=== PATIENT | male | born 1945 | race African-American/Black ===

== ENCOUNTER 2017-08-22 23:13 | Inpatient (IN) | payer MEDICARE, MEDICAID ==
[2017-08-22] MEDS ORDERED: Insulin Regular 100 units/100 ml in NS IVPB SCH (23:45)
[2017-08-22] MEDS ORDERED: Labetalol HCl 100 MG/20 ML VIAL ONE (23:48)
[2017-08-23] MEDS ORDERED: hydrALAZINE 20 MG/ML VIAL ONE (01:43)
[2017-08-23] MEDS ORDERED: Ondansetron HCl/PF 4 MG/2 ML Vial IVP PRN ×2 (02:13→08:46)
[2017-08-23] MEDS ORDERED: Sodium Chloride 0.9% 1,000 ML IV SCH (02:13)
[2017-08-23] MEDS ORDERED: Ondansetron ODT 4 MG TAB SL PRN (02:13)
[2017-08-23] MEDS ORDERED: Dextrose 5% in Water 1,000 ML IV PRN ×2 (02:14→09:59)
[2017-08-23] MEDS ORDERED: D5 1/2 NS w/20 mEq KCL 1,000 ML IV PRN (02:14)
[2017-08-23] MEDS ORDERED: NS 0.9% w/ 20 MEQ KCL 1,000 ML/1,000 ML BAG IV PRN (02:14)
[2017-08-23] MEDS ORDERED: Sodium Chloride 0.9% 1,000 ML IV PRN ×4 (02:14)
[2017-08-23] MEDS ORDERED: Dextrose 5 %-0.45 % NaCl 1,000 ML IV PRN (02:14)
[2017-08-23] MEDS ORDERED: Dextrose 50% Abboject 50 ML SYRINGE SLOW IVP PRN ×2 (02:14→09:59)
[2017-08-23] MEDS ORDERED: CCU ELECTROLYTE REPLACEMENT PROTOCOL FS PRN (02:15)
[2017-08-23] MEDS ORDERED: Potassium Phosphate 12 MMOL in Sodium Chloride 0.9% 250 ML 250 ML IV PRN (02:15)
[2017-08-23] MEDS ORDERED: Magnesium Oxide 400 MG TAB PO PRN ×2 (02:15)
[2017-08-23] MEDS ORDERED: Potassium Chloride 20 MEQ TAB PO PRN (02:15)
[2017-08-23] MEDS ORDERED: Potassium Chloride 40 MEQ in Premix Bag 1 BAG IVPB PRN (02:15)
[2017-08-23] MEDS ORDERED: Potassium Chloride 40 MEQ in Sodium Chloride 0.9% 250 ML 250 ML IVPB PRN (02:15)
[2017-08-23] MEDS ORDERED: Magnesium 2 GM/NS 0.9% 100 ML 2 GM in Premix Bag 1 BAG IVPB PRN (02:15)
[2017-08-23] MEDS ORDERED: ADD ELECTROLYTE REPLACEMENT SET TO PROFILE FS SCH (02:15)
[2017-08-23] MEDS ORDERED: Potassium Phosphate 15 MMOL in Sodium Chloride 0.9% 250 ML 250 ML IV PRN (02:15)
[2017-08-23] MEDS ORDERED: Potassium Phosphate 9 MMOL in Sodium Chloride 0.9% 100 ML IVPB PRN (02:15)
[2017-08-23] MEDS: NS 0.9% w/ 20 MEQ KCL 1,000 ML/1,000 ML BAG IV PRN ×2 (03:10→05:14)
[2017-08-23] MEDS ORDERED: cloNIDine 0.1 MG TAB PO PRN (03:35)
[2017-08-23] MEDS ORDERED: Labetalol HCl 100 MG/20 ML VIAL SLOW IVP PRN (03:36)
[2017-08-23 04:36] LABS: #Eosinphils 0.4 thou/uL (0.0-0.7); #Lymphocytes 2.2 thou/uL (1.20-3.40); #Monocytes 0.5 thou/uL (0.11-0.59); #Neutrophils 5.9 thou/uL (1.40-6.50); %Basophils 0.5 % (0.0-1.0); %Eosinophils 4.3 % (0.0-10.0); %Lymphocytes 24.3 % (21.0-51.0); %Monocytes 5.3 % (0.0-10.0); %Neutrophils 65.6 % (42.0-75.0); Hemoglobin 9.2 g/dL (14.0-18.0); Mean Corpuscular HGB CONC 31.8 g/dL (32.0-36.0); Mean Corpuscular Hemoglobin 21.6 pg (27.0-31.0); Mean Corpuscular Volume 67.7 fl (80.0-94.0); Mean Platelet Volume 9.4 fL (7.4-10.4); Platelet Count 268 thou/uL (130-400); RBC Distribution Width 14.7 % (11.5-14.5); Red Blood Cell (RBC) Count 4.26 mill/uL (4.70-6.10)
[2017-08-23 04:42] LABS: Anion Gap 12 mmol/L (10-20); BUN (Urea Nitrogen) 41 mg/dL (8.4-25.7); Calc. Creatinine Clearance 0 mL/min (70-130); Calcium 8.4 mg/dL (7.8-10.44); Carbon Dioxide 23 mmol/L (23-31); Chloride 102 mmol/L (98-107); Estimated GFR-MDRD 17; Glucose 317 mg/dL (80-115); Potassium 3.5 mmol/L (3.5-5.1); Sodium 133 mmol/L (136-145)
[2017-08-23] MEDS ORDERED: Acetaminophen 325 MG TAB PO PRN (05:39)
[2017-08-23 06:09] VITALS: BMI 29.2
[2017-08-23 06:13] LABS: Hemoglobin A1c 12.3 % (4.0-6.0)
[2017-08-23] MEDS ORDERED: Epoetin (ESRD) 10,000 UNITS/ML VIAL SC SCH (08:45)
[2017-08-23] MEDS ORDERED: Milk Of Magnesia 30 ML UDCUP PO PRN (08:46)
[2017-08-23] MEDS ORDERED: Loperamide HCl 2 MG CAP PO PRN (08:46)
[2017-08-23] MEDS ORDERED: Temazepam 15 MG CAP PO PRN (08:46)
[2017-08-23] MEDS ORDERED: Mag-Al 1200 mg/1200 mg/30 ML UDCUP PO PRN (08:46)
[2017-08-23] MEDS ORDERED: Artificial Tears 18 DROP/0.9 ML EA EYE PRN (08:46)
[2017-08-23] MEDS ORDERED: Sodium Chloride 0.65% Nasal 44 ML BOT EA NARE PRN (08:46)
[2017-08-23] MEDS ORDERED: Eucerin (Mineral Oil/Petrolatum,White) 30 gm Jar TOP PRN (08:46)
[2017-08-23] MEDS ORDERED: Ondansetron ODT 4 MG TAB PO PRN (08:46)
[2017-08-23] MEDS ORDERED: hydrALAZINE 20 MG/ML VIAL SLOW IVP PRN (08:46)
[2017-08-23] MEDS ORDERED: Senokot 8.6 MG TAB PO PRN (08:46)
[2017-08-23] MEDS ORDERED: Chloraseptic Spray 180 ml Bottle PO PRN (08:46)
[2017-08-23] MEDS ORDERED: Diabetic Tussin 200 MG/10 ML UDCUP PO PRN (08:46)
[2017-08-23] MEDS ORDERED: Loratadine 10 MG TAB PO PRN (08:46)
[2017-08-23] MEDS ORDERED: Famotidine 40 MG/4 ML VIAL SLOW IVP SCH (09:00)
[2017-08-23] MEDS: hydrALAZINE 25 MG TAB PO SCH ×3 (09:45→20:14)
[2017-08-23] MEDS: NIFEdipine XL 30 MG TAB PO SCH (09:45)
[2017-08-23] MEDS: Metoprolol Tartrate 50 MG TAB PO SCH ×2 (09:46→20:13)
[2017-08-23] MEDS: Gabapentin 100 MG CAP PO SCH ×3 (09:46→20:14)
[2017-08-23] MEDS: Heparin 5,000 UNITS/ML VIAL SC SCH ×3 (09:46→20:15)
--- NOTE | 2017-08-23 09:51 | ULT ---
RENAL ULTRASOUND: HISTORY: Acute renal insufficiency. FINDINGS: Real-time images of the right and left kidneys were performed. The right kidney measures 12.5 and th e left kidney 11.5 cm in size. Bilateral renal cysts are identified. The largest cyst on the right side measures 3.4 cm. On the left side, a solitary 1.6 x 1.8 cm cyst is identified. Both kidneys ar e of increased echogenicity. Bladder region appears unremarkable. Bilateral ureteral jets are noted . IMPRESSION: 1. Bilateral renal cysts. 2. Increased echogenicity to both kidneys suggesting underlying medical renal parenchymal disease. No obstruction. POS: [facility]
[2017-08-23] MEDS ORDERED: Insulin Regular 300 UNITS/3 ML VIAL SC PRN ×2 (09:59)
[2017-08-23] MEDS ORDERED: Insulin NPH/Reg Insulin Hm 300 UNITS/3 ML VIAL SC SCH ×2 (10:00→17:00)
[2017-08-23 11:41] LABS: Bilirubin Negative (Negative); Blood, Urine Moderate (Negative); Clarity CLEAR (Clear); Glucose, Urine (Dipstick) 500 mg/dL (Negative); Leukocyte Negative (Negative); Nitrite Negative (Negative); Protein, Urine (Dipstick) 300 mg/dL (Neg-Trace); Specific Gravity, Urine 1.012 (1.002-1.036); Urobilinogen 0.2 mg/dL (0.2-1.0); pH, Urine 6.5 (5.0-9.0)
[2017-08-23 11:43] LABS: Bacteria/HPF None Seen HPF (None Seen); Hyaline Casts/LPF 0-3 HYALINE CAST LPF (0-3 Hyaline); Pathc Cast-AUWi Flag 0.14 (0-2.49); Squamous Epithelial None Seen HPF (0-3); WBC/HPF 0-3 HPF (0-3)
[2017-08-23] MEDS: HYDROcodone/Acetaminophen 5/325 mg Tablet PO PRN (11:48)
--- NOTE | 2017-08-23 12:06 | HP ---
PRIMARY CARE PHYSICIAN: In [place]. CHIEF COMPLAINT: Left hand discoordination. HISTORY OF PRESENT ILLNESS: This is a 72-year-old male with a known history of hypertension, diabetes, intermittent medication noncompliance who initially presented with a complaint of having trouble with left hand coordination. The patient also states that he came in because his blood sugars have been high for the last several days and his brought him initially to the ER at [facility] where he was subsequently transferred to our facility. In the [facility] emergency department, he is found to have hyperglycemia with glucose over 700 along with acute on chronic renal disease with a creatinine of 4.9. He was started on an insulin drip with IV fluids as well and at the time of my evaluation states that his left hand symptoms are significantly improved. Of note, the patient is a very tangential historian and often provides answers that do not directly address a question. REVIEW OF SYSTEMS: As per HPI. Constitutional: Patient denies any recent significant weight changes. Denies any fevers or chills. Denies any known recent illnesses. HEENT: Denies any new headaches, vision changes. He states his speech is grossly at his baseline. Denies any episodes of lightheadedness or dizziness. Cardiovascular: Denies any chest pain, chest pressure or palpitations. Respiratory: Endorses some dyspnea with exertion, but no shortness of breath at rest. No cough. No recent upper respiratory issues in the last 2-4 weeks. Denies any issues with congestion or allergies. Gastrointestinal: Denies any nausea, vomiting, abdominal pain, diarrhea or constipation. Reports a retained appetite. Does state that he has been drinking a lot more soda lately and he wonders if that is what is making him "feel bad." Genitourinary: Patient denies noticing any change in his urine color, quantity or odor, but he does notice that he has been urinating more frequently in the last week or so. Denies any increased thirst. Musculoskeletal: Denies any new myalgias or arthralgias, but there is a comment that he does not feel as "stable" as he usually is and also that he is not as strong as he usually feels that he is. Remainder the review of systems is otherwise, negative. PAST MEDICAL HISTORY: As per above. 1. Hypertension. 2. Insulin-dependent type 2 diabetes. 3. Chronic renal disease. PAST SURGICAL HISTORY: Status post back surgery for chronic lower back pain. No other prior surgeries. HOME MEDICATIONS: Awaiting to confirm a list from the patient's pharmacy as the patient does not recall any of his medications either name nor dose. He is able to recall that he does take some type of injectable insulin, but he knows no further details. FAMILY HISTORY: Patient denies any family history of cardiovascular disease; however, he does have some family members to have diabetes and hypertension. SOCIAL HISTIROY: The patient states that he has quit alcohol use. His last drink was 04/15/2017. The patient states that he quit smoking about 17 years ago and has a prior history of cocaine use, but none in the last 30 years. Patient indicates that his would be his medical decision maker if he is unable to make his own medical decision and he wishes to be FULL CODE at this point in time. 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 PHYSICAL EXAMINATION: GENERAL: The patient is awake, alert, appropriate, oriented x3, conversant, in no acute distress, sitting in the hospital bed. HEENT: Normocephalic, atraumatic. Moist mucous membranes. No posterior oropharyngeal erythema or exudate. Equal ocular motions are intact. CARDIOVASCULAR: Soft heart tones. S1, S2. Pulses 2+ bilateral upper extremities, no pitting pedal edema. RESPIRATORY: Reasonable air movement. No conversational dyspnea. No wheezes, rales or rhonchi. Clear to auscultation bilaterally. ABDOMEN: Positive bowel sounds, soft, nontender to palpation. MUSCULOSKELETAL: Able to move all 4 extremities and get up out of bed without difficulty or assistance. LABORATORY DATA AND IMAGING: WBC 9.0, hemoglobin 9.2, hematocrit 28.8, platelets 268. Sodium 133, potassium 3.5, chloride 102, bicarbonate 23, BUN 41 , creatinine 4.16, glucose 317, calcium 8.4, phosphorus 2.9. ASSESSMENT AND PLAN: A 72-year-old male who presents with an initial chief complaint of left upper extremity coordination issues. 1. Left upper extremity coordination issues, currently significantly improved, unclear actual etiology. Patient did have a brain CT scan completed in [place] demonstrates no acute intracranial finding. Continue to monitor neurologically. The patient states that he feels close to how he has been feeling in the last few weeks. 2. Hyperglycemia. Check his hemoglobin A1c. The patient does have significant hyperglycemia, unknown his actual home insulin dose. We will initiate an insulin drip for glucose control. The patient does not appear to be overtly acidotic at this point in time. We will continue to monitor. Patient has a pending beta hydroxybutyrate as well. Also, of note, the patient initially presented with glucose of 782 in [place], was started on the insulin drip in that emergency department continued in 2 hours with a significantly improved glucose values in the 300s. Transition to the patient's home regimen once that is determined. 3. Acute on chronic renal disease. The patient is presenting with a creatinine of 4.94 in [place] with hydration did slightly improve to 4.16. Last known creatinine range appears to be approximately from 3.3-3.8. Will obtain a renal ultrasound and Nephrology consultation. Continue with IV fluids. Suspect could have a component of prerenal cause of acute kidney injury. 4. Hypertension, currently appears to be stable. There was a concern of hypertensive urgency initially with a systolic blood pressure of 193 over diastolic of 83 in the emergency department, the patient is pending a review of his home medications with pharmacy. In the meantime, we will apply p.r.n. medications including p.r.n. hydralazine. Heart rate is low versus labetalol IV or clonidine p.o. and continue to closely monitor. 5. Diet: Diabetic. 6. Activity: As tolerated. 7. DVT prophylaxis with heparin secondary to renal dysfunction. Admit the patient to IMCU. Once his serum blood glucose is improved and his hypertensive emergency is resolved, then he may transfer to telemetry. [facility]
--- NOTE | 2017-08-23 12:28 | PDOC.PN ---
- Subjective Encounter Start Date: 08/23/17 Encounter Start Time: 08:40 -: old records requested/rev Patient seen and examined. No new complaints. No overnight events - Objective Resuscitation Status: Resuscitation Status FULL:Full Resuscitation MAR Reviewed: Yes Vital Signs & Weight: Vital Signs (12 hours) Temp Pulse Resp BP BP Pulse Ox 08/23/17 11:40 99.1 F 82 11 L 167/71 H 100 08/23/17 09:45 78 168/82 H 08/23/17 08:06 98.4 F 78 17 155/75 H 100 08/23/17 08:00 98.4 F 78 18 100 08/23/17 04:35 162/67 H 08/23/17 04:08 193/83 H 08/23/17 04:00 98.0 F 75 18 195/87 H 99 08/23/17 02:00 99 F 83 18 100 Weight Weight 198 lb 6 oz I&O: 08/22/17 08/23/17 08/24/17 06:59 06:59 06:59 Intake Total 1500 1710 Output Total 450 1925 Balance 1050 -215 Result Diagrams: 08/23/17 03:58 08/23/17 03:58 Additional Labs: Accuchecks 08/23/17 08/23/17 08/23/17 12:00 11:20 10:01 POC Glucose 294 H 285 H 208 H 08/23/17 08/23/17 08/23/17 08:57 08:28 07:11 POC Glucose 191 H 195 H 191 H 08/23/17 08/23/17 08/23/17 05:59 05:12 04:09 POC Glucose 253 H 242 H 295 H 08/23/17 08/23/17 08/23/17 03:03 01:49 00:51 POC Glucose 355 H 390 H 387 H Radiology Reviewed by me: Yes EKG Reviewed by me: Yes Phys Exam - Physical Examination Constitutional: NAD HEENT: PERRLA, moist MMs, sclera anicteric Neck: no JVD, supple Respiratory: no wheezing, no rales, no rhonchi Cardiovascular: RRR, no significant murmur, no rub Gastrointestinal: soft, non-tender, no distention, positive bowel sounds Musculoskeletal: pulses present, edema present Neurological: non-focal, normal sensation Psychiatric: normal affect, A&O x 3 Skin: no rash, normal turgor Dx/Plan (1) Hyperglycemia due to type 2 diabetes mellitus Code(s): E11.65 - TYPE 2 DIABETES MELLITUS WITH HYPERGLYCEMIA Status: Acute (2) Hypertensive urgency Code(s): I16.0 - HYPERTENSIVE URGENCY Status: Acute (3) Anxiety and depression Code(s): F41.9 - ANXIETY DISORDER, UNSPECIFIED; F32.9 - MAJOR DEPRESSIVE DISORDER, SINGLE EPISODE, UNSPECIFIED Status: Chronic (4) BPH (benign prostatic hyperplasia) Code(s): N40.0 - BENIGN PROSTATIC HYPERPLASIA WITHOUT LOWER URINRY TRACT SYMP Status: Chronic (5) Chronic kidney disease, stage 4 (severe) Code(s): N18.4 - CHRONIC KIDNEY DISEASE, STAGE 4 (SEVERE) Status: Chronic (6) DJD (degenerative joint disease) Code(s): M19.90 - UNSPECIFIED OSTEOARTHRITIS, UNSPECIFIED SITE Status: Chronic (7) Diabetes mellitus type 2, uncontrolled Code(s): E11.65 - TYPE 2 DIABETES MELLITUS WITH HYPERGLYCEMIA Status: Chronic (8) Diabetic nephropathy Status: Chronic (9) Diabetic neuropathy Code(s): E11.40 - TYPE 2 DIABETES MELLITUS WITH DIABETIC NEUROPATHY, UNSP Status: Chronic (10) GERD (gastroesophageal reflux disease) Code(s): K21.9 - GASTRO-ESOPHAGEAL REFLUX DISEASE WITHOUT ESOPHAGITIS Status: Chronic (11) Hypertension Code(s): I10 - ESSENTIAL (PRIMARY) HYPERTENSION Status: Chronic (12) Iron deficiency anemia Code(s): D50.9 - IRON DEFICIENCY ANEMIA, UNSPECIFIED Status: Chronic (13) Nephrotic range proteinuria Code(s): R80.9 - PROTEINURIA, UNSPECIFIED Status: Chronic - Plan cont current plan of care * start insulin 70/30, 15 unit sc bid * dc insulin drip * transfer to medical * start selected home medication * start PT * repeat labs tomorrow * start ferrous sulfate, procrit, * check phosphorus, PTH * medication reviewed as below * symptomatic treatment. Review of Systems - Review of Systems Eyes: negative: Pain, Vision Change, Conjunctivae Inflammation, Eyelid Inflammation, Redness, Other ENT: negative: Ear Pain, Ear Discharge, Nose Pain, Nose Discharge, Nose Congestion, Mouth Pain, Mouth Swelling, Throat Pain, Throat Swelling, Other Respiratory: negative: Cough, Dry, Shortness of Breath, Hemoptysis, SOB with Excertion, Pleuritic Pain, Sputum, Wheezing Cardiovascular: negative: chest pain, palpitations, orthopnea, paroxysmal nocturnal dyspnea, edema, light headedness, other Gastrointestinal: negative: Nausea, Vomiting, Abdominal Pain, Diarrhea, Constipation, Melena, Hematochezia, Other Genitourinary: negative: Dysuria, Frequency, Incontinence, Hematuria, Retention , Other Musculoskeletal: negative: Neck Pain, Shoulder Pain, Arm Pain, Back Pain, Hand Pain, Leg Pain, Foot Pain, Other Skin: negative: Rash, Lesions, Samm, Bruising, Other - Medications/Allergies Allergies/Adverse Reactions: Allergies Allergy/AdvReac Type Severity Reaction Status Date / Time No Known Allergies Allergy Verified 08/23/17 06:00 Medications: Current Medications Acetaminophen (Tylenol) 650 mg PO Q4H PRN PRN Reason: Headache/Fever or Pain Hydrocodone Bitart/Acetaminophen ([place] 5/325) 1 tab PO Q4H PRN PRN Reason: Moderate Pain (4-6) Last Admin: 08/23/17 11:48 Dose: 1 tab Hydrocodone Bitart/Acetaminophen ([place] 10/325) 1 tab PO Q4H PRN PRN Reason: Pain Al Hydroxide/Mg Hydroxide (Maalox) 15 ml PO Q4H PRN PRN Reason: Heartburn or Indigestion Artificial Tears (Tears Naturale) 0 drop EA EYE PRN PRN PRN Reason: Dry Eyes Clonidine (Catapres) 0.1 mg PO Q4H PRN PRN Reason: Hypertension Last Admin: 08/23/17 04:08 Dose: 0.1 mg Dextrose/Water (Dextrose 50%) 25 gm SLOW IVP PRN PRN PRN Reason: Hypoglycemia Fentanyl (Duragesic) 12 mcg TD Q3D [facility] Last Admin: 08/23/17 11:52 Dose: Not Given Ferrous Sulfate (Feosol) [facility] Gabapentin (Neurontin) 100 mg PO TID [facility] Last Admin: 08/23/17 09:46 Dose: 100 mg Glucagon (Glucagon) 1 mg IM PRN PRN PRN Reason: Hypoglycemia Guaifenesin (Robitussin Sf) 200 mg PO Q4H PRN PRN Reason: Cough Heparin Sodium (Porcine) (Heparin) 5,000 units SC TID [facility] Last Admin: 08/23/17 09:46 Dose: 5,000 units Hydralazine HCl (Apresoline) 25 mg PO TID [facility] Last Admin: 08/23/17 09:45 Dose: 25 mg Hydralazine HCl (Apresoline) 10 mg SLOW IVP Q4H PRN PRN Reason: Systolic BP > 180 Dextrose/Water (D5w) 1,000 mls @ 0 mls/hr IV .Q0M PRN; As Directed PRN Reason: Hypoglycemia Insulin Human Isoph/Insulin Regular (Humulin 70/30) 15 units SC BID-[facility] Insulin Human Regular (Humulin R) 0 units SC .MODERATE SLIDING SC PRN PRN Reason: Moderate Correctional Scale Insulin Human Regular (Humulin R) 0 units SC .BEDTIME SLIDING SC PRN PRN Reason: Bedtime Correctional Scale Labetalol HCl (Normodyne) 10 mg SLOW IVP Q4H PRN PRN Reason: SBP Greater Than 180 Loperamide HCl (Imodium) 2 mg PO PRN PRN PRN Reason: Diarrhea/Loose Stools Loratadine (Claritin) 10 mg PO DAILYPRN PRN PRN Reason: Sinus Symptoms Magnesium Hydroxide (Milk Of Magnesium) 30 ml PO DAILYPRN PRN PRN Reason: Constipation Metoprolol Tartrate (Lopressor) 50 mg PO BID [facility] Last Admin: 08/23/17 09:46 Dose: 50 mg Mineral Oil/White Petrolatum (Eucerin Cream) 0 gm TOP BIDPRN PRN PRN Reason: Dry Skin Nifedipine (Procardia Xl) 30 mg PO DAILY [facility] Last Admin: 08/23/17 09:45 Dose: 30 mg Ondansetron HCl (Zofran Odt) 4 mg PO Q6H PRN PRN Reason: Nausea/Vomiting Ondansetron HCl (Zofran) 4 mg IVP Q6H PRN PRN Reason: Nausea/Vomiting Pantoprazole Sodium (Protonix) 40 mg PO DAILY [facility] Last Admin: 08/23/17 09:44 Dose: 40 mg Phenol (Chloraseptic [place] 180 Ml Bot) 0 ml PO PRN PRN PRN Reason: Sore Throat Senna (Senokot) 2 tab PO HSPRN PRN PRN Reason: Constipation Sertraline HCl (Zoloft) 50 mg PO DAILY [facility] Last Admin: 08/23/17 09:44 Dose: 50 mg Sodium Chloride (Flush - Normal Saline) 10 ml IVF Q12HR [facility] Last Admin: 08/23/17 09:45 Dose: 10 ml Sodium Chloride ([place] Nasal [place] 0.65%) 0 ml EA NARE QIDPRN PRN PRN Reason: Nasal Congestion Temazepam (Restoril) 15 mg PO HSPRN PRN PRN Reason: Insomnia Tizanidine HCl (Zanaflex) 4 mg PO HS [facility]
[2017-08-23] MEDS: Ferrous Sulfate 325 MG TAB PO SCH (17:08)
[2017-08-23] MEDS ORDERED: Lisinopril 20 MG TAB PO SCH (18:45)
[2017-08-23] MEDS: HYDROcodone/Acetaminophen 10/325 mg Tablet PO PRN (20:19)
[2017-08-23] MEDS: tiZANidine HCl 4 MG TAB PO SCH (22:12)
--- NOTE | 2017-08-24 03:08 | CON ---
DATE OF CONSULTATION: 08/23/2017 CONSULTING PHYSICIAN: Rigo Nunez MD REQUESTING PHYSICIAN: Kerry Lewis MD REASON FOR CONSULTATION: Advanced chronic kidney disease. IMPRESSION: 1. Advanced chronic kidney disease, stage 4/5 in the context of problem #2. 2. Diabetic nephropathy with nephrotic range proteinuria. 3. Anemia, likely anemia of chronic kidney disease. 4. Diabetes mellitus, likely poorly controlled. PLAN: 1. Ultrasound vein mapping for placement of fistula for possible eventual need of dialysis in the ne ar future. 2. Renally dose all medications for low GFR. 3. Avoid potentially nephrotoxic agents. 4. We will initiate low dose angiotensin converting enzyme inhibition because of the degree of prote inuria in this patient, but will pay very close attention to the electrolytes, especially the potassi um. 5. Further management will be dependent on the clinical course, but there is no emergent indication at this point for renal replacement therapy (dialysis). HISTORY OF PRESENT ILLNESS: This is a 72-year-old gentleman with poorly controlled diabetes who pres ented here with complaint of arm discomfort. However, the patient was noted to be severely hyperglyc emic with blood sugar in the 200-300 range, necessitating initial admission of this patient on insuli n drip. Clinical evaluation did reveal evidence of advanced chronic kidney disease with creatinine a wagner 4 and ultrasound of the kidneys highly indicative of medical renal disease with bilateral echoge gillian kidneys. As a result of this, the decision is now being taken to involve renal in the management of this case. PAST MEDICAL HISTORY: Diabetes mellitus, poorly controlled; hypertension; chronic kidney disease, st age 6. MEDICATIONS: Medications have been reviewed and as documented on [facility]. FAMILY HISTORY: No family history of kidney disease. SOCIAL HISTORY: Remote tobacco use and substance abuse in the past with about 30 years ago. Otherwi se, unremarkable. REVIEW OF SYSTEMS: As documented in the body of the history. All the other systems were reviewed an d found not to be significantly related to the presenting illness. PHYSICAL EXAMINATION: GENERAL: The patient was found not to be in any obvious distress. VITAL SIGNS: Noted to be with following vital signs, afebrile, temperature 97.6, pulse 55, respirato ry 16, O2 sat 95% with blood pressure 117/73. HEENT: Unremarkable. Moist oral mucosa. NECK: Supple. No conjunctival injection or icterus. CARDIOVASCULAR SYSTEM: First and second heart sounds were heard. RESPIRATORY SYSTEM: Clear to auscultation. DIGESTIVE SYSTEM: Revealed a benign abdomen with positive bowel sounds. EXTREMITIES: No peripheral edema. SKIN: No new gross rash. LYMPHATICS: No peripheral lymphadenopathy. SUMMARY: A 72-year-old gentleman with advanced chronic kidney disease in the context of diabetic nep hropathy. Thank you for this consultation. We will follow with you.
[2017-08-24 05:23] LABS: #Basophils 0.1 thou/uL (0.0-0.2); #Eosinphils 0.3 thou/uL (0.0-0.7); #Lymphocytes 2.7 thou/uL (1.20-3.40); #Monocytes 0.4 thou/uL (0.11-0.59); %Basophils 1.2 % (0.0-1.0); %Eosinophils 3.8 % (0.0-10.0); %Lymphocytes 36.2 % (21.0-51.0); %Monocytes 5.1 % (0.0-10.0); %Neutrophils 53.8 % (42.0-75.0); Hemoglobin 8.9 g/dL (14.0-18.0); Mean Corpuscular HGB CONC 31.9 g/dL (32.0-36.0); Mean Corpuscular Hemoglobin 21.9 pg (27.0-31.0); Mean Corpuscular Volume 68.7 fl (80.0-94.0); Mean Platelet Volume 9.6 fL (7.4-10.4); Platelet Count 243 thou/uL (130-400); RBC Distribution Width 14.9 % (11.5-14.5); Red Blood Cell (RBC) Count 4.08 mill/uL (4.70-6.10); White Blood Cell (WBC) Count 7.3 thou/uL (4.8-10.8)
[2017-08-24 05:36] LABS: ALT (SGPT) 9 U/L (8-55); AST (SGOT) 13 U/L (5-34); Albumin 2.8 g/dL (3.4-4.8); Alkaline Phosphatase 106 U/L (40-150); Anion Gap 12 mmol/L (10-20); BUN (Urea Nitrogen) 35 mg/dL (8.4-25.7); Bilirubin, Total 0.3 mg/dL (0.2-1.2); Calc. Creatinine Clearance 22 mL/min (70-130); Calcium 8.2 mg/dL (7.8-10.44); Carbon Dioxide 23 mmol/L (23-31); Chloride 107 mmol/L (98-107); Estimated GFR-MDRD 18; Globulin 3.6 g/dL (2.4-3.5); Glucose 160 mg/dL (80-115); Potassium 3.9 mmol/L (3.5-5.1); Protein, Total 6.4 g/dL (5.8-8.1); Sodium 138 mmol/L (136-145)
[2017-08-24] MEDS: Lisinopril 20 MG TAB PO SCH (09:19)
[2017-08-24] MEDS: HYDROcodone/Acetaminophen 10/325 mg Tablet PO PRN ×2 (09:19→21:46)
[2017-08-24] MEDS: hydrALAZINE 25 MG TAB PO SCH ×3 (09:20→21:38)
[2017-08-24] MEDS: Metoprolol Tartrate 50 MG TAB PO SCH ×2 (09:20→21:38)
[2017-08-24] MEDS: NIFEdipine XL 30 MG TAB PO SCH (09:20)
[2017-08-24] MEDS: Insulin NPH/Reg Insulin Hm 300 UNITS/3 ML VIAL SC SCH ×2 (09:21→17:41)
[2017-08-24] MEDS: Gabapentin 100 MG CAP PO SCH ×3 (09:21→21:37)
[2017-08-24] MEDS: Heparin 5,000 UNITS/ML VIAL SC SCH ×3 (09:21→21:38)
[2017-08-24] MEDS: Ferrous Sulfate 325 MG TAB PO SCH ×2 (09:21→17:40)
--- NOTE | 2017-08-24 09:56 | PDOC.PN ---
- Subjective Encounter Start Date: 08/24/17 Encounter Start Time: 07:50 Patient seen and examined for kidney failure. No new complaints. No overnight events - Objective Resuscitation Status: Resuscitation Status FULL:Full Resuscitation MAR Reviewed: Yes Vital Signs & Weight: Vital Signs (12 hours) Temp Pulse Resp BP BP Pulse Ox 08/24/17 09:20 67 185/80 H 08/24/17 09:19 185/80 H 08/24/17 08:05 98.2 F 67 16 185/80 H 95 08/24/17 04:00 98.3 F 58 L 18 144/74 H 93 L 08/24/17 00:00 98.3 F 65 18 105/67 95 Weight Weight 198 lb 6 oz I&O: 08/23/17 08/24/17 08/25/17 06:59 06:59 06:59 Intake Total 1500 1950 Output Total 450 2250 Balance 1050 -300 Result Diagrams: 08/24/17 04:11 08/24/17 04:11 Additional Labs: Accuchecks 08/24/17 08/24/17 08/24/17 08:09 04:30 00:02 POC Glucose 246 H 174 H 274 H 08/23/17 08/23/17 08/23/17 20:52 16:27 13:23 POC Glucose 301 H 277 H 309 H 08/23/17 08/23/17 08/23/17 12:00 11:20 10:01 POC Glucose 294 H 285 H 208 H Phys Exam - Physical Examination Constitutional: NAD HEENT: PERRLA, moist MMs, sclera anicteric Neck: no JVD, supple Respiratory: no wheezing, no rales, no rhonchi Cardiovascular: RRR, no significant murmur, no rub Gastrointestinal: soft, non-tender, no distention, positive bowel sounds Musculoskeletal: edema present Neurological: non-focal, normal sensation Psychiatric: normal affect Skin: no rash, normal turgor Dx/Plan (1) Hyperglycemia due to type 2 diabetes mellitus Code(s): E11.65 - TYPE 2 DIABETES MELLITUS WITH HYPERGLYCEMIA Status: Acute (2) Hypertensive urgency Code(s): I16.0 - HYPERTENSIVE URGENCY Status: Acute (3) Anxiety and depression Code(s): F41.9 - ANXIETY DISORDER, UNSPECIFIED; F32.9 - MAJOR DEPRESSIVE DISORDER, SINGLE EPISODE, UNSPECIFIED Status: Chronic (4) BPH (benign prostatic hyperplasia) Code(s): N40.0 - BENIGN PROSTATIC HYPERPLASIA WITHOUT LOWER URINRY TRACT SYMP Status: Chronic (5) Chronic kidney disease, stage 4 (severe) Code(s): N18.4 - CHRONIC KIDNEY DISEASE, STAGE 4 (SEVERE) Status: Chronic (6) DJD (degenerative joint disease) Code(s): M19.90 - UNSPECIFIED OSTEOARTHRITIS, UNSPECIFIED SITE Status: Chronic (7) Diabetes mellitus type 2, uncontrolled Code(s): E11.65 - TYPE 2 DIABETES MELLITUS WITH HYPERGLYCEMIA Status: Chronic (8) Diabetic nephropathy Status: Chronic (9) Diabetic neuropathy Code(s): E11.40 - TYPE 2 DIABETES MELLITUS WITH DIABETIC NEUROPATHY, UNSP Status: Chronic (10) GERD (gastroesophageal reflux disease) Code(s): K21.9 - GASTRO-ESOPHAGEAL REFLUX DISEASE WITHOUT ESOPHAGITIS Status: Chronic (11) Hypertension Code(s): I10 - ESSENTIAL (PRIMARY) HYPERTENSION Status: Chronic (12) Iron deficiency anemia Code(s): D50.9 - IRON DEFICIENCY ANEMIA, UNSPECIFIED Status: Chronic (13) Nephrotic range proteinuria Code(s): R80.9 - PROTEINURIA, UNSPECIFIED Status: Chronic - Plan cont current plan of care * today US for venous mapping * he will need AVF so in near future HD can be started * medication reviewed as below * symptomatic treatment * increase insulin 70/30, 20 unit sc bid. Review of Systems - Review of Systems Eyes: negative: Pain, Vision Change, Conjunctivae Inflammation, Eyelid Inflammation, Redness, Other ENT: negative: Ear Pain, Ear Discharge, Nose Pain, Nose Discharge, Nose Congestion, Mouth Pain, Mouth Swelling, Throat Pain, Throat Swelling, Other Respiratory: negative: Cough, Dry, Shortness of Breath, Hemoptysis, SOB with Excertion, Pleuritic Pain, Sputum, Wheezing Cardiovascular: edema. negative: chest pain, palpitations, orthopnea, paroxysmal nocturnal dyspnea, light headedness, other Gastrointestinal: negative: Nausea, Vomiting, Abdominal Pain, Diarrhea, Constipation, Melena, Hematochezia, Other Genitourinary: negative: Dysuria, Frequency, Incontinence, Hematuria, Retention , Other Musculoskeletal: negative: Neck Pain, Shoulder Pain, Arm Pain, Back Pain, Hand Pain, Leg Pain, Foot Pain, Other Skin: negative: Rash, Lesions, Samm, Bruising, Other - Medications/Allergies Allergies/Adverse Reactions: Allergies Allergy/AdvReac Type Severity Reaction Status Date / Time No Known Allergies Allergy Verified 08/23/17 06:00 Medications: Current Medications Acetaminophen (Tylenol) 650 mg PO Q4H PRN PRN Reason: Headache/Fever or Pain Hydrocodone Bitart/Acetaminophen ([place] 5/325) 1 tab PO Q4H PRN PRN Reason: Moderate Pain (4-6) Last Admin: 08/23/17 11:48 Dose: 1 tab Hydrocodone Bitart/Acetaminophen ([place] 10/325) 1 tab PO Q4H PRN PRN Reason: Pain Last Admin: 08/24/17 09:19 Dose: 1 tab Al Hydroxide/Mg Hydroxide (Maalox) 15 ml PO Q4H PRN PRN Reason: Heartburn or Indigestion Artificial Tears (Tears Naturale) 0 drop EA EYE PRN PRN PRN Reason: Dry Eyes Clonidine (Catapres) 0.1 mg PO Q4H PRN PRN Reason: Hypertension Last Admin: 08/23/17 04:08 Dose: 0.1 mg Dextrose/Water (Dextrose 50%) 25 gm SLOW IVP PRN PRN PRN Reason: Hypoglycemia Fentanyl (Duragesic) 12 mcg TD Q3D [facility] Last Admin: 08/23/17 11:52 Dose: Not Given Ferrous Sulfate (Feosol) 325 mg PO BID-[facility] Last Admin: 08/24/17 09:21 Dose: 325 mg Gabapentin (Neurontin) 100 mg PO TID [facility] Last Admin: 08/24/17 09:21 Dose: 100 mg Glucagon (Glucagon) 1 mg IM PRN PRN PRN Reason: Hypoglycemia Guaifenesin (Robitussin Sf) 200 mg PO Q4H PRN PRN Reason: Cough Heparin Sodium (Porcine) (Heparin) 5,000 units SC TID [facility] Last Admin: 08/24/17 09:21 Dose: Not Given Hydralazine HCl (Apresoline) 25 mg PO TID [facility] Last Admin: 08/24/17 09:20 Dose: 25 mg Hydralazine HCl (Apresoline) 10 mg SLOW IVP Q4H PRN PRN Reason: Systolic BP > 180 Dextrose/Water (D5w) 1,000 mls @ 0 mls/hr IV .Q0M PRN; As Directed PRN Reason: Hypoglycemia Insulin Human Isoph/Insulin Regular (Humulin 70/30) 20 units SC BID-[facility] Last Admin: 08/24/17 09:21 Dose: Not Given Insulin Human Regular (Humulin R) 0 units SC .MODERATE SLIDING SC PRN PRN Reason: Moderate Correctional Scale Insulin Human Regular (Humulin R) 0 units SC .BEDTIME SLIDING SC PRN PRN Reason: Bedtime Correctional Scale Last Admin: 08/23/17 22:24 Dose: 4 unit Labetalol HCl (Normodyne) 10 mg SLOW IVP Q4H PRN PRN Reason: SBP Greater Than 180 Lisinopril (Zestril) 20 mg PO DAILY [facility] Last Admin: 08/24/17 09:19 Dose: 20 mg Loperamide HCl (Imodium) 2 mg PO PRN PRN PRN Reason: Diarrhea/Loose Stools Loratadine (Claritin) 10 mg PO DAILYPRN PRN PRN Reason: Sinus Symptoms Magnesium Hydroxide (Milk Of Magnesium) 30 ml PO DAILYPRN PRN PRN Reason: Constipation Metoprolol Tartrate (Lopressor) 50 mg PO BID [facility] Last Admin: 08/24/17 09:20 Dose: 50 mg Mineral Oil/White Petrolatum (Eucerin Cream) 0 gm TOP BIDPRN PRN PRN Reason: Dry Skin Nifedipine (Procardia Xl) 30 mg PO DAILY [facility] Last Admin: 08/24/17 09:20 Dose: 30 mg Ondansetron HCl (Zofran Odt) 4 mg PO Q6H PRN PRN Reason: Nausea/Vomiting Ondansetron HCl (Zofran) 4 mg IVP Q6H PRN PRN Reason: Nausea/Vomiting Pantoprazole Sodium (Protonix) 40 mg PO DAILY [facility] Last Admin: 08/24/17 09:21 Dose: 40 mg Phenol (Chloraseptic [place] 180 Ml Bot) 0 ml PO PRN PRN PRN Reason: Sore Throat Senna (Senokot) 2 tab PO HSPRN PRN PRN Reason: Constipation Sertraline HCl (Zoloft) 50 mg PO DAILY [facility] Last Admin: 08/24/17 09:20 Dose: 50 mg Sodium Chloride (Flush - Normal Saline) 10 ml IVF Q12HR [facility] Last Admin: 08/24/17 09:21 Dose: 10 ml Sodium Chloride ([place] Nasal [place] 0.65%) 0 ml EA NARE QIDPRN PRN PRN Reason: Nasal Congestion Temazepam (Restoril) 15 mg PO HSPRN PRN PRN Reason: Insomnia Tizanidine HCl (Zanaflex) 4 mg PO [facility] Last Admin: 08/23/17 22:12 Dose: 4 mg
--- NOTE | 2017-08-24 15:44 | ULT ---
BILATERAL UPPER EXTREMITY VENOUS ULTRASOUND: 08/24/17 Veins of both upper extremities evaluated with doppler and compression with vein measurements. INDICATIONS: Assess veins of upper extremities for possible dialysis access graft. RIGHT UPPER EXTREMITY BRACHIAL ARTERY: 4.7 mm RADIAL ARTERY: 2.5 mm ULNAR ARTERY: 1.3 mm CEPHALIC VEIN Axilla: Not seen Proximal humerus: 0.9 mm Mid Humerus: 0.9 mm Distal Humerus: 0.8 mm Elbow: 1.4 mm Mid Forearm: 1.3 mm BASILIC VEIN Axilla: 1.7 mm Proximal humerus: 1.8 mm Mid Humerus: 2.7 mm Distal Humerus: 2.4 mm Elbow: 0.5 mm Mid Forearm: 0.8 mm LEFT UPPER EXTREMITY BRACHIAL ARTERY: 4.9 mm RADIAL ARTERY: 2.0 mm ULNAR ARTERY: 1.6 mm CEPHALIC VEIN Axilla: Not seen Proximal humerus: 0.7 mm Mid Humerus: 0.7 mm Distal Humerus: 0.4 mm Elbow: 0.9 mm Mid Forearm: 0.9 mm BASILIC VEIN Axilla: 1.0 mm Proximal humerus: 0.7 mm Mid Humerus: 1.5 mm Distal Humerus: 1.4 mm Elbow: 1.0 mm Mid Forearm: 0.4 mm POS: [facility]
--- NOTE | 2017-08-24 21:06 | HP ---
HISTORY OF PRESENT ILLNESS: Alban Oshea is a 72-year-old black male, who is admitted this [facility] for end-stage renal disease. White count 7, hemoglobin 8.9, potassium 3.9, BUN 35, creatinine 4.02. GFR 18. Hemoglobin A1c is 12.3. Patient has a history of insulin-dependent diabetes mellitus , and hypertension. He has an IV in his distal right forearm. He has bandages to both antecubital a reas indicative of recent blood draws. He has been seen by Dr. Sierra and I have been asked to s ee him regarding placement of a primary fistula. The patient has refused ultrasound vein mapping wan ting to wait until his is present to assure that he needs to have this done. He states that the re are people all round. There are crooks taking advantage of people. He wants to make sure that th is is not the case. His GFR is 18. Hopefully, we will allow ultrasound vein mapping in this hospita lization prior to discharge, we can establish a fistula. We would avoid IV blood draws, PICC line, s ubclavian lines to optimize dialysis access in the future. ALLERGIES: None. TOBACCO: None. ALCOHOL: None. MEDICATIONS: Tizanidine 4 mg at bedtime, fentanyl patch q. 3 days, sertraline 50 mg daily, metoprolo l 50 mg b.i.d., hydrocodone 10/325 p.r.n. pain, hydralazine 25 t.i.d., Protonix 40 daily, nifedipine, Procardia XL 30 mg daily, lisinopril 20 mg daily, insulin 70/30 of 20 units subcu b.i.d., gabapentin 100 mg t.i.d., and ferrous sulfate 325 mg b.i.d. PAST SURGICAL HISTORY: Upper endoscopy on 11/13/[address] Rocha for a visible vessel duodenal GI bl eeding controlled endoscopically, lumbar surgery. The patient states that he has had a colonoscopy i n the past. PAST MEDICAL HISTORY: Hypertension, insulin-dependent diabetes mellitus type 2, chronic kidney disea se, and depression. SOCIAL HISTORY: Alcohol abuse in the past cessation on 04/15/2017. Tobacco cessation 17 years ago, prior history of cocaine use, but none in the last 30 years. 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 He states that in the past. 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 PHYSICAL EXAMINATION: VITAL SIGNS: 5 feet 9 inches, 180 pounds, 29 BMI, 98.2, 67, 16, and 152/64. HEENT: Unremarkable. LUNGS: Clear to auscultation. CARDIAC: Regular rate and rhythm without murmur or gallop. ABDOMEN: Soft, nontender. Palpable radial pulses. Bandages both antecubital fossae indicative of b lood draws. EXTREMITIES: Unremarkable. Palpable pulses. No visible veins in his arms. ASSESSMENT AND PLAN: 1. Chronic kidney disease. He is approaching need for dialysis in the future, I have been asked by Dr. Sierra to establish dialysis access. Patient refused ultrasound vein mapping. I have asked the nurses to avoid IV access and blood draws above his wrist. We will obtain ultrasound vein mappin g once he gives us permission. We will plan placement of a primary fistula this hospitalization once he discussed this with his and gains her approval and is under her supervision. 2. Type 2 diabetes mellitus, insulin dependent. 3. Hypertension. 4. Depression. 5. Chronic back pain on narcotics and fentanyl patch.
[2017-08-24] MEDS: tiZANidine HCl 4 MG TAB PO SCH (21:39)
--- NOTE | 2017-08-25 00:19 | PRG ---
DATE OF SERVICE: 08/24/2017 SUBJECTIVE: The patient was seen and examined today with no new complaint. The patient seems to alw ays be very philosophical especially when you post some questions to him, he goes on with a lot of ph ilosophical answer. The patient noted with the following vital signs. OBJECTIVE: VITAL SIGNS: Afebrile with temperature 98, pulse 70, respiratory rate of 16, O2 sat of 97% with bloo d pressure 152/64 to 171/76. HEENT: Unremarkable with moist oral mucosa. No conjunctival injection or icterus. NECK: Supple CARDIOVASCULAR SYSTEM: First and second heart sounds were heard. RESPIRATORY SYSTEM: Clear to auscultation. DIGESTIVE SYSTEM: Revealed a benign abdomen with positive bowel sounds. EXTREMITIES: No peripheral edema. SKIN: No new gross rash. LYMPHATICS: No peripheral lymphadenopathy. IMPRESSION: 1. Advanced chronic kidney disease, stage 4/5. 2. Hypertension. PLAN: 1. At this stage of renal dysfunction, the patient needs to have a fistula placed. I have already c onsulted access surgeon to that effect, but there is no indication at this point for any emergent hem odialysis. Therefore, we will avoid tunneled dialysis catheter placement at this point unless until it becomes absolutely needed. Hopefully, by then the fistula must have developed to the point of [facility]. I did spend some time to explain this to the patient. The patient seems to always engage in phi losophical discussions. 2. Further management will be dependent on the clinical course.
[2017-08-25 05:35] LABS: #Eosinphils 0.3 thou/uL (0.0-0.7); #Lymphocytes 2.5 thou/uL (1.20-3.40); #Monocytes 0.5 thou/uL (0.11-0.59); #Neutrophils 3.6 thou/uL (1.40-6.50); %Basophils 0.4 % (0.0-1.0); %Eosinophils 4.5 % (0.0-10.0); %Monocytes 6.5 % (0.0-10.0); %Neutrophils 52.5 % (42.0-75.0); Hemoglobin 9.1 g/dL (14.0-18.0); Mean Corpuscular HGB CONC 31.8 g/dL (32.0-36.0); Mean Corpuscular Hemoglobin 21.7 pg (27.0-31.0); Mean Corpuscular Volume 68.3 fl (80.0-94.0); Mean Platelet Volume 9.3 fL (7.4-10.4); Platelet Count 249 thou/uL (130-400); RBC Distribution Width 15.1 % (11.5-14.5); Red Blood Cell (RBC) Count 4.17 mill/uL (4.70-6.10); White Blood Cell (WBC) Count 6.8 thou/uL (4.8-10.8)
[2017-08-25] MEDS: Lisinopril 20 MG TAB PO SCH (09:20)
[2017-08-25] MEDS: Ferrous Sulfate 325 MG TAB PO SCH ×2 (09:20→17:46)
[2017-08-25] MEDS: NIFEdipine XL 30 MG TAB PO SCH (09:20)
[2017-08-25] MEDS: Heparin 5,000 UNITS/ML VIAL SC SCH ×3 (09:21→21:45)
[2017-08-25] MEDS: Metoprolol Tartrate 50 MG TAB PO SCH ×2 (09:21→21:17)
[2017-08-25] MEDS: Gabapentin 100 MG CAP PO SCH ×3 (09:21→21:16)
[2017-08-25] MEDS: Insulin NPH/Reg Insulin Hm 300 UNITS/3 ML VIAL SC SCH ×2 (09:21→17:48)
[2017-08-25] MEDS: hydrALAZINE 25 MG TAB PO SCH ×3 (09:21→21:16)
[2017-08-25] MEDS: HYDROcodone/Acetaminophen 10/325 mg Tablet PO PRN ×2 (09:30→17:50)
--- NOTE | 2017-08-25 10:41 | PDOC.PN ---
- Subjective Encounter Start Date: 08/25/17 Encounter Start Time: 08:20 Patient seen and examined. No new complaints. No overnight events - Objective Resuscitation Status: Resuscitation Status FULL:Full Resuscitation MAR Reviewed: Yes Vital Signs & Weight: Vital Signs (12 hours) Temp Pulse Resp BP BP Pulse Ox 08/25/17 09:21 66 146/77 H 08/25/17 09:20 66 146/77 H 08/25/17 08:08 98.3 F 66 16 146/77 H 96 08/25/17 08:00 98.3 F 66 16 96 08/25/17 04:00 98.3 F 68 20 119/64 94 L Weight Weight 198 lb 6 oz I&O: 08/24/17 08/25/17 08/26/17 06:59 06:59 06:59 Intake Total 1950 880 240 Output Total 2250 1825 Balance -300 -945 240 Result Diagrams: 08/25/17 04:26 08/24/17 04:11 Additional Labs: Accuchecks 08/25/17 08/25/17 08/24/17 08:11 04:15 16:02 POC Glucose 104 172 H 241 H 08/24/17 11:40 POC Glucose 267 H Phys Exam - Physical Examination Constitutional: NAD HEENT: PERRLA, moist MMs, sclera anicteric Neck: no JVD, supple Respiratory: no wheezing, no rales, no rhonchi Cardiovascular: RRR, no significant murmur, no rub Gastrointestinal: soft, non-tender, no distention, positive bowel sounds Musculoskeletal: pulses present, edema present Neurological: non-focal, normal sensation Lymphatic: no nodes Psychiatric: normal affect, A&O x 3 Skin: no rash, normal turgor Dx/Plan (1) Hyperglycemia due to type 2 diabetes mellitus Code(s): E11.65 - TYPE 2 DIABETES MELLITUS WITH HYPERGLYCEMIA Status: Acute (2) Hypertensive urgency Code(s): I16.0 - HYPERTENSIVE URGENCY Status: Acute (3) Anxiety and depression Code(s): F41.9 - ANXIETY DISORDER, UNSPECIFIED; F32.9 - MAJOR DEPRESSIVE DISORDER, SINGLE EPISODE, UNSPECIFIED Status: Chronic (4) BPH (benign prostatic hyperplasia) Code(s): N40.0 - BENIGN PROSTATIC HYPERPLASIA WITHOUT LOWER URINRY TRACT SYMP Status: Chronic (5) Chronic kidney disease, stage 4 (severe) Code(s): N18.4 - CHRONIC KIDNEY DISEASE, STAGE 4 (SEVERE) Status: Chronic (6) DJD (degenerative joint disease) Code(s): M19.90 - UNSPECIFIED OSTEOARTHRITIS, UNSPECIFIED SITE Status: Chronic (7) Diabetes mellitus type 2, uncontrolled Code(s): E11.65 - TYPE 2 DIABETES MELLITUS WITH HYPERGLYCEMIA Status: Chronic (8) Diabetic nephropathy Status: Chronic (9) Diabetic neuropathy Code(s): E11.40 - TYPE 2 DIABETES MELLITUS WITH DIABETIC NEUROPATHY, UNSP Status: Chronic (10) GERD (gastroesophageal reflux disease) Code(s): K21.9 - GASTRO-ESOPHAGEAL REFLUX DISEASE WITHOUT ESOPHAGITIS Status: Chronic (11) Hypertension Code(s): I10 - ESSENTIAL (PRIMARY) HYPERTENSION Status: Chronic (12) Iron deficiency anemia Code(s): D50.9 - IRON DEFICIENCY ANEMIA, UNSPECIFIED Status: Chronic (13) Nephrotic range proteinuria Code(s): R80.9 - PROTEINURIA, UNSPECIFIED Status: Chronic - Plan cont current plan of care * medication reviewed as below * symptomatic treatment * today venous mapping * await AVF placement * possible discharge tomorrow. Review of Systems - Review of Systems Eyes: negative: Pain, Vision Change, Conjunctivae Inflammation, Eyelid Inflammation, Redness, Other ENT: negative: Ear Pain, Ear Discharge, Nose Pain, Nose Discharge, Nose Congestion, Mouth Pain, Mouth Swelling, Throat Pain, Throat Swelling, Other Respiratory: negative: Cough, Dry, Shortness of Breath, Hemoptysis, SOB with Excertion, Pleuritic Pain, Sputum, Wheezing Cardiovascular: negative: chest pain, palpitations, orthopnea, paroxysmal nocturnal dyspnea, edema, light headedness, other Gastrointestinal: negative: Nausea, Vomiting, Abdominal Pain, Diarrhea, Constipation, Melena, Hematochezia, Other Genitourinary: negative: Dysuria, Frequency, Incontinence, Hematuria, Retention , Other Musculoskeletal: negative: Neck Pain, Shoulder Pain, Arm Pain, Back Pain, Hand Pain, Leg Pain, Foot Pain, Other Skin: negative: Rash, Lesions, Samm, Bruising, Other - Medications/Allergies Allergies/Adverse Reactions: Allergies Allergy/AdvReac Type Severity Reaction Status Date / Time No Known Allergies Allergy Verified 08/23/17 06:00 Medications: Current Medications Acetaminophen (Tylenol) 650 mg PO Q4H PRN PRN Reason: Headache/Fever or Pain Hydrocodone Bitart/Acetaminophen ([place] 5/325) 1 tab PO Q4H PRN PRN Reason: Moderate Pain (4-6) Last Admin: 08/23/17 11:48 Dose: 1 tab Hydrocodone Bitart/Acetaminophen ([place] 10/325) 1 tab PO Q4H PRN PRN Reason: Pain Last Admin: 08/25/17 09:30 Dose: 1 tab Al Hydroxide/Mg Hydroxide (Maalox) 15 ml PO Q4H PRN PRN Reason: Heartburn or Indigestion Artificial Tears (Tears Naturale) 0 drop EA EYE PRN PRN PRN Reason: Dry Eyes Clonidine (Catapres) 0.1 mg PO Q4H PRN PRN Reason: Hypertension Last Admin: 08/23/17 04:08 Dose: 0.1 mg Dextrose/Water (Dextrose 50%) 25 gm SLOW IVP PRN PRN PRN Reason: Hypoglycemia Fentanyl (Duragesic) 12 mcg TD Q3D [facility] Last Admin: 08/23/17 11:52 Dose: Not Given Ferrous Sulfate (Feosol) 325 mg PO BID-[facility] Last Admin: 08/25/17 09:20 Dose: 325 mg Gabapentin (Neurontin) 100 mg PO TID [facility] Last Admin: 08/25/17 09:21 Dose: 100 mg Glucagon (Glucagon) 1 mg IM PRN PRN PRN Reason: Hypoglycemia Guaifenesin (Robitussin Sf) 200 mg PO Q4H PRN PRN Reason: Cough Heparin Sodium (Porcine) (Heparin) 5,000 units SC TID [facility] Last Admin: 08/25/17 09:21 Dose: 5,000 units Hydralazine HCl (Apresoline) 25 mg PO TID [facility] Last Admin: 08/25/17 09:21 Dose: 25 mg Hydralazine HCl (Apresoline) 10 mg SLOW IVP Q4H PRN PRN Reason: Systolic BP > 180 Dextrose/Water (D5w) 1,000 mls @ 0 mls/hr IV .Q0M PRN; As Directed PRN Reason: Hypoglycemia Insulin Human Isoph/Insulin Regular (Humulin 70/30) 20 units SC BID-[facility] Last Admin: 08/25/17 09:21 Dose: Not Given Insulin Human Regular (Humulin R) 0 units SC .MODERATE SLIDING SC PRN PRN Reason: Moderate Correctional Scale Insulin Human Regular (Humulin R) 0 units SC .BEDTIME SLIDING SC PRN PRN Reason: Bedtime Correctional Scale Last Admin: 08/23/17 22:24 Dose: 4 unit Labetalol HCl (Normodyne) 10 mg SLOW IVP Q4H PRN PRN Reason: SBP Greater Than 180 Lisinopril (Zestril) 20 mg PO DAILY [facility] Last Admin: 08/25/17 09:20 Dose: 20 mg Loperamide HCl (Imodium) 2 mg PO PRN PRN PRN Reason: Diarrhea/Loose Stools Loratadine (Claritin) 10 mg PO DAILYPRN PRN PRN Reason: Sinus Symptoms Magnesium Hydroxide (Milk Of Magnesium) 30 ml PO DAILYPRN PRN PRN Reason: Constipation Metoprolol Tartrate (Lopressor) 50 mg PO BID [facility] Last Admin: 08/25/17 09:21 Dose: 50 mg Mineral Oil/White Petrolatum (Eucerin Cream) 0 gm TOP BIDPRN PRN PRN Reason: Dry Skin Nifedipine (Procardia Xl) 30 mg PO DAILY [facility] Last Admin: 08/25/17 09:20 Dose: 30 mg Ondansetron HCl (Zofran Odt) 4 mg PO Q6H PRN PRN Reason: Nausea/Vomiting Ondansetron HCl (Zofran) 4 mg IVP Q6H PRN PRN Reason: Nausea/Vomiting Pantoprazole Sodium (Protonix) 40 mg PO DAILY [facility] Last Admin: 08/25/17 09:20 Dose: 40 mg Phenol (Chloraseptic [place] 180 Ml Bot) 0 ml PO PRN PRN PRN Reason: Sore Throat Senna (Senokot) 2 tab PO HSPRN PRN PRN Reason: Constipation Sertraline HCl (Zoloft) 50 mg PO DAILY [facility] Last Admin: 08/25/17 09:20 Dose: 50 mg Sodium Chloride (Flush - Normal Saline) 10 ml IVF Q12HR [facility] Last Admin: 08/25/17 09:22 Dose: 10 ml Sodium Chloride ([place] Nasal [place] 0.65%) 0 ml EA NARE QIDPRN PRN PRN Reason: Nasal Congestion Temazepam (Restoril) 15 mg PO HSPRN PRN PRN Reason: Insomnia Tizanidine HCl (Zanaflex) 4 mg PO HS [facility] Last Admin: 08/24/17 21:39 Dose: 4 mg
--- NOTE | 2017-08-25 12:36 | PRG ---
DATE OF SERVICE: 08/25/2017 Mr. Oshea is a 72-year-old black male with chronic kidney disease. I have been asked by Dr. Radha damon to see him regarding placement of a dialysis fistula. On physical exam, there are no visibly good veins for use. Ultrasound vein mapping, 08/24/2017, which the patient finally consented to reveals the cephalic vein in the upper arm was not seen well. Proximal humerus 9 mm, mid humerus 9 mm, dista l humerus 8 mm, 1.4 mm at the elbow, mid forearm 1.3 mm, basilic vein 1.7, 1.8, 2.7 mm, 3.4 mm, elbow 0.5 mm. Cephalic vein on the left 0.7, 0.7, 0.4 mm, elbow 0.9 mm, basilic vein 1 mm, 0.7 mm, 1.5 mm , 1.4 mm. It was recommended to the patient that we might explore his right arm for formation of a f istula. Of course, since he is not ready to start dialysis, the prosthetic graft would not be placed if adequate vein is not found. The patient's vein mapping suggests poor veins and it would be unlik castro he would be able to have a [place] vein fistula. Patient in addition states that he needs his arm s for gambling and shooting pool and that he does not want to have surgery and who knows he might not be alive in the next day or two for he does not know what will come of him tomorrow. He is reluctan t to have anything done. Given his poor vein situation for [place] vein fistula, I think it reasonabl e to not do surgery at this time, and then when he needs to have dialysis, we will need to explore hi s arm, place the fistula catheter, and if fistula is not able to be performed due to inadequate veins then he would need a prosthetic graft. I would not place a prosthetic graft at this time, as he may not need dialysis for some time and it is likely this prosthetic graft would be thrombosed by then. At this point, I would recommend no surgical intervention both because of the patient's reluctance an d poor vein availability and that we follow him, and when he is closer to the time of needing dialysi s, he may need a prosthetic graft if a [place] vein fistula cannot be established at that time.
--- NOTE | 2017-08-25 19:36 | PRG ---
DATE OF SERVICE: 08/25/2017 SUBJECTIVE: The patient was seen and examined with no new complaint noted with the following. PHYSICAL EXAMINATION: VITAL SIGNS: Afebrile with temperature 98.1, pulse 78, blood pressure 133/72, respiratory 16, O2 sat uration 95%. HEENT: Unremarkable with moist oral mucosa. NECK: Supple, no conjunctival injection or icterus. CARDIOVASCULAR SYSTEM: First and second heart sounds were heard. RESPIRATORY SYSTEM: Clear to auscultation. DIGESTIVE SYSTEM: Revealed a benign abdomen with positive bowel sounds. EXTREMITIES: No peripheral edema. SKIN: No new gross rash. LYMPHATICS: No peripheral lymphadenopathy. IMPRESSION: 1. Advanced chronic kidney disease stage IV/V. 2. Hypertension, which seems to be suboptimally controlled. 3. Diabetic nephropathy with nephrotic range proteinuria. PLAN: 1. The patient possibly to get a long-term access place in case down the road, the patient requires renal replacement therapy. 2. Further management to be dependent on the clinical course. 3. Increase the nifedipine to 60 mg.
[2017-08-25] MEDS: tiZANidine HCl 4 MG TAB PO SCH (21:35)
[2017-08-26 06:05] LABS: #Basophils 0.1 thou/uL (0.0-0.2); #Eosinphils 0.3 thou/uL (0.0-0.7); #Lymphocytes 1.9 thou/uL (1.20-3.40); #Monocytes 0.5 thou/uL (0.11-0.59); %Basophils 0.8 % (0.0-1.0); %Eosinophils 4.1 % (0.0-10.0); %Monocytes 7.9 % (0.0-10.0); %Neutrophils 59.2 % (42.0-75.0); Hemoglobin 9.5 g/dL (14.0-18.0); Mean Corpuscular HGB CONC 31.4 g/dL (32.0-36.0); Mean Corpuscular Hemoglobin 21.8 pg (27.0-31.0); Mean Corpuscular Volume 69.5 fl (80.0-94.0); Mean Platelet Volume 9.8 fL (7.4-10.4); Platelet Count 249 thou/uL (130-400); RBC Distribution Width 15.4 % (11.5-14.5); Red Blood Cell (RBC) Count 4.34 mill/uL (4.70-6.10); White Blood Cell (WBC) Count 6.7 thou/uL (4.8-10.8)
[2017-08-26 06:18] LABS: Albumin 2.9 g/dL (3.4-4.8); Anion Gap 15 mmol/L (10-20); BUN (Urea Nitrogen) 37 mg/dL (8.4-25.7); BUN/Creatinine Ratio 8.75; Calc. Creatinine Clearance 21 mL/min (70-130); Calcium 8.3 mg/dL (7.8-10.44); Carbon Dioxide 21 mmol/L (23-31); Chloride 105 mmol/L (98-107); Estimated GFR-MDRD 17; Glucose 141 mg/dL (80-115); Phosphorus 4.5 mg/dL (2.3-4.7); Potassium 3.8 mmol/L (3.5-5.1); Sodium 137 mmol/L (136-145)
[2017-08-26] MEDS: hydrALAZINE 25 MG TAB PO SCH ×3 (08:59→21:25)
[2017-08-26] MEDS: NIFEdipine XL 30 MG TAB PO SCH (09:00)
[2017-08-26] MEDS: Gabapentin 100 MG CAP PO SCH ×3 (09:00→21:25)
[2017-08-26] MEDS: Metoprolol Tartrate 50 MG TAB PO SCH ×2 (09:00→21:25)
[2017-08-26] MEDS: Ferrous Sulfate 325 MG TAB PO SCH ×2 (09:00→17:22)
[2017-08-26] MEDS: Lisinopril 20 MG TAB PO SCH (09:00)
[2017-08-26] MEDS: HYDROcodone/Acetaminophen 10/325 mg Tablet PO PRN ×2 (09:04→14:21)
[2017-08-26] MEDS: Heparin 5,000 UNITS/ML VIAL SC SCH ×2 (09:05→21:28)
[2017-08-26] MEDS: Insulin NPH/Reg Insulin Hm 300 UNITS/3 ML VIAL SC SCH ×2 (09:05→17:24)
--- NOTE | 2017-08-26 10:44 | PDOC.PN ---
- Subjective Encounter Start Date: 08/26/17 Encounter Start Time: 07:15 Patient seen and examined for CKD and hyperglycemia. No new complaints. No overnight events - Objective Resuscitation Status: Resuscitation Status FULL:Full Resuscitation MAR Reviewed: Yes Vital Signs & Weight: Vital Signs (12 hours) Temp Pulse Resp BP BP Pulse Ox 08/26/17 09:00 68 175/80 H 08/26/17 08:59 68 175/80 H 08/26/17 08:00 99.0 F 68 16 175/80 H 95 08/26/17 04:01 95 08/26/17 00:00 98.5 F 58 L 20 120/68 95 Weight Weight 198 lb 6 oz I&O: 08/25/17 08/26/17 08/27/17 06:59 06:59 06:59 Intake Total 880 920 Output Total 1825 900 Balance -945 20 Result Diagrams: 08/26/17 04:15 08/26/17 04:15 Additional Labs: Accuchecks 08/26/17 08/26/17 08/25/17 05:39 01:10 19:13 POC Glucose 134 H 116 H 154 H 08/25/17 08/25/17 08/25/17 17:01 11:34 00:01 POC Glucose 142 H 172 H 275 H 08/24/17 19:21 POC Glucose 295 H Phys Exam - Physical Examination Constitutional: NAD HEENT: PERRLA, moist MMs, sclera anicteric Neck: no JVD, supple Respiratory: no wheezing, no rales, no rhonchi Cardiovascular: RRR, no significant murmur, no rub Gastrointestinal: soft, non-tender, no distention, positive bowel sounds Musculoskeletal: pulses present, edema present Neurological: non-focal, normal sensation, moves all 4 limbs Lymphatic: no nodes Psychiatric: normal affect, A&O x 3 Skin: no rash, normal turgor Dx/Plan (1) Hyperglycemia due to type 2 diabetes mellitus Code(s): E11.65 - TYPE 2 DIABETES MELLITUS WITH HYPERGLYCEMIA Status: Acute (2) Hypertensive urgency Code(s): I16.0 - HYPERTENSIVE URGENCY Status: Acute (3) Anxiety and depression Code(s): F41.9 - ANXIETY DISORDER, UNSPECIFIED; F32.9 - MAJOR DEPRESSIVE DISORDER, SINGLE EPISODE, UNSPECIFIED Status: Chronic (4) BPH (benign prostatic hyperplasia) Code(s): N40.0 - BENIGN PROSTATIC HYPERPLASIA WITHOUT LOWER URINRY TRACT SYMP Status: Chronic (5) Chronic kidney disease, stage 4 (severe) Code(s): N18.4 - CHRONIC KIDNEY DISEASE, STAGE 4 (SEVERE) Status: Chronic (6) DJD (degenerative joint disease) Code(s): M19.90 - UNSPECIFIED OSTEOARTHRITIS, UNSPECIFIED SITE Status: Chronic (7) Diabetes mellitus type 2, uncontrolled Code(s): E11.65 - TYPE 2 DIABETES MELLITUS WITH HYPERGLYCEMIA Status: Chronic (8) Diabetic nephropathy Status: Chronic (9) Diabetic neuropathy Code(s): E11.40 - TYPE 2 DIABETES MELLITUS WITH DIABETIC NEUROPATHY, UNSP Status: Chronic (10) GERD (gastroesophageal reflux disease) Code(s): K21.9 - GASTRO-ESOPHAGEAL REFLUX DISEASE WITHOUT ESOPHAGITIS Status: Chronic (11) Hypertension Code(s): I10 - ESSENTIAL (PRIMARY) HYPERTENSION Status: Chronic (12) Iron deficiency anemia Code(s): D50.9 - IRON DEFICIENCY ANEMIA, UNSPECIFIED Status: Chronic (13) Nephrotic range proteinuria Code(s): R80.9 - PROTEINURIA, UNSPECIFIED Status: Chronic - Plan cont current plan of care * pt is planned for AV Fistula tomorrow * pt will be discharged tomorrow * medication reviewed as below * symptomatic treatment. * overall stable medically Review of Systems - Review of Systems Eyes: negative: Pain, Vision Change, Conjunctivae Inflammation, Eyelid Inflammation, Redness, Other ENT: negative: Ear Pain, Ear Discharge, Nose Pain, Nose Discharge, Nose Congestion, Mouth Pain, Mouth Swelling, Throat Pain, Throat Swelling, Other Respiratory: negative: Cough, Dry, Shortness of Breath, Hemoptysis, SOB with Excertion, Pleuritic Pain, Sputum, Wheezing Cardiovascular: negative: chest pain, palpitations, orthopnea, paroxysmal nocturnal dyspnea, edema, light headedness, other Gastrointestinal: negative: Nausea, Vomiting, Abdominal Pain, Diarrhea, Constipation, Melena, Hematochezia, Other Genitourinary: negative: Dysuria, Frequency, Incontinence, Hematuria, Retention , Other Musculoskeletal: negative: Neck Pain, Shoulder Pain, Arm Pain, Back Pain, Hand Pain, Leg Pain, Foot Pain, Other Skin: negative: Rash, Lesions, Samm, Bruising, Other - Medications/Allergies Allergies/Adverse Reactions: Allergies Allergy/AdvReac Type Severity Reaction Status Date / Time No Known Allergies Allergy Verified 08/23/17 06:00 Medications: Current Medications Acetaminophen (Tylenol) 650 mg PO Q4H PRN PRN Reason: Headache/Fever or Pain Hydrocodone Bitart/Acetaminophen ([place] 5/325) 1 tab PO Q4H PRN PRN Reason: Moderate Pain (4-6) Last Admin: 08/23/17 11:48 Dose: 1 tab Hydrocodone Bitart/Acetaminophen ([place] 10/325) 1 tab PO Q4H PRN PRN Reason: Pain Last Admin: 08/26/17 09:04 Dose: 1 tab Al Hydroxide/Mg Hydroxide (Maalox) 15 ml PO Q4H PRN PRN Reason: Heartburn or Indigestion Artificial Tears (Tears Naturale) 0 drop EA EYE PRN PRN PRN Reason: Dry Eyes Clonidine (Catapres) 0.1 mg PO Q4H PRN PRN Reason: Hypertension Last Admin: 08/23/17 04:08 Dose: 0.1 mg Dextrose/Water (Dextrose 50%) 25 gm SLOW IVP PRN PRN PRN Reason: Hypoglycemia Fentanyl (Duragesic) 12 mcg TD Q3D [facility] Last Admin: 08/23/17 11:52 Dose: Not Given Ferrous Sulfate (Feosol) 325 mg PO BID-[facility] Last Admin: 08/26/17 09:00 Dose: 325 mg Gabapentin (Neurontin) 100 mg PO TID [facility] Last Admin: 08/26/17 09:00 Dose: 100 mg Glucagon (Glucagon) 1 mg IM PRN PRN PRN Reason: Hypoglycemia Guaifenesin (Robitussin Sf) 200 mg PO Q4H PRN PRN Reason: Cough Heparin Sodium (Porcine) (Heparin) 5,000 units SC BID [facility] Last Admin: 08/26/17 09:05 Dose: 5,000 units Hydralazine HCl (Apresoline) 25 mg PO TID [facility] Last Admin: 08/26/17 08:59 Dose: 25 mg Hydralazine HCl (Apresoline) 10 mg SLOW IVP Q4H PRN PRN Reason: Systolic BP > 180 Dextrose/Water (D5w) 1,000 mls @ 0 mls/hr IV .Q0M PRN; As Directed PRN Reason: Hypoglycemia Insulin Human Isoph/Insulin Regular (Humulin 70/30) 20 units SC BID-[facility] Last Admin: 08/26/17 09:05 Dose: 20 unit Insulin Human Regular (Humulin R) 0 units SC .MODERATE SLIDING SC PRN PRN Reason: Moderate Correctional Scale Last Admin: 08/25/17 12:32 Dose: 2 unit Insulin Human Regular (Humulin R) 0 units SC .BEDTIME SLIDING SC PRN PRN Reason: Bedtime Correctional Scale Last Admin: 08/23/17 22:24 Dose: 4 unit Labetalol HCl (Normodyne) 10 mg SLOW IVP Q4H PRN PRN Reason: SBP Greater Than 180 Lisinopril (Zestril) 20 mg PO DAILY [facility] Last Admin: 08/26/17 09:00 Dose: 20 mg Loperamide HCl (Imodium) 2 mg PO PRN PRN PRN Reason: Diarrhea/Loose Stools Loratadine (Claritin) 10 mg PO DAILYPRN PRN PRN Reason: Sinus Symptoms Magnesium Hydroxide (Milk Of Magnesium) 30 ml PO DAILYPRN PRN PRN Reason: Constipation Metoprolol Tartrate (Lopressor) 50 mg PO BID [facility] Last Admin: 08/26/17 09:00 Dose: 50 mg Mineral Oil/White Petrolatum (Eucerin Cream) 0 gm TOP BIDPRN PRN PRN Reason: Dry Skin Nifedipine (Procardia Xl) 60 mg PO DAILY [facility] Last Admin: 08/26/17 09:00 Dose: 60 mg Ondansetron HCl (Zofran Odt) 4 mg PO Q6H PRN PRN Reason: Nausea/Vomiting Ondansetron HCl (Zofran) 4 mg IVP Q6H PRN PRN Reason: Nausea/Vomiting Pantoprazole Sodium (Protonix) 40 mg PO DAILY [facility] Last Admin: 08/26/17 09:00 Dose: 40 mg Phenol (Chloraseptic [place] 180 Ml Bot) 0 ml PO PRN PRN PRN Reason: Sore Throat Senna (Senokot) 2 tab PO HSPRN PRN PRN Reason: Constipation Sertraline HCl (Zoloft) 50 mg PO DAILY [facility] Last Admin: 08/26/17 09:00 Dose: 50 mg Sodium Chloride (Flush - Normal Saline) 10 ml IVF Q12HR [facility] Last Admin: 08/26/17 09:03 Dose: Not Given Sodium Chloride ([place] Nasal [place] 0.65%) 0 ml EA NARE QIDPRN PRN PRN Reason: Nasal Congestion Temazepam (Restoril) 15 mg PO HSPRN PRN PRN Reason: Insomnia Tizanidine HCl (Zanaflex) 4 mg PO [facility] Last Admin: 08/25/17 21:35 Dose: 4 mg
[2017-08-26 18:09] LABS: A/G Ratio 0.8 (0.7-1.7); Albumin 2.7 g/dL (2.9-4.4); Alpha 1 0.2 g/dL (0.0-0.4); Alpha 2 0.9 g/dL (0.4-1.0); Beta 0.9 g/dL (0.7-1.3); Gamma 1.6 g/dL (0.4-1.8); Globulin, Total 3.5 g/dL (2.2-3.9); M-Spike Not Observed g/dL (Not Observed)
[2017-08-26] MEDS ORDERED: Lorazepam 2 MG/ML VIAL SLOW IVP SCH (20:15)
[2017-08-26] MEDS: tiZANidine HCl 4 MG TAB PO SCH (21:26)
[2017-08-26] MEDS ORDERED: Haloperidol Lactate 5 MG/ML VIAL SLOW IVP SCH (22:00)
--- NOTE | 2017-08-27 00:33 | PRG ---
DATE OF SERVICE: 08/26/2017 SUBJECTIVE: The patient was seen and examined, he sounded very philosophical as usual, noted with th e following vital signs. OBJECTIVE: VITAL SIGNS: Afebrile with temperature 98.1, pulse 72, respiratory rate 16, blood pressure 147/69, O 2 sat of 94%. HEENT: Unremarkable with moist oral mucosa. NECK: Supple. No conjunctival injection or icterus. CARDIOVASCULAR: First and second heart sounds were heard. RESPIRATORY: Clear to auscultation. DIGESTIVE: Revealed a benign abdomen with positive bowel sounds. EXTREMITIES: No peripheral edema. SKIN: No new gross rash. LYMPHATICS: No peripheral lymphadenopathy. LABORATORY INVESTIGATIONS: Showed hemoglobin 9.5. Chemistry showed a creatinine of 4.23 with BUN of 37. IMPRESSION: Advanced chronic kidney disease, stage 4/5. PLAN: 1. Likely to secure a long-term access and beware of fistula pending when such will become necessary for usage. This is contingent on if the patient agrees to undergo this procedure. 2. Further management to be dependent on a clinical course.
[2017-08-27 05:16] LABS: #Eosinphils 0.2 thou/uL (0.0-0.7); #Lymphocytes 1.6 thou/uL (1.20-3.40); #Monocytes 0.5 thou/uL (0.11-0.59); #Neutrophils 4.6 thou/uL (1.40-6.50); %Basophils 0.2 % (0.0-1.0); %Eosinophils 2.5 % (0.0-10.0); %Lymphocytes 23.9 % (21.0-51.0); %Monocytes 6.6 % (0.0-10.0); %Neutrophils 66.8 % (42.0-75.0); Hemoglobin 9.3 g/dL (14.0-18.0); Mean Corpuscular HGB CONC 31.8 g/dL (32.0-36.0); Mean Corpuscular Hemoglobin 21.9 pg (27.0-31.0); Mean Platelet Volume 9.2 fL (7.4-10.4); Platelet Count 275 thou/uL (130-400); RBC Distribution Width 15.3 % (11.5-14.5); Red Blood Cell (RBC) Count 4.22 mill/uL (4.70-6.10); White Blood Cell (WBC) Count 6.9 thou/uL (4.8-10.8)
[2017-08-27] MEDS: Lisinopril 20 MG TAB PO SCH ×2 (08:34→09:10)
[2017-08-27] MEDS: Gabapentin 100 MG CAP PO SCH ×2 (08:34→09:06)
[2017-08-27] MEDS: Insulin NPH/Reg Insulin Hm 300 UNITS/3 ML VIAL SC SCH ×2 (08:34→09:08)
[2017-08-27] MEDS: Folic Acid/Vit B Comp W-C PO SCH ×2 (08:35→09:10)
[2017-08-27] MEDS: NIFEdipine XL 30 MG TAB PO SCH ×2 (08:35→09:10)
[2017-08-27] MEDS: Metoprolol Tartrate 50 MG TAB PO SCH ×2 (08:36→09:10)
[2017-08-27] MEDS: Heparin 5,000 UNITS/ML VIAL SC SCH ×2 (08:36→09:10)
[2017-08-27] MEDS: Ferrous Sulfate 325 MG TAB PO SCH ×2 (08:37→09:08)
[2017-08-27] MEDS: hydrALAZINE 25 MG TAB PO SCH ×2 (08:37→09:10)
[2017-08-27] MEDS: HYDROcodone/Acetaminophen 5/325 mg Tablet PO PRN (08:43)
[2017-08-27] MEDS: HYDROcodone/Acetaminophen 10/325 mg Tablet PO PRN (08:57)
--- NOTE | 2017-08-27 09:30 | PDOC.PN ---
- Subjective Encounter Start Date: 08/27/17 Encounter Start Time: 07:50 Patient seen and examined for CKD 4. No new complaints. No overnight events - Objective Resuscitation Status: Resuscitation Status FULL:Full Resuscitation MAR Reviewed: Yes Vital Signs & Weight: Vital Signs (12 hours) Temp Pulse Resp BP BP Pulse Ox 08/27/17 09:10 68 158/67 H 08/27/17 08:00 98.4 F 68 18 156/79 H 94 L Weight Weight 198 lb 6 oz I&O: 08/26/17 08/27/17 08/28/17 06:59 06:59 06:59 Intake Total 920 980 Output Total 900 400 Balance 20 580 Result Diagrams: 08/27/17 03:48 08/26/17 04:15 Additional Labs: Accuchecks 08/27/17 08/26/17 08/26/17 08:12 21:00 20:38 POC Glucose 118 H 122 H 111 H 08/26/17 08/26/17 12:21 08:42 POC Glucose 133 H 124 H Phys Exam - Physical Examination Constitutional: NAD HEENT: PERRLA, moist MMs, sclera anicteric Neck: no JVD, supple Respiratory: no wheezing, no rales, no rhonchi Cardiovascular: RRR, no significant murmur, no rub Gastrointestinal: soft, non-tender, no distention, positive bowel sounds Musculoskeletal: pulses present, edema present Neurological: non-focal, normal sensation, moves all 4 limbs Psychiatric: normal affect, A&O x 3 Skin: no rash, normal turgor Dx/Plan (1) Hyperglycemia due to type 2 diabetes mellitus Code(s): E11.65 - TYPE 2 DIABETES MELLITUS WITH HYPERGLYCEMIA Status: Acute (2) Hypertensive urgency Code(s): I16.0 - HYPERTENSIVE URGENCY Status: Acute (3) Anxiety and depression Code(s): F41.9 - ANXIETY DISORDER, UNSPECIFIED; F32.9 - MAJOR DEPRESSIVE DISORDER, SINGLE EPISODE, UNSPECIFIED Status: Chronic (4) BPH (benign prostatic hyperplasia) Code(s): N40.0 - BENIGN PROSTATIC HYPERPLASIA WITHOUT LOWER URINRY TRACT SYMP Status: Chronic (5) Chronic kidney disease, stage 4 (severe) Code(s): N18.4 - CHRONIC KIDNEY DISEASE, STAGE 4 (SEVERE) Status: Chronic (6) DJD (degenerative joint disease) Code(s): M19.90 - UNSPECIFIED OSTEOARTHRITIS, UNSPECIFIED SITE Status: Chronic (7) Diabetes mellitus type 2, uncontrolled Code(s): E11.65 - TYPE 2 DIABETES MELLITUS WITH HYPERGLYCEMIA Status: Chronic (8) Diabetic nephropathy Status: Chronic (9) Diabetic neuropathy Code(s): E11.40 - TYPE 2 DIABETES MELLITUS WITH DIABETIC NEUROPATHY, UNSP Status: Chronic (10) GERD (gastroesophageal reflux disease) Code(s): K21.9 - GASTRO-ESOPHAGEAL REFLUX DISEASE WITHOUT ESOPHAGITIS Status: Chronic (11) Hypertension Code(s): I10 - ESSENTIAL (PRIMARY) HYPERTENSION Status: Chronic (12) Iron deficiency anemia Code(s): D50.9 - IRON DEFICIENCY ANEMIA, UNSPECIFIED Status: Chronic (13) Nephrotic range proteinuria Code(s): R80.9 - PROTEINURIA, UNSPECIFIED Status: Chronic - Plan cont current plan of care * as per dr nascimento, no plan for AVF today * will discharge today * he will need outpt follow up with nephro and dr nascimento * medication reviewed as below * symptomatic treatment. Review of Systems - Review of Systems Eyes: negative: Pain, Vision Change, Conjunctivae Inflammation, Eyelid Inflammation, Redness, Other ENT: negative: Ear Pain, Ear Discharge, Nose Pain, Nose Discharge, Nose Congestion, Mouth Pain, Mouth Swelling, Throat Pain, Throat Swelling, Other Respiratory: negative: Cough, Dry, Shortness of Breath, Hemoptysis, SOB with Excertion, Pleuritic Pain, Sputum, Wheezing Cardiovascular: negative: chest pain, palpitations, orthopnea, paroxysmal nocturnal dyspnea, edema, light headedness, other Gastrointestinal: negative: Nausea, Vomiting, Abdominal Pain, Diarrhea, Constipation, Melena, Hematochezia, Other Genitourinary: negative: Dysuria, Frequency, Incontinence, Hematuria, Retention , Other Musculoskeletal: negative: Neck Pain, Shoulder Pain, Arm Pain, Back Pain, Hand Pain, Leg Pain, Foot Pain, Other Skin: negative: Rash, Lesions, Samm, Bruising, Other - Medications/Allergies Allergies/Adverse Reactions: Allergies Allergy/AdvReac Type Severity Reaction Status Date / Time No Known Allergies Allergy Verified 08/23/17 06:00 Medications: Current Medications Acetaminophen (Tylenol) 650 mg PO Q4H PRN PRN Reason: Headache/Fever or Pain Hydrocodone Bitart/Acetaminophen ([place] 5/325) 1 tab PO Q4H PRN PRN Reason: Moderate Pain (4-6) Last Admin: 08/23/17 11:48 Dose: 1 tab Hydrocodone Bitart/Acetaminophen ([place] 10/325) 1 tab PO Q4H PRN PRN Reason: Pain Last Admin: 08/26/17 14:21 Dose: 1 tab Al Hydroxide/Mg Hydroxide (Maalox) 15 ml PO Q4H PRN PRN Reason: Heartburn or Indigestion Artificial Tears (Tears Naturale) 0 drop EA EYE PRN PRN PRN Reason: Dry Eyes Clonidine (Catapres) 0.1 mg PO Q4H PRN PRN Reason: Hypertension Last Admin: 08/23/17 04:08 Dose: 0.1 mg Dextrose/Water (Dextrose 50%) 25 gm SLOW IVP PRN PRN PRN Reason: Hypoglycemia Fentanyl (Duragesic) 12 mcg TD Q3D [facility] Last Admin: 08/26/17 11:06 Dose: Not Given Ferrous [facility]ulfate ([facility]ol) [facility] Last Admin: 08/27/17 09:08 Dose: Not Given Gabapentin (Neurontin) 100 mg PO TID [facility] Last Admin: 08/27/17 09:06 Dose: Not Given Glucagon (Glucagon) 1 mg IM PRN PRN PRN Reason: Hypoglycemia Guaifenesin (Robitussin Sf) 200 mg PO Q4H PRN PRN Reason: Cough Heparin Sodium (Porcine) (Heparin) 5,000 units SC BID [facility] Last Admin: 08/27/17 09:10 Dose: Not Given Hydralazine HCl (Apresoline) 25 mg PO TID [facility] Last Admin: 08/27/17 09:10 Dose: Not Given Hydralazine HCl (Apresoline) 10 mg SLOW IVP Q4H PRN PRN Reason: Systolic BP > 180 Dextrose/Water (D5w) 1,000 mls @ 0 mls/hr IV .Q0M PRN; As Directed PRN Reason: Hypoglycemia Insulin Human Isoph/Insulin Regular (Humulin 70/30) 20 units SC BID[facility] Last Admin: 08/27/17 09:08 Dose: Not Given Insulin Human Regular (Humulin R) 0 units SC .MODERATE SLIDING SC PRN PRN Reason: Moderate Correctional Scale Last Admin: 08/25/17 12:32 Dose: 2 unit Insulin Human Regular (Humulin R) 0 units SC .BEDTIME SLIDING SC PRN PRN Reason: Bedtime Correctional Scale Last Admin: 08/23/17 22:24 Dose: 4 unit Labetalol HCl (Normodyne) 10 mg SLOW IVP Q4H PRN PRN Reason: SBP Greater Than 180 Lisinopril (Zestril) 20 mg PO DAILY [facility] Last Admin: 08/27/17 09:10 Dose: Not Given Loperamide HCl (Imodium) 2 mg PO PRN PRN PRN Reason: Diarrhea/Loose Stools Loratadine (Claritin) 10 mg PO DAILYPRN PRN PRN Reason: Sinus Symptoms Magnesium Hydroxide (Milk Of Magnesium) 30 ml PO DAILYPRN PRN PRN Reason: Constipation Metoprolol Tartrate (Lopressor) 50 mg PO BID [facility] Last Admin: 08/27/17 09:10 Dose: Not Given Mineral Oil/White Petrolatum (Eucerin Cream) 0 gm TOP BIDPRN PRN PRN Reason: Dry Skin Nifedipine (Procardia Xl) 60 mg PO DAILY [facility] Last Admin: 08/27/17 09:10 Dose: Not Given Ondansetron HCl (Zofran Odt) 4 mg PO Q6H PRN PRN Reason: Nausea/Vomiting Ondansetron HCl (Zofran) 4 mg IVP Q6H PRN PRN Reason: Nausea/Vomiting Pantoprazole Sodium (Protonix) 40 mg PO DAILY [facility] Last Admin: 08/27/17 09:10 Dose: Not Given Phenol (Chloraseptic [place] 180 Ml Bot) 0 ml PO PRN PRN PRN Reason: Sore Throat Senna (Senokot) 2 tab PO HSPRN PRN PRN Reason: Constipation Sertraline HCl (Zoloft) 50 mg PO DAILY [facility] Last Admin: 08/27/17 09:10 Dose: Not Given Sodium Chloride (Flush - Normal Saline) 10 ml IVF Q12HR [facility] Last Admin: 08/27/17 09:10 Dose: Not Given Sodium Chloride ([place] Nasal [place] 0.65%) 0 ml EA NARE QIDPRN PRN PRN Reason: Nasal Congestion Temazepam (Restoril) 15 mg PO HSPRN PRN PRN Reason: Insomnia Tizanidine HCl (Zanaflex) 4 mg PO HS [facility] Last Admin: 08/26/17 21:26 Dose: 4 mg Vitamin B Complex/Vit C/Folic Acid (Nephro-Bushra Tablet) 1 tab PO DAILY [facility] Last Admin: 08/27/17 09:10 Dose: Not Given
--- NOTE | 2017-08-27 10:46 | DIS ---
DATE OF ADMISSION: 08/22/2017 DATE OF DISCHARGE: 08/27/2017 PRIMARY CARE PHYSICIAN: [facility] call admission. DISCHARGE DISPOSITION: Home. PRIMARY DISCHARGE DIAGNOSES: Hyperglycemia associated with diabetes type 2 due to noncompliance, hyp ertensive urgency due to noncompliance, acute on chronic kidney failure, baseline chronic kidney dise ase stage 4. SECONDARY DISCHARGE DIAGNOSES: Nephrotic syndrome, diabetic nephropathy, iron deficiency anemia, hyp ertension, gastroesophageal reflux disease, degenerative joint disease, diabetic neuropathy, diabetes type 2, chronic low back pain, chronic pain disorder, chronic kidney disease stage 4, benign enlarge ment of prostate, anxiety and depression. PRIMARY PROCEDURE/OPERATION: None. RADIOLOGICAL INVESTIGATION: Renal ultrasound which was showing chronic medical renal disease. Ranjeet ng ultrasound showed very small veins. SIGNIFICANT LABORATORY DATA: WBC 6.9, hemoglobin 9.3, and platelet 275. Sodium 137, potassium 3.8, BUN 37, creatinine 4.23, calcium 8.3, phosphorus 4.5. PTH 210. Serum protein electrophoresis negati ve. DISCHARGE MEDICATIONS: Fentanyl patch 12 mcg every 3 days, ferrous sulfate 325 mg p.o. b.i.d., Nephr o-Bushra one tablet p.o. daily, gabapentin 100 mg p.o. t.i.d., hydralazine 25 mg p.o. t.i.d., [place] 10 one tablet q.6 hourly p.r.n. for pain, NPH insulin 20 units subcu b.i.d., lisinopril 20 mg p.o. daily , metoprolol tartrate 50 mg p.o. b.i.d., Procardia-XL 60 mg p.o. daily, Protonix 40 mg p.o. daily, Zo loft 50 mg p.o. daily, Zanaflex 4 mg p.o. at bedtime. CONTRAINDICATIONS: None. CODE STATUS: FULL CODE. INPATIENT CONSULTANTS: Dr. Sierra was following while in hospital. Dr. Garcia was consulted for AV fistula. TEST RESULTS PENDING ON DISCHARGE: None. ALLERGIES: No known drug allergy. DISCHARGE PLAN: Post hospital, patient is instructed to follow up with Dr. Sierra in 1 week. Th e patient is also instructed to follow up with Dr. Garcia for outpatient evaluation for dialysis acce ss. HOSPITAL COURSE: A 72-year-old male with above-mentioned medical problem who was admitted for increa sing renal insufficiency. Patient was also found with edematous leg. He was having nephrotic syndro me that was contributing to his edema. As patient's renal function had gotten worse and that is why we consulted Dr. Sierra and we adjusted medication based on renal dose. The patient was not requ iring urgent dialysis during this admission, but he was requiring AV fistula for future dialysis acce ss and that is why ultrasound venous mapping was performed. Patient's vein was very small and that i s why Dr. Garcia recommended not to do procedure during this admission. Today, the patient is more stable. His blood sugar is well controlled. His blood pressure is well c ontrolled with the above-mentioned medication. All new medication prescriptions sent to his pharmacy . Dietary instruction given, education about compliance with medical and diabetic therapy was discus sed with the patient. Renally adjusted dose was prescribed. We have to adjust blood pressure medici ne during this admission which was also educated to the patient. The patient is seen and examined at bedside today. Please see my progress note from today for furthe r detail.
[2017-08-27 11:20] VITALS: BP 160/82; TEMP 98
== END 2017-08-27 11:02 | disposition home or self-care (01) | DRG 638 ==
LOC: ERS 23:13 → IMCU/EMU 23:50 → T4-A 08-23 16:44
PROVIDERS: ADMIT Internal Medicine; ATTEND Internal Medicine
DX: E11.65 Type 2 diabetes mellitus with hyperglycemia (principal); N17.9 Acute kidney failure, unspecified; N18.4 Chronic kidney disease, stage 4 (severe); F41.9 Anxiety disorder, unspecified; Z87.891 Personal history of nicotine dependence; I12.9 Hypertensive chronic kidney disease with stage 1 through stage 4 chronic kidney disease, or unspecified chronic kidney disease; Z79.4 Long term (current) use of insulin; F32.9 Major depressive disorder, single episode, unspecified; Z79.891 Long term (current) use of opiate analgesic; E11.21 Type 2 diabetes mellitus with diabetic nephropathy; Z91.14 Patient's other noncompliance with medication regimen; N40.0 Benign prostatic hyperplasia without lower urinary tract symptoms; M19.90 Unspecified osteoarthritis, unspecified site; E11.40 Type 2 diabetes mellitus with diabetic neuropathy, unspecified; K21.9 Gastro-esophageal reflux disease without esophagitis; D50.9 Iron deficiency anemia, unspecified; R80.9 Proteinuria, unspecified; I16.0 Hypertensive urgency
CPT/HCPCS: 36415; 36416; 76770; 80048; 80053; 80069; 81003; 81015; 82010; 82570; 82728; 83036; 83970; 84100; 84156; 84165; 85025; 93970; 96365; 96366; 96375; A4216; G0365; G8978-GP-CJ; G8979-GP-CJ; G8980-GP-CJ; J0360; J1644; J1815; J2060; J7050; Q4081

== ENCOUNTER 2017-12-02 20:32 | Inpatient (IN) | payer MEDICARE, MEDICAID ==
--- NOTE | 2017-12-02 23:20 | HP ---
PRIMARY CARE PHYSICIAN: City call. CHIEF COMPLAINT: Shortness of breath. HISTORY OF PRESENT ILLNESS: The history of present illness is limited as the patient is currently on BiPAP and is unable to really give me a full history and physical and most of which is taken from re view of the electronic records. Mr. Oshea is a pleasant 72-year-old gentleman that has a history of hypertension, diabetes mellitus, and chronic kidney disease stage 4. He was in his usual state of he alth until recently. He says that he was at a car lot with his purchasing a car when suddenly h e began to get short of breath. He was feeling extremely hot as well. The patient says that he was not able to feel like he could get the air in and as a result, he came to the emergency room for eval uation. In the ER, he was found to be hypoxic, he had apparently it was reported that his O2 sats we re in the 40s prior to being placed on oxygen. A chest x-ray was obtained and he was found to be in florid pulmonary edema. His creatinine was also elevated at 6.74. He is being admitted for volume o verload associated with renal disease. The educational therapist has already been consulted and the plan is t o place the patient in the ICU and to continue BiPAP and he is to go for urgent dialysis. The patien t denies having any chest pain prior to the event, no palpitations. There was no report of any PND o r orthopnea, no nausea, no vomiting. Otherwise, he does note that he fell out of bed and had gotten some scratches and scrapes on his legs and knees and head, otherwise no other review of systems is ob tainable. REVIEW OF SYSTEMS: Unobtainable as the patient is currently on BiPAP and is dyspneic. PAST MEDICAL HISTORY: Taken from review of previous records and includes hypertension, diabetes estee itus, chronic kidney disease stage 4, gastroesophageal reflux disease. PAST SURGICAL HISTORY: He has had surgery on his lower back. ALLERGIES: No known drug allergies. FAMILY HISTORY: Significant for diabetes mellitus and hypertension. SOCIAL HISTORY: He is a former smoker. He quit several years ago. He has also used to drink occasi onally. He is . He also had used some cocaine in the past, but he has quit. He lives with h is and code status is FULL CODE. MEDICATIONS: Current medications were unsure with his medications are currently; however, on his dis charge back in August, he had been discharged on fentanyl patch, iron sulfate 325 mg twice a day, Nephro -Bushra once daily, gabapentin 100 mg t.i.d., hydralazine 25 mg t.i.d., [place] 10/325 q.6 hours as neede d, NPH insulin 20 units twice a day, lisinopril 20 mg daily, metoprolol 50 mg twice a day, Procardia- XL 60 mg daily, Protonix 40 mg daily, Zoloft 50 mg daily, Zanaflex 4 mg at bedtime. PHYSICAL EXAMINATION: GENERAL: He is alert and oriented. He appears to be in no acute distress. He is well-developed and well-nourished. VITAL SIGNS: Blood pressure was 189/120, heart rate 77, respiratory rate of 23, temperature is 97.8. HEENT: Pupils are equal, round, and reactive. Extraocular muscles are intact. Sclerae are anicteri c. Throat: There is no erythema, no exudates. NECK: No adenopathy, no bruits. He did have some increase in jugular venous distention. LUNGS: He has got coarse breath sounds bilaterally. It was very difficult to hear any wheezing or r ales to the noise of the BiPAP machine. CARDIOVASCULAR: He had a normal S1 and S2. I did not appreciate an S3 or S4. No appreciable murmur s; however, there is lots of ambient noise. ABDOMEN: Obese, it is soft, it is nontender, nondistended. Positive for bowel sounds. There is no rebound or guarding. EXTREMITIES: He has got 1 to 2+ ankle edema. His dorsalis pedis pulses were palpable, but diminishe d. He did have an excoriation on the right anterior foot and he has got some mycotic nails. No othe r significant lesions. NEUROLOGIC: He is moving all of his extremities and is grossly nonfocal. LABORATORY RESULTS: White blood cell count 11.5, hemoglobin 7.1, hematocrit is 22, platelet count is 249. His sodium was 142, potassium 4.4, chloride is 111, CO2 is 17, BUN of 66, creatinine 6.74, glu cose is 201. His natriuretic peptide was 827. He had a chest x-ray in which he had cardiomegaly and increase in pulmonary vascular markings. EKG is sinus rhythm. He had some voltage criteria for LVH and some poor R-wave progression in leads V1, V2, and V3 and a leftward axis. ASSESSMENT AND PLAN: 1. This is a pleasant 72-year-old gentleman who presents to the emergency room with shortness of nupur ath and acute respiratory failure with hypoxemia, likely as a result of volume overload. I suspect t hat he has reached a threshold of end-stage renal disease and will require emergent dialysis. He is currently on BiPAP and we will continue the BiPAP. Nephrology has been consulted and the plan is for him to go for urgent dialysis. It is also noted that he has some cardiomegaly on his chest x-ray. Therefore, we cannot entirely rule out congestive heart failure as a contributing factor. He had an echocardiogram done in 12/2015, at that time, his ejection fraction was normal. However, it has been several years since then and he appears to have longstanding hypertension. Therefore, we will go ah ead and repeat an echocardiogram on this admission. 2. For diabetes mellitus, we will continue Lantus insulin along with a sliding scale. 3. Hypertension. His blood pressure is elevated. I suspect this is likely due to the stress from t he current event. We will likely need to hold off on his DALTON inhibitor given his end-stage renal dis ease. We will continue his other antihypertensives (these will need to be reconciled and restarted a s appropriate) and also place him on p.r.n. medications as well. Otherwise, the patient will be plac ed on deep venous thrombosis and gastrointestinal prophylaxis and further recommendations are to foll ow.
[2017-12-02 23:37] LABS: Troponin I 0.062 ng/mL (< 0.028)
[2017-12-02] MEDS ORDERED: Lidocaine 1% (PF) 30 ML VIAL ONE (23:38)
[2017-12-02 23:52] LABS: HBSAB Concentration 0.18 mIU/mL; HBSAg Index 0.22 S/CO (0-0.99); Hep B Surf AB Non-Reactive (NonReactive); Hep B Surf Ag Non-Reactive S/CO (NonReactive)
[2017-12-03 01:26] LABS: Troponin I 0.084 ng/mL (< 0.028)
[2017-12-03] MEDS ORDERED: Dextrose 5% in Water 1,000 ML IV PRN (02:26)
[2017-12-03] MEDS ORDERED: HumaLOG 300 UNITS/3 ML VIAL SC PRN (02:26)
[2017-12-03] MEDS ORDERED: Dextrose 50% Abboject 50 ML SYRINGE SLOW IVP PRN (02:26)
--- NOTE | 2017-12-03 02:55 | CON ---
DATE OF CONSULTATION: 12/03/2017 CONSULTING PHYSICIAN: Rigo Nunez M.D. REQUESTING PHYSICIAN: ER physician. REASON FOR CONSULTATION: Advanced kidney failure with respiratory failure, need for emergent hemodia lysis. IMPRESSION: 1. Advanced chronic kidney disease stage 5. 2. Respiratory failure in the context of hypovolemia. 3. Nephrotic syndrome likely in the context of diabetic nephropathy. 4. Anemia of chronic kidney disease. PLAN: 1. The patient is struggling to maintain airway with BiPAP; therefore, will require emergent hemodia lysis with ultrafiltration as tolerated by hemodynamics. 2. It took wide to convince this patient to allow emergent dialysis catheter to be placed once this is secured, ultrafiltration will be initiated. In any case, the patient eventually to require long-t erm dialysis access for continued outpatient dialysis. 3. Renally dose all medications per low GFR. 4. Iron studies and patient likely to benefit from erythropoiesis stimulating agents plus or minus b lood transfusion depending on the symptoms and the severity of this anemia in the course of hospitali zation. 5. Further management to be dependent on the clinical course. HISTORY OF PRESENT ILLNESS: History is that of 72-year-old gentleman with end-stage renal disease wh o has been postponing renal replacement therapy for quite some time, who presented here as a transfer from [place] with severe shortness of breath. Chest x-ray did reveal severe pulmonary edema. The patient was noted to be hypoxic on presentation to the outpatient ER prior to being placed on BiPAP. The patient is struggling to maintain airway and be able to breathe. As a result of these clinical findings, decision has been taken to involve Renal in the management of this case. PAST MEDICAL HISTORY: Significant for diabetes mellitus type 2, hypertension, and chronic kidney dis ease. MEDICATIONS: Reviewed and as documented on [employer]. FAMILY HISTORY: No family history of kidney disease. SOCIAL HISTORY: Significant for remote tobacco usage. Otherwise, no current usage of alcohol or ill icit drug use. REVIEW OF SYSTEMS: As documented in the body of the history. All the other systems were reviewed an d found not to be significantly related to presenting illness. PHYSICAL EXAMINATION: GENERAL: The patient was found to be in severe respiratory distress on BiPAP with severely elevated blood pressure in the 200 range. HEENT: Remarkable for BiPAP mask in place. CARDIOVASCULAR SYSTEM: First and second heart sounds were heard. RESPIRATORY SYSTEM: Revealed diminished breath sounds anteriorly. DIGESTIVE SYSTEM: Revealed a benign abdomen, positive bowel sounds. EXTREMITIES: Showed bilateral 2-3+ lower extremity edema. LYMPHATICS: No peripheral lymphadenopathy. SUMMARY: A 72-year-old gentleman with advanced chronic kidney disease stage 5 in the context of diab etic nephropathy who presented here with respiratory failure due to severe hypovolemia. Thank you for this consultation. We will follow with you.
[2017-12-03 04:10] LABS: #Lymphocytes 0.7 thou/uL (1.20-3.40); #Monocytes 0.1 thou/uL (0.11-0.59); #Neutrophils 11.1 thou/uL (1.40-6.50); %Eosinophils 0.2 % (0.0-10.0); %Lymphocytes 6.1 % (21.0-51.0); %Monocytes 0.6 % (0.0-10.0); %Neutrophils 93.2 % (42.0-75.0); Hemoglobin 7.1 g/dL (14.0-18.0); Mean Corpuscular HGB CONC 33.1 g/dL (32.0-36.0); Mean Corpuscular Hemoglobin 22.8 pg (27.0-31.0); Mean Platelet Volume 9.7 fL (7.4-10.4); Platelet Count 216 thou/uL (130-400); RBC Distribution Width 19.5 % (11.5-14.5); Red Blood Cell (RBC) Count 3.13 mill/uL (4.70-6.10); White Blood Cell (WBC) Count 11.9 thou/uL (4.8-10.8)
[2017-12-03 04:24] LABS: Anion Gap 16 mmol/L (10-20); BUN (Urea Nitrogen) 51 mg/dL (8.4-25.7); Calc. Creatinine Clearance 19 mL/min (70-130); Calcium 9.1 mg/dL (7.8-10.44); Carbon Dioxide 21 mmol/L (23-31); Chloride 107 mmol/L (98-107); Estimated GFR-MDRD 14; Glucose 174 mg/dL (80-115); Potassium 4.2 mmol/L (3.5-5.1); Sodium 140 mmol/L (136-145)
[2017-12-03] MEDS: hydrALAZINE 20 MG/ML VIAL SLOW IVP PRN ×2 (05:05→16:49)
[2017-12-03] MEDS: HumaLOG 300 UNITS/3 ML VIAL SC PRN (06:47)
[2017-12-03] MEDS: cloNIDine 0.1 MG TAB PO PRN ×2 (07:07→15:22)
[2017-12-03] MEDS: hydrALAZINE 25 MG TAB PO SCH ×3 (09:43→21:27)
[2017-12-03] MEDS: Metoprolol Tartrate 50 MG TAB PO SCH ×2 (09:43→21:27)
[2017-12-03] MEDS: Heparin 5,000 UNITS/ML VIAL SC SCH ×3 (09:43→21:28)
[2017-12-03] MEDS: Famotidine 20 MG TAB PO SCH (09:44)
[2017-12-03] MEDS: Docusate 100 MG CAP PO SCH ×2 (09:44→21:27)
[2017-12-03] MEDS ORDERED: Heparin 1,000 UNITS/ML VIAL ONE ×2 (11:11)
--- NOTE | 2017-12-03 12:28 | CON ---
DATE OF CONSULTATION: 12/03/2017 HISTORY OF PRESENT ILLNESS: This is a 72-year-old gentleman. I have been consulted in the IMCU for respiratory failure. He underwent emergent dialysis yesterday. X-ray shows pulmonary edema. The patient is somewhat encephalopathic this morning, confused. He came from [place] with difficult y breathing, no chest pain, chills or sweats. Apparently, he has known history of chronic renal failure and was refusing to be dialyzed. PAST MEDICAL HISTORY: End-stage renal disease, chronic pain, neuropathy, diabetes, hypertension, chr onic anemia, peripheral neuropathy. He is confused, depressed. SOCIAL HISTORY: Previous longstanding history of drug abuse as per the patient when he was young. P revious smoker, previous alcohol abuse. MEDICATIONS: His list of medicine from home includes gabapentin 100, hydrocodone, lisinopril 20, met oprolol 50, Procardia-XL 60, Protonix 40, Zoloft 50, hydralazine 25, tizanidine 4 mg. The patient was just recently in the hospital several months ago. PAST SURGICAL HISTORY: Back surgery. REVIEW OF SYSTEMS: Otherwise, difficult to obtain, he appears to be quite confused. PHYSICAL EXAMINATION: VITAL SIGNS: Blood pressure 183/86, pulse 76, temperature 98, sats are 98%, he is off BiPAP. CHEST: Shows bilateral crackles. CARDIAC: Normal S1, S2, no gallops. ABDOMEN: Soft, no masses. LABORATORY DATA: White count 11,000, H&H 7 and 21, platelet count is 216, creatinine is 4.86, BUN 51 . Electrolytes are normal. Troponin 0.408. X-ray shows CHF. IMPRESSION: 1. Congestive heart failure. 2. Respiratory failure. 3. Renal failure. 4. Encephalopathic. PLAN: I agree with emergency dialysis. Continue supportive care. Pulmonary will follow while in the [facility]. This is a consultation note, 70 minutes, 50% spent in direct patient care. Start empiric neb treatme nts. We will follow.
--- NOTE | 2017-12-03 14:25 | OP ---
DATE OF PROCEDURE: 12/03/2017 STAFF ANESTHETIST: Rigo Nunez MD MEDICATIONS: 2% lidocaine. PROCEDURE: Right femoral dialysis catheter placement with ultrasound guidance. DETAILS OF PROCEDURE: A head neck surgeon ultrasound was done to localize the right femoral vein and evaluate fo r patency and the absence of structures to avoid damage during the procedure. After all this was done, the patient was prepped and draped in a sterile fashion and a right femoral vein was identi fied with ultrasound and accessed with a finder needle, wire was used to secure the femoral vein and serial dilatation done prior to placement of Trialysis catheter. All ports were evaluated for good f low. The patient tolerated the procedure very well with a blood loss was about 10 mL. Line is good for use.
[2017-12-04 07:13] LABS: #Basophils 0.1 thou/uL (0.0-0.2); #Eosinphils 0.4 thou/uL (0.0-0.7); #Lymphocytes 2.5 thou/uL (1.20-3.40); #Monocytes 0.5 thou/uL (0.11-0.59); #Neutrophils 6.9 thou/uL (1.40-6.50); %Basophils 0.8 % (0.0-1.0); %Eosinophils 3.4 % (0.0-10.0); %Lymphocytes 23.8 % (21.0-51.0); %Monocytes 4.7 % (0.0-10.0); %Neutrophils 67.4 % (42.0-75.0); Hemoglobin 7.2 g/dL (14.0-18.0); Mean Corpuscular HGB CONC 32.5 g/dL (32.0-36.0); Mean Corpuscular Hemoglobin 23.1 pg (27.0-31.0); Mean Corpuscular Volume 71.2 fL (78.0-98.0); Mean Platelet Volume 9.3 fL (7.4-10.4); Platelet Count 234 thou/uL (130-400); RBC Distribution Width 20.2 % (11.5-14.5); White Blood Cell (WBC) Count 10.3 thou/uL (4.8-10.8)
[2017-12-04 07:32] LABS: Anion Gap 13 mmol/L (10-20); BUN (Urea Nitrogen) 39 mg/dL (8.4-25.7); BUN/Creatinine Ratio 9.01; Calc. Creatinine Clearance 19 mL/min (70-130); Calcium 8.5 mg/dL (7.8-10.44); Carbon Dioxide 26 mmol/L (23-31); Chloride 103 mmol/L (98-107); Estimated GFR-MDRD 16; Glucose 97 mg/dL (80-115); Phosphorus 3.5 mg/dL (2.3-4.7); Potassium 3.6 mmol/L (3.5-5.1); Sodium 138 mmol/L (136-145)
[2017-12-04] MEDS: Heparin 5,000 UNITS/ML VIAL SC SCH ×3 (08:03→21:43)
[2017-12-04] MEDS: Docusate 100 MG CAP PO SCH ×2 (08:04→21:42)
[2017-12-04] MEDS: hydrALAZINE 25 MG TAB PO SCH ×3 (08:04→21:43)
[2017-12-04] MEDS: Famotidine 20 MG TAB PO SCH (08:04)
[2017-12-04] MEDS: Metoprolol Tartrate 50 MG TAB PO SCH ×2 (08:04→21:43)
[2017-12-04] MEDS ORDERED: Heparin 10,000 UNITS/1 ML VIAL ONE (08:40)
--- NOTE | 2017-12-04 09:28 | PDOC.PN ---
- Subjective Encounter Start Date: 12/03/17 Encounter Start Time: 19:00 Subjective: f/u for acute volume overload requiring urgent HD. States less SOB and -: overall feels less weak. Tolerating HD without difficulty. - Objective Resuscitation Status: Resuscitation Status FULL:Full Resuscitation MAR Reviewed: Yes Vital Signs & Weight: Vital Signs (12 hours) Temp Pulse Resp BP BP Pulse Ox 12/04/17 08:04 75 158/64 H 12/04/17 08:00 99.0 F 71 18 158/64 H 100 12/04/17 06:52 69 14 100 12/04/17 04:00 98.4 F 64 19 168/78 H 98 12/04/17 00:00 98.2 F 69 16 139/62 100 12/03/17 23:22 70 18 100 Weight Admit Weight 204 lb 1.6 oz Weight 182 lb 15.739 oz I&O: 12/03/17 12/04/17 12/05/17 06:59 06:59 06:59 Intake Total 170 1440 Output Total 2550 4025 Balance -2380 -2585 Result Diagrams: 12/04/17 07:00 12/04/17 07:00 Additional Labs: Accuchecks 12/04/17 12/03/17 12/03/17 05:54 20:05 16:42 POC Glucose 105 161 H 117 H 12/03/17 10:39 POC Glucose 179 H Laboratory Tests 12/02/17 23:00 Hep Bs Antigen Non-Reactive Hep Bs Antibody Non-Reactive Hep Bs Antibody Index 0.18 EKG Reviewed by me: Yes (Tele - SR) Phys Exam - Physical Examination Constitutional: NAD HEENT: PERRLA, sclera anicteric, oral pharynx no lesions Neck: no nodes, no JVD, supple, full ROM few scattered rhonchi S1, S2 Cardiovascular: RRR, no significant murmur, no rub, gallop Gastrointestinal: soft, non-tender, no distention, positive bowel sounds Musculoskeletal: no edema, pulses present Neurological: normal sensation, moves all 4 limbs Psychiatric: A&O x 3 Skin: no rash, normal turgor, cap refill <2 seconds Dx/Plan (1) Acute respiratory failure with hypoxia Code(s): J96.01 - ACUTE RESPIRATORY FAILURE WITH HYPOXIA Status: Acute Comment: Improved with HD for volume overload, O2 prn (2) ESRD (end stage renal disease) on dialysis Code(s): N18.6 - END STAGE RENAL DISEASE; Z99.2 - DEPENDENCE ON RENAL DIALYSIS Status: Chronic Comment: Serial HD per Renal service, CM to assist with outpt coordination for HD (3) Volume overload Code(s): E87.70 - FLUID OVERLOAD, UNSPECIFIED Status: Acute Comment: Mainly related to ESRD, improved with HD, 2D Echo pending (4) Diabetes mellitus type 2, uncontrolled Code(s): E11.65 - TYPE 2 DIABETES MELLITUS WITH HYPERGLYCEMIA Status: Chronic Comment: ISS, glucose trend improved, ADA (5) Hypertension Code(s): I10 - ESSENTIAL (PRIMARY) HYPERTENSION Status: Chronic Qualifiers: Hypertension type: essential hypertension Qualified Code(s): I10 - Essential (primary) hypertension Comment: Labile, resume home BP regimen, monitor trend (6) Anemia due to chronic kidney disease Code(s): N18.9 - CHRONIC KIDNEY DISEASE, UNSPECIFIED; D63.1 - ANEMIA IN CHRONIC KIDNEY DISEASE Status: Acute Comment: s/p 1u PRBC's, continue FeSO4, Epo, serial H/H - Plan PT/OT, pediatric social worker, DVT proph w/SCDs Stable currently -: Continue HD per Renal -: 2D echo pending -: OOB with PT -: CM for coordination of outpt HD * Surgery consult for Porter placement and AV fistula * AM lab: BMP, CBC
--- NOTE | 2017-12-04 09:32 | PRG ---
DATE OF SERVICE: 12/04/2017 This is a 72-year-old gentleman being dialyzed this morning. He remains encephalopathic. PHYSICAL EXAMINATION: VITAL SIGNS: Sats are 100% on room air, blood pressure 158/64, temperature 99, respirations 18. He denies difficulty breathing. CHEST: No wheezing or crackles. CARDIAC: Normal S1, S2. No gallop. ABDOMEN: Soft, no mass. LABORATORY: Creatinine 4.3. White count 10,000, H&H 7 and 22, platelet count 234. IMPRESSION: 1. Acute on chronic renal failure. 2. Encephalopathy. 3. Low-grade fever. PLAN: The patient probably can be transferred out of the IM. Continue supportive care and PT.
[2017-12-04] MEDS: hydrALAZINE 20 MG/ML VIAL SLOW IVP PRN (10:08)
--- NOTE | 2017-12-04 12:06 | PDOC.PN ---
- Subjective Encounter Start Date: 12/04/17 Encounter Start Time: 11:40 Subjective: f/u for acute resp failure due to volume overload and ESRD. Tolerating -: HD currently. No new complaints. - Objective Resuscitation Status: Resuscitation Status FULL:Full Resuscitation MAR Reviewed: Yes Vital Signs & Weight: Vital Signs (12 hours) Temp Pulse Resp BP BP Pulse Ox 12/04/17 10:08 62 179/79 H 12/04/17 08:04 75 158/64 H 12/04/17 08:00 99.0 F 71 18 158/64 H 100 12/04/17 06:52 69 14 100 12/04/17 04:00 98.4 F 64 19 168/78 H 98 Weight Admit Weight 204 lb 1.6 oz Weight 182 lb 15.739 oz I&O: 12/03/17 12/04/17 12/05/17 06:59 06:59 06:59 Intake Total 170 1440 200 Output Total 2550 4025 Balance -2380 -2585 200 Result Diagrams: 12/04/17 07:00 12/04/17 07:00 Additional Labs: Accuchecks 12/04/17 12/04/17 12/03/17 10:12 05:54 20:05 POC Glucose 100 105 161 H 12/03/17 16:42 POC Glucose 117 H Laboratory Tests 12/02/17 12/03/17 23:00 03:54 WBC 11.9 H Hgb 7.1 L Hep Bs Antigen Non-Reactive Hep Bs Antibody Non-Reactive Hep Bs Antibody Index 0.18 EKG Reviewed by me: Yes (Tele - SR) Phys Exam - Physical Examination Constitutional: NAD HEENT: PERRLA, sclera anicteric, oral pharynx no lesions Neck: no nodes, no JVD, supple, full ROM Respiratory: no wheezing, no rales, no rhonchi, clear to auscultation bilateral S1, S2 Cardiovascular: RRR, no significant murmur, no rub, gallop Gastrointestinal: soft, non-tender, no distention, positive bowel sounds Musculoskeletal: no edema, pulses present Neurological: normal sensation, moves all 4 limbs A x O x 2 Skin: no rash, normal turgor, cap refill <2 seconds Dx/Plan (1) Acute respiratory failure with hypoxia Code(s): J96.01 - ACUTE RESPIRATORY FAILURE WITH HYPOXIA Status: Acute Comment: Improved with HD for volume overload, O2 prn (2) ESRD (end stage renal disease) on dialysis Code(s): N18.6 - END STAGE RENAL DISEASE; Z99.2 - DEPENDENCE ON RENAL DIALYSIS Status: Chronic Comment: Serial HD per Renal service, CM to assist with outpt coordination for HD (3) Volume overload Code(s): E87.70 - FLUID OVERLOAD, UNSPECIFIED Status: Acute Comment: Mainly related to ESRD, improved with HD, 2D Echo pending (4) Diabetes mellitus type 2, uncontrolled Code(s): E11.65 - TYPE 2 DIABETES MELLITUS WITH HYPERGLYCEMIA Status: Chronic Comment: ISS, glucose trend improved, ADA (5) Hypertension Code(s): I10 - ESSENTIAL (PRIMARY) HYPERTENSION Status: Chronic Qualifiers: Hypertension type: essential hypertension Qualified Code(s): I10 - Essential (primary) hypertension Comment: Labile, resume home BP regimen, monitor trend (6) Anemia due to chronic kidney disease Code(s): N18.9 - CHRONIC KIDNEY DISEASE, UNSPECIFIED; D63.1 - ANEMIA IN CHRONIC KIDNEY DISEASE Status: Acute Comment: s/p 1u PRBC's, continue FeSO4, Epo, serial H/H - Plan certified social workers in health care, out of bed/ambulate, DVT proph w/SCDs Stable overall -: HD continuing per Renal service -: Resume home BP medication regimen and monitor response -: 2D echo pending -: AM lab: BMP, CBC * Transfer to medical floor
[2017-12-04] MEDS ORDERED: hydrALAZINE 25 MG TAB PO SCH (15:00)
[2017-12-04] MEDS ORDERED: Lorazepam 2 MG/ML VIAL ONE (15:33)
[2017-12-04] MEDS ORDERED: Lorazepam 2 MG/ML VIAL SLOW IVP SCH (15:45)
[2017-12-04] MEDS: Gabapentin 100 MG CAP PO SCH ×2 (16:55→21:42)
[2017-12-04] MEDS: Ferrous Sulfate 325 MG TAB PO SCH (16:55)
--- NOTE | 2017-12-04 19:57 | PRG ---
DATE OF SERVICE: 12/04/2017 The patient was seen and examined, seems to be somewhat agitated and confused, noted with the followi ng vital signs. PHYSICAL EXAMINATION: VITAL SIGNS: Afebrile with temperature 99.1, pulse 71, respiration rate of 20, O2 saturation 100% wi th blood pressure 113/72, heart rate 81. HEENT: Unremarkable. CARDIOVASCULAR: First and heart sounds were heard. RESPIRATORY: Clear to auscultation. ABDOMEN: Digestive system revealed a benign abdomen. EXTREMITIES: No peripheral edema. LYMPHATICS: No peripheral lymphadenopathy. LABORATORY INVESTIGATION: Showed a creatinine down to 4.33 with BUN of 39. Hematology showed a whit e count of 10.3, hemoglobin of 7.2. IMPRESSION: 1. Advanced chronic kidney disease stage 5/end-stage renal disease, feeling better now. 2. Hypervolemia in the context of problem advanced chronic kidney disease stage 5, much improved, st atus post initiation of hemodialysis. 3. Nephrotic syndrome. 4. Anemia of chronic kidney disease. PLAN: 1. The patient to be on erythropoiesis stimulating agent. 2. Vein mapping in preparation for possible creation of access. 3. We will consult Surgery for tunneled dialysis catheter, after which the femoral catheter can be t aken out. 4. Further management to be dependent on the clinical course.
[2017-12-04] MEDS ORDERED: Non-Formulary Item 1 EACH (Sertraline Hcl [Zoloft] 50 MG) PO SCH (21:00)
[2017-12-04] MEDS ORDERED: Metoprolol Tartrate 50 MG TAB PO SCH (21:00)
[2017-12-04] MEDS ORDERED: Non-Formulary Item 1 EACH (Tizanidine Hcl [Tizanidine Hcl] 4 MG) PO SCH (21:00)
[2017-12-04] MEDS: tiZANidine HCl 4 MG TAB PO SCH (21:43)
[2017-12-05 04:39] LABS: Anion Gap 15 mmol/L (10-20); BUN (Urea Nitrogen) 29 mg/dL (8.4-25.7); Calc. Creatinine Clearance 21 mL/min (70-130); Calcium 9.3 mg/dL (7.8-10.44); Carbon Dioxide 28 mmol/L (23-31); Chloride 100 mmol/L (98-107); Estimated GFR-MDRD 19; Glucose 92 mg/dL (80-115); Potassium 3.6 mmol/L (3.5-5.1); Sodium 139 mmol/L (136-145)
[2017-12-05 04:51] LABS: Anisocytosis SLIGHT = 6-15 cells (100X) (0-5/hpf); Eosinophils 4 % (0-10); Hemoglobin 8.6 g/dL (14.0-18.0); Lymphocytes 25 % (21-51); MDiff Complete? YES; Mean Corpuscular HGB CONC 33.5 g/dL (32.0-36.0); Mean Corpuscular Hemoglobin 23.8 pg (27.0-31.0); Mean Corpuscular Volume 71.1 fL (78.0-98.0); Microcytosis SLIGHT = 6-15 cells (100X) (0-5/hpf); Monocytes 3 % (0-10); Neutrophil 68 % (42-75); Platelet Count 324 thou/uL (130-400); RBC Distribution Width 19.8 % (11.5-14.5); White Blood Cell (WBC) Count 11.9 thou/uL (4.8-10.8)
--- NOTE | 2017-12-05 09:41 | PRG ---
DATE OF SERVICE: 12/05/2017 This morning he is better. He is being dialyzed again. PHYSICAL EXAMINATION: VITAL SIGNS: His vital signs are stable with a sat of 99 on room air, respiration 16, temperature 99 , blood pressure is 144/69. He is still in the IMCU. CHEST: No wheezing, crackles. CARDIAC: Normal S1, S2, no gallops. ABDOMEN: Soft, no masses. LABORATORY DATA: Creatinine 3.8. White count 9000. IMPRESSION: 1. Chronic renal failure. 2. Respiratory failure. 3. Hypertension. PLAN: He can be transferred out of the IMCU. Continue dialysis. Pulmonary will follow at a distanc e. Please call as needed.
--- NOTE | 2017-12-05 09:53 | ULT ---
VENOUS DUPLEX SONOGRAM BILATERAL UPPER EXTREMITY FOR VEIN MAPPING: History: Renal failure. Need for long-term hemodialysis. FINDINGS: Good color and spectral doppler flow are present within each internal jugular and subclavian vein, an d each axillary and brachial vein. Measurements are as follows: RIGHT UPPER EXTREMITY BRACHIAL ARTERY: 5 mm RADIAL ARTERY: 2 mm ULNAR ARTERY: 3 mm CEPHALIC VEIN Proximal Arm: 2 mm Mid Arm: 2 mm Distal Arm: 2 mm Antecubital Fossa: 1 mm Proximal Forearm: 3 mm Mid Forearm: 2 mm Distal Forearm: 2 mm BASILIC VEIN Proximal Arm: 4 mm Mid Arm: 2 mm Distal Arm: 3 mm Antecubital Fossa: 4 mm Proximal Forearm: 2 mm Mid Forearm: 1 mm Distal Forearm: 2 mm LEFT UPPER EXTREMITY BRACHIAL ARTERY: 4 mm RADIAL ARTERY: 2 mm ULNAR ARTERY: 3 mm CEPHALIC VEIN Proximal Arm: 1 mm Mid Arm: 2 mm Distal Arm: 2 mm Antecubital Fossa: 2 mm Proximal Forearm: 2 mm Mid Forearm: 2 mm Distal Forearm: 1 mm BASILIC VEIN Proximal Arm: 5 mm Mid Arm: 4 mm Distal Arm: 2 mm Antecubital Fossa: 3 mm Proximal Forearm: 1 mm Mid Forearm: 1 mm Distal Forearm: 1 mm IMPRESSION: Patent vascular structures within each upper extremity with measurements as detailed above. POS: [facility]
[2017-12-05 11:40] VITALS: BMI 26.8
[2017-12-05] MEDS ORDERED: Heparin 10,000 UNITS/1 ML VIAL ONE (12:27)
[2017-12-05] MEDS ORDERED: Lorazepam 2 MG/ML VIAL SLOW IVP PRN (12:34)
[2017-12-05] MEDS ORDERED: Lorazepam 2 MG/ML VIAL SLOW IVP SCH (12:45)
[2017-12-05] MEDS: Folic Acid/Vit B Comp W-C PO SCH (13:36)
[2017-12-05] MEDS: hydrALAZINE 25 MG TAB PO SCH ×3 (13:36→21:08)
[2017-12-05] MEDS: Heparin 5,000 UNITS/ML VIAL SC SCH ×3 (13:36→21:07)
[2017-12-05] MEDS: Ferrous Sulfate 325 MG TAB PO SCH ×2 (13:36→15:29)
[2017-12-05] MEDS: Calcitriol 0.25 MCG CAP PO SCH (13:36)
[2017-12-05] MEDS: Gabapentin 100 MG CAP PO SCH ×3 (13:36→21:07)
[2017-12-05] MEDS: Docusate 100 MG CAP PO SCH ×2 (13:36→21:07)
[2017-12-05] MEDS: Metoprolol Tartrate 50 MG TAB PO SCH ×2 (13:37→21:07)
[2017-12-05] MEDS: Lisinopril 20 MG TAB PO SCH (13:37)
[2017-12-05] MEDS: Acetaminophen 325 MG TAB PO PRN (15:29)
--- NOTE | 2017-12-05 18:11 | PDOC.PN ---
- Subjective Encounter Start Date: 12/05/17 Encounter Start Time: 18:05 Subjective: f/u for AMS per nursing with combative behavior and increased -: confusion. Responded to Ativan per nsg. - Objective Resuscitation Status: Resuscitation Status FULL:Full Resuscitation MAR Reviewed: Yes Vital Signs & Weight: Vital Signs (12 hours) Temp Pulse Resp BP BP Pulse Ox 12/05/17 15:29 92 12/05/17 15:07 98.6 F 92 18 146/83 H 96 12/05/17 13:37 179/79 H 12/05/17 13:36 84 12/05/17 11:03 99.1 F 18 144/77 H 12/05/17 08:00 99.1 F 84 18 96 12/05/17 06:52 74 16 99 Weight Admit Weight 204 lb 1.6 oz Weight 166 lb 0.129 oz I&O: 12/04/17 12/05/17 12/06/17 06:59 06:59 06:59 Intake Total 1440 440 350 Output Total 4025 3000 Balance -2585 -2560 350 Result Diagrams: 12/05/17 04:09 12/05/17 04:09 Additional Labs: Accuchecks 12/05/17 12/05/17 12/04/17 16:26 10:41 21:20 POC Glucose 94 97 159 H Laboratory Tests 12/02/17 12/03/17 23:00 03:54 WBC 11.9 H Hgb 7.1 L Hep Bs Antigen Non-Reactive Hep Bs Antibody Non-Reactive Hep Bs Antibody Index 0.18 Radiology Reviewed by me: Yes (2D echo - EF 55-60%, diast dysfxn) EKG Reviewed by me: Yes (Tele - SR) Phys Exam - Physical Examination Constitutional: NAD sleepy, opens eyes briefly to name HEENT: PERRLA, sclera anicteric, oral pharynx no lesions Neck: no nodes, no JVD, supple, full ROM Respiratory: no wheezing, no rales, no rhonchi, clear to auscultation bilateral S1, S2 Cardiovascular: RRR, no significant murmur, no rub, gallop Gastrointestinal: soft, non-tender, no distention, positive bowel sounds Musculoskeletal: no edema, pulses present Neurological: normal sensation, moves all 4 limbs A x O x 2 Skin: no rash, normal turgor, cap refill <2 seconds Dx/Plan (1) Toxic metabolic encephalopathy Code(s): G92 - TOXIC ENCEPHALOPATHY Status: Acute Comment: Suspect multifactorial given co-morbid status, Ativan 1mg IV q6h prn agitation and confusion, monitor clinical response (2) Acute respiratory failure with hypoxia Code(s): J96.01 - ACUTE RESPIRATORY FAILURE WITH HYPOXIA Status: Acute Comment: Improved with HD for volume overload, O2 prn (3) ESRD (end stage renal disease) on dialysis Code(s): N18.6 - END STAGE RENAL DISEASE; Z99.2 - DEPENDENCE ON RENAL DIALYSIS Status: Chronic Comment: Serial HD per Renal service, CM to assist with outpt coordination for HD (4) Volume overload Code(s): E87.70 - FLUID OVERLOAD, UNSPECIFIED Status: Acute Comment: Mainly related to ESRD, improved with HD, 2D Echo pending (5) Diabetes mellitus type 2, uncontrolled Code(s): E11.65 - TYPE 2 DIABETES MELLITUS WITH HYPERGLYCEMIA Status: Chronic Comment: ISS, glucose trend improved, ADA (6) Hypertension Code(s): I10 - ESSENTIAL (PRIMARY) HYPERTENSION Status: Chronic Qualifiers: Hypertension type: essential hypertension Qualified Code(s): I10 - Essential (primary) hypertension Comment: Labile, resume home BP regimen, monitor trend (7) Anemia due to chronic kidney disease Code(s): N18.9 - CHRONIC KIDNEY DISEASE, UNSPECIFIED; D63.1 - ANEMIA IN CHRONIC KIDNEY DISEASE Status: Acute Comment: s/p 1u PRBC's, continue FeSO4, Epo, serial H/H - Plan PT/OT, social service liaison, DVT proph w/SCDs Continue Ativan IV for confusion/combativeness -: CM for outpt coordination of HD -: AV fistula placement -: HD per Renal service -: Consider SNF options * .
[2017-12-05] MEDS ORDERED: Tuberculin PPD 0.1 ML VIAL I-DERMAL SCH (18:30)
[2017-12-05] MEDS ORDERED: CEFAZOLIN/Water 2 GM/20 ML SYRINGE SLOW IVP SCH (18:45)
[2017-12-05] MEDS: tiZANidine HCl 4 MG TAB PO SCH (21:09)
--- NOTE | 2017-12-06 00:04 | PRG ---
DATE OF SERVICE: 12/05/2017 The patient was seen and examined today with no new complaint, noted with the following vital signs. PHYSICAL EXAMINATION: VITAL SIGNS: Afebrile with temperature 99 with temperature maximum 100.3, pulse 70, respiratory rate 16, O2 sat 98% with blood pressure 160/84. HEENT: Unremarkable. Moist mucosa. NECK: Supple. No conjunctival injection or icterus. CARDIOVASCULAR: First and second heart sounds were heard. RESPIRATORY: Clear to auscultation. ABDOMEN: Digestive system revealed a benign abdomen with positive bowel sounds. EXTREMITIES: No peripheral edema. IMPRESSION: 1. End-stage renal disease, hemodialysis dependent. 2. Hypertension. PLAN: 1. Outpatient dialysis placement workup not to be initiated therefore we will consult piano case maker t o that effect. 2. Further management to be dependent on the clinical course.
--- NOTE | 2017-12-06 01:47 | CON ---
DATE OF CONSULTATION: 12/05/2017 REASON FOR CONSULTATION: Need for dialysis access. HISTORY: Mr. Oshea is a 72-year-old man with heart failure and renal failure. He came to the hospit ma with severe shortness of breath and was emergently placed on hemodialysis via a femoral catheter. He states that his breathing is much better since he came to the hospital, although he cannot tell missael sharma how many times he has undergone dialysis and cannot give me much history, telling me instead asked his about his medical history. He has had some recent falls and some scrapes and scratches rela antonio to that, but no significant recent injuries. REVIEW OF SYSTEMS: Ten-system review of systems is limited, but is negative except for shortness of breath on arrival, which has since resolved. PAST MEDICAL HISTORY: Hypertension, diabetes, end-stage renal failure, reflux, heart failure, nephro tic syndrome, and anemia of chronic disease. PAST SURGICAL HISTORY: Back surgery. ALLERGIES: No known allergies. FAMILY HISTORY: Noncontributory. SOCIAL HISTORY: Patient is a former smoker and drinker, but has given that up. He is and hi s is supportive. He has a history of cocaine use in the past, but none currently or recently. 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 OUTPATIENT MEDICATIONS: Include 70/30 insulin, nifedipine, calcitriol, iron, folate and vitamin B co mplex, gabapentin, hydralazine, lisinopril, metoprolol, pantoprazole, sertraline, tizanidine. INPATIENT MEDICATIONS: Include DuoNeb, calcitriol, clonidine p.r.n., docusate, Feosol, gabapentin, s liding scale insulin, subcu heparin, lisinopril, metoprolol, pantoprazole, Seroquel, sertraline, tiza nidine, and Nephro-Bushra. PHYSICAL EXAMINATION: VITAL SIGNS: T-max 100.3, heart rate has ranged from 74 to 111, respiratory rate 17, 96% saturated o n room air, blood pressure 166/84. GENERAL: Reveals a healthy appearing older man, in no acute distress. He is not flushed or toxic in appearance. He is not jaundiced or icteric. HEENT: Unremarkable. NECK: Supple without lymphadenopathy or thyroid nodules. HEART: Regular in its rate and rhythm. He has a soft systolic murmur. LUNGS: Clear to auscultation bilaterally. ABDOMEN: Soft, nontender and nondistended. EXTREMITIES: Warm and well perfused without significant edema. He has slightly ulnar dominant filli ng on Sonido's testing bilaterally and has easily palpable forearm cephalic and antecubital veins. Th e left cephalic vein appears to be of better caliber than the right and he has an IV on the right arm . NEUROLOGIC: No focal deficits. PSYCHIATRIC: Alert and oriented to self and place, but not date. He is a very vague historian, refe rring with his for most questions. The nurses also report that he has been intermittently extre wesley agitated and has required some doses of Ativan intermittently. IMAGING: Bilateral upper extremity vein mapping shows good caliber upper arm basilic veins and poten tially usable left lower arm cephalic vein, although the upper arm cephalic vein appears small. ASSESSMENT: End-stage renal failure, requiring ongoing hemodialysis for fluid overload. He has a fe moral catheter in place, but will require a tunneled hemodialysis catheter for outpatient hemodialysi s. In addition, long-term, he will require a fistula and appears to have an adequate forearm cephali c vein on the left. For this, I have recommended left upper extremity arteriovenous fistula placemen t and tunneled-hemodialysis catheter with removal of the femoral catheter. The inherent risks of the surgery were discussed with the patient and by his request with his . These risks include but a re not limited to bleeding, infection, risks of anesthesia, hemothorax, pneumothorax, DVT, failure of the fistula to develop need for other operations to obtain or maintain a patent fistula and arterial steal, which can require additional surgical intervention and which can lead to ischemic damage to t he hand. He and his understand and accept these risks and wish to proceed. He is on the OR [facility] for tomorrow.
[2017-12-06] MEDS: Metoprolol Tartrate 50 MG TAB PO SCH ×2 (04:58→21:41)
[2017-12-06] MEDS: Ferrous Sulfate 325 MG TAB PO SCH ×2 (07:31→16:56)
[2017-12-06] MEDS: Gabapentin 100 MG CAP PO SCH ×3 (07:32→21:41)
[2017-12-06] MEDS: Heparin 5,000 UNITS/ML VIAL SC SCH ×3 (07:32→21:46)
[2017-12-06] MEDS: Docusate 100 MG CAP PO SCH ×2 (07:32→21:40)
[2017-12-06] MEDS: hydrALAZINE 25 MG TAB PO SCH ×3 (07:32→21:41)
[2017-12-06] MEDS: Calcitriol 0.25 MCG CAP PO SCH (08:25)
[2017-12-06] MEDS: Folic Acid/Vit B Comp W-C PO SCH (08:26)
[2017-12-06] MEDS: Lisinopril 20 MG TAB PO SCH (08:26)
[2017-12-06] MEDS ORDERED: CEFAZOLIN/Water 2 GM/20 ML SYRINGE ONE (14:19)
[2017-12-06] MEDS ORDERED: Bupivacaine/Epinephrine 0.25% 30 ML VIAL ONE (14:22)
[2017-12-06] MEDS ORDERED: Heparin 10,000 UNITS/1 ML VIAL ONE (14:22)
[2017-12-06] MEDS ORDERED: Heparin 5,000 UNITS/ML VIAL ONE (14:22)
[2017-12-06] MEDS ORDERED: Lidocaine 2% 10 ML INJ ONE (14:22)
[2017-12-06] MEDS ORDERED: Sodium Chloride 0.9% 30 ML ONE (14:22)
[2017-12-06] MEDS ORDERED: Fentanyl 100 MCG/2 ML VIAL ONE (14:32)
[2017-12-06] MEDS ORDERED: Protamine Sulfate 50 MG/5 ML VIAL ONE (14:37)
[2017-12-06] MEDS ORDERED: PHENYLEPHRINE-NS 100 MCG/ML 10 ML SYRINGE ONE (14:56)
[2017-12-06] MEDS ORDERED: Ondansetron HCl/PF 4 MG/2 ML Vial ONE (14:56)
[2017-12-06] MEDS ORDERED: Lidocaine 1% PF 5 ML VIAL ONE (14:56)
[2017-12-06] MEDS ORDERED: PROPOFOL 200 MG/20 ML VIAL ONE (14:56)
[2017-12-06] MEDS ORDERED: Heparin 10,000 UNITS/ 10 ML VIAL ONE ×2 (14:56→15:59)
[2017-12-06] MEDS ORDERED: Ondansetron HCl/PF 4 MG/2 ML Vial IVP PRN (17:45)
[2017-12-06] MEDS ORDERED: Promethazine HCl 25 MG/ML VIAL IM PRN (17:45)
[2017-12-06] MEDS ORDERED: Promethazine HCl 25 MG/ML VIAL SLOW IVP PRN (17:45)
--- NOTE | 2017-12-06 18:48 | RAD ---
CHEST ONE VIEW: 12/06/17 HISTORY: Line placement. COMPARISON: 12/02/17. FINDINGS: The cardiac silhouette magnified by projection. Pulmonary vasculature upper limits of normal. Large c aliber dual lumen right internal jugular catheter is in place with leads overlying the superior vena cava. No evidence of pneumothorax. IMPRESSION: Right internal jugular dialysis catheter is in good radiographic position. POS: [facility]
--- NOTE | 2017-12-06 18:48 | PRG ---
DATE OF SERVICE: 12/06/2017 SUBJECTIVE: The patient is noted with the following vital signs. PHYSICAL EXAMINATION: VITAL SIGNS: Blood pressure 117/79, pulse of 91, temperature 99. HEENT: Unremarkable. CARDIOVASCULAR SYSTEM: First and second heart sounds were heard. RESPIRATORY SYSTEM: Clear to auscultation. DIGESTIVE SYSTEM: Revealed a benign abdomen with positive bowel sounds. EXTREMITIES: No peripheral edema. SKIN: No new gross rash. LYMPHATICS: No peripheral lymphadenopathy. IMPRESSION: 1. End-stage renal disease on hemodialysis, but will need to be . 2. Hypertension, suboptimally controlled. PLAN: 1. Patient likely to secure dialysis access long time after which the femoral catheter can be taken out. 2. business intelligence manager consultation for outpatient dialysis placement. 3. Further management to be dependent on the clinical course. Patient to continue with current hemo dialysis schedule. 4. Further management to be dependent on the clinical course.
--- NOTE | 2017-12-06 21:09 | PDOC.PN ---
- Subjective Encounter Start Date: 12/06/17 Encounter Start Time: 20:00 Subjective: f/u for AMS and combative behavior necessitating Ativan. Overall more -: calm and less aggressive. Tolerating HD. - Objective Resuscitation Status: Resuscitation Status FULL:Full Resuscitation MAR Reviewed: Yes Vital Signs & Weight: Vital Signs (12 hours) Temp Pulse Resp BP BP Pulse Ox 12/06/17 18:40 90 16 96 12/06/17 18:14 97.2 F L 93 18 144/88 H 12/06/17 14:14 179/79 H Weight Admit Weight 204 lb 1.6 oz Weight 2.785 oz I&O: 12/05/17 12/06/17 12/07/17 06:59 06:59 06:59 Intake Total 440 350 Output Total 3000 100 Balance -2560 250 Result Diagrams: 12/05/17 04:09 12/05/17 04:09 Additional Labs: Accuchecks 12/06/17 12/06/17 12:00 04:09 POC Glucose 92 85 Laboratory Tests 12/02/17 12/03/17 23:00 03:54 WBC 11.9 H Hgb 7.1 L Hep Bs Antigen Non-Reactive Hep Bs Antibody Non-Reactive Hep Bs Antibody Index 0.18 Radiology Reviewed by me: Yes (PCXR - RIJ HD cath in place) Phys Exam - Physical Examination Constitutional: NAD HEENT: PERRLA, sclera anicteric, oral pharynx no lesions Neck: no nodes, no JVD, supple, full ROM Respiratory: no wheezing, no rales, no rhonchi, clear to auscultation bilateral Cardiovascular: RRR, no significant murmur, no rub, gallop Gastrointestinal: soft, non-tender, no distention, positive bowel sounds Musculoskeletal: no edema, pulses present Neurological: normal sensation, moves all 4 limbs A x O x 2 Skin: no rash, normal turgor, cap refill <2 seconds Dx/Plan (1) Toxic metabolic encephalopathy Code(s): G92 - TOXIC ENCEPHALOPATHY Status: Acute Comment: Suspect multifactorial given co-morbid status, Ativan 1mg IV q6h prn agitation and confusion, monitor clinical response, improving (2) Acute respiratory failure with hypoxia Code(s): J96.01 - ACUTE RESPIRATORY FAILURE WITH HYPOXIA Status: Acute Comment: Improved with HD for volume overload, O2 prn (3) ESRD (end stage renal disease) on dialysis Code(s): N18.6 - END STAGE RENAL DISEASE; Z99.2 - DEPENDENCE ON RENAL DIALYSIS Status: Chronic Comment: Serial HD per Renal service, CM to assist with outpt coordination for HD (4) Volume overload Code(s): E87.70 - FLUID OVERLOAD, UNSPECIFIED Status: Acute Comment: Mainly related to ESRD, improved with HD, 2D Echo pending (5) Diabetes mellitus type 2, uncontrolled Code(s): E11.65 - TYPE 2 DIABETES MELLITUS WITH HYPERGLYCEMIA Status: Chronic Comment: ISS, glucose trend improved, ADA (6) Hypertension Code(s): I10 - ESSENTIAL (PRIMARY) HYPERTENSION Status: Chronic Qualifiers: Hypertension type: essential hypertension Qualified Code(s): I10 - Essential (primary) hypertension Comment: Labile, resume home BP regimen, monitor trend (7) Anemia due to chronic kidney disease Code(s): N18.9 - CHRONIC KIDNEY DISEASE, UNSPECIFIED; D63.1 - ANEMIA IN CHRONIC KIDNEY DISEASE Status: Acute Comment: s/p 1u PRBC's, continue FeSO4, Epo, serial H/H - Plan PT/OT, social service assistant, DVT proph w/SCDs Stable overall -: HD per Renal service -: Ativan prn agitation -: Continue Rocaltrol 25mcg daily -: Likely d/c in 24-48h pending final approval for outpt HD chair * .
[2017-12-06] MEDS: tiZANidine HCl 4 MG TAB PO SCH (21:40)
--- NOTE | 2017-12-07 08:26 | PDOC.PN ---
- Subjective Encounter Start Date: 12/07/17 Encounter Start Time: 08:25 Subjective: feels well. denies any CP/SOB.no fever /chills -: needs a walker to walk around in room - Objective Resuscitation Status: Resuscitation Status FULL:Full Resuscitation MAR Reviewed: Yes Vital Signs & Weight: Vital Signs (12 hours) Temp Pulse Resp BP BP Pulse Ox 12/07/17 07:19 99.0 F 74 18 160/70 H 90 L 12/07/17 06:52 77 16 93 L 12/06/17 23:57 12 12/06/17 21:41 90 144/88 H Weight Admit Weight 204 lb 1.6 oz Weight 171 lb 8 oz I&O: 12/06/17 12/07/17 12/08/17 06:59 06:59 06:59 Intake Total 350 480 Output Total 100 Balance 250 480 Result Diagrams: 12/05/17 04:09 12/05/17 04:09 Additional Labs: Accuchecks 12/07/17 12/06/17 05:50 12:00 POC Glucose 86 92 Laboratory Tests 08/24/17 08/26/17 11/07/17 04:11 04:15 08:03 Hgb Creatinine 4.02 H 4.23 H 5.93 H 12/03/17 12/03/17 12/04/17 03:30 03:54 07:00 Hgb 7.1 L Creatinine 4.86 H 4.33 H 12/04/17 12/05/17 12/05/17 07:00 04:09 04:09 Hgb 7.2 L 8.6 L Creatinine 3.83 H labs reviewed Phys Exam - Physical Examination Constitutional: NAD HEENT: PERRLA, moist MMs, sclera anicteric, oral pharynx no lesions Neck: no nodes, no JVD, supple, full ROM Respiratory: no wheezing, no rales, no rhonchi, clear to auscultation bilateral Cardiovascular: RRR, no significant murmur, no rub Gastrointestinal: soft, non-tender, no distention, positive bowel sounds Musculoskeletal: no edema, pulses present Neurological: non-focal, normal sensation, moves all 4 limbs Psychiatric: normal affect, A&O x 3 Skin: no rash Dx/Plan (1) Toxic metabolic encephalopathy Code(s): G92 - TOXIC ENCEPHALOPATHY Status: Acute Comment: Suspect multifactorial given co-morbid status, Ativan 1mg IV q6h prn agitation and confusion, monitor clinical response, improving (2) Acute kidney injury superimposed on CKD Code(s): N17.9 - ACUTE KIDNEY FAILURE, UNSPECIFIED; N18.9 - CHRONIC KIDNEY DISEASE, UNSPECIFIED Status: Acute Comment: started on HD this admission (3) Volume overload Code(s): E87.70 - FLUID OVERLOAD, UNSPECIFIED Status: Acute Comment: Mainly related to ESRD, improved with HD, 2D Echo pending (4) Anemia due to chronic kidney disease Code(s): N18.9 - CHRONIC KIDNEY DISEASE, UNSPECIFIED; D63.1 - ANEMIA IN CHRONIC KIDNEY DISEASE Status: Acute Comment: s/p 1u PRBC's, continue FeSO4, Epo, serial H/H (5) BPH (benign prostatic hyperplasia) Code(s): N40.0 - BENIGN PROSTATIC HYPERPLASIA WITHOUT LOWER URINRY TRACT SYMP Status: Chronic (6) Chronic low back pain Code(s): M54.5 - LOW BACK PAIN; G89.29 - OTHER CHRONIC PAIN Status: Chronic (7) DJD (degenerative joint disease) Code(s): M19.90 - UNSPECIFIED OSTEOARTHRITIS, UNSPECIFIED SITE Status: Chronic (8) Diabetes mellitus type 2, uncontrolled Code(s): E11.65 - TYPE 2 DIABETES MELLITUS WITH HYPERGLYCEMIA Status: Chronic Comment: ISS, glucose trend improved, ADA (9) Diabetic nephropathy Status: Chronic (10) Diabetic neuropathy Code(s): E11.40 - TYPE 2 DIABETES MELLITUS WITH DIABETIC NEUROPATHY, UNSP Status: Chronic Qualifiers: Diabetes mellitus type: type 2 (11) GERD (gastroesophageal reflux disease) Code(s): K21.9 - GASTRO-ESOPHAGEAL REFLUX DISEASE WITHOUT ESOPHAGITIS Status: Chronic (12) Hypertension Code(s): I10 - ESSENTIAL (PRIMARY) HYPERTENSION Status: Chronic Qualifiers: Hypertension type: essential hypertension Qualified Code(s): I10 - Essential (primary) hypertension Comment: Labile, resume home BP regimen, monitor trend - Plan PT/OT, out of bed/ambulate, DVT proph w/SCDs awaiting OP HD set up. -: hemodynamically stable. -: monitor labs -: add PT and HH for Dc hopefully ,next week, -: meds as below. * . Review of Systems - Medications/Allergies Allergies/Adverse Reactions: Allergies Allergy/AdvReac Type Severity Reaction Status Date / Time No Known Allergies Allergy Verified 08/23/17 06:00 Medications: Current Medications Acetaminophen (Tylenol) 650 mg PO Q4H PRN PRN Reason: Headache/Fever or Pain Last Admin: 12/05/17 15:29 Dose: 650 mg Albuterol/Ipratropium (Duoneb) 3 ml NEB [id number] [facility] Last Admin: 12/07/17 06:52 Dose: 3 ml Calcitriol (Rocaltrol) 0.25 mcg PO DAILY [facility] Last Admin: 12/06/17 08:25 Dose: Not Given Clonidine (Catapres) 0.1 mg PO Q4H PRN PRN Reason: Systolic BP > 180 Last Admin: 12/03/17 15:22 Dose: 0.1 mg Dextrose/Water (Dextrose 50%) 25 gm SLOW IVP PRN PRN PRN Reason: Hypoglycemia Docusate Sodium (Colace) 100 mg PO BID [facility] Last Admin: 12/06/17 21:40 Dose: 100 mg Ferrous Sulfate (Feosol) 325 mg PO BID[facility] Last Admin: 12/06/17 16:56 Dose: Not Given Gabapentin (Neurontin) 100 mg PO TID [facility] Last Admin: 12/06/17 21:41 Dose: 100 mg Glucagon (Glucagon) 1 mg IM PRN PRN PRN Reason: Hypoglycemia Heparin Sodium (Porcine) (Heparin) 5,000 units SC TID [facility] Last Admin: 12/06/17 21:46 Dose: Not Given Hydralazine HCl (Apresoline) 10 mg SLOW IVP Q4H PRN PRN Reason: Systolic BP > 180 Last Admin: 12/04/17 10:08 Dose: 10 mg Hydralazine HCl (Apresoline) 25 mg PO TID [facility] Last Admin: 12/06/17 21:41 Dose: 25 mg Dextrose/Water (D5w) 1,000 mls @ 0 mls/hr IV .Q0M PRN PRN Reason: Hypoglycemia Insulin Human Lispro (Humalog) 0 units SC .MODERATE SLIDING SC PRN PRN Reason: Moderate Correctional Scale Last Admin: 12/03/17 06:47 Dose: 2 unit Insulin Human Lispro (Humalog) 0 units SC .BEDTIME SLIDING SC PRN PRN Reason: Bedtime Correctional Scale Lisinopril (Zestril) 20 mg PO DAILY [facility] Last Admin: 12/06/17 08:26 Dose: Not Given Lorazepam (Ativan) 1 mg SLOW IVP Q6H PRN PRN Reason: . Metoprolol Tartrate (Lopressor) 50 mg PO BID [facility] Last Admin: 12/06/17 21:41 Dose: 50 mg Read Ppd Test Site 0 each TOP 1830 [facility] Stop: 12/08/17 18:31 Pantoprazole Sodium (Protonix) 40 mg PO DAILY [facility] Last Admin: 12/06/17 08:26 Dose: Not Given Quetiapine Fumarate (Seroquel) 25 mg PO HS [facility] Last Admin: 12/06/17 21:41 Dose: 25 mg Sertraline HCl (Zoloft) 50 mg PO HS [facility] Last Admin: 12/06/17 21:40 Dose: 50 mg Sodium Chloride (Flush - Normal Saline) 10 ml IVF Q12HR [facility] Last Admin: 12/06/17 21:46 Dose: Not Given Sodium Chloride (Flush - Normal Saline) 10 ml IVF PRN PRN PRN Reason: Saline Flush Sodium Chloride (Flush - Normal Saline) 10 ml IVF PRN PRN PRN Reason: Saline Flush Tizanidine HCl (Zanaflex) 4 mg PO HS [facility] Last Admin: 12/06/17 21:40 Dose: 4 mg Vitamin B Complex/Vit C/Folic Acid (Nephro-Bushra Tablet) 1 tab PO DAILY [facility] Last Admin: 12/06/17 08:26 Dose: Not Given
[2017-12-07] MEDS: Lisinopril 20 MG TAB PO SCH (08:55)
[2017-12-07] MEDS: Calcitriol 0.25 MCG CAP PO SCH (08:55)
[2017-12-07] MEDS: Gabapentin 100 MG CAP PO SCH ×4 (08:56→22:24)
[2017-12-07] MEDS: Folic Acid/Vit B Comp W-C PO SCH (08:56)
[2017-12-07] MEDS: Ferrous Sulfate 325 MG TAB PO SCH ×2 (08:56→17:15)
[2017-12-07] MEDS: Docusate 100 MG CAP PO SCH ×2 (08:56→22:23)
[2017-12-07] MEDS: Metoprolol Tartrate 50 MG TAB PO SCH ×2 (08:57→22:23)
[2017-12-07] MEDS: hydrALAZINE 25 MG TAB PO SCH ×3 (08:57→22:23)
[2017-12-07] MEDS: Heparin 5,000 UNITS/ML VIAL SC SCH ×3 (08:59→22:24)
[2017-12-07] MEDS: Acetaminophen 325 MG TAB PO PRN (15:37)
--- NOTE | 2017-12-07 22:04 | PRG ---
DATE OF SERVICE: 12/07/2017 SUBJECTIVE: The patient was seen and examined today at dialysis, seems to be doing very well and not ed with the following vital signs. OBJECTIVE: VITAL SIGNS: Afebrile, temperature 99, pulse 74, respiratory rate of 16, blood pressure 115/78, O2 s at of 97% on room air. HEENT: Unremarkable. CARDIOVASCULAR SYSTEM: First and second heart sounds were heard. RESPIRATORY SYSTEM: Clear to auscultation. DIGESTIVE SYSTEM: Revealed a benign abdomen with positive bowel sounds. EXTREMITIES: No peripheral edema. SKIN: No new gross rash. LYMPHATICS: No peripheral lymphadenopathy. IMPRESSION: End-stage renal disease on hemodialysis. PLAN: 1. The patient now had access for outpatient dialysis; therefore, we discontinued the femoral dialysis catheter. 2. senior facilities manager is already working on outpatient dialysis placement. Once patient is accepted, estella ent is good for discharge.
[2017-12-07] MEDS: tiZANidine HCl 4 MG TAB PO SCH (22:23)
[2017-12-07] MEDS: READ PPD TEST SITE TOP SCH (22:31)
--- NOTE | 2017-12-07 23:04 | PDOC.GSPN ---
Surgery Progress Note: Subj - Subjective Narrative: No complaints. Hand feels okay, just sore at incision. Good thrill. DC femoral line. Follow up in clinic in 2-3 weeks. Surgery Progress Note: Obj - Vital signs Vital signs: Vital Signs - Most Recent Temp Pulse Resp BP Pulse Ox 99 F 74 12 162/81 H 91 L 12/07/17 08:00 12/07/17 22:23 12/07/17 19:28 12/07/17 22:23 12/07/17 19:28 Surgery Progress Note: Results - Labs Result Diagrams: 12/05/17 04:09 12/05/17 04:09 Lab results: Laboratory Results - last 24 hr 12/07/17 12/07/17 11:27 19:51 POC Glucose 102 108
[2017-12-08 05:18] LABS: Anion Gap 18 mmol/L (10-20); BUN (Urea Nitrogen) 31 mg/dL (8.4-25.7); Calc. Creatinine Clearance 15 mL/min (70-130); Calcium 8.8 mg/dL (7.8-10.44); Carbon Dioxide 24 mmol/L (23-31); Chloride 99 mmol/L (98-107); Estimated GFR-MDRD 14; Glucose 103 mg/dL (80-115); Potassium 3.9 mmol/L (3.5-5.1); Sodium 137 mmol/L (136-145)
[2017-12-08] MEDS: Folic Acid/Vit B Comp W-C PO SCH (09:04)
[2017-12-08] MEDS: Lisinopril 20 MG TAB PO SCH (09:05)
[2017-12-08] MEDS: Gabapentin 100 MG CAP PO SCH ×3 (09:05→22:30)
[2017-12-08] MEDS: hydrALAZINE 25 MG TAB PO SCH ×3 (09:06→22:31)
[2017-12-08] MEDS: Calcitriol 0.25 MCG CAP PO SCH (09:06)
[2017-12-08] MEDS: Ferrous Sulfate 325 MG TAB PO SCH ×2 (09:06→16:47)
[2017-12-08] MEDS: Heparin 5,000 UNITS/ML VIAL SC SCH ×3 (09:07→22:35)
[2017-12-08] MEDS: Metoprolol Tartrate 50 MG TAB PO SCH ×2 (09:08→22:35)
[2017-12-08] MEDS: Docusate 100 MG CAP PO SCH ×2 (09:08→22:31)
[2017-12-08] MEDS: HYDROcodone/Acetaminophen 10/325 mg Tablet PO PRN (12:55)
--- NOTE | 2017-12-08 15:32 | PDOC.PN ---
- Subjective Encounter Start Date: 12/08/17 Encounter Start Time: 15:30 Subjective: asking for home Union for chr pain -: reports hurts all over.no CP/SOB -: no ON events - Objective Resuscitation Status: Resuscitation Status FULL:Full Resuscitation MAR Reviewed: Yes Vital Signs & Weight: Vital Signs (12 hours) Temp Pulse Resp BP BP Pulse Ox 12/08/17 12:54 80 16 98 12/08/17 12:00 67 18 121/70 100 12/08/17 09:06 82 139/72 12/08/17 09:05 139/72 12/08/17 08:00 98.3 F 82 18 12/08/17 07:09 98.3 F 82 18 139/72 94 L 12/08/17 06:19 72 16 95 12/08/17 04:00 99.5 F 81 16 121/67 95 Weight Admit Weight 204 lb 1.6 oz Weight 169 lb 12.095 oz I&O: 12/07/17 12/08/17 12/09/17 06:59 06:59 06:59 Intake Total 480 240 Balance 480 240 Result Diagrams: 12/05/17 04:09 12/08/17 04:21 Additional Labs: Accuchecks 12/08/17 12/08/17 12/07/17 12:13 05:11 19:51 POC Glucose 116 H 98 108 Phys Exam - Physical Examination Constitutional: NAD HEENT: PERRLA, moist MMs, sclera anicteric, oral pharynx no lesions Neck: no nodes, no JVD, supple, full ROM Respiratory: no wheezing, no rales, no rhonchi, clear to auscultation bilateral Cardiovascular: RRR, no significant murmur, no rub Gastrointestinal: soft, non-tender, no distention, positive bowel sounds Musculoskeletal: no edema, pulses present Neurological: non-focal, normal sensation, moves all 4 limbs Psychiatric: normal affect, A&O x 3 Skin: no rash Dx/Plan (1) Acute kidney injury superimposed on CKD Code(s): N17.9 - ACUTE KIDNEY FAILURE, UNSPECIFIED; N18.9 - CHRONIC KIDNEY DISEASE, UNSPECIFIED Status: Acute Comment: started on HD this admission (2) Volume overload Code(s): E87.70 - FLUID OVERLOAD, UNSPECIFIED Status: Acute Comment: Mainly related to ESRD, improved with HD, 2D Echo pending (3) Anemia due to chronic kidney disease Code(s): N18.9 - CHRONIC KIDNEY DISEASE, UNSPECIFIED; D63.1 - ANEMIA IN CHRONIC KIDNEY DISEASE Status: Acute Comment: s/p 1u PRBC's, continue FeSO4, Epo, serial H/H (4) BPH (benign prostatic hyperplasia) Code(s): N40.0 - BENIGN PROSTATIC HYPERPLASIA WITHOUT LOWER URINRY TRACT SYMP Status: Chronic (5) Chronic low back pain Code(s): M54.5 - LOW BACK PAIN; G89.29 - OTHER CHRONIC PAIN Status: Chronic (6) DJD (degenerative joint disease) Code(s): M19.90 - UNSPECIFIED OSTEOARTHRITIS, UNSPECIFIED SITE Status: Chronic (7) Diabetes mellitus type 2, uncontrolled Code(s): E11.65 - TYPE 2 DIABETES MELLITUS WITH HYPERGLYCEMIA Status: Chronic Comment: ISS, glucose trend improved, ADA (8) Diabetic nephropathy Status: Chronic (9) Diabetic neuropathy Code(s): E11.40 - TYPE 2 DIABETES MELLITUS WITH DIABETIC NEUROPATHY, UNSP Status: Chronic Qualifiers: Diabetes mellitus type: type 2 (10) GERD (gastroesophageal reflux disease) Code(s): K21.9 - GASTRO-ESOPHAGEAL REFLUX DISEASE WITHOUT ESOPHAGITIS Status: Chronic (11) Hypertension Code(s): I10 - ESSENTIAL (PRIMARY) HYPERTENSION Status: Chronic Qualifiers: Hypertension type: essential hypertension Qualified Code(s): I10 - Essential (primary) hypertension Comment: Labile, resume home BP regimen, monitor trend (12) Toxic metabolic encephalopathy Code(s): G92 - TOXIC ENCEPHALOPATHY Status: Resolved Comment: Suspect multifactorial given co-morbid status, Ativan 1mg IV q6h prn agitation and confusion, monitor clinical response, improving - Plan PT/OT, out of bed/ambulate, DVT proph w/SCDs cont hemodialysis MWF. -: awaiting OP HD set up.DC when arranged -: cont home meds as below.add prn Union.discourged from daily use -: hemodynamically stable. -: am labs * . Review of Systems - Review of Systems Constitutional: malaise. negative: fever, chills, sweats, weakness, other Eyes: negative: Pain, Vision Change, Conjunctivae Inflammation, Eyelid Inflammation, Redness, Other ENT: negative: Ear Pain, Ear Discharge, Nose Pain, Nose Discharge, Nose Congestion, Mouth Pain, Mouth Swelling, Throat Pain, Throat Swelling, Other Respiratory: negative: Cough, Dry, Shortness of Breath, Hemoptysis, SOB with Excertion, Pleuritic Pain, Sputum, Wheezing Cardiovascular: negative: chest pain, palpitations, orthopnea, paroxysmal nocturnal dyspnea, edema, light headedness, other Gastrointestinal: negative: Nausea, Vomiting, Abdominal Pain, Diarrhea, Constipation, Melena, Hematochezia, Other Genitourinary: negative: Dysuria, Frequency, Incontinence, Hematuria, Retention , Other Musculoskeletal: Shoulder Pain, Arm Pain, Back Pain, Leg Pain. negative: Neck Pain, Hand Pain, Foot Pain, Other Skin: negative: Rash, Lesions, Samm, Bruising, Other Neurological: negative: Weakness, Numbness, Incoordination, Change in Speech, Confusion, Seizures, Other - Medications/Allergies Allergies/Adverse Reactions: Allergies Allergy/AdvReac Type Severity Reaction Status Date / Time No Known Allergies Allergy Verified 08/23/17 06:00 Medications: Current Medications Acetaminophen (Tylenol) 650 mg PO Q4H PRN PRN Reason: Headache/Fever or Pain Last Admin: 12/07/17 15:37 Dose: 650 mg Hydrocodone Bitart/Acetaminophen ([place] 10/325) 1 tab PO TID PRN PRN Reason: moderate pain Last Admin: 12/08/17 12:55 Dose: 1 tab Albuterol/Ipratropium (Duoneb) 3 ml NEB [id number] [facility] Last Admin: 12/08/17 12:54 Dose: 3 ml Calcitriol (Rocaltrol) 0.25 mcg PO DAILY [facility] Last Admin: 12/08/17 09:06 Dose: 0.25 mcg Clonidine (Catapres) 0.1 mg PO Q4H PRN PRN Reason: Systolic BP > 180 Last Admin: 12/03/17 15:22 Dose: 0.1 mg Dextrose/Water (Dextrose 50%) 25 gm SLOW IVP PRN PRN PRN Reason: Hypoglycemia Docusate Sodium (Colace) 100 mg PO BID [facility] Last Admin: 12/08/17 09:08 Dose: 100 mg Ferrous Sulfate (Feosol) 325 mg PO BID[facility] Last Admin: 12/08/17 09:06 Dose: 325 mg Gabapentin (Neurontin) 100 mg PO TID [facility] Last Admin: 12/08/17 09:05 Dose: 100 mg Glucagon (Glucagon) 1 mg IM PRN PRN PRN Reason: Hypoglycemia Heparin Sodium (Porcine) (Heparin) 5,000 units SC TID [facility] Last Admin: 12/08/17 09:07 Dose: 5,000 units Hydralazine HCl (Apresoline) 10 mg SLOW IVP Q4H PRN PRN Reason: Systolic BP > 180 Last Admin: 12/04/17 10:08 Dose: 10 mg Hydralazine HCl (Apresoline) 25 mg PO TID [facility] Last Admin: 12/08/17 09:06 Dose: 25 mg Dextrose/Water (D5w) 1,000 mls @ 0 mls/hr IV .Q0M PRN PRN Reason: Hypoglycemia Insulin Human Lispro (Humalog) 0 units SC .MODERATE SLIDING SC PRN PRN Reason: Moderate Correctional Scale Last Admin: 12/03/17 06:47 Dose: 2 unit Insulin Human Lispro (Humalog) 0 units SC .BEDTIME SLIDING SC PRN PRN Reason: Bedtime Correctional Scale Lisinopril (Zestril) 20 mg PO DAILY [facility] Last Admin: 12/08/17 09:05 Dose: 20 mg Lorazepam (Ativan) 1 mg SLOW IVP Q6H PRN PRN Reason: . Metoprolol Tartrate (Lopressor) 50 mg PO BID [facility] Last Admin: 12/08/17 09:08 Dose: 50 mg Read Ppd Test Site 0 each TOP 1830 [facility] Stop: 12/08/17 18:31 Last Admin: 12/07/17 22:31 Dose: Not Given Pantoprazole Sodium (Protonix) 40 mg PO DAILY [facility] Last Admin: 12/08/17 09:06 Dose: 40 mg Quetiapine Fumarate (Seroquel) 25 mg PO [facility] Last Admin: 12/07/17 22:23 Dose: 25 mg Sertraline HCl (Zoloft) 50 mg PO [facility] Last Admin: 12/07/17 22:23 Dose: 50 mg Sodium Chloride (Flush - Normal Saline) 10 ml IVF Q12HR [facility] Last Admin: 12/08/17 09:08 Dose: 10 ml Sodium Chloride (Flush - Normal Saline) 10 ml IVF PRN PRN PRN Reason: Saline Flush Sodium Chloride (Flush - Normal Saline) 10 ml IVF PRN PRN PRN Reason: Saline Flush Tizanidine HCl (Zanaflex) 4 mg PO HS [facility] Last Admin: 12/07/17 22:23 Dose: 4 mg Vitamin B Complex/Vit C/Folic Acid (Nephro-Bushra Tablet) 1 tab PO DAILY [facility] Last Admin: 12/08/17 09:04 Dose: 1 tab
[2017-12-08] MEDS: HumaLOG 300 UNITS/3 ML VIAL SC PRN (16:47)
[2017-12-08 18:01] LABS: Iron 20 ug/dL (65-175); Iron Binding Capacity, Total 188 mcg/dL (261-462)
--- NOTE | 2017-12-08 18:03 | PRG ---
DATE OF SERVICE: 12/08/2017 SUBJECTIVE: The patient was seen and examined with no new complaint, noted with the following vital signs. OBJECTIVE: HEENT: Unremarkable with moist oral mucosa. CARDIOVASCULAR: First and second heart sounds were heard. RESPIRATORY: Clear to auscultation. DIGESTIVE: Revealed a benign abdomen with positive bowel sounds. EXTREMITIES: No peripheral edema. SKIN: No new gross rash. LYMPHATICS: No peripheral lymphadenopathy. IMPRESSION: 1. End-stage renal disease on hemodialysis. 2. Anemia, likely anemia of chronic kidney disease. PLAN: 1. Awaiting outpatient dialysis placement. Once this is done, the patient technically can be discha rged. 2. We will do iron studies to evaluate and rule out iron deficiency. Otherwise, this is just anemia of chronic kidney disease. The patient to continue with erythropoiesis stimulating agent. 3. Further management will be dependent on the clinical course.
[2017-12-08] MEDS: tiZANidine HCl 4 MG TAB PO SCH (22:35)
[2017-12-09] MEDS: READ PPD TEST SITE TOP SCH (01:38)
[2017-12-09 05:49] LABS: Anion Gap 18 mmol/L (10-20); BUN (Urea Nitrogen) 45 mg/dL (8.4-25.7); Calc. Creatinine Clearance 11 mL/min (70-130); Calcium 8.6 mg/dL (7.8-10.44); Carbon Dioxide 22 mmol/L (23-31); Chloride 97 mmol/L (98-107); Estimated GFR-MDRD 10; Glucose 205 mg/dL (80-115); Potassium 4.1 mmol/L (3.5-5.1); Sodium 133 mmol/L (136-145)
[2017-12-09] MEDS: Lisinopril 20 MG TAB PO SCH (08:25)
[2017-12-09] MEDS: hydrALAZINE 25 MG TAB PO SCH ×2 (08:25→21:25)
[2017-12-09] MEDS: Metoprolol Tartrate 50 MG TAB PO SCH ×2 (08:25→21:26)
[2017-12-09] MEDS: Folic Acid/Vit B Comp W-C PO SCH (08:26)
[2017-12-09] MEDS: Heparin 5,000 UNITS/ML VIAL SC SCH ×2 (08:26→21:26)
[2017-12-09] MEDS: Calcitriol 0.25 MCG CAP PO SCH (08:26)
[2017-12-09] MEDS: Gabapentin 100 MG CAP PO SCH ×2 (08:27→21:25)
[2017-12-09] MEDS: Docusate 100 MG CAP PO SCH ×2 (08:27→21:25)
[2017-12-09] MEDS: HYDROcodone/Acetaminophen 10/325 mg Tablet PO PRN ×2 (08:32→21:31)
[2017-12-09] MEDS ORDERED: Epoetin (ESRD) 20,000 UNITS/ML IVP SCH (09:00)
[2017-12-09] MEDS ORDERED: IRON SUCROSE COMPLEX 100 MG/5 ML SLOW IVP SCH (09:15)
[2017-12-09] MEDS ORDERED: Sodium Ferric Gluconate 250 MG in Sodium Chloride 0.9% 100 ML IVPB SCH (10:00)
[2017-12-09] MEDS: HumaLOG 300 UNITS/3 ML VIAL SC PRN (12:20)
[2017-12-09] MEDS ORDERED: Heparin 10,000 UNITS/ 10 ML VIAL ONE (14:38)
--- NOTE | 2017-12-09 14:46 | PDOC.PN ---
- Subjective Encounter Start Date: 12/09/17 Encounter Start Time: 14:45 Subjective: does not talk to me today and refuses to answer any qs -: RN reported low BP this morning -: approved for OP HD - Objective Resuscitation Status: Resuscitation Status FULL:Full Resuscitation MAR Reviewed: Yes Vital Signs & Weight: Vital Signs (12 hours) Temp Pulse Resp BP BP Pulse Ox 12/09/17 14:01 87 16 96 12/09/17 08:25 69 110/63 12/09/17 08:00 98.9 F 69 16 12/09/17 07:30 98.9 F 69 20 110/63 92 L 12/09/17 07:09 96 20 93 L Weight Admit Weight 204 lb 1.6 oz Weight 172 lb 2.896 oz I&O: 12/08/17 12/09/17 12/10/17 06:59 06:59 06:59 Intake Total 1440 Balance 1440 Result Diagrams: 12/05/17 04:09 12/09/17 04:20 Additional Labs: Accuchecks 12/09/17 12/09/17 12/08/17 11:20 06:06 19:55 POC Glucose 276 H 189 H 136 H 12/08/17 16:31 POC Glucose 205 H Laboratory Tests 12/08/17 04:21 Iron 20 L TIBC 188 L % Saturation 11 L labs reviewed Phys Exam - Physical Examination Constitutional: NAD HEENT: PERRLA, moist MMs, sclera anicteric, oral pharynx no lesions Neck: no nodes, no JVD, supple, full ROM Respiratory: no wheezing, no rales, no rhonchi, clear to auscultation bilateral Cardiovascular: RRR, no significant murmur, no rub Gastrointestinal: soft, non-tender, no distention, positive bowel sounds Musculoskeletal: no edema, pulses present Neurological: non-focal, normal sensation, moves all 4 limbs Deviation from normal: appears confused Skin: no rash Dx/Plan (1) Hypotension Status: Acute Comment: Stop hydralazine started this admission (2) Acute kidney injury superimposed on CKD Code(s): N17.9 - ACUTE KIDNEY FAILURE, UNSPECIFIED; N18.9 - CHRONIC KIDNEY DISEASE, UNSPECIFIED Status: Acute Comment: started on HD this admission (3) Volume overload Code(s): E87.70 - FLUID OVERLOAD, UNSPECIFIED Status: Resolved Comment: Mainly related to ESRD, improved with HD, 2D Echo pending (4) Anemia due to chronic kidney disease Code(s): N18.9 - CHRONIC KIDNEY DISEASE, UNSPECIFIED; D63.1 - ANEMIA IN CHRONIC KIDNEY DISEASE Status: Acute Comment: s/p 1u PRBC's, continue FeSO4, Epo, serial H/H (5) BPH (benign prostatic hyperplasia) Code(s): N40.0 - BENIGN PROSTATIC HYPERPLASIA WITHOUT LOWER URINRY TRACT SYMP Status: Chronic (6) Chronic low back pain Code(s): M54.5 - LOW BACK PAIN; G89.29 - OTHER CHRONIC PAIN Status: Chronic (7) DJD (degenerative joint disease) Code(s): M19.90 - UNSPECIFIED OSTEOARTHRITIS, UNSPECIFIED SITE Status: Chronic (8) Diabetes mellitus type 2, uncontrolled Code(s): E11.65 - TYPE 2 DIABETES MELLITUS WITH HYPERGLYCEMIA Status: Chronic Comment: ISS, glucose trend improved, ADA (9) Diabetic nephropathy Status: Chronic (10) Diabetic neuropathy Code(s): E11.40 - TYPE 2 DIABETES MELLITUS WITH DIABETIC NEUROPATHY, UNSP Status: Chronic Qualifiers: Diabetes mellitus type: type 2 (11) GERD (gastroesophageal reflux disease) Code(s): K21.9 - GASTRO-ESOPHAGEAL REFLUX DISEASE WITHOUT ESOPHAGITIS Status: Chronic (12) Hypertension Code(s): I10 - ESSENTIAL (PRIMARY) HYPERTENSION Status: Chronic Qualifiers: Hypertension type: essential hypertension Qualified Code(s): I10 - Essential (primary) hypertension Comment: Labile, resume home BP regimen, monitor trend (13) Toxic metabolic encephalopathy Code(s): G92 - TOXIC ENCEPHALOPATHY Status: Resolved Comment: Suspect multifactorial given co-morbid status, Ativan 1mg IV q6h prn agitation and confusion, monitor clinical response, improving - Plan PT/OT, incentive spirometry, out of bed/ambulate, DVT proph w/SCDs waxing & waning mentation .monitor.doubt organic. -: cont seroquel,zoloft. -: DC Hydralazine.monitor BP.on BB,DALTON-I.cont w parameters -: DC home if mentation improves,today or tomorrow. -: HD per nephrology.done today * . Review of Systems - Review of Systems Other: can not be obtained due to pt non participation - Medications/Allergies Allergies/Adverse Reactions: Allergies Allergy/AdvReac Type Severity Reaction Status Date / Time No Known Allergies Allergy Verified 08/23/17 06:00 Medications: Current Medications Acetaminophen (Tylenol) 650 mg PO Q4H PRN PRN Reason: Headache/Fever or Pain Last Admin: 12/07/17 15:37 Dose: 650 mg Hydrocodone Bitart/Acetaminophen ([place] 10/325) 1 tab PO TID PRN PRN Reason: moderate pain Last Admin: 12/09/17 08:32 Dose: 1 tab Albuterol/Ipratropium (Duoneb) 3 ml NEB [id number] [facility] Last Admin: 12/09/17 14:01 Dose: 3 ml Calcitriol (Rocaltrol) 0.25 mcg PO DAILY [facility] Last Admin: 12/09/17 08:26 Dose: 0.25 mcg Clonidine (Catapres) 0.1 mg PO Q4H PRN PRN Reason: Systolic BP > 180 Last Admin: 12/03/17 15:22 Dose: 0.1 mg Dextrose/Water (Dextrose 50%) 25 gm SLOW IVP PRN PRN PRN Reason: Hypoglycemia Docusate Sodium (Colace) 100 mg PO BID [facility] Last Admin: 12/09/17 08:27 Dose: 100 mg Epoetin Gary (Procrit) 5,000 units IVP MoWeFr [facility] Gabapentin (Neurontin) 100 mg PO BID [facility] Last Admin: 12/09/17 08:27 Dose: 100 mg Glucagon (Glucagon) 1 mg IM PRN PRN PRN Reason: Hypoglycemia Heparin Sodium (Porcine) (Heparin) 5,000 units SC BID [facility] Last Admin: 12/09/17 08:26 Dose: 5,000 units Hydralazine HCl (Apresoline) 10 mg SLOW IVP Q4H PRN PRN Reason: Systolic BP > 180 Last Admin: 12/04/17 10:08 Dose: 10 mg Hydralazine HCl (Apresoline) 25 mg PO BID [facility] Last Admin: 12/09/17 08:25 Dose: Not Given Dextrose/Water (D5w) 1,000 mls @ 0 mls/hr IV .Q0M PRN PRN Reason: Hypoglycemia Insulin Human Lispro (Humalog) 0 units SC .MODERATE SLIDING SC PRN PRN Reason: Moderate Correctional Scale Last Admin: 12/09/17 12:20 Dose: 6 unit Insulin Human Lispro (Humalog) 0 units SC .BEDTIME SLIDING SC PRN PRN Reason: Bedtime Correctional Scale Lisinopril (Zestril) 20 mg PO DAILY [facility] Last Admin: 12/09/17 08:25 Dose: Not Given Lorazepam (Ativan) 1 mg SLOW IVP Q6H PRN PRN Reason: . Metoprolol Tartrate (Lopressor) 50 mg PO BID [facility] Last Admin: 12/09/17 08:25 Dose: Not Given Pantoprazole Sodium (Protonix) 40 mg PO DAILY [facility] Last Admin: 12/09/17 08:27 Dose: 40 mg Quetiapine Fumarate (Seroquel) 25 mg PO HS [facility] Last Admin: 12/08/17 22:35 Dose: 25 mg Sertraline HCl (Zoloft) 50 mg PO HS [facility] Last Admin: 12/08/17 22:31 Dose: 50 mg Sodium Chloride (Flush - Normal Saline) 10 ml IVF Q12HR [facility] Last Admin: 12/09/17 08:27 Dose: 10 ml Sodium Chloride (Flush - Normal Saline) 10 ml IVF PRN PRN PRN Reason: Saline Flush Sodium Chloride (Flush - Normal Saline) 10 ml IVF PRN PRN PRN Reason: Saline Flush Tizanidine HCl (Zanaflex) 4 mg PO [facility] Last Admin: 12/08/17 22:35 Dose: 4 mg Vitamin B Complex/Vit C/Folic Acid (Nephro-Bushra Tablet) 1 tab PO DAILY [facility] Last Admin: 12/09/17 08:26 Dose: 1 tab
[2017-12-09] MEDS: tiZANidine HCl 4 MG TAB PO SCH (21:26)
[2017-12-10] MEDS: Lisinopril 20 MG TAB PO SCH (08:18)
[2017-12-10] MEDS: Calcitriol 0.25 MCG CAP PO SCH (08:19)
[2017-12-10] MEDS: Heparin 5,000 UNITS/ML VIAL SC SCH (08:19)
[2017-12-10] MEDS: Gabapentin 100 MG CAP PO SCH (08:19)
[2017-12-10] MEDS: Folic Acid/Vit B Comp W-C PO SCH (08:19)
[2017-12-10] MEDS: Metoprolol Tartrate 50 MG TAB PO SCH (08:19)
[2017-12-10] MEDS: hydrALAZINE 25 MG TAB PO SCH (08:19)
[2017-12-10] MEDS: Docusate 100 MG CAP PO SCH (08:20)
[2017-12-10] MEDS: HYDROcodone/Acetaminophen 10/325 mg Tablet PO PRN (08:20)
--- NOTE | 2017-12-10 08:35 | PRG ---
DATE OF SERVICE: 12/10/2017 The patient was seen and examined with no new complaint. PHYSICAL EXAMINATION: VITAL SIGNS: Afebrile with temperature 98.3, pulse 76, respiratory rate 18, O2 sat 93% with a blood pressure 130/53. HEENT: Unremarkable. CARDIOVASCULAR: First and second heart sounds were heard. RESPIRATORY: Clear to auscultation. DIGESTIVE: Revealed a benign abdomen, positive bowel sounds. EXTREMITIES: No peripheral edema. SKIN: No new gross rash. LYMPHATICS: No peripheral lymphadenopathy. IMPRESSION: 1. End-stage renal disease on hemodialysis. 2. Anemia of chronic kidney disease. 3. Hyperparathyroidism. PLAN: 1. The patient to continue erythropoiesis stimulating agent. 2. Outpatient dialysis placement. From my own standpoint, the patient is good for discharge as I do believe the patient has been accepted at outpatient dialysis facility. 3. We will continue to monitor the patient's hemodynamics and titrate blood pressure medications sharmaine n. 4. Further management to be dependent on the clinical course.
[2017-12-10 11:12] VITALS: BP 152/85; TEMP 98
--- NOTE | 2017-12-10 12:00 | PQF ---
GANESH GILES JR, RICHA MD [id number] IMCU- B10 [id number] CLINICAL DOCUMENTATION IMPROVEMENT CLARIFICATION FORM: ICD-10 Updated PLEASE DO AN ADDENDUM TO THE PROGRESS NOTE WITH ANY DOCUMENTATION UPDATES OR ADDITIONS AND CARRY THROUGH TO DC SUMMARY. THANK YOU. DATE: 12-10-17 ATTN: DR. RIDLEY Please exercise your independent, professional judgment in responding to the clarification form. Clinical indicators are provided on the bottom of this form for your review Please check appropriate box(s): HEART FAILURE: A. TYPE: [ ] Systolic / HFrEF [ ] Diastolic / HFpEF [ ] Combined Systolic / Diastolic B. ACUITY [ ] Acute [ ] Acute on Chronic [ ] Chronic [ ] Other diagnosis [ ] Unable to determine In addition, please specify: Present on Admission (POA): [ ] Yes [ ] No [ ] Unable to determine For continuity of documentation, please document condition throughout progress notes and discharge summary. Thank You. CLINICAL INDICATORS - SIGNS / SYMPTOMS / LABS ED: * DX: CHF W/ RENAL FAILURE; HYPOXIC RESP FAILURE * PRESENTS FOR EVALUATION OF CHF - TRANSFER FROM [facility] C/O CHF EXACERBATION * DYSPNEA ON EXERTION; LEG SWELLING 2+ PITTING; 12-02 ([facility]) H&P: * CXR: CARDIOMEGALY AND INCREASE IN PULMONARY VASCULAR MARKINGS * ACUTE RESP FAILURE, LIKELY A RESULT OF VOLUME OVERLOAD - ESRD * ALSO W/ CARDIOMEGALY ON CXR - THEREFORE, CANNONT ENTIRELY R/O CHF 12-03 ([facility]): CHF; RESP FAILURE; RENAL FAILURE; ENCEPHALOPATHIC 12-03 ([facility]): * ADVANCED CKD STAGE 5 * RESPIRATORY FAILURE IN THE CONTEXT OF HYPOVOLEMIA * NEPHROTIC SYNDROME LIKELY IN CONTEXT OF DIABETIC NEPHROPATHY * CXR DID REVEAL SEVERE PULMONARY EDEMA 12-04 ECHO: EF 55-60% W/ DIASTOLIC DYSFUNCTION RISKS: 12-02 ([facility]) H&P: HTN; DM; CKD STAGE 4 TREATMENTS: CPOE: IMCU MONITORING BIPAP / O2 NC 12-03 ([facility]): EMERGENT HEMODIALYSIS; RENALLY DOSE ALL MEDICATIONS PER LOW GFR ; MAR: LOPRESSOR 12-05 TO 12-10 ECHO: EF 55-60% W/ DIASTOLIC DYSFUNCTION THANK YOU, ANJU (This form is maintained as a part of the permanent medical record) 2014 [employer]. All Rights Reserved Anju Ontiveros RN, BS [email or web address] [facility]
--- NOTE | 2017-12-11 01:54 | DIS ---
DATE OF ADMISSION: 12/03/2017 DATE OF DISCHARGE: 12/10/2017 CONDITION AT THE TIME OF DISCHARGE: Stable and improved. DISCHARGE DISPOSITION: Home. PRIMARY CARE PHYSICIAN: Ila Luz, DISCHARGE REFERRAL: Pain Medicine, Dr. Devon Jorge and [facility] and outpatient cardiac r ehabilitation in [place]. DISCHARGE MEDICATIONS: As follows, please note that the patient has been taken off his nifedipine an d hydralazine due to low blood pressure in the hospital. Resume following home medications, tizanidi ne 4 mg at bedtime, Protonix 40 mg daily, metoprolol tartrate 50 mg p.o. b.i.d., lisinopril 20 mg kim ly, Humulin 70/30 20 units b.i.d., hydrocodone as needed, gabapentin 100 mg p.o. t.i.d., Nephro-Bushra 1 tablet daily, ferrous sulfate 325 mg p.o. b.i.d., daily. New medications, Seroquel 25 mg at bedtime. In the resume medication, add Zoloft 50 mg at bedtime. Please note that the Seroquel was started by Nephrology, Dr. Sierra. INHOUSE CONSULTATIONS: Nephrology, Dr. Sierra. General Surgery, Dr. Bowles. PROCEDURES DONE IN THE HOSPITAL: 1. Right femoral dialysis catheter placement. 2. Transthoracic echocardiogram, which shows EF of 55-60% and moderate left ventricular hypertrophy and diastolic dysfunction. 3. Placement of a dialysis fistula by Dr. Bowles. HISTORY OF PRESENTING ILLNESS: Mr. Oshea is a 72-year-old male with past medical history of diabetes , chronic kidney disease stage 4, hypertension, gastroesophageal reflux disease who presented to the emergency room with complaints of worsening shortness of breath. He was found to be hypoxic reported ly, 40s, prior to being placed on the oxygen. Chest x-ray showed florid pulmonary edema. Creatinine was elevated to 6.74. He was admitted with acute on chronic kidney insufficiency and worsening flui d overload secondary to that. Nephrology was consulted. Please see admission history and physical f or further detail. HOSPITAL COURSE: Dr. Sierra saw the patient and agreed that the patient will need to be started on hemodialysis this admission. Dialysis catheter was started by Dr. Sierra and later Dr. Lincoln justin placed a fistula. The patient was started on hemodialysis and maintained on it and tolerated very well. He was taken off his nifedipine and later hydralazine when his blood pressure kind of was on the lowe r ranges. He was continued on Coreg and lisinopril without any issues. His mentation fluctuated while in the hospital for which reason Dr. Sierra started him on Seroque l. As of this morning, outpatient dialysis has been set up and the patient has been cleared by Nephrolog y for discharge. He was seen and examined prior to discharge. PHYSICAL EXAMINATION: VITAL SIGNS: Temperature 98, heart rate 71, respirations 20, saturating 95% on room air, blood press ure 152/85. GENERAL: No acute distress. Awake, alert, and oriented x3. CHEST: Clear to auscultation without any wheezing, rales, or rhonchi. Rate and rhythm regular. EXTREMITIES: Free of any cyanosis, clubbing, or edema. The patient is given referral to Pain Medicine, Dr. Jorge as he reports chronic back pain and see s a pain doctor in [place], but wants to close by. Discharge plan was discussed with the patient who verbalized understanding. All the questions were a nswered and prescriptions were provided. Total time spent 32 minutes.
--- NOTE | 2017-12-18 11:21 | PDOC.OP ---
Operative Note - Operative Note Operative Note: PROCEDURE: Placement of right internal jugular tunneled hemodialysis catheter with ultrasound and fluoroscopic guidance, and left Lisa AV fistula. SURGEON: Leah Bowles M.D. DATE OF PROCEDURE: 12/06/2017 PREOPERATIVE DIAGNOSIS: Acute/Chronic renal failure. POSTOPERATIVE DIAGNOSIS: Acute/Chronic renal failure. HISTORY: Patient with chronic renal failure that has acutely worsened and progressed need for dialysis. A tunneled hemodialysis catheter for ongoing dialysis has been requested by the patients window treatment installer, as well as a fistula for long-term access. PROCEDURE: After informed consent was obtained and appropriate preoperative antibiotics were administered, the patient was taken to the Operating Room, placed in the supine position and monitored anesthesia care was administered. The neck and chest were prepped and draped in a standard sterile fashion and the patient placed in Trendelenburg position. A sterile ultrasound probe was used to identify the patent compressible right IJ vein which was accessed under direct ultrasound guidance. A wire was threaded through the needle and confirmed by ultrasound to be within the patent compressible vessel with the tip in the vena cava by fluoroscopy. Local anesthesia was infused to the skin and subcutaneous tissues of the right neck and chest. An infraclavicular incision was made and a catheter tunneled from the infraclavicular to the right IJ access site. The right IJ was sequentially dilated over the wire following which a dilator and sheath were placed over the wire and the dilator and wire removed leaving the sheath in place. The catheter was tunneled through the sheath which was then split and removed leaving the catheter in place. This was confirmed by fluoroscopy to be in good position in the superior vena cava with no kinking of the course of the catheter. Both ports easily aspirated dark venous nonpulsatile blood and easily flushed without resistance. Heparin was instilled to the quantity specified on the hub, and the hub was secured to the skin with 3-0 nylon sutures. The skin incision at the neck was closed in two layers with 4-0 Monocryl suture and Dermabond dressings were placed. The skin at the exit site was snugged up around the catheter with 4-0 Monocryl suture and Dermabond was placed there as well. Once the Dermabond was dry, a Biopatch and Tegaderm dressing was placed at the exit site. Attention was then turned to placement of the left upper extremity AV fistula. The arm was prepped and draped in a standard sterile fashion and an incision made between the palpable cephalic vein and radial artery. Dissection was carried out to the cephalic vein, which appeared to be of adequate quality and caliber to support a fistula. This was dissected free circumferentially, ligated, and divided distally, and spatulated with Campbell scissors. This was serially interrogated with cardiac dilators and easily accepted up to a 4 mm cardiac dilator. This was flushed with heparinized saline and clamped with a bulldog clamp. The radial artery was then dissected free and found to be of adequate quality and caliber to support a fistula. Heparin was administered systemically and allowed to circulate for 3 minutes following which the radial artery was clamped proximally and distally. An anterior arteriotomy was created with an 11 blade scalpel and extended with Campbell scissors. An end-to- side anastomosis created with a running 6-0 Prolene suture with excellent technical result. Prior to tying down the anastomosis, the inflow was released to flush the anastomosis. Flow was established first through the fistula and then through the distal radial artery. Hemostasis at the site was confirmed, and an excellent thrill was felt in the cephalic vein outflow and an excellent bruit was heard with Doppler as well up to the proximal forearm. Hemostasis at the operative site was again confirmed. The incision was closed with a running 3 -0 subcutaneous and running 4-0 subcuticular Monocryl sutures. Dermabond dressings were placed and the patient was taken to the recovery room in good condition. Estimated blood loss was minimal. There were no complications. There were no specimens.
== END 2017-12-10 12:01 | disposition home or self-care (01) | DRG 981 ==
LOC: ERS 20:32 → IMCU/EMU 12-03 02:19 → T4-A 12-05 23:39
PROVIDERS: ADMIT Internal Medicine; ATTEND Internal Medicine
PROC: 02HV33Z Insertion of Infusion Device into Superior Vena Cava, Percutaneous Approach (ICD-10-PCS; 2017-12-03)
PROC: 5A1D70Z Performance of Urinary Filtration, Intermittent, Less than 6 Hours Per Day (ICD-10-PCS; 2017-12-03)
PROC: 5A09357 Assistance with Respiratory Ventilation, Less than 24 Consecutive Hours, Continuous Positive Airway Pressure (ICD-10-PCS; 2017-12-03)
PROC: 5A1D70Z Performance of Urinary Filtration, Intermittent, Less than 6 Hours Per Day (ICD-10-PCS; 2017-12-04)
PROC: 5A1D70Z Performance of Urinary Filtration, Intermittent, Less than 6 Hours Per Day (ICD-10-PCS; 2017-12-05)
PROC: 031C0ZF Bypass Left Radial Artery to Lower Arm Vein, Open Approach (ICD-10-PCS; principal; 2017-12-06)
PROC: 0JH63XZ Insertion of Tunneled Vascular Access Device into Chest Subcutaneous Tissue and Fascia, Percutaneous Approach (ICD-10-PCS; 2017-12-06)
PROC: 02HV33Z Insertion of Infusion Device into Superior Vena Cava, Percutaneous Approach (ICD-10-PCS; 2017-12-06)
PROC: 5A1D70Z Performance of Urinary Filtration, Intermittent, Less than 6 Hours Per Day (ICD-10-PCS; 2017-12-07)
PROC: 5A1D70Z Performance of Urinary Filtration, Intermittent, Less than 6 Hours Per Day (ICD-10-PCS; 2017-12-09)
DX: J96.01 Acute respiratory failure with hypoxia (principal); N18.6 End stage renal disease; G92 Toxic encephalopathy; I13.2 Hypertensive heart and chronic kidney disease with heart failure and with stage 5 chronic kidney disease, or end stage renal disease; N25.81 Secondary hyperparathyroidism of renal origin; N17.9 Acute kidney failure, unspecified; E11.22 Type 2 diabetes mellitus with diabetic chronic kidney disease; E11.21 Type 2 diabetes mellitus with diabetic nephropathy; E11.42 Type 2 diabetes mellitus with diabetic polyneuropathy; E11.65 Type 2 diabetes mellitus with hyperglycemia; E87.70 Fluid overload, unspecified; I50.9 Heart failure, unspecified; D63.1 Anemia in chronic kidney disease; K21.9 Gastro-esophageal reflux disease without esophagitis; G89.29 Other chronic pain; M54.5 Low back pain; N40.0 Benign prostatic hyperplasia without lower urinary tract symptoms; M19.90 Unspecified osteoarthritis, unspecified site; Z87.891 Personal history of nicotine dependence; Z79.4 Long term (current) use of insulin; Z79.899 Other long term (current) drug therapy
CPT/HCPCS: 36415; 36416; 36430; 71045; 80048; 80069; 82728; 83540; 83550; 84484; 85007; 85025; 85027; 86580; 86706; 86850; 86900; 86901; 87340; 90935; 93306; 93798; 93970; 94640; 94660; 96365; A4216; C1752; C1769; G0257; G0365; G8978-GP-CK; G8979-GP-CJ; J0360; J1644; J2001; J2060; J2405; J2704; J2720; J2916; J3010; J7050; J7620; P9016; Q4081

== ENCOUNTER 2019-03-12 15:33 | Inpatient (IN) | payer MEDICARE, MEDICAID ==
[2019-03-12 16:13] LABS: #Basophils 0.1 thou/uL (0.0-0.2); #Eosinphils 0.4 thou/uL (0.0-0.7); #Lymphocytes 3.1 thou/uL (1.20-3.40); #Monocytes 0.6 thou/uL (0.11-0.59); #Neutrophils 6.3 thou/uL (1.40-6.50); %Basophils 0.8 % (0.0-1.0); %Eosinophils 3.6 % (0.0-10.0); %Lymphocytes 30.1 % (21.0-51.0); %Monocytes 5.5 % (0.0-10.0); Hemoglobin 7.5 g/dL (14.0-18.0); Mean Corpuscular HGB CONC 32.3 g/dL (32.0-36.0); Mean Corpuscular Hemoglobin 23.6 pg (27.0-31.0); Mean Platelet Volume 8.2 fL (7.4-10.4); Platelet Count 310 thou/uL (130-400); RBC Distribution Width 14.4 % (11.5-14.5); Red Blood Cell (RBC) Count 3.17 mill/uL (4.70-6.10); White Blood Cell (WBC) Count 10.4 thou/uL (4.8-10.8)
[2019-03-12 16:30] LABS: Hypochromia SLIGHT = 6-15 cells (100X) (0-5/hpf); MDiff Complete? YES; Microcytosis SLIGHT = 6-15 cells (100X) (0-5/hpf); Platelet Morphology Comment Appears Adequate; Polychromasia SLIGHT = 2-3 cells (100X) (0-2/hpf); Schistocytes SLIGHT = 2-5 cells (100X) (0-1/hpf); Tear Drops SLIGHT = 2-5 cells (100X) (0-1/hpf)
[2019-03-12 16:33] LABS: ALT (SGPT) 15 U/L (8-55); AST (SGOT) 21 U/L (5-34); Albumin 3.5 g/dL (3.4-4.8); Alkaline Phosphatase 85 U/L (40-110); Anion Gap 18 mmol/L (10-20); BUN (Urea Nitrogen) 27 mg/dL (8.4-25.7); Bilirubin, Total 0.5 mg/dL (0.2-1.2); Calc. Creatinine Clearance 0 mL/min (70-130); Calcium 8.7 mg/dL (7.8-10.44); Carbon Dioxide 29 mmol/L (23-31); Chloride 91 mmol/L (98-107); Estimated GFR-MDRD 13; Globulin 4.1 g/dL (2.4-3.5); Glucose 356 mg/dL (83-110); Potassium 3.4 mmol/L (3.5-5.1); Protein, Total 7.6 g/dL (5.8-8.1); Sodium 135 mmol/L (136-145)
[2019-03-12] MEDS ORDERED: Ondansetron PF 4 MG/2 ML Vial IVP PRN (22:09)
[2019-03-12] MEDS ORDERED: Ondansetron ODT 4 MG TAB SL PRN (22:09)
[2019-03-12] MEDS ORDERED: HYDROcodone/Acetaminophen 5/325 mg Tablet PO PRN ×2 (22:09)
[2019-03-12] MEDS ORDERED: Acetaminophen 325 MG TAB PO PRN ×2 (22:09→23:57)
[2019-03-12] MEDS ORDERED: Acetaminophen 650 MG Suppository PR PRN (23:57)
[2019-03-13] MEDS ORDERED: Dextrose 5% in Water 1,000 ML IV PRN (00:27)
[2019-03-13] MEDS ORDERED: Dextrose 50% Abboject 50 ML SYRINGE SLOW IVP PRN (00:27)
--- NOTE | 2019-03-13 01:19 | HP ---
CHIEF COMPLAINT: Lightheaded, dizziness. HISTORY OF PRESENT ILLNESS: Mr. Oshea is a 73-year-old gentleman, who presented to the emergency department today due to lightheadedness for the last 2 days and blood in the stools for the last 3 days. The patient apparently had a syncopal episode while getting dialysis. He was sent home once his symptoms resolved. Apparently, he was called today after laboratory studies done, demonstrated he was anemic. They advised him to come to the emergency department. The patient has been seen in the ER and has undergone laboratory studies, which show a hemoglobin of 7.5. In 2018, it appears that his hemoglobin ranged between 7.1 and 9.5. The patient was recommended a blood transfusion, which he has refused. The patient is very agitated at bedside, stating he is not signing any consent, instructing the doctor what he needs to treat him with. States he will not sign the paper without a optical laboratory technician present, expresses concern over medical errors, stating that the "doctor should know what to give me without me having to sign a paper." I attempted to explain to the patient that this was a consent for blood after discussing risks and possible complications, however, the patient refused to listen and stated he would not be signing anything. The patient apparently had threatened to leave against medical advice, but when asked to sign AMA, he again refused and then stated he would not be going home. The patient states he does not want blood products, but does want to be admitted. He is not altered and does appear to be alert and oriented x3, however, very easily agitated when speaking about treatment. at bedside demanding the patient signed consent and see if she has consented for him in the past due to him not knowing how to read. She does report he has a mild underlying dementia in a psych history. Difficulty obtaining HPI and ROS due to the patient's agitation about being here, however, again does not want to go home. PAST MEDICAL HISTORY: 1. GERD. 2. Peripheral neuropathy. 3. End-stage renal disease, on dialysis. 4. Diabetes mellitus type 2, on insulin. 5. Hypertension. 6. Anemia. 7. Depression. 8. "Anger management issues.". PAST SURGICAL HISTORY: Lower back surgery. SOCIAL HISTORY: The patient drinks alcohol socially. Denies any tobacco use at present, but did smoke previously. Denies any drug use at present, but did use cocaine until his 30s. ALLERGIES: NO KNOWN DRUG ALLERGIES. CURRENT MEDICATIONS: Unable to verify. PHYSICAL EXAMINATION: GENERAL: The patient appears well developed, well nourished, in no acute distress. VITAL SIGNS: Temperature 98.2, pulse 72, blood pressure 129/52, respirations 16, O2 saturation 97% on room air. HEENT: Normocephalic and atraumatic. Pupils are equal, round, and reactive to light. Sclerae without icterus. Oropharynx is clear. NECK: Supple. LUNGS: Unable to complete remainder of his exam as the patient refusing and stood up out of the stretcher. EXTREMITIES: No visible lower extremity swelling or edema. NEUROLOGIC: Alert and oriented, extremely agitated. LABORATORY DATA: White count 10.4, hemoglobin 10.5, hematocrit 23.1, platelets 310, neutrophils 60%. Sodium 135, potassium 3.4, chloride 91, BUN 27, creatinine 5.34, GFR 13, glucose 357, calcium 8.7. LFTs unremarkable. IMAGING DATA: None. IMPRESSION AND PLAN: Mr. Oshea is a 73-year-old gentleman, who presents with lightheadedness and dizziness, who actually had a syncopal episode while undergoing dialysis. The patient referred for symptomatic anemia and recommended blood transfusion. However, the patient is refusing. He is very agitated and does not seem to be able to listen long enough in order to understand that the signatures for consent and not for him indicating to the physician what treatment needs to be given, which is his primary concern. The patient refusing to leave against medical advice, which is what he was requesting previously, however, does want to stay in the hospital, but refusing any treatment. I do not see that we have repeated the hemoglobin and I will go ahead and check an H and H. One unit of blood is available on standby should the patient reconsider. We will place a consultation to [facility] for formal evaluation. We will continue to monitor the patient. Vitals are normal at this present time and he is hemodynamically stable. He has a history of end-stage renal disease and is on hemodialysis. Consultation has been placed to Dr. Sierra. The patient is a diabetic. We will initiate insulin sliding scale and monitor blood glucose. We will monitor his blood pressure as well and resume his home medications once verified. Consultation has been placed to . Code status full. His surrogate decision maker is his , Rena Oshea. Case discussed with Dr. Trinidad who agrees with plan of care as described above. Job ID: [id number]
[2019-03-13] MEDS: Pantoprazole 80 MG in Sodium Chloride 0.9% 100 ML IVP SCH ×3 (03:41→22:27)
[2019-03-13 06:07] LABS: #Basophils 0.1 thou/uL (0.0-0.2); #Eosinphils 0.3 thou/uL (0.0-0.7); #Lymphocytes 2.9 thou/uL (1.20-3.40); #Monocytes 0.4 thou/uL (0.11-0.59); #Neutrophils 5.5 thou/uL (1.40-6.50); %Basophils 0.6 % (0.0-1.0); %Eosinophils 3.1 % (0.0-10.0); %Lymphocytes 31.5 % (21.0-51.0); %Monocytes 4.4 % (0.0-10.0); %Neutrophils 60.4 % (42.0-75.0); Hemoglobin 6.6 g/dL (14.0-18.0); Mean Corpuscular HGB CONC 32.9 g/dL (32.0-36.0); Mean Corpuscular Hemoglobin 24.6 pg (27.0-31.0); Mean Platelet Volume 7.6 fL (7.4-10.4); Platelet Count 246 thou/uL (130-400); RBC Distribution Width 15.2 % (11.5-14.5); Red Blood Cell (RBC) Count 2.69 mill/uL (4.70-6.10); White Blood Cell (WBC) Count 9.2 thou/uL (4.8-10.8)
[2019-03-13 06:19] LABS: Anion Gap 12 mmol/L (10-20); BUN (Urea Nitrogen) 33 mg/dL (8.4-25.7); Calc. Creatinine Clearance 14 mL/min (70-130); Calcium 8.2 mg/dL (7.8-10.44); Carbon Dioxide 32 mmol/L (23-31); Chloride 95 mmol/L (98-107); Estimated GFR-MDRD 12; Glucose 282 mg/dL (83-110); Potassium 3.1 mmol/L (3.5-5.1); Sodium 136 mmol/L (136-145)
[2019-03-13 08:57] LABS: Reticulocyte Count 4.3 % (0.5-1.5)
[2019-03-13] MEDS: Folic Acid 1 MG TAB PO SCH (09:27)
[2019-03-13] MEDS: Cyanocobalamin (Vitamin B-12) 1,000 MCG TAB PO SCH (09:27)
[2019-03-13] MEDS ORDERED: EPOETIN ALFA-EPBX (ESRD) 3,000 UNIT/ML VIAL SC SCH (09:45)
[2019-03-13] MEDS ORDERED: EPOETIN ALFA-EPBX (ESRD) 2,000 UNIT/ML VIAL SC SCH (09:45)
[2019-03-13] MEDS: HumaLOG 300 UNITS/3 ML VIAL SC PRN ×2 (11:36→21:22)
[2019-03-13 12:24] LABS: Hemoglobin 6.7 g/dL (14.0-18.0)
[2019-03-13] MEDS: EPOETIN ALFA-EPBX (ESRD) 3,000 UNIT/ML VIAL IVP SCH (15:54)
[2019-03-13] MEDS: EPOETIN ALFA-EPBX (ESRD) 2,000 UNIT/ML VIAL IVP SCH (15:54)
[2019-03-13] MEDS ORDERED: GoLYTELY 4,000 ml Bottle PO SCH (17:00)
--- NOTE | 2019-03-13 20:56 | PDOC.HOSPP ---
- Subjective Encounter Date: 03/13/19 Encounter Time: 15:00 Subjective: Patient seen and examined for GIB. No CP. Undergoing dialysis. No new complaints. No overnight events - Objective Vital Signs & Weight: Vital Signs (12 hours) Temp Pulse Pulse Resp BP BP Pulse Ox 03/13/19 20:33 98.8 F 93 18 145/73 H 98 03/13/19 16:15 98.3 F 86 18 136/77 03/13/19 16:00 98.4 F 88 18 126/72 03/13/19 15:45 98.4 F 85 18 131/71 03/13/19 15:30 98.4 F 93 18 106/71 03/13/19 15:00 98.6 F 90 18 123/67 03/13/19 14:45 98.8 F 62 18 111/61 03/13/19 14:30 98.8 F 80 18 102/58 L 03/13/19 11:00 98.7 F 77 20 115/68 95 Weight Admit Weight 180 lb 8.937 oz Weight 180 lb 8.937 oz I&O: 03/12/19 03/13/19 03/14/19 06:59 06:59 06:59 Intake Total 350 700 Balance 350 700 Result Diagrams: 03/13/19 12:17 03/13/19 05:30 Additional Labs: Accuchecks 03/13/19 03/13/19 03/12/19 11:28 04:30 22:57 POC Glucose 292 H 284 H 280 H Hospitalist ROS - Review of Systems Cardiovascular: denies: chest pain, palpitations, orthopnea, paroxysmal noc. dyspnea, edema, light headedness, other Gastrointestinal: denies: nausea, vomiting, abdominal pain, diarrhea, constipation, melena, hematochezia, other - Medication Medications: Active Medications Generic Name Dose Route Start Last Admin Trade Name Freq PRN Reason Stop Dose Admin Cyanocobalamin 1,000 mcg 03/13/19 09:00 03/13/19 09:27 Vitamin B-12 PO 1,000 mcg DAILY IZABEL Administration Epoetin Gary-epbx 2,000 unit 03/13/19 10:00 03/13/19 15:54 Retacrit IVP 2,000 unit WILLCALL IZABEL Administration Epoetin Gary-epbx 3,000 unit 03/13/19 10:00 03/13/19 15:54 Retacrit IVP 3,000 unit WILLCALL IZABEL Administration Folic Acid 1 mg 03/13/19 09:00 03/13/19 09:27 Folvite PO 1 mg DAILY IZABEL Administration Pantoprazole Sodium 80 mg/ 100 mls @ 10 mls/hr 03/13/19 00:30 03/13/19 12:17 Sodium Chloride IVP 100 mls INF IZABEL Administration Insulin Human Lispro 0 units 03/13/19 00:27 03/13/19 11:36 Humalog SC 4 unit .MILD SLIDING SCALE PRN Administration Mild Correctional Scale Sodium Chloride 10 ml 03/13/19 09:00 03/13/19 09:28 Flush - Normal Saline IVF Not Given Q12HR IZABEL - Exam General Appearance: NAD Neck: supple, no JVD Heart: RRR, no gallops Respiratory: no wheezes, no rales, no ronchi Gastrointestinal: soft, non-tender, non-distended, normal bowel sounds Extremities: no edema Hosp A/P - Plan DVT proph w/SCDs GI bleeding Symptomatic Anemia causing syncope Acute blood loss Anemia Chronic Anemia due to CKD ESRD on dialysis HTN Obesity BMI 30 DM2 Anxiety GERD PLAN: Receiving 1 unit PRBC AM labs Resume Zoloft/Seroquel Cont Protonix drip Add Folic acid/Vit B12
[2019-03-13] MEDS: Gabapentin 100 MG CAP PO SCH (21:13)
[2019-03-13] MEDS: diphenhydrAMINE 25 MG CAP PO PRN (22:26)
--- NOTE | 2019-03-13 22:39 | CON ---
DATE OF CONSULTATION: 03/13/2019 REASON FOR CONSULTATION: Hematochezia. HISTORY OF PRESENT ILLNESS: Mr. Alban Oshea is a 73-year-old male, seen in the ER with history of dizziness, and history of having hematochezia. The patient appears very comfortable. He is awake, alert, and communicative. However, he is hard of hearing and he is not a very good historian. Most of the history was obtained by going over the admitting history and physical by Ms. Meier. The patient apparently came to the ER with history of dizziness over the last 3 days with blood in the stool. The blood was actually bright red and some blood clots. The patient has had no bleeding today. He also had no bleeding last night. The patient has hemodialysis 3 times a week. He has dialysis Saturday, Saturday, and Fridays. Apparently, he had a syncopal episode when doing dialysis, but his blood pressure stabilized subsequently and sent home. He had some CBC done and was found to be anemic. He was advised to come back to the ER because of anemia. The patient has a hemoglobin of 7.5 and the usual readings from a chart ranges from 7.1 to 9.5. The patient has had no abdominal pain. No nausea or vomiting. Denies any dysphagia or odynophagia. The patient was hospitalized here in 2014 with upper GI bleeding and was seen by Dr. Luis Angel Rocha. He had an EGD and was found to have bleeding ulcer in the duodenal bulb and was cauterized. The patient I believe does not remember having the procedure done. The patient's primary care doctor is in [place] and he does not know the name of the doctor. He says he goes to [place], [place] for dialysis 3 times a week. The patient at the present time appears very comfortable. He says he is hungry and he has had nothing to eat or drink. As mentioned earlier, he has had no bleeding throughout the day today. Apparently, when he came to the ER, he told the doctor he does not want transfusion and he want to go home. In fact, he does not want to have blood transfusion. It appears that the family talked to him into having him sign the consent for the blood transfusion and had him hospitalized. There is no relevant history. PAST MEDICAL HISTORY: 1. Chronic acid reflux. 2. Peripheral neuropathy. 3. Chronic kidney disease, on dialysis 3 times a week. 4. Diabetes mellitus type 2. 5. Hypertension. 6. Anemia. 7. Depression. 8. Anger management issues. 9. Bleeding peptic ulcer in 2015. PAST SURGICAL HISTORY: 1. Back surgery. 2. He has had EGD and BICAP therapy of bleeding ulcer in 2015. 3. He has had AV fistula placement. SOCIAL HISTORY: The patient is . He smokes socially. Denies any alcohol abuse, or illicit drug abuse. ALLERGIES: NONE. MEDICATIONS: List reviewed in chart. REVIEW OF SYSTEMS: Ten-point system reviewed. CONSTITUTIONAL: No history of fever. No history of any weight loss. No history of any weakness or fatigue. HEENT: Head; no chronic headache. Had a syncopal episode during dialysis a couple of days ago. No history of TIA. Eyes; no impaired vision. Ears; he is hard of hearing. Nose; no nosebleed. Throat; no sore throat or dysphagia. LUNGS: No chronic coughing. No hemoptysis. No dyspnea. CARDIOVASCULAR: No chest pain. No palpitation. No dyspnea, orthopnea, or PND. GI: No abdominal pain. No nausea, or vomiting. History of hematochezia. NEUROPSYCHIATRY: No weakness or any paresthesia. PHYSICAL EXAMINATION: GENERAL: He is a very thin built male, appears comfortable. He is awake and alert, communicative. However, he appeared to be n.p.o. and he wants to eat. He says he has had no bleeding today. VITAL SIGNS: Pulse is 72, blood pressure 129/52. HEENT: Conjunctivae are clear. NECK: Supple. No adenitis or thyromegaly noted. CARDIOVASCULAR: First and second heart sounds are normal. LUNGS: Clear to auscultation. ABDOMEN: Soft. No organomegaly. No tenderness. No masses. RECTAL: Rectal exam done showed no active bleeding. EXTREMITIES: Reveal no edema. LABORATORY DATA: WBC 10,400, hemoglobin 10.5, hematocrit 23.1, platelet count 310,000, polymorphs 60%. Sodium 135, potassium 3.4, chloride 91, bicarb is normal, BUN is 27, serum creatinine 5.34, GFR 13, glucose 357, calcium 8.7. LFTs normal. CLINICAL IMPRESSION: A 73-year-old male with; 1. Painless rectal bleeding. The patient denies any bleeding in the past. He is very unsure about the colonoscopy whether it was done. He did have an EGD in this hospital in 2014 for bleeding ulcer. At the present time, he has had no bleeding over the last at least 12 hours. The etiology is unclear. 2. Chronic kidney disease. 3. Hypertension. 4. Diabetes mellitus. 5. Chronic acid reflux. RECOMMENDATIONS: 1. Discontinue n.p.o. 2. Clear liquid diet. 3. Serial H and H. 4. Colonoscopy tomorrow and possibly EGD at the same time. I did explain to Mr. Oshea in detail about the procedure and he is agreeable. I will plan to prep him today and plan for EGD and colonoscopy tomorrow. Job ID: [id number]
--- NOTE | 2019-03-13 22:54 | CON ---
DATE OF CONSULTATION: REQUESTING PHYSICIAN: ER physician. REASON FOR CONSULTATION: Need for maintenance dialysis. IMPRESSION: 1. End-stage renal disease on a Saturday, Saturday, and Saturday schedule dialysis. 2. Anemia in the context of acute gastrointestinal blood loss. 3. Mild hypokalemia. PLAN: 1. The patient to be dialyzed today. We will plan to transfuse this patient with about 2 units of blood to be coordinated with dialysis so they can be carried out during dialysis. 2. Continue erythropoietin-stimulating agents. 3. Further management to be dependent on the clinical course. HISTORY OF PRESENT ILLNESS: History is that of 73-year-old gentleman, who presented here with lightheadedness and dizziness, has been having some red bloody stool at home. The patient noted with hemoglobin in the hospital, he drifted down from 10 down to about 6.6, now at this time of history taken. Otherwise, the patient denies chest pain. Denies shortness of breath and the need for maintenance dialysis necessitated this renal consultation. PAST MEDICAL HISTORY: Significant for reflux disease, peripheral neuropathy, end-stage renal disease, type 2 diabetes, hypertension, anemia, and depression. SOCIAL HISTORY: Denies alcohol, tobacco, or illicit drug use currently. ALLERGIES: NO KNOWN DRUG ALLERGIES. REVIEW OF SYSTEMS: As documented in the body of history. All the other systems were reviewed and found not to be significantly related to presenting illness. PHYSICAL EXAMINATION: GENERAL: The patient was found not to be in any obvious distress, noted with the following vital signs. VITAL SIGNS: Afebrile, temperature 98.8, pulse 80, respiratory rate of 18, pulse of 80, blood pressure 111/51. HEENT: Unremarkable. CARDIOVASCULAR: First and second heart sounds were heard. RESPIRATORY SYSTEM: Clear to auscultation. DIGESTIVE SYSTEM: Revealed a benign abdomen with positive bowel sounds. EXTREMITIES: No peripheral edema. SKIN: No new gross rash. LYMPHATICS: No peripheral lymphadenopathy. SUMMARY: A 73-year-old gentleman with end-stage renal disease, hemodialysis dependent, who presented here with severe anemia in the context of gastrointestinal bleed. Thank you for this consultation. We will follow with you. Job ID: [id number]
[2019-03-14] MEDS: HumaLOG 300 UNITS/3 ML VIAL SC PRN ×2 (05:45→21:37)
[2019-03-14 05:51] LABS: #Eosinphils 0.2 thou/uL (0.0-0.7); #Lymphocytes 2.6 thou/uL (1.20-3.40); #Monocytes 0.5 thou/uL (0.11-0.59); #Neutrophils 6.1 thou/uL (1.40-6.50); %Basophils 0.2 % (0.0-1.0); %Eosinophils 2.4 % (0.0-10.0); %Lymphocytes 27.3 % (21.0-51.0); %Monocytes 5.3 % (0.0-10.0); %Neutrophils 64.9 % (42.0-75.0); Mean Corpuscular Hemoglobin 25.8 pg (27.0-31.0); Mean Corpuscular Volume 78.2 fL (78.0-98.0); Mean Platelet Volume 7.5 fL (7.4-10.4); Platelet Count 246 thou/uL (130-400); RBC Distribution Width 15.7 % (11.5-14.5); Red Blood Cell (RBC) Count 3.49 mill/uL (4.70-6.10); White Blood Cell (WBC) Count 9.5 thou/uL (4.8-10.8)
[2019-03-14 06:06] LABS: Anion Gap 15 mmol/L (10-20); BUN (Urea Nitrogen) 19 mg/dL (8.4-25.7); Calc. Creatinine Clearance 19 mL/min (70-130); Calcium 8.6 mg/dL (7.8-10.44); Carbon Dioxide 27 mmol/L (23-31); Chloride 102 mmol/L (98-107); Estimated GFR-MDRD 18; Glucose 271 mg/dL (83-110); Potassium 3.5 mmol/L (3.5-5.1); Sodium 140 mmol/L (136-145)
[2019-03-14] MEDS: Pantoprazole 80 MG in Sodium Chloride 0.9% 100 ML IVP SCH ×2 (08:37→16:58)
[2019-03-14] MEDS: Amlodipine 5 MG TAB PO SCH (08:39)
[2019-03-14] MEDS: Gabapentin 100 MG CAP PO SCH ×3 (08:40→21:34)
[2019-03-14] MEDS: Folic Acid 1 MG TAB PO SCH (08:40)
[2019-03-14] MEDS: Cyanocobalamin (Vitamin B-12) 1,000 MCG TAB PO SCH (08:40)
[2019-03-14] MEDS ORDERED: PROPOFOL 200 MG/20 ML VIAL ONE (09:55)
[2019-03-14] MEDS ORDERED: Ondansetron HCl/PF 4 MG/2 ML Vial IVP PRN (19:24)
--- NOTE | 2019-03-14 19:39 | PRG ---
DATE OF SERVICE: 03/14/2019 SUBJECTIVE: The patient noted with the following vital signs. OBJECTIVE: VITAL SIGNS: Afebrile, temperature 97.9, pulse 71, respiratory rate of 16, O2 saturations are 99%, blood pressure 128/74. HEENT: Unremarkable. CARDIOVASCULAR SYSTEM: First and second heart sounds were heard. RESPIRATORY SYSTEM: Clear to auscultation. DIGESTIVE SYSTEM: Revealed a benign abdomen with positive bowel sounds. EXTREMITIES: No peripheral edema. SKIN: No new gross rash. LYMPHATICS: No peripheral lymphadenopathy. LABORATORY INVESTIGATION: Significant for hemoglobin that has gone up to 9.0. IMPRESSION: 1. End-stage renal disease, on dialysis Saturday, Saturday, Saturday, and dialyzed yesterday. 2. Anemia in the context of gastrointestinal bleed, undergoing esophagogastroduodenoscopy and colonoscopy. PLAN: 1. Continue current dialysis schedule. No emergent indication for dialysis. 2. Further management will be dependent on the clinical course. Job ID: [id number]
[2019-03-14] MEDS: diphenhydrAMINE 25 MG CAP PO PRN (21:33)
--- NOTE | 2019-03-15 00:11 | OP ---
DATE OF PROCEDURE: 03/14/2019 OPERATIVE PROCEDURE: Esophagogastroduodenoscopy. PREOPERATIVE DIAGNOSES: 1. Gastrointestinal bleeding. 2. Past history of bleeding peptic ulcer. POSTOPERATIVE DIAGNOSES: 1. Normal esophagus. 2. Normal stomach and duodenum. No pathology seen to explain the bleeding. DESCRIPTION OF PROCEDURE: The patient was placed in his left lateral position and was given sedation by Anesthesia Department. A bite block was placed. A Pentax video gastroscope under direct vision passed down the oropharynx, past the GE junction into the stomach and subsequently into the descending duodenum. The esophageal mucosa appeared normal throughout the scope. GE junction, no pathology. The patient had hiatal hernia. Retroflexion failed to show any pathology in fundus or cardia. The gastric body, gastric antrum, no lesions seen. The duodenal bulb, descending duodenum, no pathology. Stomach decompressed and the scope removed. PLAN: Colonoscopy because of negative EGD. Job ID: [id number]
--- NOTE | 2019-03-15 00:55 | OP ---
DATE OF PROCEDURE: 03/14/2019 PROCEDURE PERFORMED: Colonoscopy with APC. PREOPERATIVE DIAGNOSIS: Hematochezia, anemic due to blood loss. POSTOPERATIVE DIAGNOSES: 1. Diffuse vascular ectasia of the rectum almost circumferential and multiple areas of bleeding from blood clots and fresh blood. 2. About 25 cm, there was no blood staining seen, and the mucosa appears normal throughout. He did have hemorrhoids and also sigmoid diverticular disease. DESCRIPTION OF PROCEDURE: The patient was placed on his left lateral position and was given sedation by Anesthesia Department. A rectal exam was done before scope was advanced into the rectum. No lesions felt on rectal exam. A Pentax video colonoscope was introduced into the rectum and advanced all the way to the cecum. Upon entering the rectum and sigmoid colon, at rectosigmoid junction patient have fresh blood and some blood clots and diffuse oozing. Water was irrigated and washed out. Upon cleaning the low-walled rectum and rectosigmoid area, the patient was found to have diffuse telangiectasia, . There were multiple areas of oozing seen. About 20 cm, there was no blood staining seen. The scope was advanced all the way into the cecum. The patient had sigmoid diverticula, but no bleeding seen. The appendicular opening, ileocecal valve, cecum, no other lesions. Withdrawal of scope from cecum to ascending colon, hepatic flexure, no pathology seen. The transverse colon, splenic flexure, descending colon, no lesion. The sigmoid colon shows scattered diverticula. Upon coming back into the rectum, the same findings were noted with diffuse oozing of blood with multiple areas of hemorrhagic appearing mucosa. Water was used to irrigate and wash out. Trying to cauterize the area with argon plasma coagulation. The APC probe was passed into the rectum through the scope and most of the prominent areas where the blood was coming from has been cauterized with APC with good hemostasis. Retroflexion showed hemorrhoids. At end of the procedure, the bleeding appears to stop. The scope was removed. RECOMMENDATIONS: 1. Serial H and H. 2. Transfuse p.r.n. 3. Clear liquid diet today and advance diet to renal diet tomorrow morning. Job ID: [id number]
[2019-03-15] MEDS: HumaLOG 300 UNITS/3 ML VIAL SC PRN ×3 (05:14→17:15)
[2019-03-15 07:30] LABS: #Basophils 0.1 thou/uL (0.0-0.2); #Eosinphils 0.2 thou/uL (0.0-0.7); #Lymphocytes 2.6 thou/uL (1.20-3.40); #Monocytes 0.6 thou/uL (0.11-0.59); #Neutrophils 9.6 thou/uL (1.40-6.50); %Basophils 0.4 % (0.0-1.0); %Eosinophils 1.6 % (0.0-10.0); %Monocytes 4.4 % (0.0-10.0); %Neutrophils 73.7 % (42.0-75.0); Hemoglobin 8.1 g/dL (14.0-18.0); Mean Corpuscular HGB CONC 33.4 g/dL (32.0-36.0); Mean Corpuscular Hemoglobin 26.2 pg (27.0-31.0); Mean Corpuscular Volume 78.3 fL (78.0-98.0); Mean Platelet Volume 7.1 fL (7.4-10.4); Platelet Count 245 thou/uL (130-400); RBC Distribution Width 16.2 % (11.5-14.5); Red Blood Cell (RBC) Count 3.08 mill/uL (4.70-6.10); White Blood Cell (WBC) Count 13.1 thou/uL (4.8-10.8)
[2019-03-15] MEDS: Gabapentin 100 MG CAP PO SCH ×3 (08:05→21:34)
[2019-03-15] MEDS: Folic Acid 1 MG TAB PO SCH (08:05)
[2019-03-15] MEDS: Amlodipine 5 MG TAB PO SCH (08:05)
[2019-03-15] MEDS: Cyanocobalamin (Vitamin B-12) 1,000 MCG TAB PO SCH (08:05)
--- NOTE | 2019-03-15 10:48 | PDOC.HOSPP ---
- Subjective Encounter Date: 03/14/19 Encounter Time: 09:00 Subjective: Patient seen and examined for GI bleeding. Refusing bowel prep. Not answering questions. No overnight events - Objective Vital Signs & Weight: Vital Signs (12 hours) Temp Pulse Resp BP BP Pulse Ox 03/15/19 08:10 99.1 F 92 16 133/73 95 03/15/19 08:05 92 133/73 03/15/19 04:00 98.9 F 111 H 18 149/70 H 98 Weight Admit Weight 180 lb 8.937 oz Weight 180 lb 8.937 oz I&O: 03/14/19 03/15/19 03/16/19 06:59 06:59 06:59 Intake Total 700 3700 Balance 700 3700 Result Diagrams: 03/15/19 06:57 03/14/19 05:39 Additional Labs: Accuchecks 03/15/19 03/14/19 03/14/19 04:53 19:47 16:17 POC Glucose 243 H 249 H 252 H 03/14/19 11:16 POC Glucose 253 H Hospitalist ROS - Review of Systems Respiratory: denies: cough, dry, shortness of breath, hemoptysis, SOB with excertion, pleuritic pain, sputum, wheezing, other Cardiovascular: denies: chest pain, palpitations, orthopnea, paroxysmal noc. dyspnea, edema, light headedness, other - Medication Medications: Active Medications Generic Name Dose Route Start Last Admin Trade Name Freq PRN Reason Stop Dose Admin Acetaminophen 650 mg 03/12/19 23:57 03/13/19 21:21 Tylenol PO 650 mg Q4H PRN Administration Headache/Fever/Mild Pain (1-3) Amlodipine Besylate 5 mg 03/14/19 09:00 03/15/19 08:05 Norvasc PO 5 mg DAILY IZABEL Administration Cyanocobalamin 1,000 mcg 03/13/19 09:00 03/15/19 08:05 Vitamin B-12 PO 1,000 mcg DAILY IZABEL Administration Diphenhydramine HCl 25 mg 03/13/19 22:19 03/14/19 21:33 Benadryl PO 25 mg Q6H PRN Administration Itching Epoetin Gary-epbx 2,000 unit 03/13/19 10:00 03/13/19 15:54 Retacrit IVP 2,000 unit WILLCALL IZABEL Administration Epoetin Gary-epbx 3,000 unit 03/13/19 10:00 03/13/19 15:54 Retacrit IVP 3,000 unit WILLCALL IZABEL Administration Folic Acid 1 mg 03/13/19 09:00 03/15/19 08:05 Folvite PO 1 mg DAILY IZABEL Administration Gabapentin 100 mg 03/13/19 21:00 03/15/19 08:05 Neurontin PO 100 mg TID IZABEL Administration Insulin Human Lispro 0 units 03/13/19 00:27 03/14/19 21:37 Humalog SC 2 unit .BEDTIME SLIDING SC PRN Administration Bedtime Correctional Scale Quetiapine Fumarate 25 mg 03/13/19 21:00 03/14/19 21:34 Seroquel PO 25 mg HS IZABEL Administration Sertraline HCl 100 mg 03/14/19 09:00 03/15/19 08:05 Zoloft PO 100 mg DAILY IZABEL Administration Sodium Chloride 10 ml 03/13/19 09:00 03/15/19 08:05 Flush - Normal Saline IVF 10 ml Q12HR IZABEL Administration - Exam General Appearance: NAD Heart: RRR, no rubs Respiratory: CTAB, no rales Gastrointestinal: soft, non-tender, normal bowel sounds Extremities: no edema Hosp A/P - Plan DVT proph w/SCDs GI bleeding Symptomatic Anemia causing syncope Acute blood loss Anemia Chronic Anemia due to CKD ESRD on dialysis HTN Obesity BMI 30 DM2 Anxiety GERD PLAN: Refusing bowel prep Cont Protonix drip s/p 1 unit PRBC AM labs Cont Zoloft/Seroquel/Folic acid/Vit B12
--- NOTE | 2019-03-15 12:59 | PDOC.HOSPP ---
- Subjective Encounter Date: 03/15/19 Encounter Time: 12:57 Subjective: Patient seen and examined for GI bleeding. Intermittent hematochezia. No other complaints. No overnight events - Objective Vital Signs & Weight: Vital Signs (12 hours) Temp Pulse Resp BP BP Pulse Ox 03/15/19 08:10 99.1 F 92 16 133/73 95 03/15/19 08:05 92 133/73 03/15/19 04:00 98.9 F 111 H 18 149/70 H 98 Weight Admit Weight 180 lb 8.937 oz Weight 180 lb 8.937 oz I&O: 03/14/19 03/15/19 03/16/19 06:59 06:59 06:59 Intake Total 700 3700 Balance 700 3700 Result Diagrams: 03/15/19 06:57 03/14/19 05:39 Additional Labs: Accuchecks 03/15/19 03/15/19 03/14/19 11:38 04:53 19:47 POC Glucose 307 H 243 H 249 H 03/14/19 16:17 POC Glucose 252 H Hospitalist ROS - Review of Systems Respiratory: denies: cough, dry, shortness of breath, hemoptysis, SOB with excertion, pleuritic pain, sputum, wheezing, other Cardiovascular: denies: chest pain, palpitations, orthopnea, paroxysmal noc. dyspnea, edema, light headedness, other - Medication Medications: Active Medications Generic Name Dose Route Start Last Admin Trade Name Freq PRN Reason Stop Dose Admin Acetaminophen 650 mg 03/12/19 23:57 03/13/19 21:21 Tylenol PO 650 mg Q4H PRN Administration Headache/Fever/Mild Pain (1-3) Amlodipine Besylate 5 mg 03/14/19 09:00 03/15/19 08:05 Norvasc PO 5 mg DAILY IZABEL Administration Cyanocobalamin 1,000 mcg 03/13/19 09:00 03/15/19 08:05 Vitamin B-12 PO 1,000 mcg DAILY IZABEL Administration Diphenhydramine HCl 25 mg 03/13/19 22:19 03/14/19 21:33 Benadryl PO 25 mg Q6H PRN Administration Itching Epoetin Gary-epbx 2,000 unit 03/13/19 10:00 03/13/19 15:54 Retacrit IVP 2,000 unit WILLCALL IZABEL Administration Epoetin Gary-epbx 3,000 unit 03/13/19 10:00 03/13/19 15:54 Retacrit IVP 3,000 unit WILLCALL IZABEL Administration Folic Acid 1 mg 03/13/19 09:00 03/15/19 08:05 Folvite PO 1 mg DAILY IZABEL Administration Gabapentin 100 mg 03/13/19 21:00 03/15/19 08:05 Neurontin PO 100 mg TID IZABEL Administration Insulin Human Lispro 0 units 03/13/19 00:27 03/14/19 21:37 Humalog SC 2 unit .BEDTIME SLIDING SC PRN Administration Bedtime Correctional Scale Insulin Human Lispro 0 units 03/15/19 10:45 03/15/19 11:47 Humalog SC 8 units .MODERATE SLIDING SC PRN Administration Moderate Correctional Scale Quetiapine Fumarate 25 mg 03/13/19 21:00 03/14/19 21:34 Seroquel PO 25 mg HS IZABEL Administration Sertraline HCl 100 mg 03/14/19 09:00 03/15/19 08:05 Zoloft PO 100 mg DAILY IZABEL Administration Sodium Chloride 10 ml 03/13/19 09:00 03/15/19 08:05 Flush - Normal Saline IVF 10 ml Q12HR IZABEL Administration - Exam General Appearance: NAD Heart: RRR, no gallops Respiratory: CTAB, no rales Gastrointestinal: soft, non-distended Extremities: no edema Hosp A/P - Plan DVT proph w/SCDs GI bleeding due to diffuse vascular ectasia of rectum Symptomatic Anemia causing syncope Diverticulosis Int hemorrhoids Acute blood loss Anemia s/p 1 unit PRBC Chronic Anemia due to CKD ESRD on dialysis HTN Obesity BMI 30 DM2 - uncontrolled Anxiety GERD h/o PUD PLAN: s/p EGD/Colon Cont Protonix Add NPH Change sliding scale to moderata Diabetic diet HH in AM Cont other meds Dialysis per Nephrology
--- NOTE | 2019-03-15 19:37 | PRG ---
DATE OF SERVICE: 03/15/2019 SUBJECTIVE: This 73-year-old black male with hematochezia, anemia due to blood loss. He underwent EGD, which was negative. A colonoscopy revealed diffuse vascular ectasia of the rectum and rectosigmoid area. The entire colon, rectum, and also the rectosigmoid area process. There were multiple areas of bleeding and most of the areas were cauterized with APC. He is doing well. He has passed small amount of blood, not as bad as before. No abdominal pain. No nausea or vomiting. He is tolerating diet. Blood count did drop down slowly from 9 to 8.1. OBJECTIVE: GENERAL: Appears comfortable. VITAL SIGNS: Temperature 99.1 degrees Fahrenheit, pulse is 92, blood pressure 133/73. CARDIOVASCULAR SYSTEM: Within normal limits. LUNGS: Within normal limits. ABDOMEN: Soft. Abdomen is nontender. No organomegaly. CLINICAL IMPRESSION: Gastrointestinal bleeding from vascular ectasia of the rectum and rectosigmoid area. The lesion was diffuse and . He had multiple areas of oozing blood yesterday. Most of the areas were cauterized with APC with good control of bleeding. He is still passing small amount of blood, most likely old blood. However, he still has some areas which were not cauterized. It is possible he could still have mild bleeding off and on. RECOMMENDATION: From GI standpoint, he can go home. Probably, brought back in the next month or so to have a second look modified sigmoidoscopy and possibly cauterize what is left. Job ID: [id number]
[2019-03-15] MEDS: NPH, Human Insulin Isophane 300 UNIT/3 ML VIAL SC SCH (21:37)
[2019-03-16] MEDS: HumaLOG 300 UNITS/3 ML VIAL SC PRN (05:50)
[2019-03-16 06:26] LABS: Hemoglobin 7.2 g/dL (14.0-18.0)
[2019-03-16] MEDS: Amlodipine 5 MG TAB PO SCH (07:54)
[2019-03-16] MEDS: NPH, Human Insulin Isophane 300 UNIT/3 ML VIAL SC SCH ×2 (07:55→20:03)
[2019-03-16] MEDS: Folic Acid 1 MG TAB PO SCH (07:55)
[2019-03-16] MEDS: Cyanocobalamin (Vitamin B-12) 1,000 MCG TAB PO SCH (07:55)
[2019-03-16] MEDS: Gabapentin 100 MG CAP PO SCH ×3 (07:55→20:03)
--- NOTE | 2019-03-16 15:19 | PDOC.HOSPP ---
- Subjective Encounter Date: 03/16/19 Encounter Time: 11:00 Subjective: Patient seen and examined during dialysis. Hematochezia improving. No N/V/CP. No new complaints. No overnight events - Objective Vital Signs & Weight: Vital Signs (12 hours) Temp Pulse Pulse Resp BP BP Pulse Ox 03/16/19 11:15 98.4 F 90 16 118/59 L 03/16/19 11:00 98.4 F 87 18 114/59 L 03/16/19 10:52 98.6 F 95 18 113/51 L 03/16/19 10:35 98.6 F 95 16 116/61 03/16/19 08:00 98.2 F 94 18 148/72 H 98 03/16/19 07:54 96 Weight Admit Weight 180 lb 8.937 oz Weight 180 lb 8.937 oz I&O: 03/15/19 03/16/19 03/17/19 06:59 06:59 06:59 Intake Total 3700 1300 590 Balance 3700 1300 590 Result Diagrams: 03/16/19 06:06 03/14/19 05:39 Additional Labs: Accuchecks 03/16/19 03/16/19 03/15/19 13:14 05:06 20:25 POC Glucose 127 H 187 H 195 H 03/15/19 16:37 POC Glucose 168 H Hospitalist ROS - Review of Systems Respiratory: denies: cough, dry, shortness of breath, hemoptysis, SOB with excertion, pleuritic pain, sputum, wheezing, other Cardiovascular: denies: chest pain, palpitations, orthopnea, paroxysmal noc. dyspnea, edema, light headedness, other - Medication Medications: Active Medications Generic Name Dose Route Start Last Admin Trade Name Freq PRN Reason Stop Dose Admin Acetaminophen 650 mg 03/12/19 23:57 03/13/19 21:21 Tylenol PO 650 mg Q4H PRN Administration Headache/Fever/Mild Pain (1-3) Amlodipine Besylate 5 mg 03/14/19 09:00 03/16/19 07:54 Norvasc PO 5 mg DAILY IZABEL Administration Cyanocobalamin 1,000 mcg 03/13/19 09:00 03/16/19 07:55 Vitamin B-12 PO 1,000 mcg DAILY IZABEL Administration Diphenhydramine HCl 25 mg 03/13/19 22:19 03/14/19 21:33 Benadryl PO 25 mg Q6H PRN Administration Itching Epoetin Gary-epbx 2,000 unit 03/13/19 10:00 03/13/19 15:54 Retacrit IVP 2,000 unit WILLCALL IZABEL Administration Epoetin Gary-epbx 3,000 unit 03/13/19 10:00 03/13/19 15:54 Retacrit IVP 3,000 unit WILLCALL IZABEL Administration Folic Acid 1 mg 03/13/19 09:00 03/16/19 07:55 Folvite PO 1 mg DAILY IZABEL Administration Gabapentin 100 mg 03/13/19 21:00 03/16/19 14:29 Neurontin PO 100 mg TID IZABEL Administration Insulin Human Lispro 0 units 03/13/19 00:27 03/14/19 21:37 Humalog SC 2 unit .BEDTIME SLIDING SC PRN Administration Bedtime Correctional Scale Insulin Human Lispro 0 units 03/15/19 10:45 03/16/19 05:50 Humalog SC 2 units .MODERATE SLIDING SC PRN Administration Moderate Correctional Scale Insulin Human NPH 10 unit 03/15/19 21:00 03/16/19 07:55 Humulin N SC 10 unit BID IZABEL Administration Quetiapine Fumarate 25 mg 03/13/19 21:00 03/15/19 21:34 Seroquel PO 25 mg HS IZABEL Administration Sertraline HCl 100 mg 03/14/19 09:00 03/16/19 07:54 Zoloft PO 100 mg DAILY IZABEL Administration Sodium Chloride 10 ml 03/13/19 09:00 03/16/19 07:45 Flush - Normal Saline IVF 10 ml Q12HR IZABEL Administration - Exam General Appearance: NAD Neck: supple, no JVD Heart: RRR, no gallops Respiratory: no wheezes, no rales Gastrointestinal: soft, normal bowel sounds Hosp A/P - Plan DVT proph w/SCDs GI bleeding due to diffuse vascular ectasia of rectum s/p EGD/Colon Symptomatic Anemia causing syncope Diverticulosis Int hemorrhoids Acute blood loss Anemia s/p 1 unit PRBC Chronic Anemia due to CKD ESRD on dialysis HTN Obesity BMI 30 DM2 - uncontrolled Anxiety GERD h/o PUD PLAN: Transfuse 1 unit PRBC - I d/w Dr Wildwood Cont PPI Cont NPH with sliding scale HH in AM Cont other meds DC in AM if Hb stable
--- NOTE | 2019-03-16 18:39 | PRG ---
DATE OF SERVICE: 03/16/2019 SUBJECTIVE: The patient is seen and examined with no new complaint, noted with the following vital signs. OBJECTIVE: VITAL SIGNS: Afebrile, temperature 98.4, pulse 90, respiratory rate of 16, blood pressure 118/59. HEENT: Unremarkable. CARDIOVASCULAR: First and second heart sounds were heard. RESPIRATORY: Clear to auscultation. DIGESTIVE: Benign abdomen with positive bowel sounds. EXTREMITIES: No peripheral edema. SKIN: No new gross rash. LYMPHATICS: No peripheral lymphadenopathy. LABORATORY INVESTIGATION: Significant for hemoglobin of 7.2. IMPRESSION: 1. Ixfvm-eo-shcyase anemia in the context of gastrointestinal bleed. 2. End-stage renal disease, on dialysis. PLAN: 1. The patient to be dialyzed today and will receive a unit of blood during dialysis. 2. Ultrafiltration as tolerated by hemodynamics. 3. Once the patient is medically stable from the Renal standpoint, the patient will be good for discharge. Job ID: [id number]
--- NOTE | 2019-03-16 23:24 | PDOC.EVN ---
Event Note - Event Note Event Note: Notified by RN that patient passed a blood clot in stool earlier this evening. His vitals were stable when last checked but he is demanding to see his Dr. We attempted to get repeat H&H, he refused. Received 1 unit of PRBCs with dialysis. Is status post colonoscopy revealed vascular ectasia of the rectum and rectosigmoid area, he had cauterization of most areas that were bleeding. Per Dr. Crews, some mild bleeding to be expected. Patient refusing vitals. I came to bedside and patient refusing to speak to me. States the only help I can give him is to help him to put his shoes on and take him to the door so he can leave. States he only wants to speak to his doctor but wont state who if GI, hospitalist etc. I explained we are on the team on tonight that can help take care of him. Patient refused to be examined or to answer any further questions. Appears comfortable and in no acute distress. Normal respiratory rate. has been notified and has spoken to patient. Per patient she is en route to the hospital.
[2019-03-17 05:40] LABS: Hemoglobin 8.4 g/dL (14.0-18.0)
[2019-03-17] MEDS: Amlodipine 5 MG TAB PO SCH (08:18)
[2019-03-17] MEDS: Cyanocobalamin (Vitamin B-12) 1,000 MCG TAB PO SCH (08:18)
[2019-03-17] MEDS: Gabapentin 100 MG CAP PO SCH ×3 (08:18→20:16)
[2019-03-17] MEDS: Folic Acid 1 MG TAB PO SCH (08:19)
[2019-03-17] MEDS: NPH, Human Insulin Isophane 300 UNIT/3 ML VIAL SC SCH ×2 (08:19→20:16)
--- NOTE | 2019-03-17 10:12 | PRG ---
DATE OF SERVICE: 03/17/2019 SUBJECTIVE: The patient is seen and examined at bedside. He passed some blood clots last night. He is not bleeding actively at this point. He is feeling better. OBJECTIVE: VITAL SIGNS: Blood pressure is 158/89, pulse is 103, respirations 22, O2 saturation is 95% room on room air, and temperature is 99.5. HEENT: His head is atraumatic and normocephalic. Eyes are PERRLA. Sclerae are nonicteric. Oral mucosa is moist. NECK: Supple. LUNGS: Clear. HEART: S1 and S2 normal. No S3. No S4. No any murmur. ABDOMEN: Soft, nontender, and nondistended. EXTREMITIES: Some weakness in the lower extremity present bilaterally similar. NEUROLOGIC: He is alert and oriented x4. There is no any motor deficits. No sensory deficits. He moves his all 4 extremities, but the weakness in the lower extremities is present. LABORATORY DATA: Glycemia is ranging from 120 to 212. His hemoglobin level is 8.4 and hematocrit 25.4. IMPRESSION: 1. Lower gastrointestinal bleeding status post colonoscopy and treatment for diffuse vascular ectasia of the rectum. 2. Symptomatic anemia causing syncope. 3. Diverticulosis. 4. Internal hemorrhoids. 5. Acute blood loss status post transfusion of 4 units of packed red blood cells total. 6. Chronic anemia due to chronic kidney disease. 7. End-stage renal disease on dialysis. The patient was dialyzed yesterday. 8. Hypertension. 9. Obesity. 10. Weakness in the lower extremities and unsteady gait. 11. Anxiety. 12. Diabetes mellitus, somewhat better controlled. 13. Gastroesophageal reflux disease. 14. History of PUD. PLAN: Plan is to keep him additional 24 hours since he had this bleeding postprocedure yesterday. He seems to be doing fine now. His hemoglobin is up. I am going to check his H and H tomorrow morning and give him PT through the home health agency [facility] to work with him at his house. Job ID: [id number]
[2019-03-17] MEDS: diphenhydrAMINE 25 MG CAP PO PRN (20:20)
[2019-03-17 20:49] VITALS: TEMP 98
[2019-03-18] MEDS: NPH, Human Insulin Isophane 300 UNIT/3 ML VIAL SC SCH (08:28)
[2019-03-18] MEDS: Gabapentin 100 MG CAP PO SCH ×2 (09:24→13:28)
[2019-03-18] MEDS: EPOETIN ALFA-EPBX (ESRD) 3,000 UNIT/ML VIAL IVP SCH (11:10)
[2019-03-18] MEDS: EPOETIN ALFA-EPBX (ESRD) 2,000 UNIT/ML VIAL IVP SCH (11:10)
[2019-03-18] MEDS: Folic Acid 1 MG TAB PO SCH (13:28)
[2019-03-18] MEDS: Cyanocobalamin (Vitamin B-12) 1,000 MCG TAB PO SCH (13:28)
[2019-03-18] MEDS: Amlodipine 5 MG TAB PO SCH (13:29)
[2019-03-18 13:33] VITALS: BP 136/92
--- NOTE | 2019-03-18 16:40 | PRG ---
DATE OF SERVICE: 03/17/2019 SUBJECTIVE: The patient noted with the following vital signs. OBJECTIVE: VITAL SIGNS: Afebrile, temperature 98, pulse 96, respiratory rate of 18, O2 saturations 95%, and blood pressure 148/76. HEENT: Unremarkable. CARDIOVASCULAR SYSTEM: First and second heart sounds were heard. RESPIRATORY SYSTEM: Clear to auscultation. DIGESTIVE SYSTEM: Revealed a benign abdomen. EXTREMITIES: No peripheral edema. SKIN: No new gross rash. LYMPHATICS: No peripheral lymphadenopathy. IMPRESSION: 1. End-stage renal disease, hemodialysis dependent. 2. Acute on chronic anemia in the context of gastrointestinal bleed. PLAN: 1. The patient is being monitored for recurrent anemia. 2. We will continue with current renal dialysis regimen on Saturday, Saturday, and Saturday .. 3. Further management will be dependent on the clinical course. Job ID: [id number]
--- NOTE | 2019-03-18 17:46 | PRG ---
DATE OF SERVICE: 03/18/2019 OBJECTIVE: VITAL SIGNS: The patient was noted with the following vital signs; blood pressure 136/92, pulse 92. HEENT: Unremarkable. CARDIOVASCULAR: First and second heart sounds were heard. RESPIRATORY: Clear to auscultation bilaterally. DIGESTIVE: Revealed a benign abdomen. EXTREMITIES: No peripheral edema. SKIN: No new gross rash. LYMPHATICS: No peripheral lymphadenopathy. IMPRESSION: 1. End-stage renal disease, hemodialysis dependent. 2. Gastrointestinal bleed, resolved and improved. 3. Acute on chronic anemia. PLAN: 1. The patient to be dialyzed today in accordance with his renal dialysis schedule. 2. From the renal standpoint, the patient is due for discharge. Job ID: [id number]
--- NOTE | 2019-03-20 08:04 | DIS ---
DATE OF ADMISSION: 03/12/2019 DATE OF DISCHARGE: 03/18/2019 FINAL DIAGNOSES AT THE TIME OF DISCHARGE: 1. Lower gastrointestinal bleeding, status post colonoscopy and treatment for diffuse vascular ectasia of the rectum. 2. Symptomatic anemia causing syncope. 3. Diverticulosis. 4. Internal hemorrhoids. 5. Acute blood loss, status post transfusion of 4 units of packed red blood cells. 6. Chronic anemia due to chronic kidney disease. 7. End-stage renal disease, on dialysis 3 times a week. 8. Hypertension. 9. Obesity. 10. Weakness in the lower extremities and steady gait. 11. Dyspnea, probably mild chronic obstructive pulmonary disease. 12. Anxiety. 13. Diabetes mellitus. 14. Gastroesophageal reflux disease. CONSULTANTS: 1. Dr. Crews for GI. 2. Dr. Sierra for Nephrology. HOSPITAL COURSE: The patient was a 73-year-old male, who was admitted to the hospital with lightheadedness and dizziness going on for 2 days and blood in the stools for approximately 3 days. Apparently, he had syncopal episodes while getting dialysis. He was sent home once his symptoms resolved. Apparently, he was called after the laboratory studies were done and demonstrated anemia. They advised him to come to the emergency department. Hemoglobin in the ER came back at 7.5. His white counts at the time of admission was 10.4, hemoglobin 10.5, hematocrit 23.1, platelet count 310,000. Creatinine 5.34, BUN 27, glucose 357, calcium 8.7. LFTs were unremarkable. Imaging data, none. The patient refused blood transfusion. He was very agitated. His public works manager was called since he is on dialysis. Dr. Sierra was consulted. Also, child care on-call was called, Dr. Crews, who did consultation. After he evaluated the patient, he recommended to do a colonoscopy, which was done the next day. EGD showed normal esophagus, normal stomach, and normal duodenum. There was no pathology seen to explain the bleeding. His colonoscopy showed diffuse vascular ectasia of the rectum, almost circumferential, and multiple areas of bleeding from blood clots and fresh blood. At about 25 cm, there was no blood staining seen, and the mucosa appeared normal throughout. The patient had hemorrhoids and sigmoid diverticular disease. He was kept on clear liquids, and the diet was advanced. He had 1 postprocedure small blood loss, which was expectable after this kind of problem. He received hemodialysis during this hospitalization supervised by Dr. Sierra. Today, he is doing well. He just came back from hemodialysis. There is no more bleeding. He is doing well. He would like to go home. He showed some generalized weakness, and we are going to give him physical therapy on outpatient basis through his home health agency. DIET: He will stay on renal diet. ACTIVITIES: As tolerated. MEDICATIONS: Medications at the time of discharge: 1. Seroquel 25 mg at bedtime. 2. Insulin the same dose what he was taking at home. 3. Tizanidine 4 mg 3 times a day. 4. Gabapentin 100 mg 3 times a day. 5. Amlodipine 5 mg daily. 6. Albuterol HFA 2 puffs q.4 hours p.r.n. as needed. 7. Tylenol p.r.n. for the pain. 8. He will stay on vitamin B12 [id number] 1000 mcg once a day and folic acid 1 mg once a day. FOLLOWUP: He is going to have followup with primary care physician in [address] Crews in 2 weeks. Job ID: [id number]
== END 2019-03-18 16:20 | disposition home or self-care (01) | DRG 377 ==
LOC: ERS 15:33 → T4-B 19:24
PROVIDERS: ADMIT Internal Medicine; ATTEND Internal Medicine
PROC: 5A1D70Z Performance of Urinary Filtration, Intermittent, Less than 6 Hours Per Day (ICD-10-PCS; principal; 2019-03-13)
PROC: 30233N1 Transfusion of Nonautologous Red Blood Cells into Peripheral Vein, Percutaneous Approach (ICD-10-PCS; 2019-03-13)
PROC: 0DJ08ZZ Inspection of Upper Intestinal Tract, Via Natural or Artificial Opening Endoscopic (ICD-10-PCS; 2019-03-14)
PROC: 0W3P8ZZ Control Bleeding in Gastrointestinal Tract, Via Natural or Artificial Opening Endoscopic (ICD-10-PCS; 2019-03-14)
DX: K55.21 Angiodysplasia of colon with hemorrhage (principal); N18.6 End stage renal disease; D62 Acute posthemorrhagic anemia; I12.0 Hypertensive chronic kidney disease with stage 5 chronic kidney disease or end stage renal disease; K21.9 Gastro-esophageal reflux disease without esophagitis; E11.42 Type 2 diabetes mellitus with diabetic polyneuropathy; E11.22 Type 2 diabetes mellitus with diabetic chronic kidney disease; D63.1 Anemia in chronic kidney disease; F32.9 Major depressive disorder, single episode, unspecified; R45.4 Irritability and anger; Z53.29 Procedure and treatment not carried out because of patient's decision for other reasons; E66.9 Obesity, unspecified; E87.6 Hypokalemia; K64.8 Other hemorrhoids; K57.30 Diverticulosis of large intestine without perforation or abscess without bleeding; Z87.891 Personal history of nicotine dependence; Z79.4 Long term (current) use of insulin; Z99.2 Dependence on renal dialysis; Z68.30 Body mass index [BMI] 30.0-30.9, adult; Z79.899 Other long term (current) drug therapy; F41.9 Anxiety disorder, unspecified; K44.9 Diaphragmatic hernia without obstruction or gangrene; E11.65 Type 2 diabetes mellitus with hyperglycemia
CPT/HCPCS: 36415; 36416; 36430; 80048; 80053; 82274; 85014; 85018; 85025; 85046; 86850; 86900; 86901; 90935; 99285; C9113; G0257; J1815; J2704; J3490; P9016; Q0163; Q5105

== ENCOUNTER 2019-03-25 19:04 | Observation (INO) | payer MEDICARE, MEDICAID ==
[2019-03-25 20:22] LABS: Hemoglobin 4.7 g/dL (14.0-18.0); Mean Corpuscular HGB CONC 32.4 g/dL (32.0-36.0); Mean Corpuscular Hemoglobin 26.1 pg (27.0-31.0); Mean Corpuscular Volume 80.8 fL (78.0-98.0); Mean Platelet Volume 6.2 fL (7.4-10.4); Platelet Count 325 thou/uL (130-400); RBC Distribution Width 16.5 % (11.5-14.5); Red Blood Cell (RBC) Count 1.79 mill/uL (4.70-6.10); White Blood Cell (WBC) Count 7.5 thou/uL (4.8-10.8)
[2019-03-25 20:23] LABS: #Basophils 0.1 thou/uL (0.0-0.2); #Eosinphils 0.2 thou/uL (0.0-0.7); #Lymphocytes 2.2 thou/uL (1.20-3.40); #Monocytes 0.4 thou/uL (0.11-0.59); #Neutrophils 4.7 thou/uL (1.40-6.50); %Eosinophils 2.4 % (0.0-10.0); %Lymphocytes 28.8 % (21.0-51.0); %Monocytes 5.1 % (0.0-10.0); %Neutrophils 62.7 % (42.0-75.0)
[2019-03-25 20:25] LABS: ALT (SGPT) 13 U/L (8-55); AST (SGOT) 22 U/L (5-34); Albumin 2.9 g/dL (3.4-4.8); Alkaline Phosphatase 66 U/L (40-110); Anion Gap 15 mmol/L (10-20); BUN (Urea Nitrogen) 17 mg/dL (8.4-25.7); Bilirubin, Total 0.3 mg/dL (0.2-1.2); Calc. Creatinine Clearance 0 mL/min (70-130); Calcium 8.2 mg/dL (7.8-10.44); Carbon Dioxide 31 mmol/L (23-31); Chloride 96 mmol/L (98-107); Estimated GFR-MDRD 24; Globulin 3.3 g/dL (2.4-3.5); Glucose 384 mg/dL (83-110); Potassium 3.7 mmol/L (3.5-5.1); Protein, Total 6.2 g/dL (5.8-8.1); Sodium 138 mmol/L (136-145)
[2019-03-25] MEDS ORDERED: Pantoprazole 40 MG VIAL ONE (20:53)
[2019-03-25 21:10] LABS: Prothrombin Time 13.2 SEC (12.0-14.7)
[2019-03-25] MEDS ORDERED: HumaLOG 300 UNITS/3 ML VIAL ONE (21:46)
[2019-03-25 21:51] LABS: CKMB 2.1 ng/mL (0-6.6)
[2019-03-25 23:55] VITALS: BMI 26.4
[2019-03-26] MEDS: Lactated Ringer's 1,000 ML IV SCH ×2 (00:25→09:42)
--- NOTE | 2019-03-26 07:17 | PDOC.HHP ---
Hospitalist HPI - History of Present Illness Abnormal labwork, bleeding per rectum History of Present Illness: Patient is a 73 year old male with PMH anemia, rectal vascular ectasia who presents to ED after being told his labs were abnormal at HD, pancytopenia with hgb 7 and patient told to report to ED. he was recently discharged from this facility on 03/18 after similar presentation, had EGD and colonoscopy revealing vasular ectasia of rectum, patient reports he resumes blood in stools 4 days ago or so, no symptoms (SOB, chest pain, dizzines) but does report global weakness. He was sent here from HD, unsure if he got HD or not, stock house worker is Dr Elinor Gutiérrez) and GI doctor was Mars. in ED, pancytopenia again noted, sugar is 384, TnI 0.78, no imaging done. Sound physicians to admit Hospitalist ROS - Review of Systems Constitutional: reports: weakness, malaise. denies: fever, chills Eyes: denies: pain, vision change ENT: denies: ear pain, ear discharge, throat pain Respiratory: denies: cough, shortness of breath Cardiovascular: denies: chest pain, palpitations Gastrointestinal: reports: melena, hematochezia. denies: nausea, vomiting, abdominal pain, diarrhea, constipation Genitourinary: denies: dysuria, frequency Musculoskeletal: denies: neck pain, shoulder pain Neurological: denies: weakness, numbness All other systems reviewed; all pertinent +/- noted in HPI/Subj - Medication Medications: Active Medications Generic Name Dose Route Start Last Admin Trade Name Freq PRN Reason Stop Dose Admin Lactated Ringer's 1,000 mls @ 125 mls/hr 03/25/19 23:30 03/26/19 00:25 Lactated Ringer's IV 03/26/19 09:50 Not Given .Q8H [facility] Hospitalist History - Past Medical History Other Medical History: DVT proph w/SCDs GI bleeding due to diffuse vascular ectasia of rectum s/p EGD/Colon Symptomatic Anemia causing syncope Diverticulosis Int hemorrhoids Chronic Anemia due to CKD ESRD on dialysis HTN Obesity BMI 30 DM2 - uncontrolled Anxiety GERD h/o PUD - Past Surgical History Other Surgical History: EGD, colonoscopy - Family History Other Family History: reviewed and noncontributory - Social History Smoking Status: Former smoker Alcohol: [facility] - Labs Result Diagrams: 03/25/19 20:00 03/25/19 19:54 Lab results: WBC 7.5 thou/uL (4.8-10.8) 03/25/19 20:00 Hgb 4.7 g/dL (14.0-18.0) L* 03/25/19 20:00 Hct 14.5 % (42.0-52.0) L* 03/25/19 20:00 MCV 80.8 fL (78.0-98.0) 03/25/19 20:00 Plt Count 325 thou/uL (130-400) 03/25/19 20:00 Neutrophils % 62.7 % (42.0-75.0) 03/25/19 20:00 Sodium 138 mmol/L (136-145) 03/25/19 19:54 Potassium 3.7 mmol/L (3.5-5.1) 03/25/19 19:54 Chloride 96 mmol/L (98-107) L 03/25/19 19:54 Carbon Dioxide 31 mmol/L (23-31) 03/25/19 19:54 BUN 17 mg/dL (8.4-25.7) 03/25/19 19:54 Creatinine 3.07 mg/dL (0.7-1.3) H 03/25/19 19:54 Glucose 384 mg/dL (83-110) H 03/25/19 19:54 Calcium 8.2 mg/dL (7.8-10.44) 03/25/19 19:54 Total Bilirubin 0.3 mg/dL (0.2-1.2) 03/25/19 19:54 AST 22 U/L (5-34) 03/25/19 19:54 ALT 13 U/L (8-55) 03/25/19 19:54 Alkaline Phosphatase 66 U/L (40-110) 03/25/19 19:54 CK-MB (CK-2) 2.1 ng/mL (0-6.6) 03/25/19 20:40 Troponin I 0.780 ng/mL (< 0.028) H* 03/25/19 20:40 Serum Total Protein 6.2 g/dL (5.8-8.1) 03/25/19 19:54 Albumin 2.9 g/dL (3.4-4.8) L 03/25/19 19:54 Hospitalist H&P A/P - Plan Plan: DVT proph w/SCDs GI bleeding due to diffuse vascular ectasia of rectum s/p EGD/Colon Symptomatic Anemia causing syncope Diverticulosis Int hemorrhoids Acute blood loss Anemia s/p 2 unit PRBC Chronic Anemia due to CKD ESRD on dialysis HTN Obesity BMI 30 DM2 - uncontrolled Anxiety GERD h/o PUD plan - admit to telemetry - consult GI, nephrology, hematology - PPI, SCD - transfused 2u in ED, check daily cbc - start moderate dose SSI, resume home dose insulin once med rec complete
[2019-03-26] MEDS ORDERED: Dextrose 5% in Water 1,000 ML IV PRN (07:18)
[2019-03-26] MEDS ORDERED: HumaLOG 300 UNITS/3 ML VIAL SC PRN (07:18)
[2019-03-26] MEDS ORDERED: HYDROcodone/Acetaminophen 5/325 mg Tablet PO PRN (07:18)
[2019-03-26] MEDS ORDERED: Bisacodyl 10 MG SUPP PR PRN (07:18)
[2019-03-26] MEDS ORDERED: Acetaminophen 325 MG TAB PO PRN ×2 (07:18)
[2019-03-26] MEDS ORDERED: Dextrose 50% Abboject 50 ML SYRINGE SLOW IVP PRN (07:18)
[2019-03-26] MEDS ORDERED: Bisacodyl 5 MG TAB PO PRN (07:18)
[2019-03-26] MEDS ORDERED: Promethazine HCl 12.5 MG in Sodium Chloride 0.9% 50 ML IVPB PRN (07:20)
[2019-03-26] MEDS ORDERED: Ondansetron PF 4 MG/2 ML Vial IVP PRN (07:20)
[2019-03-26] MEDS ORDERED: Morphine 2 MG/ML SYRINGE SLOW IVP PRN (07:20)
[2019-03-26] MEDS ORDERED: cloNIDine 0.1 MG TAB PO PRN (07:20)
[2019-03-26] MEDS ORDERED: hydrALAZINE 20 MG/ML VIAL SLOW IVP PRN (07:20)
[2019-03-26] MEDS ORDERED: Prevnar 13-Val Conj/PF 0.5 ML SYRINGE IM ONE (09:30)
[2019-03-26] MEDS: Cyanocobalamin (Vitamin B-12) 1,000 MCG TAB PO SCH (10:20)
[2019-03-26] MEDS: Metoprolol Tartrate 50 MG TAB PO SCH ×2 (10:21→20:56)
[2019-03-26] MEDS: Gabapentin 100 MG CAP PO SCH ×3 (10:21→20:56)
[2019-03-26] MEDS: Folic Acid 1 MG TAB PO SCH (10:21)
[2019-03-26] MEDS: Senokot S 8.6-50 MG TAB PO SCH ×2 (10:22→20:54)
[2019-03-26 12:45] LABS: Hemoglobin 6.4 g/dL (14.0-18.0)
[2019-03-26 13:10] LABS: Critical Call Chem Troponin I RESULT DECREASING
[2019-03-26 13:27] LABS: CKMB 1.5 ng/mL (0-6.6)
[2019-03-26] MEDS ORDERED: GoLYTELY 4,000 ml Bottle PO SCH (18:00)
--- NOTE | 2019-03-26 22:29 | CON ---
DATE OF CONSULTATION: 03/26/2019 CHIEF COMPLAINT: Blood in the stool. HISTORY OF PRESENT ILLNESS: Mr. Oshea is a 73-year-old man, who was just in the hospital last week and underwent colonoscopy and EGD on 03/14/2019. The EGD was negative for bleeding source. The colonoscopy showed diffuse vascular ectasias in the rectum almost circumferentially with multiple areas of bleeding and clot. Dr. Crews cauterized the more severe areas with argon plasma coagulation. The patient was also noted to have hemorrhoids and diverticulosis, but those did not appear to be the source of the bleeding. The patient was discharged home. However, he still had some intermittent red blood mixed with brown stools. He has had no abdominal pain or nausea or vomiting or chest pain or shortness of breath. He is on dialysis and has continued to receive that. PAST MEDICAL HISTORY: 1. End-stage renal disease, on dialysis. 2. Recent GI bleed with vascular ectasias of the rectum. 3. Hypertension. 4. Diabetes mellitus type 2. 5. Gastroesophageal reflux disease. 6. History of peptic ulcer. 7. He did have a bleeding duodenal ulcer back in 2014. 8. Anxiety. 9. Anemia secondary to chronic kidney disease. 10. Diverticulosis. 11. Internal hemorrhoids. The patient denies a history of prostate cancer or radiation. PAST SURGICAL HISTORY: Upper and lower endoscopy recently. AV fistula formation for dialysis and back surgery. He has also had cystoscopy back in 2005. FAMILY HISTORY: Negative for GI malignancy. SOCIAL HISTORY: No alcohol, tobacco, or drugs. ALLERGIES: NO KNOWN DRUG ALLERGIES. MEDICATIONS: 1. Gabapentin. 2. Folic acid. 3. Metoprolol. 4. Pantoprazole. 5. Quetiapine. 6. Sertraline. REVIEW OF SYSTEMS: Negative x10 systems reviewed except as stated in the history of present illness. PHYSICAL EXAMINATION: VITAL SIGNS: Temperature 98.4, pulse 79, blood pressure 159/73. GENERAL: He is in no acute distress. Alert and oriented x3. He is hard of hearing. His eyes have no scleral icterus. Oropharynx is clear without lesions. No cervical or supraclavicular lymphadenopathy. LUNGS: Clear to auscultation bilaterally. HEART: Regular rate and rhythm without murmur. ABDOMEN: Soft, nontender, and nondistended. Bowel sounds are present. EXTREMITIES: No lower extremity edema. Nursing reports he passed 2 brown nonbloody bowel movements today. LABORATORY DATA: Hemoglobin on presentation was 4.7, hemoglobin at the time of discharge on 03/18/2019 was 8.0, he received 2 units of transfusion yesterday and his hemoglobin improved from 4.7 to 6.4; platelets 325. INR 1.0. Creatinine 3.07, bilirubin 0.3, AST 22, ALT 13, alkaline phosphatase 66, albumin 2.9. IMPRESSION: 1. Anemia secondary to acute/chronic blood loss in addition to anemia from chronic kidney disease. 2. Hematochezia intermittently. He had multiple vascular ectasias circumferentially in the rectum. I would expect this would be secondary to radiation for prostate cancer. However, the patient reports no history of prostate cancer and I do not find this in his record in the computer either. He did receive electrocautery with argon plasma coagulation to the vascular ectasias in the rectum last week. However, this is limited as only a limited amount of cautery can be applied to this diffuse finding. He did have active bleeding and clots noted at the time of the procedure. We will plan for followup flex sig to cauterize these bleeding sites further. 3. End-stage renal disease, on dialysis. Job ID: [id number]
--- NOTE | 2019-03-27 00:37 | CON ---
DATE OF CONSULTATION: REQUESTING PHYSICIAN: Hospitalist service with Dr. Krishna. REASON FOR CONSULTATION: Need for maintenance hemodialysis. IMPRESSION: 1. End-stage renal disease, on a Saturday, Saturday, and Saturday dialysis. 2. Gastrointestinal bleed. 3. Severe anemia in the context of #2. PLAN: The patient to be dialyzed. 1. There is no emergent indication for hemodialysis. Therefore, the patient to wait for his normal dialysis which is Saturday, tomorrow. 2. Transfusion per the primary team. If more transfusions are needed, this can be coordinated with dialysis and can be given during dialysis. 3. We will continue with erythropoiesis stimulating agent. HISTORY OF PRESENT ILLNESS: History is that of 73-year-old gentleman with end-stage renal disease, on a Saturday, Saturday, and Saturday scheduled dialysis, who was recently hospitalized because of anemia in the context of GI, did undergo endoscopy, discharged home, and invariably the patient re-presented here with worsening anemia possibly in the context of recurrent GI bleed. As a result of the need for maintenance hemodialysis, decision has been taken to involve Renal in the management of this case. PAST MEDICAL HISTORY: Significant for end-stage renal disease, reflux disease, peptic ulcer disease, anemia, chronic as well as due to GI bleed, type 2 diabetes mellitus, poorly controlled, diverticulosis, and internal hemorrhoids. MEDICATIONS: Reviewed and as documented on [employer]. FAMILY HISTORY: Not significantly related to present illness. SOCIAL HISTORY: Remote tobacco use. No alcohol. No illicit drug use. REVIEW OF SYSTEMS: As documented in the body of the history. All other systems were reviewed and found not to be significantly related to presenting illness. PHYSICAL EXAMINATION: GENERAL: The patient was found not to be in new gross distress, noted with the following vital signs. VITAL SIGNS: Afebrile, temperature 98.2, pulse 86, respiratory rate of 14, O2 saturation 95% with a blood pressure of 140/84. HEENT: Unremarkable. CARDIOVASCULAR: First and second heart sounds were heard. RESPIRATORY: Clear to auscultation. DIGESTIVE: Revealed a benign abdomen with positive bowel sounds. EXTREMITIES: No peripheral edema. SKIN: No new gross rash. LYMPHATICS: No peripheral lymphadenopathy. SUMMARY: A 73-year-old gentleman with end-stage renal disease, who presented here with worsening anemia. Thank you for this consultation. We will follow with you. Job ID: [id number]
[2019-03-27 05:42] LABS: #Basophils 0.1 thou/uL (0.0-0.2); #Eosinphils 0.3 thou/uL (0.0-0.7); #Monocytes 0.5 thou/uL (0.11-0.59); #Neutrophils 7.6 thou/uL (1.40-6.50); %Basophils 0.5 % (0.0-1.0); %Eosinophils 2.6 % (0.0-10.0); %Lymphocytes 19.5 % (21.0-51.0); %Monocytes 4.5 % (0.0-10.0); %Neutrophils 72.9 % (42.0-75.0); Mean Corpuscular HGB CONC 32.6 g/dL (32.0-36.0); Mean Corpuscular Hemoglobin 26.3 pg (27.0-31.0); Mean Corpuscular Volume 80.8 fL (78.0-98.0); Mean Platelet Volume 6.6 fL (7.4-10.4); Platelet Count 386 thou/uL (130-400); RBC Distribution Width 15.1 % (11.5-14.5); Red Blood Cell (RBC) Count 2.67 mill/uL (4.70-6.10); White Blood Cell (WBC) Count 10.4 thou/uL (4.8-10.8)
[2019-03-27 05:56] LABS: Anion Gap 15 mmol/L (10-20); BUN (Urea Nitrogen) 21 mg/dL (8.4-25.7); Calc. Creatinine Clearance 17 mL/min (70-130); Calcium 8.5 mg/dL (7.8-10.44); Carbon Dioxide 30 mmol/L (23-31); Chloride 98 mmol/L (98-107); Estimated GFR-MDRD 15; Glucose 234 mg/dL (83-110); Potassium 3.6 mmol/L (3.5-5.1); Sodium 139 mmol/L (136-145)
[2019-03-27] MEDS: Cyanocobalamin (Vitamin B-12) 1,000 MCG TAB PO SCH (08:13)
[2019-03-27] MEDS: Folic Acid 1 MG TAB PO SCH (08:13)
[2019-03-27] MEDS: Gabapentin 100 MG CAP PO SCH (08:14)
[2019-03-27] MEDS: Senokot S 8.6-50 MG TAB PO SCH (08:14)
[2019-03-27] MEDS: Metoprolol Tartrate 50 MG TAB PO SCH (08:14)
[2019-03-27] MEDS ORDERED: EPOETIN ALFA-EPBX (ESRD) 4,000 UNIT/ML VIAL IVP SCH (09:00)
[2019-03-27] MEDS ORDERED: FLU VACC TS2019-20(65YR UP)/PF 180 MCG/0.5 ML SYRINGE IM ONE (09:00)
[2019-03-27 10:24] VITALS: TEMP 98
[2019-03-27 10:35] LABS: Hemoglobin 7.2 g/dL (14.0-18.0)
[2019-03-27 11:50] VITALS: BP 173/73
--- NOTE | 2019-03-27 14:42 | OP ---
DATE OF PROCEDURE: 03/27/2019 PROCEDURE PERFORMED: Flexible sigmoidoscopy with control of hemorrhage. PREOPERATIVE DIAGNOSIS: 1. Hematochezia. 2. Severe anemia. 3. He had a colonoscopy last week by Dr. Crews, that showed diffuse vascular ectasias throughout the rectal mucosa and bleeding areas were cauterized with argon plasma coagulation. The patient presents again with worsening anemia and bleeding and followup flexible sigmoidoscopy is performed with a goal of further treating vascular ectasias. DESCRIPTION OF PROCEDURE: Informed consent was obtained. The procedure was performed without sedation. The rectal exam was performed and was normal. The upper endoscope was advanced to the distal sigmoid. The mucosa of the distal sigmoid was normal. There was no stigmata of recent bleeding. The mucosa of the rectum had multiple ulcerations, where the recent argon plasma coagulation was performed. There were no vascular ectasias anywhere in the rectum at this point. Previously, it was described circumferentially throughout the rectum. I would suspect that he more likely had mucosal oozing and breaks from distention of the rectum, that can mimic vascular ectasias. That area is now healed. There was one ulcer, had a focal red spot with the vessel in the base of it, and this was treated with a hemoclip, placed directly over that site. There was no active bleeding. Retroflexed views in the rectum were otherwise unremarkable. IMPRESSION: 1. Multiple ulcers in the rectum secondary to argon plasma coagulation last week. 2. One of the ulcers had a red vessel in the base, that was treated with hemoclip. 3. The mucosa of the rectum and sigmoid was normal now. More likely, he had diffuse mucosal bleeding from distention of the rectum, that can mimic vascular ectasias. This is all healed now. 4. His anemia is likely multifactorial, perhaps from some bleeding and also from chronic kidney disease. There is no overt bleeding at this point. RECOMMENDATIONS: 1. He will continue to receive dialysis and epoetin per Nephrology. 2. I will sign off. Please call if GI can help. 3. The patient was not verbally interactive today. He had a psychological reaction after his told him she was not coming up to the hospital today. The patient was awake and responsive, just nonverbal. No focal neurological signs on exam. Job ID: [id number]
--- NOTE | 2019-03-27 17:18 | DIS ---
DATE OF ADMISSION: 03/25/2019 DATE OF DISCHARGE: 03/27/2019 DISCHARGE DISPOSITION: Home. FOLLOWUP: Follow up with primary care physician, Dr. Jaime in 1 week. DISCHARGE MEDICATIONS: Same as admission medications. ALLERGIES: NO KNOWN DRUG ALLERGIES. CONDITION ON DISCHARGE: The patient was seen and examined on the day of discharge. Denies any new complaints. No chest pain, shortness of breath, or palpitations. LABORATORY DATA: Significant labs on admission showed hemoglobin 4.7 with hematocrit 14.5. At discharge, his hemoglobin was 7.2 with hematocrit 21.4. Troponin was 0.780 with normal CK-MB. BRIEF HOSPITAL COURSE: The patient is a 73-year-old male with recent colonoscopy showing diffuse vascular ectasia of the rectum, presented to the hospital with abnormal labs along with generalized weakness. His workup was consistent with significant anemia with hemoglobin of 4.7. He received total of 3 units of PRBC. He underwent flexible sigmoidoscopy that showed multiple ulcers in the rectum. One of the ulcers had red vessel in the base that was treated with hemoclip. I discussed the plan of care with Nephrology. He will continue Epogen with hemodialysis. Repeat labs in 2 to 3 days are recommended. Primary care physician advised to follow. The patient was advised to return to emergency room if he develops any hematochezia or melena. He was also advised to stay away from NSAID. FINAL DIAGNOSES: 1. Generalized weakness secondary to severe symptomatic anemia present on admission. 2. Subacute blood loss anemia, suspected secondary to diffuse vascular ectasia of the rectum, status post 3 units of packed red blood cells. 3. Symptomatic anemia present on admission. 4. Diverticulosis. 5. History of internal hemorrhoids. 6. Chronic anemia secondary to chronic kidney disease. 7. End-stage renal disease, on hemodialysis. 8. Hypertension. 9. Anxiety. 10. Diabetes mellitus, type 2. Refusing insulin. 11. History of peptic ulcer disease. Recent esophagogastroduodenoscopy was negative. 12. Plan was discussed with the patient in detail. He stated understanding. 13. 24-hour supervision was recommended. Job ID: [id number]
== END 2019-03-27 15:22 | disposition home or self-care (01) ==
LOC: ERS 19:04 → 2SW 22:10
PROVIDERS: ADMIT Internal Medicine; ATTEND Internal Medicine
PROC: 0W3P8ZZ Control Bleeding in Gastrointestinal Tract, Via Natural or Artificial Opening Endoscopic (ICD-10-PCS; principal; 2019-03-27)
DX: D50.0 Iron deficiency anemia secondary to blood loss (chronic) (principal); K62.6 Ulcer of anus and rectum; K92.1 Melena; K57.30 Diverticulosis of large intestine without perforation or abscess without bleeding; D61.818 Other pancytopenia; I12.0 Hypertensive chronic kidney disease with stage 5 chronic kidney disease or end stage renal disease; E11.22 Type 2 diabetes mellitus with diabetic chronic kidney disease; D63.1 Anemia in chronic kidney disease; N18.6 End stage renal disease; F41.9 Anxiety disorder, unspecified; K21.9 Gastro-esophageal reflux disease without esophagitis; F32.9 Major depressive disorder, single episode, unspecified; Z87.891 Personal history of nicotine dependence; Z79.899 Other long term (current) drug therapy; Z99.2 Dependence on renal dialysis
CPT/HCPCS: 36430 ×2; 45334; 80048; 80053; 82553 ×2; 82962 ×3; 84484 ×2; 85014 ×2; 85018 ×2; 85025 ×2; 85610; 86850; 86900; 86901; 86920; 93005; 96374; 96375; 97139 ×4; 99291; G0378 ×2; P9016 ×2; Q5105; 36415; 36416; C9113; J0360

== ENCOUNTER 2019-05-11 05:19 | Emergency (ER) | payer MEDICARE, OTHER ==
[2019-05-11 06:03] LABS: Hemoglobin 9.9 g/dL (14.0-18.0); Mean Corpuscular HGB CONC 31.6 g/dL (32.0-36.0); Mean Corpuscular Hemoglobin 22.8 pg (27.0-31.0); Mean Corpuscular Volume 71.9 fL (78.0-98.0); Platelet Count 163 thou/uL (130-400); Red Blood Cell (RBC) Count 4.34 mill/uL (4.70-6.10); White Blood Cell (WBC) Count 6.9 thou/uL (4.8-10.8)
[2019-05-11 06:21] LABS: #Basophils 0.1 thou/uL (0.0-0.2); #Eosinphils 0.4 thou/uL (0.0-0.7); #Lymphocytes 1.5 thou/uL (1.20-3.40); #Monocytes 0.4 thou/uL (0.11-0.59); #Neutrophils 4.7 thou/uL (1.40-6.50); %Basophils 0.7 % (0.0-1.0); %Eosinophils 5.2 % (0.0-10.0); %Lymphocytes 21.6 % (21.0-51.0); %Neutrophils 67.5 % (42.0-75.0); Anisocytosis SLIGHT = 6-15 cells (100X) (0-5/hpf); Hypochromia SLIGHT = 6-15 cells (100X) (0-5/hpf); MDiff Complete? YES; Microcytosis SLIGHT = 6-15 cells (100X) (0-5/hpf); Schistocytes SLIGHT = 2-5 cells (100X) (0-1/hpf)
[2019-05-11 06:26] LABS: ALT (SGPT) 12 U/L (8-55); AST (SGOT) 14 U/L (5-34); Albumin 3.2 g/dL (3.4-4.8); Alkaline Phosphatase 86 U/L (40-110); Anion Gap 13 mmol/L (10-20); BUN (Urea Nitrogen) 52 mg/dL (8.4-25.7); Bilirubin, Total 0.5 mg/dL (0.2-1.2); CK (CPK) 53 U/L (30-200); Calc. Creatinine Clearance 0 mL/min (70-130); Calcium 7.8 mg/dL (7.8-10.44); Carbon Dioxide 29 mmol/L (23-31); Chloride 95 mmol/L (98-107); Estimated GFR-MDRD 10; Globulin 3.5 g/dL (2.4-3.5); Glucose 515 mg/dL (83-110); Lipase 85 U/L (8-78); Potassium 3.3 mmol/L (3.5-5.1); Protein, Total 6.7 g/dL (5.8-8.1); Sodium 134 mmol/L (136-145)
[2019-05-11 07:33] LABS: Alcohol Less than 10 mg/dL (Less than 10); Salicylate Less than 8.0 mg/dL (15.0-30.0)
--- NOTE | 2019-05-11 08:27 | RAD ---
SINGLE VIEW CHEST: Date: 05/11/2019 COMPARISON: 12/06/17. HISTORY: Driving erratically on the way to dialysis. Altered mental status. FINDINGS: Single view of the chest shows a cardiomediastinal silhouette which is upper limits of normal in size . Increased interstitial lung markings are present. There is no evidence of consolidation, mass, or p leural effusion. Degenerative changes are seen in the spine and shoulders. IMPRESSION: No evidence of acute cardiopulmonary disease. POS: [facility]
--- NOTE | 2019-05-11 08:55 | CT ---
PRELIMINARY REPORT/[facility]/EMERGENCY AFTER HOURS PROCEDURE: EXAM: CT Head Without Intravenous Contrast. CLINICAL HISTORY: Driving erratically on way to dialysis. Police pulled him over. AMS TECHNIQUE: Axial computed tomography images of the head/brain without intravenous contrast. COMPARISON: None provided. FINDINGS: BRAIN: No acute intracranial hemorrhage. Age-related changes include elements of atrophy, small vesse l disease and/or small lacunar infarcts. VENTRICLES: No hydrocephalus. ORBITS: The orbits are unremarkable. SINUSES AND MASTOIDS: The paranasal sinuses and mastoid air cells are clear. SOFT TISSUES: No significant facial or scalp soft tissue swelling evident. No radiopaque foreign body is seen. BONES: At the skull base, multiple areas of vascular calcifications are noted. More notable in the bi lateral ICAs. MISCELLANEOUS: Age-related changes. Cerumen IMPRESSION: 1. No acute intracranial hemorrhage. 2. Age-related changes. ELECTRONICALLY SIGNED BY: Hernandez Galarza M.D. CSCS *D May 11, 2019 6:20:41 AM OPERATOR ASSISTANT I CEMENTING This report is intended for review by the ordering physician only, in accordance of law. If you recei ve this report in error, please call [facility] at [phone]. FINAL REPORT HEAD CT WITHOUT CONTRAST: DATE: 05/11/2019. COMPARISON: None. HISTORY: Altered mental status. FINDINGS: I agree with the preliminary report. Visualized paranasal sinuses and mastoid air cells appear well aerated. No displaced calvarial fracture. No intracranial hemorrhage, midline shift, or mass effect . Mild diffuse cerebral volume loss. IMPRESSION: No acute findings. POS: [facility]
== END 2019-05-11 08:25 | disposition short-term general hospital (02) ==
LOC: ERS 05:19
DX: I12.0 Hypertensive chronic kidney disease with stage 5 chronic kidney disease or end stage renal disease (principal); N18.6 End stage renal disease; E11.22 Type 2 diabetes mellitus with diabetic chronic kidney disease; E11.42 Type 2 diabetes mellitus with diabetic polyneuropathy; F32.9 Major depressive disorder, single episode, unspecified; Z87.891 Personal history of nicotine dependence; K21.9 Gastro-esophageal reflux disease without esophagitis; Z79.899 Other long term (current) drug therapy; Z79.4 Long term (current) use of insulin
CPT/HCPCS: 36415; 36416; 70450; 71045; 80053; 80307; 82140; 82550; 83690; 83880; 84484; 85025; 93005

== ENCOUNTER 2019-05-21 18:09 | Inpatient (IN) | payer MEDICARE, MEDICAID ==
[~2019-05-21 18:09] MED LIST: Iopamidol-370 76% 500 ML 1 ML ONE
[2019-05-21 18:23] LABS: #Basophils 0.1 thou/uL (0.0-0.2); #Eosinphils 0.2 thou/uL (0.0-0.7); #Lymphocytes 1.2 thou/uL (1.20-3.40); #Monocytes 0.3 thou/uL (0.11-0.59); #Neutrophils 4.9 thou/uL (1.40-6.50); %Basophils 1.3 % (0.0-1.0); %Eosinophils 3.3 % (0.0-10.0); %Lymphocytes 17.6 % (21.0-51.0); %Monocytes 4.8 % (0.0-10.0); %Neutrophils 73.1 % (42.0-75.0); Hemoglobin 11.3 g/dL (14.0-18.0); Mean Corpuscular HGB CONC 30.2 g/dL (32.0-36.0); Mean Corpuscular Hemoglobin 22.8 pg (27.0-31.0); Mean Corpuscular Volume 75.6 fL (78.0-98.0); Mean Platelet Volume 5.6 fL (7.4-10.4); Platelet Count 227 thou/uL (130-400); RBC Distribution Width 18.9 % (11.5-14.5); Red Blood Cell (RBC) Count 4.97 mill/uL (4.70-6.10); White Blood Cell (WBC) Count 6.6 thou/uL (4.8-10.8)
[2019-05-21 18:30] LABS: PTT 31.6 SEC (22.9-36.1); Prothrombin Time 13.6 SEC (12.0-14.7)
[2019-05-21 18:38] LABS: ALT (SGPT) 13 U/L (8-55); AST (SGOT) 16 U/L (5-34); Albumin 3.4 g/dL (3.4-4.8); Alkaline Phosphatase 93 U/L (40-110); Anion Gap 12 mmol/L (10-20); BUN (Urea Nitrogen) 31 mg/dL (8.4-25.7); Bilirubin, Total 0.3 mg/dL (0.2-1.2); CK (CPK) 46 U/L (30-200); Calc. Creatinine Clearance 0 mL/min (70-130); Calcium 8.3 mg/dL (7.8-10.44); Carbon Dioxide 29 mmol/L (23-31); Chloride 93 mmol/L (98-107); Estimated GFR-MDRD 15; Potassium 3.5 mmol/L (3.5-5.1); Protein, Total 7.4 g/dL (5.8-8.1); Sodium 130 mmol/L (136-145)
--- NOTE | 2019-05-21 18:38 | CT ---
CT OF BRAIN PERFORMED WITHOUT CONTRAST ENHANCEMENT: 05/21/19 HISTORY: Left sided weakness. There is generalized ventricular and sulcal prominence. There is no signs of intracerebral hemorrhage or extra-axial fluid collections. In comparison to a 05/11/19 study, there is no interval change. Mastoid air cells and visualized sinuses are clear. IMPRESSION: 1. No acute intracranial abnormalities. 2. Findings telephoned to Dr. Dacsota at 1820 hours. POS: [facility]
--- NOTE | 2019-05-21 18:41 | RAD ---
PORTABLE CHEST: 05/21/19 HISTORY: Stroke symptoms. COMPARISON: A 05/11/19 exam. Heart size appears borderline enlarged for portable technique. The film is of suboptimal inspiration. There is atelectatic change in the left base. IMPRESSION: 1. Subsegmental atelectasis left lung base. 2. Heart size is borderline. POS: [facility]
[2019-05-21 18:42] LABS: Anisocytosis SLIGHT = 6-15 cells (100X) (0-5/hpf); Hypochromia SLIGHT = 6-15 cells (100X) (0-5/hpf); MDiff Complete? YES; Microcytosis SLIGHT = 6-15 cells (100X) (0-5/hpf); Ovalocytes SLIGHT = 2-5 cells (100X) (0-1/hpf); Platelet Morphology Comment Appears Adequate; Polychromasia SLIGHT = 2-3 cells (100X) (0-2/hpf); Schistocytes SLIGHT = 2-5 cells (100X) (0-1/hpf); Small Platelets SLIGHT; Tear Drops SLIGHT = 2-5 cells (100X) (0-1/hpf)
[2019-05-21 18:44] LABS: Glucose 755 mg/dL (83-110)
--- NOTE | 2019-05-21 18:49 | CT ---
CT ANGIO OF HEAD AND NECK PERFORMED WITH INTRAVENOUS CONTRAST ENHANCMENT WITH 3D RECONSTRUCTIONS: 05/21/19 HISTORY: Stroke symptoms, left sided weakness. The lung apices show some mixture of ground glass opacity and what appear to be areas of air trapping . The changes could indicate some element of edema. No pleural effusions are seen. The right lobe of the thyroid is somewhat enlarged, although this is difficult to show a discrete nod ule. Thyroid ultrasound on a nonemergent basis would be suggested. No significant jugular chain adeno harleen. The vocal cord region and parapharyngeal spaces appear clear. The angiographic portion of this study yielded a fairly good examination. There is a bovine type orig in of the left common carotid artery from the right innominate. Proximal common carotid artery is tor tuous. There is minimal plaque formation at the origin of both internal carotid arteries. No evidenc e of any significant stenosis by NASCET criteria. External carotid arteries are normal in appearance. Vertebral arteries are codominant. CT ANGIO OF BRAIN PERFORMED WITH INTRAVENOUS CONTRAST ENHANCEMENT WITH 3D RECONSTRUCTIONS: The A1 segment of the right anterior cerebral artery is small. There is no intraluminal thrombus demo nstrated in the anterior and middle cerebral arteries or their branches. The branches of the middle c erebral arteries are symmetric. IMPRESSION: 1. Essentially unremarkable CT angio of the head and neck. 2. Slightly enlarged appearing right lobe of the thyroid. Ultrasound would be suggested on a non emergent basis. 3. Some ground glass opacity ion the lung ross. This could indicate some element of edema. The re also appears to be some air trapping. 4. Findings telephoned to Dr. Dacosta at 1840 hours. POS: [facility]
[2019-05-21] MEDS ORDERED: Aspirin Chewable 81 MG TAB ONE (18:51)
[2019-05-21] MEDS ORDERED: Insulin Regular 300 UNITS/3 ML VIAL ONE (18:51)
[2019-05-21] MEDS ORDERED: Insulin Regular 100 units/100 ml in NS IVPB SCH (19:15)
[2019-05-21] MEDS ORDERED: niCARdipine 25 MG in Sodium Chloride 0.9% 250 ML 240 ML IVPB SCH (19:15)
[2019-05-21 20:41] LABS: Glucose POC Confirmation 667 mg/dl (83-110)
--- NOTE | 2019-05-21 20:45 | PDOC.HHP ---
Hospitalist HPI - History of Present Illness L sided weakness, facial droop. History of Present Illness: Patient is a 73 year old male with PMH T2DM w/ neuropathy, ESRD, GERD, CKD, HTN , anemia, who presented to hospital at stroke alert for acute L sided motor weakness, L facial droop, slurred speech time of symptom discovery reported as 16:40 in ED, patient brought to ED, symptoms rapidly improved on arrival here, as he was found to have a blood sugar of 755 as well as high BP with first BP here recorded at 196/102, insulin and easton drips started in ED with significant im provement in Patient has ESRD, last HD session saturday. EKG reviewed with no acute ST changes, QTc 481 which is high. ED Course: VITAL SIGNS Razia May 21, 2019 18:11 KRISTA Ramirez Miranda BP: 196/102 Pulse: 81 Resp: 18 Temp: 97.8 (Oral) O2 sat: 98 on (Room Air) Time: 05/21/2019 18:11. VITAL SIGNS Razia May 21, 2019 18:44 KRISTA Ramirez Miranda BP: 216/102 Pulse: 81 Resp: 16 Pain: 0 O2 sat: 97 on (Room Air) Time: 05/21/2019 18:44. VITAL SIGNS Razia May 21, 2019 19:35 KRISTA Ramirez Miranda BP: 173/93 MAP: 119 Pulse: 82 Resp: 16 Pain: 0 O2 sat: 97 on (Room Air) Time: 05/21/2019 19:35. VITAL SIGNS Razia May 21, 2019 19:56 KRISTA Ramirez Miranda BP: 156/89 MAP: 111 Pulse: 81 Resp: 16 Temp: 98.0 (Oral) Pain: 0 O2 sat: 96 on (Room Air) Time: 05/21/2019 19:56. Hospitalist ROS - Medication Medications: Adalat CC tablet extended release : Strength - 60 mg : ORAL Patient Dose: 1 tab(s) Oral once a day (in the morning). gabapentin capsule : Strength - 100 mg : ORAL Patient Dose: 1 cap(s) Oral 3 times a day. metoprolol tartrate oral tablet : Strength - 50 mg : ORAL Patient Dose: 1 tab(s) Oral 2 times a day. Norvasc tablet : Strength - 5 mg : ORAL Patient Dose: 1 tab(s) Oral once a day. NovoLOG Mix 70-30 U-100 Insuln cartridge : Strength - 100 unit/mL (70-30) : SUBCUTANEOUS Patient Dose: Subcutaneous once a day. pantoprazole oral tablet,delayed release (DR/EC) : Strength - 40 mg : ORAL Patient Dose: 1 tab(s) Oral once a day. Renagel tablet : Strength - 800 mg : ORAL Patient Dose: 1 tab(s) Oral 3 times a day. SEROquel tablet : Strength - 25 mg : ORAL Patient Dose: 1 tab(s) Oral once a day. Tresiba FlexTouch U-200 insulin pen : Strength - 200 unit/mL (3 mL) : [3 mL(s)] : SUBCUTANEOUS Patient Dose: 2 times a day. Vitamin D3 tablet : Strength - 400 unit : ORAL Patient Dose: once a day. Zanaflex capsule : Strength - 4 mg : ORAL Patient Dose: 1 tab(s) once a day. Zoloft tablet : Strength - 50 mg : ORAL Patient Dose: 1 tab(s) Oral once a day. Hospitalist History - Past Medical History Other Medical History: T2DM w/ neuropathy, GERD, CKD, HTN, anemia - Past Surgical History Other Surgical History: lower back surgery - Family History Family History: reports: no pertinent history - Social History Smoking Status: Former smoker Alcohol: reports: Rare Other Social History: used to use cocaine smoked for 30 years Hospitalist Results - Labs Result Diagrams: 05/22/19 03:04 05/22/19 03:04 Lab results: WBC 6.6 thou/uL (4.8-10.8) 05/21/19 18:11 Hgb 11.3 g/dL (14.0-18.0) L 05/21/19 18:11 Hct 37.6 % (42.0-52.0) L 05/21/19 18:11 MCV 75.6 fL (78.0-98.0) L 05/21/19 18:11 Plt Count 227 thou/uL (130-400) 05/21/19 18:11 Neutrophils % 73.1 % (42.0-75.0) 05/21/19 18:11 Sodium 130 mmol/L (136-145) L 05/21/19 18:11 Potassium 3.5 mmol/L (3.5-5.1) 05/21/19 18:11 Chloride 93 mmol/L (98-107) L 05/21/19 18:11 Carbon Dioxide 29 mmol/L (23-31) 05/21/19 18:11 BUN 31 mg/dL (8.4-25.7) H 05/21/19 18:11 Creatinine 4.83 mg/dL (0.7-1.3) H 05/21/19 18:11 Glucose 755 mg/dL (83-110) H* 05/21/19 18:11 Calcium 8.3 mg/dL (7.8-10.44) 05/21/19 18:11 Total Bilirubin 0.3 mg/dL (0.2-1.2) 05/21/19 18:11 AST 16 U/L (5-34) 05/21/19 18:11 ALT 13 U/L (8-55) 05/21/19 18:11 Alkaline Phosphatase 93 U/L (40-110) 05/21/19 18:11 Creatine Kinase 46 U/L (30-200) 05/21/19 18:11 Troponin I 0.019 ng/mL (< 0.028) 05/21/19 18:11 Serum Total Protein 7.4 g/dL (5.8-8.1) 05/21/19 18:11 Albumin 3.4 g/dL (3.4-4.8) 05/21/19 18:11 Hospitalist H&P A/P - Plan Plan: # HTN emergency - improved with interventions in ED, will continue stroke rule out and monitor BP in IMCU, will continue home medications and order PRNs as well as address renal issues as below # T2DM w/ hyperglycemia - sugar in 700s on admission, now improved with insulin drip. symptoms improved with better sugar control as well. We will watch closely in CCU for now and also check sugars frequently per insulin drip protocol # L sided weakness, facial droop, slurred speech - now resolved, appears to be TIA as symptoms have resolved. CT head and noncontract CTA head without acute stroke. Will order MRI and carotid doppler and other routine TIA orders per order set. did not get tPA due to improving symptoms and HTN per ED note. last known normal time was 16:40 per Ed MD note # metabolic encephalopathy - presented originally as stroke alert, with patient improving with control of hyperglycemia which suggests there may have been a component of metabolic encephalopathy to initial symptoms # hyponatremia - noted, addressing sugars and volume status which are likely contributing # prolonged QT - QTc 481 on ED EKG # abnormal thyroid findings incindental discovery -outpatinet workup recommended w/ ultrasound 42 minutes critical care
[2019-05-21] MEDS ORDERED: Bisacodyl 5 MG TAB PO PRN (22:41)
[2019-05-21] MEDS ORDERED: Bisacodyl 10 MG SUPP PR PRN (22:41)
[2019-05-21] MEDS ORDERED: Acetaminophen 325 MG TAB PO PRN (22:41)
[2019-05-21] MEDS ORDERED: Senokot S 8.6-50 MG TAB PO PRN (22:41)
[2019-05-21] MEDS ORDERED: Ondansetron PF 4 MG/2 ML Vial IVP PRN (22:41)
[2019-05-21] MEDS ORDERED: Dextrose 50% Abboject 50 ML SYRINGE SLOW IVP PRN (22:41)
[2019-05-21] MEDS ORDERED: Dextrose 5% in Water 1,000 ML IV PRN (22:41)
[2019-05-21] MEDS ORDERED: HumaLOG 300 UNITS/3 ML VIAL SC PRN (22:41)
[2019-05-21] MEDS ORDERED: niCARdipine 25 MG in Sodium Chloride 0.9% 250 ML 250 ML IVPB SCH (22:45)
[2019-05-21] MEDS ORDERED: HUMULIN R 100 UNITS in Sodium Chloride 0.9% 100 ML IVPB SCH (22:45)
[2019-05-21 22:53] VITALS: BMI 25.6
[2019-05-21] MEDS ORDERED: Sodium Chloride 0.9% 500 ML IV SCH (23:00)
[2019-05-21] MEDS ORDERED: Sodium Chloride 0.9% 1,000 ML IV SCH (23:00)
[2019-05-22 04:08] LABS: Anion Gap 16 mmol/L (10-20); BUN (Urea Nitrogen) 31 mg/dL (8.4-25.7); Calc. Creatinine Clearance 18 mL/min (70-130); Calcium 8.9 mg/dL (7.8-10.44); Carbon Dioxide 25 mmol/L (23-31); Chloride 99 mmol/L (98-107); Estimated GFR-MDRD 16; Glucose 72 mg/dL (83-110); Sodium 137 mmol/L (136-145)
[2019-05-22 04:50] LABS: #Basophils 0.1 thou/uL (0.0-0.2); #Eosinphils 0.4 thou/uL (0.0-0.7); #Lymphocytes 3.7 thou/uL (1.20-3.40); #Monocytes 0.7 thou/uL (0.11-0.59); #Neutrophils 7.1 thou/uL (1.40-6.50); %Basophils 0.8 % (0.0-1.0); %Lymphocytes 31.2 % (21.0-51.0); %Monocytes 5.6 % (0.0-10.0); %Neutrophils 59.4 % (42.0-75.0); Hemoglobin 11.6 g/dL (14.0-18.0); Mean Corpuscular HGB CONC 30.6 g/dL (32.0-36.0); Mean Corpuscular Hemoglobin 22.4 pg (27.0-31.0); Mean Corpuscular Volume 73.1 fL (78.0-98.0); Mean Platelet Volume 5.7 fL (7.4-10.4); Platelet Count 272 thou/uL (130-400); RBC Distribution Width 18.9 % (11.5-14.5); Red Blood Cell (RBC) Count 5.18 mill/uL (4.70-6.10); White Blood Cell (WBC) Count 11.9 thou/uL (4.8-10.8)
[2019-05-22 04:51] LABS: Anisocytosis SLIGHT = 6-15 cells (100X) (0-5/hpf); Hypochromia SLIGHT = 6-15 cells (100X) (0-5/hpf); MDiff Complete? YES; Microcytosis SLIGHT = 6-15 cells (100X) (0-5/hpf)
[2019-05-22] MEDS: HYDROcodone/Acetaminophen 5/325 mg Tablet PO PRN ×2 (08:52→14:30)
[2019-05-22] MEDS ORDERED: FLU VACC TS2019-20(65YR UP)/PF 180 MCG/0.5 ML SYRINGE IM ONE (09:00)
[2019-05-22] MEDS ORDERED: Aspirin 325 mg Enteric Coated Tablet PO SCH (09:00)
[2019-05-22] MEDS ORDERED: Enoxaparin Sodium 40 MG/0.4 ML SYRINGE SC SCH (09:00)
[2019-05-22] MEDS ORDERED: Diabetic Tussin 200 MG/10 ML UDCUP PO PRN (09:48)
[2019-05-22] MEDS ORDERED: Ondansetron ODT 4 MG TAB PO PRN (09:48)
[2019-05-22] MEDS ORDERED: HumaLOG 300 UNITS/3 ML VIAL SC PRN (09:48)
[2019-05-22] MEDS ORDERED: Sodium Chloride 0.65% Nasal 44 ML BOT EA NARE PRN (09:48)
[2019-05-22] MEDS ORDERED: Loperamide HCl 2 MG CAP PO PRN (09:48)
[2019-05-22] MEDS ORDERED: Cepastat Lozenges 1 LOZ PO PRN (09:48)
[2019-05-22] MEDS ORDERED: Loratadine 10 MG TAB PO PRN (09:48)
[2019-05-22] MEDS ORDERED: Calcium Carbonate 500 MG ChewTAB PO PRN (09:48)
[2019-05-22] MEDS: HumaLOG 300 UNITS/3 ML VIAL SC PRN ×2 (11:12→17:15)
--- NOTE | 2019-05-22 13:21 | PDOC.HOSPP ---
- Subjective Encounter Date: 05/22/19 Encounter Time: 10:00 Subjective: Patient seen and examined. No new complaints. No overnight events - Objective Vital Signs & Weight: Vital Signs (12 hours) Temp Pulse Ox 05/22/19 12:00 97.9 F 05/22/19 08:00 98.7 F 99 05/22/19 04:00 98.5 F Weight Weight 178 lb 9.191 oz Most Recent Monitor Data Heart Rate from ECG 66 NIBP 171/90 NIBP BP-Mean 117 Respiration from ECG 15 SpO2 99 I&O: 05/21/19 05/22/19 05/23/19 06:59 06:59 06:59 Intake Total 1495 350 Output Total 200 100 Balance 1295 250 Result Diagrams: 05/22/19 03:04 05/22/19 03:04 Additional Labs: Accuchecks 05/22/19 05/22/19 05/22/19 06:02 04:11 02:59 POC Glucose 166 H 107 80 05/22/19 05/22/19 05/22/19 02:06 01:17 00:09 POC Glucose 113 H 153 H 240 H 05/21/19 05/21/19 05/21/19 23:10 22:16 21:03 POC Glucose 319 H 413 H 534 H 05/21/19 05/21/19 19:33 18:16 POC Glucose Greater than 550 H* Greater than 550 H* Radiology Reviewed by me: Yes EKG Reviewed by me: Yes Hospitalist ROS - Review of Systems Constitutional: denies: fever, chills, sweats, weakness, malaise, other ENT: denies: ear pain, ear discharge, nose pain, nose discharge, nose congestion , mouth pain, mouth swelling, throat pain, throat swelling, other Respiratory: denies: cough, dry, shortness of breath, hemoptysis, SOB with excertion, pleuritic pain, sputum, wheezing, other Cardiovascular: denies: chest pain, palpitations, orthopnea, paroxysmal noc. dyspnea, edema, light headedness, other Gastrointestinal: denies: nausea, vomiting, abdominal pain, diarrhea, constipation, melena, hematochezia, other Genitourinary: denies: dysuria, frequency, incontinence, hematuria, retention, other Musculoskeletal: denies: neck pain, shoulder pain, arm pain, back pain, hand pain, leg pain, foot pain, other - Medication Medications: Active Medications Generic Name Dose Route Start Last Admin Trade Name Freq PRN Reason Stop Dose Admin Hydrocodone Bitart/Acetaminophen 1 tab 05/21/19 22:41 05/22/19 08:52 [place] 5/325 PO 1 tab Q4H PRN Administration Moderate Pain (4-6) Insulin Human Lispro 0 units 05/22/19 09:48 05/22/19 11:12 Humalog SC 6 unit .AGGRESSIVE SLIDING PRN Administration Aggressive Correctional Scale - Exam General Appearance: NAD, awake alert Eye: PERRL, anicteric sclera ENT: normocephalic atraumatic, no oropharyngeal lesions Neck: supple, symmetric, no JVD, no thyromegaly Heart: RRR, no murmur, no gallops, no rubs Respiratory: CTAB, no wheezes, no rales, no ronchi Gastrointestinal: soft, non-tender, non-distended, normal bowel sounds Extremities: no cyanosis, no clubbing, no edema Skin: normal turgor, no lesions Neurological: no focal deficits Musculoskeletal: normal tone, normal strength Psychiatric: normal affect, normal behavior Hosp A/P (1) TIA (transient ischemic attack) Code(s): G45.9 - TRANSIENT CEREBRAL ISCHEMIC ATTACK, UNSPECIFIED Status: Acute (2) Hyperglycemia due to type 2 diabetes mellitus Code(s): E11.65 - TYPE 2 DIABETES MELLITUS WITH HYPERGLYCEMIA Status: Acute Qualifiers: Diabetes mellitus joint terminal attack controller insulin use: with joint terminal attack controller use Qualified Code( s): E11.65 - Type 2 diabetes mellitus with hyperglycemia; Z79.4 - termite control technician ( current) use of insulin (3) Hypertensive urgency Code(s): I16.0 - HYPERTENSIVE URGENCY Status: Acute (4) Anxiety and depression Code(s): F41.9 - ANXIETY DISORDER, UNSPECIFIED; F32.9 - MAJOR DEPRESSIVE DISORDER, SINGLE EPISODE, UNSPECIFIED Status: Chronic (5) BPH (benign prostatic hyperplasia) Code(s): N40.0 - BENIGN PROSTATIC HYPERPLASIA WITHOUT LOWER URINRY TRACT SYMP Status: Chronic (6) Chronic low back pain Code(s): M54.5 - LOW BACK PAIN; G89.29 - OTHER CHRONIC PAIN Status: Chronic (7) DJD (degenerative joint disease) Code(s): M19.90 - UNSPECIFIED OSTEOARTHRITIS, UNSPECIFIED SITE Status: Chronic (8) Diabetes mellitus type 2, uncontrolled Code(s): E11.65 - TYPE 2 DIABETES MELLITUS WITH HYPERGLYCEMIA Status: Chronic Qualifiers: Glycemic state: with hyperglycemia Qualified Code(s): E11.65 - Type 2 diabetes mellitus with hyperglycemia (9) Diabetic nephropathy Status: Chronic Qualifiers: Diabetes mellitus type: type 2 Qualified Code(s): E11.21 - Type 2 diabetes mellitus with diabetic nephropathy (10) Diabetic neuropathy Code(s): E11.40 - TYPE 2 DIABETES MELLITUS WITH DIABETIC NEUROPATHY, UNSP Status: Chronic Qualifiers: Diabetes mellitus type: type 2 (11) ESRD (end stage renal disease) on dialysis Code(s): N18.6 - END STAGE RENAL DISEASE; Z99.2 - DEPENDENCE ON RENAL DIALYSIS Status: Chronic (12) GERD (gastroesophageal reflux disease) Code(s): K21.9 - GASTRO-ESOPHAGEAL REFLUX DISEASE WITHOUT ESOPHAGITIS Status: Chronic Qualifiers: Esophagitis presence: without esophagitis Qualified Code(s): K21.9 - Gastro -esophageal reflux disease without esophagitis - Plan old records reviewed/req 05/22/19 DC insulin drip start insulin glargine 8 unit sc bid, hyperglycemia protocol order medication reviewed and continue to provide symptomatic treatment and supportive care DC cardene drip consult nephrology continue HD as per schedule transfer to stroke floor medication adjustment after home medication verification, will resume selected medication stroke team and stroke work up
[2019-05-22] MEDS: Gabapentin 100 MG CAP PO SCH ×2 (14:30→20:54)
[2019-05-22] MEDS ORDERED: Amlodipine 5 MG TAB PO SCH (15:15)
--- NOTE | 2019-05-22 15:25 | CON ---
DATE OF CONSULTATION: 05/22/2019 SERVICE: Nephrology. REASON FOR CONSULTATION: End-stage renal disease management. REQUESTING PHYSICIAN: Dr. Nikki Clement. HISTORY OF PRESENT ILLNESS: A 73-year-old male with known history of diabetes, complicated with neuropathy, nephropathy, on hemodialysis Saturday, Saturday, and Saturday, as well as hypertension, and psychiatric illness, who was brought in due to acute left-sided motor weakness as well as left facial droop and slurred speech. Symptoms rapidly improved on arrival, but the patient was also found to have markedly elevated blood glucose at 755 as well as markedly elevated blood pressure at 196/102. The patient was started on insulin and Cardene drip and admitted to the ICU. The patient dialyzes on Saturday, Saturday, and Saturday with last hemodialysis being on Monday, May 20, 2019. The patient reports feeling better currently. Denied chest pain, shortness of breath, headache, fever, or chills. He continued to make minimal or no urine. The patient has not been compliant with his medication. Of note, few days ago, the patient was stopped by the police due to erratic driving and taken to the ER and was subsequently discharged. PAST MEDICAL HISTORY: 1. End-stage renal disease, on hemodialysis. 2. Complicated diabetes with nephropathy, neuropathy. 3. Gastroesophageal reflux disease. 4. Hypertension. 5. Anemia. 6. Diverticulosis and internal hemorrhoids. PAST SURGICAL HISTORY: Lower back surgery. FAMILY HISTORY: Reviewed, but noncontributory. SOCIAL HISTORY: The patient lives with spouse. Drinks alcohol occasionally. Denied tobacco or recreational drug use. He, however, is a former smoker. He also is a former drug user, used cocaine in his 30s. ALLERGIES: NO KNOWN DRUG ALLERGIES REPORTED. HOME MEDICATIONS: This yet to be reconciled. However, available following as home medications; 1. Adalat CC 60 mg daily. 2. Metoprolol 50 mg b.i.d. 3. Amlodipine 5 mg daily. 4. Protonix 40 mg daily. 5. Renagel 800 mg t.i.d. with meals. 6. Seroquel 25 mg daily. 7. Tresiba b.i.d. 8. Vitamin D3 of 400 units daily. 9. Zanaflex 4 mg daily. 10. Zoloft 50 mg daily. REVIEW OF SYSTEMS: A 12-point review of system performed was negative other than pertinent positives and negatives included in the history of present illness. PHYSICAL EXAMINATION: VITAL SIGNS: Temperature 98.7, pulse 70, respiratory rate 12, SpO2 of 99% on room air, and blood pressure 172/86. GENERAL: Comfortable male, in no obvious distress. Afebrile. Anicteric. Acyanotic. HEENT: Normocephalic, atraumatic. Oral mucosa is moist. NECK: Supple. No JVD. CARDIOVASCULAR: Regular rhythm and rate with normal heart sounds one and two. RESPIRATORY: Fair air entry bilaterally with few transmitted breath sounds, but no obvious crackle or rhonchi or use of accessory muscles. GI: Full, soft, nontender, nondistended with normal bowel sounds. EXTREMITIES: Grossly normal looking with no edema or erythema. SORT LINE WORKER: Conscious, alert, oriented x3 with appropriate mental status. Face is symmetrical. Cranial nerves 2 through 12 are grossly intact. The patient is conversational without dysarthria or dysphonia. Some memory lapses noted. Moves all extremities. DIAGNOSTIC DATA: CBC showed WBC count of 11.9, hemoglobin of 11.6, MCV of 73.1, and platelets of 272. BMP showed sodium 137, potassium 3.0, chloride 99, CO2 of 25, BUN 31, creatinine 4.42, glucose 72, and calcium 8.9. CT angio of the head and neck was unremarkable. Slightly enlarged appearing right lobe of the thyroid was also noted as well as some ground-glass opacity on the lung ross. CT scan of the brain showed no acute intracranial abnormality. ASSESSMENT: 1. End-stage renal disease, on hemodialysis: Stable. The patient has been compliant on his outpatient treatment. Last dialysis was on May 20, 2019. 2. Hypertensive urgency with elevated blood pressure. The patient is still on Cardene drip. This is due to noncompliance with medications. 3. Presumed transient ischemic attack. The patient is back to baseline. 4. Hyperglycemia/uncontrolled diabetes. Due to noncompliance. 5. Hypokalemia. PLAN: 1. We will replete serum potassium with potassium chloride. 2. We will restart antihypertensives and wean off Cardene infusion. 3. We will dialyze the patient today after MRI of the brain. Further treatment to follow depending on hospital course. Other treatment as per primary attending and car escort. Many thanks for involving us in the care of this patient. We will continue to follow along with you. Job ID: [id number]
--- NOTE | 2019-05-22 15:56 | MRI ---
MRI of thebrain: 05/22/2019 COMPARISON:05/31/2014 HISTORY:Transient ischemic attack TECHNIQUE: Multiplanar multisequence MR imaging of thebrain without contrast Findings:The diffusion weighted imaging demonstrates no evidence for acute infarction. Regional bone marrow signal intensity appears grossly unremarkable. Arterial flow voids at the axial level of the skull base appear grossly unremarkable on the T2-weight ed imaging. Imaged paranasal sinuses/mastoid air cells appear grossly unremarkable. Axial imaging is significantly limited by motion. Mild periventricular FLAIR hyperintensity suggests a degree of small vessel disease, not fully assess ed secondary to motion. The axial gradient echo imaging demonstrates no evidence for intracranial hemorrhage. IMPRESSION:No evidence for acute infarction.
[2019-05-22] MEDS: hydrALAZINE 20 MG/ML VIAL SLOW IVP PRN (16:04)
[2019-05-22] MEDS: Metoprolol Tartrate 50 MG TAB PO SCH (20:54)
[2019-05-22] MEDS: Heparin 5,000 UNITS/ML VIAL SC SCH (20:54)
[2019-05-22] MEDS: Atorvastatin Calcium 40 MG TAB PO SCH (20:54)
[2019-05-22] MEDS: Insulin Glargine 8 UNITS in Pre-Filled Syringe 1 EACH SC SCH (20:55)
[2019-05-22] MEDS ORDERED: Insulin Glargine 8 UNITS in Pre-Filled Syringe 1 EACH SC SCH (21:00)
--- NOTE | 2019-05-22 21:01 | CON ---
DATE OF CONSULTATION: 05/22/2019 CHIEF COMPLAINT: Left-sided weakness. HISTORY OF PRESENT ILLNESS: The patient is a 73-year-old man, who was brought to the hospital with a history of left-sided weakness and his symptoms rapidly resolved. He also was found to have a blood sugar of 755. He was somewhat combative toward the nurse per staff. The patient has previous history of type 2 diabetes with neuropathy, end-stage renal disease, gastroesophageal reflux disease, chronic kidney disease, hypertension, anemia, and he had improvement of his symptoms. At this time, he reports he is doing much better, but still has mild left-sided weakness. PREVIOUS MEDICAL HISTORY: As noted above. PREVIOUS SURGICAL HISTORY: Lower back surgery. FAMILY HISTORY: Mother at 70. Father at 70 and no family history of stroke. SOCIAL HISTORY: He is a former smoker. Does not drink alcohol. He used to use cocaine in the past per chart. REVIEW OF SYSTEMS: PULMONARY: Negative for shortness of breath. GI: Negative for any nausea, vomiting, or diarrhea. GENITOURINARY: Normal. CARDIAC: Negative for chest pain or palpitations. NEUROLOGIC: Positive for left-sided weakness. OPHTHALMOLOGIC: Normal. ENT: Normal. DERMATOLOGIC: Normal. LABORATORY DATA: His current lab workup: White count 11.9, hemoglobin 11.6, hematocrit 37.8, and platelet count 272. Coagulation; PT 13.6, INR 1, and PTT 31.6. Chemistry; sodium 137, potassium 3, chloride 99, bicarb 25, BUN 31, creatinine 4.42, glucose 72. His MRI scan was completed and MRI did not show any evidence of acute infarction and a CT angiography of the [place] [facility] [place] was also completed and it did not show any evidence of vaso-occlusive disease. CTA does show some enlargement of right lobe of thyroid and some element of edema in lung ross. PHYSICAL EXAMINATION: VITAL SIGNS: Temperature 98.2, blood pressure 172/104, heart rate of 108, respiratory rate 22, O2 saturation 100%. GENERAL APPEARANCE: Well-built, well-nourished man, who seems to have some psychiatric issues and had some difficulty following instructions. Cranial nerves normal extraocular movements. CHEST: Clear vesicular breathing. CARDIOVASCULAR: S1 and S2 heard. No murmurs. ABDOMEN: Soft. NEUROLOGIC: Higher intellectual function. The patient was somewhat inappropriate at times and had mild confusion and this is likely psychiatric in nature. Cranial nerves, normal sensation of face bilaterally. Tongue midline. Normal pupillary response at 2 mm. Normal hearing bilaterally. Normal elevation of palate. No facial asymmetry noted. Motor bulk normal. Tone normal. Strength 5/5 throughout in upper and lower extremities. He did have mild weakness distally bilaterally at 4/5. He had numbness in left arm, right cheek, right leg, which is unusual pattern. Cerebellar normal. IMPRESSION: The patient is a 73-year-old man with left-sided weakness, which resolved. At this time, he still has mild weakness, but that could be effort dependent. The patient had some difficulty following commands and was slightly inappropriate, which could be psychiatric or mild dementia in the background. At this time, he still has mild residual weakness without any specific stroke. We are unable to do MRI of the C-spine with and without contrast due to presence of renal impairment. At this time as the patient is clinically stable, he might be able to be discharged from a neuro standpoint. No additional investigations can be performed at this time by us. He can have outpatient EMG nerve conduction studies to rule out neuropathy and also radiculopathy. Job ID: [id number]
[2019-05-23] MEDS: hydrALAZINE 20 MG/ML VIAL SLOW IVP PRN (03:50)
[2019-05-23] MEDS: Labetalol HCl 100 MG/20 ML VIAL SLOW IVP PRN ×2 (04:30→16:07)
[2019-05-23] MEDS: HumaLOG 300 UNITS/3 ML VIAL SC PRN ×3 (04:52→18:05)
[2019-05-23] MEDS: Insulin Glargine 8 UNITS in Pre-Filled Syringe 1 EACH SC SCH (08:13)
[2019-05-23] MEDS: Heparin 5,000 UNITS/ML VIAL SC SCH ×2 (08:13→20:41)
[2019-05-23] MEDS: Metoprolol Tartrate 50 MG TAB PO SCH ×2 (08:14→20:38)
[2019-05-23] MEDS: Gabapentin 100 MG CAP PO SCH ×3 (08:14→20:38)
[2019-05-23] MEDS: Aspirin 325 MG TAB PO SCH (08:14)
[2019-05-23] MEDS: HYDROcodone/Acetaminophen 5/325 mg Tablet PO PRN ×2 (08:22→16:01)
[2019-05-23] MEDS ORDERED: Amlodipine 5 MG TAB PO SCH ×3 (09:00→10:45)
[2019-05-23] MEDS ORDERED: Insulin Glargine 8 UNITS in Pre-Filled Syringe 1 EACH SC SCH (09:00)
--- NOTE | 2019-05-23 09:47 | PDOC.HOSPP ---
- Subjective Encounter Date: 05/23/19 Encounter Time: 07:15 Subjective: Patient seen and examined. No new complaints. No overnight events - Objective Vital Signs & Weight: Vital Signs (12 hours) Temp Pulse Resp BP BP Pulse Ox 05/23/19 08:14 86 185/87 H 05/23/19 08:00 98.1 F 90 16 190/87 H 98 05/23/19 04:43 89 145/76 H 05/23/19 04:30 80 195/91 H 05/23/19 03:50 195/106 H Weight Weight 178 lb 9.191 oz Most Recent Monitor Data Heart Rate from ECG 108 NIBP 172/104 NIBP BP-Mean 126 Respiration from ECG 22 SpO2 100 I&O: 05/22/19 05/23/19 05/24/19 06:59 06:59 06:59 Intake Total 1495 600 Output Total 200 200 Balance 1295 400 Result Diagrams: 05/22/19 03:04 05/22/19 03:04 Additional Labs: Accuchecks 05/23/19 05/23/19 05/23/19 08:38 04:06 01:15 POC Glucose 265 H 300 H 261 H 05/22/19 05/22/19 05/22/19 21:00 16:13 11:12 POC Glucose 230 H 225 H 220 H 05/22/19 07:42 POC Glucose 156 H Radiology Reviewed by me: Yes EKG Reviewed by me: Yes Hospitalist ROS - Review of Systems ENT: denies: ear pain, ear discharge, nose pain, nose discharge, nose congestion , mouth pain, mouth swelling, throat pain, throat swelling, other Respiratory: denies: cough, dry, shortness of breath, hemoptysis, SOB with excertion, pleuritic pain, sputum, wheezing, other Cardiovascular: denies: chest pain, palpitations, orthopnea, paroxysmal noc. dyspnea, edema, light headedness, other Gastrointestinal: denies: nausea, vomiting, abdominal pain, diarrhea, constipation, melena, hematochezia, other Genitourinary: denies: dysuria, frequency, incontinence, hematuria, retention, other Musculoskeletal: denies: neck pain, shoulder pain, arm pain, back pain, hand pain, leg pain, foot pain, other - Medication Medications: Active Medications Generic Name Dose Route Start Last Admin Trade Name Freq PRN Reason Stop Dose Admin Hydrocodone Bitart/Acetaminophen 1 tab 05/21/19 22:41 05/23/19 08:22 [place] 5/325 PO 1 tab Q4H PRN Administration Moderate Pain (4-6) Amlodipine Besylate 5 mg 05/23/19 09:00 05/23/19 08:14 Norvasc PO 5 mg DAILY IZABEL Administration Aspirin 325 mg 05/23/19 09:00 05/23/19 08:14 Aspirin PO 325 mg DAILY IZABEL Administration Atorvastatin Calcium 40 mg 05/22/19 21:00 05/22/19 20:54 Lipitor PO 40 mg HS IZABEL Administration Gabapentin 100 mg 05/22/19 15:00 05/23/19 08:14 Neurontin PO 100 mg TID IZABEL Administration Heparin Sodium (Porcine) 5,000 units 05/22/19 21:00 05/23/19 08:13 Heparin SC 5,000 units BID IZABEL Administration Hydralazine HCl 10 mg 05/22/19 09:48 05/23/19 03:50 Apresoline SLOW IVP 10 mg Q4H PRN Administration SBP > 180 and HR < 70 Insulin Glargine 8 units/ 0.08 mls @ 0 mls/hr 05/22/19 21:00 05/23/19 08:13 Miscellaneous Medication SC 0.08 mls BID IZABEL Administration Insulin Human Lispro 0 units 05/22/19 09:48 05/23/19 04:52 Humalog SC 8 unit .AGGRESSIVE SLIDING PRN Administration Aggressive Correctional Scale Labetalol HCl 20 mg 05/22/19 09:48 05/23/19 04:30 Normodyne SLOW IVP 20 mg Q4H PRN Administration SBP > 180 and HR >/= 70 Metoprolol Tartrate 50 mg 05/22/19 21:00 05/23/19 08:14 Lopressor PO 50 mg BID IZABEL Administration Pantoprazole Sodium 40 mg 05/23/19 09:00 05/23/19 08:14 Protonix PO 40 mg DAILY IZABEL Administration Quetiapine Fumarate 25 mg 05/23/19 09:00 05/23/19 08:14 Seroquel PO 25 mg DAILY IZABEL Administration - Exam General Appearance: NAD, awake alert Eye: PERRL, anicteric sclera ENT: normocephalic atraumatic, no oropharyngeal lesions Neck: supple, symmetric, no JVD, no thyromegaly Heart: RRR, no murmur, no gallops, no rubs Respiratory: CTAB, no wheezes, no rales, no ronchi Gastrointestinal: soft, non-tender, non-distended, normal bowel sounds Extremities: no cyanosis, no clubbing, no edema Skin: normal turgor, no lesions Neurological: no focal deficits Musculoskeletal: normal tone, normal strength Psychiatric: normal affect, normal behavior Hosp A/P (1) TIA (transient ischemic attack) Code(s): G45.9 - TRANSIENT CEREBRAL ISCHEMIC ATTACK, UNSPECIFIED Status: Acute (2) Hyperglycemia due to type 2 diabetes mellitus Code(s): E11.65 - TYPE 2 DIABETES MELLITUS WITH HYPERGLYCEMIA Status: Acute Qualifiers: Diabetes mellitus technician terminal and repeater insulin use: with custodial use Qualified Code( s): E11.65 - Type 2 diabetes mellitus with hyperglycemia; Z79.4 - custodial ( current) use of insulin (3) Hypertensive urgency Code(s): I16.0 - HYPERTENSIVE URGENCY Status: Acute (4) Anxiety and depression Code(s): F41.9 - ANXIETY DISORDER, UNSPECIFIED; F32.9 - MAJOR DEPRESSIVE DISORDER, SINGLE EPISODE, UNSPECIFIED Status: Chronic (5) BPH (benign prostatic hyperplasia) Code(s): N40.0 - BENIGN PROSTATIC HYPERPLASIA WITHOUT LOWER URINRY TRACT SYMP Status: Chronic (6) Chronic low back pain Code(s): M54.5 - LOW BACK PAIN; G89.29 - OTHER CHRONIC PAIN Status: Chronic (7) DJD (degenerative joint disease) Code(s): M19.90 - UNSPECIFIED OSTEOARTHRITIS, UNSPECIFIED SITE Status: Chronic (8) Diabetes mellitus type 2, uncontrolled Code(s): E11.65 - TYPE 2 DIABETES MELLITUS WITH HYPERGLYCEMIA Status: Chronic Qualifiers: Glycemic state: with hyperglycemia Qualified Code(s): E11.65 - Type 2 diabetes mellitus with hyperglycemia (9) Diabetic nephropathy Status: Chronic Qualifiers: Diabetes mellitus type: type 2 Qualified Code(s): E11.21 - Type 2 diabetes mellitus with diabetic nephropathy (10) Diabetic neuropathy Code(s): E11.40 - TYPE 2 DIABETES MELLITUS WITH DIABETIC NEUROPATHY, UNSP Status: Chronic Qualifiers: Diabetes mellitus type: type 2 (11) ESRD (end stage renal disease) on dialysis Code(s): N18.6 - END STAGE RENAL DISEASE; Z99.2 - DEPENDENCE ON RENAL DIALYSIS Status: Chronic (12) GERD (gastroesophageal reflux disease) Code(s): K21.9 - GASTRO-ESOPHAGEAL REFLUX DISEASE WITHOUT ESOPHAGITIS Status: Chronic Qualifiers: Esophagitis presence: without esophagitis Qualified Code(s): K21.9 - Gastro -esophageal reflux disease without esophagitis - Plan old records reviewed/req 05/22/19 DC insulin drip start insulin glargine 8 unit sc bid, hyperglycemia protocol order medication reviewed and continue to provide symptomatic treatment and supportive care DC cardene drip consult nephrology continue HD as per schedule transfer to stroke floor medication adjustment after home medication verification, will resume selected medication stroke team and stroke work up 05/23/19 continue current medication PT/OT expecting discharge tomorrow will try to control blood sugar and blood pressure increase glargin 12 unit bid increase amlodipine 10 mg daily today mri cervical spine
[2019-05-23] MEDS ORDERED: Amlodipine 10 MG TAB PO SCH (10:15)
--- NOTE | 2019-05-23 11:53 | PRG ---
DATE OF SERVICE: 05/23/2019 SERVICE: Nephrology. SUBJECTIVE: A 73-year-old male seen in followup for end-stage renal disease management. The patient was admitted due to acute onset of neurological deficit, which soon resolved. The patient dialyzes on Saturday, Saturday, Saturday with last dialysis being yesterday. No new problem. The patient desires to be discharged. OBJECTIVE: VITAL SIGNS: Temperature 98.1, pulse 90, respiratory rate 16, SpO2 of 98% on room air, blood pressure is 190/87. GENERAL: Comfortable elderly male, in no distress. Afebrile. Anicteric. Acyanotic. HEENT: Normocephalic, atraumatic. Oral mucosa is moist. CARDIOVASCULAR: Regular rhythm and rate with normal heart sounds one and two. RESPIRATORY: Good air entry bilaterally with no obvious crackle or rhonchi or use of accessory muscles. RESPIRATORY: Fair air entry bilaterally with no crackle or rhonchi or use of accessory muscles. GI: Full, soft, nontender, nondistended with normal bowel sounds. EXTREMITIES: Grossly normal looking atraumatic with no obvious edema or erythema. 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 Some memory lapses noted. Face is symmetrical. Moves all extremities. DIAGNOSTIC DATA: Lipid panel today showed triglyceride 267, cholesterol 145, LDL 53, HDL 29. Blood glucose today is 265. ASSESSMENT: 1. End-stage renal disease, on hemodialysis Saturday, Saturday, Saturday. Stable. Last dialysis was yesterday. We will continue hemodialysis according to outpatient schedule. 2. Hypertension: BP control is suboptimal. Amlodipine has been increased to 10 mg daily. We will monitor BP and we consider substituting amlodipine with nifedipine to be able to titrate dose upwards to get adequate BP control. 3. Volume status: Euvolemic. 4. Anemia in chronic kidney disease: Stable. 5. We will recheck renal function test in the morning. Further treatment to follow depending on hospital course. If deemed necessary, patient can be discharged from Nephrology point of view to continue outpatient hemodialysis schedule. We will, however, continue to follow while patient is still hospitalized. Job ID: [id number]
[2019-05-23] MEDS: Atorvastatin Calcium 40 MG TAB PO SCH (20:38)
[2019-05-23] MEDS: Insulin Glargine 12 UNITS in Pre-Filled Syringe 1 EACH SC SCH (20:46)
[2019-05-24] MEDS: HumaLOG 300 UNITS/3 ML VIAL SC PRN ×2 (06:24→13:26)
[2019-05-24 08:09] LABS: Albumin 3.3 g/dL (3.4-4.8); Anion Gap 15 mmol/L (10-20); BUN (Urea Nitrogen) 33 mg/dL (8.4-25.7); BUN/Creatinine Ratio 6.79; Calc. Creatinine Clearance 16 mL/min (70-130); Calcium 9.3 mg/dL (7.8-10.44); Carbon Dioxide 27 mmol/L (23-31); Chloride 99 mmol/L (98-107); Estimated GFR-MDRD 14; Glucose 148 mg/dL (83-110); Magnesium 1.9 mg/dL (1.6-2.6); Phosphorus 3.7 mg/dL (2.3-4.7); Potassium 3.8 mmol/L (3.5-5.1); Sodium 137 mmol/L (136-145)
[2019-05-24] MEDS: Heparin 5,000 UNITS/ML VIAL SC SCH ×2 (08:46→21:46)
[2019-05-24] MEDS: Aspirin 325 MG TAB PO SCH (08:46)
[2019-05-24] MEDS: Insulin Glargine 12 UNITS in Pre-Filled Syringe 1 EACH SC SCH ×2 (08:46→21:47)
[2019-05-24] MEDS: Metoprolol Tartrate 50 MG TAB PO SCH ×2 (08:47→21:46)
[2019-05-24] MEDS: NIFEdipine XL 60 MG TAB PO SCH (08:47)
[2019-05-24] MEDS: Gabapentin 100 MG CAP PO SCH ×3 (08:47→21:46)
[2019-05-24] MEDS: HYDROcodone/Acetaminophen 5/325 mg Tablet PO PRN ×2 (08:59→21:45)
[2019-05-24] MEDS ORDERED: Amlodipine 5 MG TAB PO SCH (09:00)
[2019-05-24] MEDS ORDERED: Amlodipine 10 MG TAB PO SCH (09:00)
[2019-05-24] MEDS ORDERED: Lorazepam 2 MG/ML VIAL SLOW IVP SCH (09:00)
--- NOTE | 2019-05-24 10:01 | PRG ---
DATE OF SERVICE: 05/24/2019 SERVICE: Nephrology. SUBJECTIVE: A 73-year-old male seen in followup for end-stage renal disease management. The patient was admitted due to neurological deficit, which have resolved. No new problem. OBJECTIVE: VITAL SIGNS: Temperature 98.7, pulse 71, respiratory rate 20, SpO2 of 99% on room air, and blood pressure is 189/90. GENERAL: Comfortable elderly male, in no distress. Afebrile. Anicteric. Acyanotic. HEENT: Normocephalic, atraumatic. Oral mucosa is moist. CARDIOVASCULAR: Regular rhythm and rate with normal heart sounds 1 and 2. RESPIRATORY: Good air entry bilaterally with no obvious crackle or rhonchi or use of accessory muscles. GASTROINTESTINAL: Full, soft, nontender, nondistended with normal bowel sounds. EXTREMITIES: Grossly normal looking, atraumatic with no edema or erythema. CENTRAL NERVOUS SYSTEM: Conscious and alert and oriented x3. Face is symmetrical. The patient moves all extremities. Some memory lapses noted. DIAGNOSTIC DATA: Renal function panel showed sodium 137, potassium 3.8, chloride 99, CO2 of 27, BUN 33, creatinine 4.86, glucose 148, calcium 9.3, phosphorus 3.7, magnesium 1.9, and albumin 3.3. ASSESSMENT: 1. End-stage renal disease, on hemodialysis Saturday, Saturday, and Saturday, stable. 2. Electrolytes: Acceptable. 3. Volume status: Euvolemic. 4. Acid-base balance: Acceptable. 5. Hypertension: Control is suboptimal. 6. Acute transient neurological deficit: Seems back to baseline. PLAN: 1. We will substitute amlodipine with nifedipine. We will start with nifedipine 60 mg daily with a view to escalating the dose to get adequate BP control. We will also continue metoprolol 50 b.i.d. 2. Further treatment to follow depending on hospital course. Job ID: [id number]
--- NOTE | 2019-05-24 14:10 | PDOC.HOSPP ---
- Subjective Encounter Date: 05/24/19 Encounter Time: 07:15 Subjective: Patient seen and examined. No new complaints. No overnight events - Objective Vital Signs & Weight: Vital Signs (12 hours) Temp Pulse Resp BP BP BP Pulse Ox 05/24/19 11:13 98.5 F 65 14 146/79 H 95 05/24/19 10:38 149/70 H 05/24/19 08:47 76 193/82 H 05/24/19 07:26 98.7 F 71 20 189/90 H 99 05/24/19 05:16 70 159/91 H 05/24/19 03:22 98.5 F 71 20 175/88 H 95 Weight Weight 178 lb 9.191 oz Most Recent Monitor Data Heart Rate from ECG 108 NIBP 172/104 NIBP BP-Mean 126 Respiration from ECG 22 SpO2 100 I&O: 05/23/19 05/24/19 05/25/19 06:59 06:59 06:59 Intake Total 600 814 Output Total 200 Balance 400 814 Result Diagrams: 05/22/19 03:04 05/24/19 07:32 Additional Labs: Accuchecks 05/24/19 05/24/19 05/23/19 10:49 05:31 20:48 POC Glucose 210 H 161 H 295 H 05/23/19 16:52 POC Glucose 281 H EKG Reviewed by me: Yes Hospitalist ROS - Review of Systems ENT: denies: ear pain, ear discharge, nose pain, nose discharge, nose congestion , mouth pain, mouth swelling, throat pain, throat swelling, other Respiratory: denies: cough, dry, shortness of breath, hemoptysis, SOB with excertion, pleuritic pain, sputum, wheezing, other Cardiovascular: denies: chest pain, palpitations, orthopnea, paroxysmal noc. dyspnea, edema, light headedness, other Gastrointestinal: denies: nausea, vomiting, abdominal pain, diarrhea, constipation, melena, hematochezia, other Genitourinary: denies: dysuria, frequency, incontinence, hematuria, retention, other Musculoskeletal: denies: neck pain, shoulder pain, arm pain, back pain, hand pain, leg pain, foot pain, other - Medication Medications: Active Medications Generic Name Dose Route Start Last Admin Trade Name Freq PRN Reason Stop Dose Admin Hydrocodone Bitart/Acetaminophen 1 tab 05/21/19 22:41 05/24/19 08:59 [place] 5/325 PO 1 tab Q4H PRN Administration Moderate Pain (4-6) Aspirin 325 mg 05/23/19 09:00 05/24/19 08:46 Aspirin PO 325 mg DAILY IZABEL Administration Atorvastatin Calcium 40 mg 05/22/19 21:00 05/23/19 20:38 Lipitor PO 40 mg HS IZABEL Administration Gabapentin 100 mg 05/22/19 15:00 05/24/19 08:47 Neurontin PO 100 mg TID IZABEL Administration Heparin Sodium (Porcine) 5,000 units 05/22/19 21:00 05/24/19 08:46 Heparin SC 5,000 units BID IZABEL Administration Hydralazine HCl 10 mg 05/22/19 09:48 05/23/19 03:50 Apresoline SLOW IVP 10 mg Q4H PRN Administration SBP > 180 and HR < 70 Insulin Glargine 12 units/ 0.12 mls @ 0 mls/hr 05/23/19 21:00 05/23/19 20:46 Miscellaneous Medication SC 0.12 mls HS IZABEL Administration Insulin Glargine 12 units/ 0.12 mls @ 0 mls/hr 05/24/19 09:00 05/24/19 08:46 Miscellaneous Medication SC 0.12 mls QAM IZABEL Administration Insulin Human Lispro 0 units 05/22/19 09:48 05/24/19 13:26 Humalog SC 6 unit .AGGRESSIVE SLIDING PRN Administration Aggressive Correctional Scale Insulin Human Lispro 0 units 05/22/19 09:48 05/23/19 20:45 Humalog SC 3 unit .BEDTIME SLIDING SC PRN Administration Bedtime Correctional Scale Labetalol HCl 20 mg 05/22/19 09:48 05/23/19 16:07 Normodyne SLOW IVP 20 mg Q4H PRN Administration SBP > 180 and HR >/= 70 Lorazepam 1 mg 05/24/19 09:00 05/24/19 11:52 Ativan SLOW IVP 1 mg WILLCALL IZABEL Administration Metoprolol Tartrate 50 mg 05/22/19 21:00 05/24/19 08:47 Lopressor PO 50 mg BID IZABEL Administration Nifedipine 60 mg 05/24/19 09:00 05/24/19 08:47 Procardia Xl PO 60 mg DAILY IZABEL Administration Pantoprazole Sodium 40 mg 05/23/19 09:00 05/24/19 08:47 Protonix PO 40 mg DAILY IZABEL Administration Quetiapine Fumarate 25 mg 05/23/19 09:00 05/24/19 08:47 Seroquel PO 25 mg DAILY IZABEL Administration - Exam General Appearance: NAD, awake alert Eye: PERRL, anicteric sclera ENT: normocephalic atraumatic, no oropharyngeal lesions Neck: supple, symmetric, no JVD Heart: RRR, no murmur, no gallops Respiratory: CTAB, no wheezes, no rales Gastrointestinal: soft, non-tender, non-distended, normal bowel sounds Extremities: no cyanosis, no clubbing, no edema Skin: normal turgor, no lesions Musculoskeletal: normal tone, normal strength Psychiatric: normal affect, normal behavior Hosp A/P (1) TIA (transient ischemic attack) Code(s): G45.9 - TRANSIENT CEREBRAL ISCHEMIC ATTACK, UNSPECIFIED Status: Acute (2) Hyperglycemia due to type 2 diabetes mellitus Code(s): E11.65 - TYPE 2 DIABETES MELLITUS WITH HYPERGLYCEMIA Status: Acute Qualifiers: Diabetes mellitus termite exterminator insulin use: with termite exterminator use Qualified Code( s): E11.65 - Type 2 diabetes mellitus with hyperglycemia; Z79.4 - assisted ( current) use of insulin (3) Hypertensive urgency Code(s): I16.0 - HYPERTENSIVE URGENCY Status: Acute (4) Anxiety and depression Code(s): F41.9 - ANXIETY DISORDER, UNSPECIFIED; F32.9 - MAJOR DEPRESSIVE DISORDER, SINGLE EPISODE, UNSPECIFIED Status: Chronic (5) BPH (benign prostatic hyperplasia) Code(s): N40.0 - BENIGN PROSTATIC HYPERPLASIA WITHOUT LOWER URINRY TRACT SYMP Status: Chronic (6) Chronic low back pain Code(s): M54.5 - LOW BACK PAIN; G89.29 - OTHER CHRONIC PAIN Status: Chronic (7) DJD (degenerative joint disease) Code(s): M19.90 - UNSPECIFIED OSTEOARTHRITIS, UNSPECIFIED SITE Status: Chronic (8) Diabetes mellitus type 2, uncontrolled Code(s): E11.65 - TYPE 2 DIABETES MELLITUS WITH HYPERGLYCEMIA Status: Chronic Qualifiers: Glycemic state: with hyperglycemia Qualified Code(s): E11.65 - Type 2 diabetes mellitus with hyperglycemia (9) Diabetic nephropathy Status: Chronic Qualifiers: Diabetes mellitus type: type 2 Qualified Code(s): E11.21 - Type 2 diabetes mellitus with diabetic nephropathy (10) Diabetic neuropathy Code(s): E11.40 - TYPE 2 DIABETES MELLITUS WITH DIABETIC NEUROPATHY, UNSP Status: Chronic Qualifiers: Diabetes mellitus type: type 2 (11) ESRD (end stage renal disease) on dialysis Code(s): N18.6 - END STAGE RENAL DISEASE; Z99.2 - DEPENDENCE ON RENAL DIALYSIS Status: Chronic (12) GERD (gastroesophageal reflux disease) Code(s): K21.9 - GASTRO-ESOPHAGEAL REFLUX DISEASE WITHOUT ESOPHAGITIS Status: Chronic Qualifiers: Esophagitis presence: without esophagitis Qualified Code(s): K21.9 - Gastro -esophageal reflux disease without esophagitis - Plan old records reviewed/req 05/22/19 DC insulin drip start insulin glargine 8 unit sc bid, hyperglycemia protocol order medication reviewed and continue to provide symptomatic treatment and supportive care DC alicia balbuena consult nephrology continue HD as per schedule transfer to stroke floor medication adjustment after home medication verification, will resume selected medication stroke team and stroke work up 05/23/19 continue current medication PT/OT expecting discharge tomorrow will try to control blood sugar and blood pressure increase glargin 12 unit bid increase amlodipine 10 mg daily today mri cervical spine 05/24/19 today will try mri cervical spine will give ativan before mri continue PT/OT if mri not possible then if neuro ok, will dc tomorrow
[2019-05-24] MEDS: Atorvastatin Calcium 40 MG TAB PO SCH (21:45)
[2019-05-25] MEDS: HumaLOG 300 UNITS/3 ML VIAL SC PRN (07:39)
--- NOTE | 2019-05-25 09:24 | PRG ---
DATE OF SERVICE: 05/25/2019 SUBJECTIVE: The patient is seen and examined today with no new complaints except having a black tarry stool. Otherwise, the patient seems to be back to baseline in terms of mental status. OBJECTIVE: VITAL SIGNS: Noted to be afebrile, temperature 98.1, pulse 74, respiratory rate of 18, O2 saturations of 98% with blood pressure HEENT: Unremarkable. CARDIOVASCULAR SYSTEM: First and second heart sounds were heard. RESPIRATORY SYSTEM: Clear to auscultation. DIGESTIVE SYSTEM: Revealed a benign abdomen with positive bowel sounds. EXTREMITIES: No peripheral edema. SKIN: No new gross rash. LYMPHATICS: No peripheral lymphadenopathy. IMPRESSION: 1. End-stage renal disease, on hemodialysis, due for dialysis today. 2. Possible gastrointestinal bleed. 3. Mental status change, seems to be back to baseline. 4. Hypertension, stable. PLAN: 1. The patient to be dialyzed today in accordance with his schedule. We will avoid heparin during dialysis. 2. Further management will be dependent on the clinical course. 3. Disposition planning per the primary team. Job ID: [id number]
[2019-05-25] MEDS: Heparin 5,000 UNITS/ML VIAL SC SCH (10:26)
[2019-05-25] MEDS: Insulin Glargine 12 UNITS in Pre-Filled Syringe 1 EACH SC SCH (10:27)
[2019-05-25] MEDS: Metoprolol Tartrate 50 MG TAB PO SCH (10:27)
[2019-05-25] MEDS: Gabapentin 100 MG CAP PO SCH ×2 (10:27→18:02)
--- NOTE | 2019-05-25 10:44 | PDOC.HOSPP ---
- Subjective Encounter Date: 05/25/19 Encounter Time: 07:10 Subjective: Patient seen and examined. pt had dark stool today,no overnight events - Objective Vital Signs & Weight: Vital Signs (12 hours) Temp Pulse Resp BP Pulse Ox 05/25/19 08:00 98.1 F 74 18 158/79 H 98 05/25/19 04:00 97.6 F 91 16 148/74 H 90 L 05/25/19 01:08 98.1 F 89 16 97 05/25/19 01:00 167/82 H Weight Weight 178 lb 9.191 oz Most Recent Monitor Data Heart Rate from ECG 108 NIBP 172/104 NIBP BP-Mean 126 Respiration from ECG 22 SpO2 100 I&O: 05/24/19 05/25/19 05/26/19 06:59 06:59 06:59 Intake Total 814 420 Balance 814 420 Result Diagrams: 05/22/19 03:04 05/24/19 07:32 Additional Labs: Accuchecks 05/25/19 05/24/19 05/24/19 06:42 19:53 16:29 POC Glucose 175 H 172 H 115 H 05/24/19 05/24/19 15:10 10:49 POC Glucose 147 H 210 H EKG Reviewed by me: Yes Hospitalist ROS - Review of Systems ENT: denies: ear pain, ear discharge, nose pain, nose discharge, nose congestion , mouth pain, mouth swelling, throat pain, throat swelling, other Respiratory: denies: cough, dry, shortness of breath, hemoptysis, SOB with excertion, pleuritic pain, sputum, wheezing, other Cardiovascular: denies: chest pain, palpitations, orthopnea, paroxysmal noc. dyspnea, edema, light headedness, other Gastrointestinal: denies: nausea, vomiting, abdominal pain, diarrhea, constipation, melena, hematochezia, other Genitourinary: denies: dysuria, frequency, incontinence, hematuria, retention, other Musculoskeletal: denies: neck pain, shoulder pain, arm pain, back pain, hand pain, leg pain, foot pain, other - Medication Medications: Active Medications Generic Name Dose Route Start Last Admin Trade Name Freq PRN Reason Stop Dose Admin Hydrocodone Bitart/Acetaminophen 1 tab 05/21/19 22:41 05/24/19 21:45 [place] 5/325 PO 1 tab Q4H PRN Administration Moderate Pain (4-6) Aspirin 325 mg 05/23/19 09:00 05/24/19 08:46 Aspirin PO 325 mg DAILY IZABEL Administration Atorvastatin Calcium 40 mg 05/22/19 21:00 05/24/19 21:45 Lipitor PO 40 mg HS IZABEL Administration Gabapentin 100 mg 05/22/19 15:00 05/25/19 10:27 Neurontin PO 100 mg TID IZABEL Administration Heparin Sodium (Porcine) 5,000 units 05/22/19 21:00 05/25/19 10:26 Heparin SC 5,000 units BID IZABEL Administration Hydralazine HCl 10 mg 05/22/19 09:48 05/23/19 03:50 Apresoline SLOW IVP 10 mg Q4H PRN Administration SBP > 180 and HR < 70 Insulin Glargine 12 units/ 0.12 mls @ 0 mls/hr 05/23/19 21:00 05/24/19 21:47 Miscellaneous Medication SC 0.12 mls HS IZABEL Administration Insulin Glargine 12 units/ 0.12 mls @ 0 mls/hr 05/24/19 09:00 05/25/19 10:27 Miscellaneous Medication SC 0.12 mls QAM IZABEL Administration Insulin Human Lispro 0 units 05/22/19 09:48 05/25/19 07:39 Humalog SC 3 unit .AGGRESSIVE SLIDING PRN Administration Aggressive Correctional Scale Insulin Human Lispro 0 units 05/22/19 09:48 05/23/19 20:45 Humalog SC 3 unit .BEDTIME SLIDING SC PRN Administration Bedtime Correctional Scale Labetalol HCl 20 mg 05/22/19 09:48 05/23/19 16:07 Normodyne SLOW IVP 20 mg Q4H PRN Administration SBP > 180 and HR >/= 70 Lorazepam 1 mg 05/24/19 09:00 05/24/19 11:52 Ativan SLOW IVP 1 mg WILLCALL IZABEL Administration Metoprolol Tartrate 50 mg 05/22/19 21:00 05/25/19 10:27 Lopressor PO 50 mg BID IZABEL Administration Nifedipine 60 mg 05/24/19 09:00 05/24/19 08:47 Procardia Xl PO 60 mg DAILY IZABEL Administration Pantoprazole Sodium 40 mg 05/23/19 09:00 05/24/19 08:47 Protonix PO 40 mg DAILY IZABEL Administration Quetiapine Fumarate 25 mg 05/23/19 09:00 05/24/19 08:47 Seroquel PO 25 mg DAILY IZABEL Administration - Exam General Appearance: NAD, awake alert Eye: PERRL, anicteric sclera ENT: normocephalic atraumatic, no oropharyngeal lesions Neck: supple, symmetric, no JVD Heart: RRR, no murmur, no gallops, no rubs Respiratory: CTAB, no wheezes, no rales, no ronchi Gastrointestinal: soft, non-tender, non-distended, normal bowel sounds Extremities: no cyanosis, no clubbing Skin: normal turgor, no lesions Neurological: no focal deficits Musculoskeletal: normal tone, normal strength Psychiatric: normal affect, normal behavior Hosp A/P (1) TIA (transient ischemic attack) Code(s): G45.9 - TRANSIENT CEREBRAL ISCHEMIC ATTACK, UNSPECIFIED Status: Acute (2) Hyperglycemia due to type 2 diabetes mellitus Code(s): E11.65 - TYPE 2 DIABETES MELLITUS WITH HYPERGLYCEMIA Status: Acute Qualifiers: Diabetes mellitus continuous churn buttermaker insulin use: with alf use Qualified Code( s): E11.65 - Type 2 diabetes mellitus with hyperglycemia; Z79.4 - penitentiary ( current) use of insulin (3) Hypertensive urgency Code(s): I16.0 - HYPERTENSIVE URGENCY Status: Acute (4) Anxiety and depression Code(s): F41.9 - ANXIETY DISORDER, UNSPECIFIED; F32.9 - MAJOR DEPRESSIVE DISORDER, SINGLE EPISODE, UNSPECIFIED Status: Chronic (5) BPH (benign prostatic hyperplasia) Code(s): N40.0 - BENIGN PROSTATIC HYPERPLASIA WITHOUT LOWER URINRY TRACT SYMP Status: Chronic (6) Chronic low back pain Code(s): M54.5 - LOW BACK PAIN; G89.29 - OTHER CHRONIC PAIN Status: Chronic (7) DJD (degenerative joint disease) Code(s): M19.90 - UNSPECIFIED OSTEOARTHRITIS, UNSPECIFIED SITE Status: Chronic (8) Diabetes mellitus type 2, uncontrolled Code(s): E11.65 - TYPE 2 DIABETES MELLITUS WITH HYPERGLYCEMIA Status: Chronic Qualifiers: Glycemic state: with hyperglycemia Qualified Code(s): E11.65 - Type 2 diabetes mellitus with hyperglycemia (9) Diabetic nephropathy Status: Chronic Qualifiers: Diabetes mellitus type: type 2 Qualified Code(s): E11.21 - Type 2 diabetes mellitus with diabetic nephropathy (10) Diabetic neuropathy Code(s): E11.40 - TYPE 2 DIABETES MELLITUS WITH DIABETIC NEUROPATHY, UNSP Status: Chronic Qualifiers: Diabetes mellitus type: type 2 (11) ESRD (end stage renal disease) on dialysis Code(s): N18.6 - END STAGE RENAL DISEASE; Z99.2 - DEPENDENCE ON RENAL DIALYSIS Status: Chronic (12) GERD (gastroesophageal reflux disease) Code(s): K21.9 - GASTRO-ESOPHAGEAL REFLUX DISEASE WITHOUT ESOPHAGITIS Status: Chronic Qualifiers: Esophagitis presence: without esophagitis Qualified Code(s): K21.9 - Gastro -esophageal reflux disease without esophagitis - Plan old records reviewed/req 05/22/19 DC insulin drip start insulin glargine 8 unit sc bid, hyperglycemia protocol order medication reviewed and continue to provide symptomatic treatment and supportive care WILLIS balbuena consult nephrology continue HD as per schedule transfer to stroke floor medication adjustment after home medication verification, will resume selected medication stroke team and stroke work up 05/23/19 continue current medication PT/OT expecting discharge tomorrow will try to control blood sugar and blood pressure increase glargin 12 unit bid increase amlodipine 10 mg daily today mri cervical spine 05/24/19 today will try mri cervical spine will give ativan before mri continue PT/OT if mri not possible then if neuro ok, will dc tomorrow 05/25/19 today HD check CBC, BMP and stool guiac possible DC
[2019-05-25 10:49] LABS: #Eosinphils 0.4 thou/uL (0.0-0.7); #Lymphocytes 1.4 thou/uL (1.20-3.40); #Monocytes 0.4 thou/uL (0.11-0.59); #Neutrophils 3.5 thou/uL (1.40-6.50); %Basophils 0.5 % (0.0-1.0); %Eosinophils 6.9 % (0.0-10.0); %Lymphocytes 25.1 % (21.0-51.0); %Monocytes 6.2 % (0.0-10.0); %Neutrophils 61.3 % (42.0-75.0); Hemoglobin 11.2 g/dL (14.0-18.0); Mean Corpuscular HGB CONC 30.7 g/dL (32.0-36.0); Mean Corpuscular Hemoglobin 22.2 pg (27.0-31.0); Mean Corpuscular Volume 72.2 fL (78.0-98.0); Mean Platelet Volume 5.4 fL (7.4-10.4); Platelet Count 202 thou/uL (130-400); RBC Distribution Width 18.4 % (11.5-14.5); Red Blood Cell (RBC) Count 5.04 mill/uL (4.70-6.10); White Blood Cell (WBC) Count 5.7 thou/uL (4.8-10.8)
[2019-05-25 11:07] LABS: Anion Gap 13 mmol/L (10-20); BUN (Urea Nitrogen) 47 mg/dL (8.4-25.7); Calc. Creatinine Clearance 13 mL/min (70-130); Calcium 8.7 mg/dL (7.8-10.44); Carbon Dioxide 26 mmol/L (23-31); Chloride 99 mmol/L (98-107); Estimated GFR-MDRD 11; Glucose 258 mg/dL (83-110); Potassium 4.2 mmol/L (3.5-5.1); Sodium 134 mmol/L (136-145)
[2019-05-25 11:09] LABS: Anisocytosis SLIGHT = 6-15 cells (100X) (0-5/hpf); Hypochromia SLIGHT = 6-15 cells (100X) (0-5/hpf); Large Platelets SLIGHT; MDiff Complete? YES; Microcytosis MODERATE=15-30 cells (100X) (0-5/hpf); Platelet Morphology Comment Appears Adequate
[2019-05-25 11:40] VITALS: TEMP 97.5
--- NOTE | 2019-05-25 13:36 | DIS ---
DATE OF ADMISSION: 05/21/2019 DATE OF DISCHARGE: 05/25/2019 PRIMARY CARE PHYSICIAN: [facility] Call admission. DISCHARGE DISPOSITION: Home with home health. PRIMARY DISCHARGE DIAGNOSES: 1. Hypertensive emergency. 2. Transient ischemic attack. 3. Hyperosmolar hyperglycemic state without coma. SECONDARY DISCHARGE DIAGNOSES: End-stage renal disease, on hemodialysis; noncompliance with medical treatment; diabetes type 2; hypertension; anxiety and depression; dyslipidemia; anemia of renal disease. PRIMARY PROCEDURE/OPERATION: Maintenance hemodialysis. RADIOLOGICAL INVESTIGATION: CT brain on admission showed no acute intracranial process. CT [place] and CT angiography negative for any carotid stenosis. MRI brain did not show any acute stroke. SIGNIFICANT LABORATORY DATA: WBC 5.7, hemoglobin 11.2, and platelets 202. INR 1.0, sodium 134, potassium 4.2, BUN 47, creatinine 6.09, and calcium 8.7. DISCHARGE MEDICATIONS: 1. Metoprolol tartrate 50 mg b.i.d. 2. Seroquel 25 mg daily. 3. Zoloft 100 mg daily. 4. Aspirin 81 mg daily. 5. Lipitor 40 mg p.o. q.h.s. 6. Vitamin B12 of 1000 mcg p.o. daily. 7. Folic acid 1 mg daily. 8. Gabapentin 100 mg t.i.d. 9. Lantus 12 units subcu b.i.d. 10. Procardia XL 60 mg daily. 11. Zanaflex 4 mg t.i.d. p.r.n. CONTRAINDICATION: None. CODE STATUS: Full code. INPATIENT CYLINDER PRESS FEEDER: Nephrology group was following while in hospital. Neurology was following while in hospital. TEST RESULTS PENDING ON DISCHARGE: None. ALLERGIES: NO KNOWN DRUG ALLERGY. DISCHARGE PLAN: Posthospital, the patient will follow up with primary care physician. HOSPITAL COURSE: A 73-year-old male with above-mentioned medical problem, who was admitted by Dr. Krishna. Please see his H and P for further details. The patient was presented to emergency room with acute left-sided motor weakness, left-sided facial droop, and slurred speech, but it was rapidly recovered when he arrived to emergency room, and he did not require any tPA because of rapid improvement, but he was having hypertensive emergency with high blood pressure, required ICU admission, and Cardene drip was continued. The patient was also having severe hyperglycemia because he was not taking any medication for his diabetes. We started on the insulin drip and corrected hyperglycemia. We adjusted medication as above. We restarted insulin as above, and we adjusted blood pressure medication as above. We transferred him to stroke floor, and we did stroke workup with MRI, which was negative for any stroke. Neurology saw this patient. The patient was also planned for cervical spine MRI, but he was moving too much, and he was not cooperating with that and that is why it was canceled, that can be done as an outpatient basis. The patient is hemodynamically stable. The patient is seen and examined at bedside today. Please see my progress note from today for further details. He will continue all his medication as prescribed and follow up with primary care physician in one week. Job ID: [id number]
[2019-05-25] MEDS: NIFEdipine XL 60 MG TAB PO SCH (18:00)
[2019-05-25] MEDS: Aspirin 325 MG TAB PO SCH (18:01)
[2019-05-25 18:02] VITALS: BP 158/89
== END 2019-05-25 18:26 | disposition home health service (06) | DRG 637 ==
LOC: ERS 18:09 → CCU 19:34 → 2SE 05-22 19:31
PROVIDERS: ADMIT Internal Medicine; ATTEND Internal Medicine
PROC: 5A1D70Z Performance of Urinary Filtration, Intermittent, Less than 6 Hours Per Day (ICD-10-PCS; principal; 2019-05-22)
DX: E11.00 Type 2 diabetes mellitus with hyperosmolarity without nonketotic hyperglycemic-hyperosmolar coma (NKHHC) (principal); N18.6 End stage renal disease; G93.41 Metabolic encephalopathy; G45.9 Transient cerebral ischemic attack, unspecified; I16.1 Hypertensive emergency; I12.0 Hypertensive chronic kidney disease with stage 5 chronic kidney disease or end stage renal disease; E87.1 Hypo-osmolality and hyponatremia; F41.9 Anxiety disorder, unspecified; F32.9 Major depressive disorder, single episode, unspecified; E78.5 Hyperlipidemia, unspecified; D63.1 Anemia in chronic kidney disease; K21.9 Gastro-esophageal reflux disease without esophagitis; E11.22 Type 2 diabetes mellitus with diabetic chronic kidney disease; E11.40 Type 2 diabetes mellitus with diabetic neuropathy, unspecified; R94.31 Abnormal electrocardiogram [ECG] [EKG]; N40.0 Benign prostatic hyperplasia without lower urinary tract symptoms; G89.29 Other chronic pain; M54.5 Low back pain; E87.6 Hypokalemia; Z87.891 Personal history of nicotine dependence; Z91.19 Patient's noncompliance with other medical treatment and regimen; Z99.2 Dependence on renal dialysis; Z79.899 Other long term (current) drug therapy; Z28.21 Immunization not carried out because of patient refusal
CPT/HCPCS: 36415; 36416; 70450; 70496; 70498; 70551; 71045; 80048; 80053; 80061; 80069; 82550; 83735; 84484; 85025; 86850; 86900; 86901; 90935; 93005; 96365; 96368; 99292; G0257; J0360; J1644; J1650; J1815; J2060; J3490; J7050; Q9967

== ENCOUNTER 2019-07-22 09:22 | Inpatient (IN) | payer MEDICARE, MEDICAID ==
[2019-07-22] MEDS ORDERED: Insulin Regular 300 UNITS/3 ML VIAL ONE (11:11)
--- NOTE | 2019-07-22 12:25 | RAD ---
Chest one view HISTORY: Dyspnea. Altered mental status. COMPARISON: 05/21/2019. FINDINGS: Cardiac silhouette is magnified and upper limits of normal in size. Pulmonary vasculature m ore engorged than on the prior study with fluffy bilateral perihilar infiltrates and widespread reticulonodular interstitial prominence. Minimal fluid in the minor fissure on the right. No lobar consolidation or evidence of pneumothorax. cell room supervisor leads overlie the chest. Prominen t degenerative changes right shoulder. IMPRESSION : Pulmonary vascular congestion with borderline cardiomegaly. Consider borderline CHF.
[2019-07-22 12:27] LABS: Anion Gap 15 mmol/L (10-20); BUN (Urea Nitrogen) 42 mg/dL (8.4-25.7); Calc. Creatinine Clearance 0 mL/min (70-130); Carbon Dioxide 26 mmol/L (23-31); Chloride 92 mmol/L (98-107); Estimated GFR-MDRD 11; Potassium 3.4 mmol/L (3.5-5.1); Sodium 130 mmol/L (136-145)
[2019-07-22 12:33] LABS: Glucose 675 mg/dL (83-110)
[2019-07-22] MEDS ORDERED: Dextrose 5% in Water 1,000 ML IV PRN (13:29)
[2019-07-22] MEDS ORDERED: Dextrose 50% Abboject 50 ML SYRINGE SLOW IVP PRN (13:29)
[2019-07-22] MEDS ORDERED: Nitroglycerin 0.4 MG TAB (25 Tab Bottle) PO PRN (14:03)
[2019-07-22] MEDS ORDERED: Aspirin 325 mg Enteric Coated Tablet PO SCH (14:15)
[2019-07-22 15:15] LABS: Hemoglobin A1c Greater than 14.0 % (4.0-6.0)
[2019-07-22 15:38] VITALS: BMI 23.6
[2019-07-22 16:04] LABS: Bacteria/HPF None Seen HPF (None Seen); Bilirubin Negative (Negative); Blood, Urine Negative (Negative); Clarity Clear (Clear); Glucose, Urine (Dipstick) Greater than 1000 mg/dL (Negative); Leukocyte 25 Leu/uL (Negative); Nitrite Negative (Negative); Protein, Urine (Dipstick) 200 mg/dL (Neg-Trace); RBC/HPF 0-3 HPF (0-3); Squamous Epithelial 0-3 HPF (0-3); Urobilinogen Normal mg/dL (Less than 2)
[2019-07-22 16:07] LABS: Urine Culture Reflex Yes Yes
[2019-07-22] MEDS ORDERED: Ondansetron PF 4 MG/2 ML Vial IVP PRN (16:21)
[2019-07-22] MEDS ORDERED: Senokot S 8.6-50 MG TAB PO PRN (16:21)
[2019-07-22] MEDS ORDERED: Ondansetron ODT 4 MG TAB PO PRN (16:21)
[2019-07-22] MEDS ORDERED: Calcium Carbonate 500 MG ChewTAB PO PRN (16:21)
[2019-07-22] MEDS ORDERED: Acetaminophen 325 MG TAB PO PRN (16:21)
[2019-07-22] MEDS ORDERED: NIFEdipine XL 30 MG TAB PO SCH (16:30)
--- NOTE | 2019-07-22 16:51 | HP ---
PRIMARY CARE PHYSICIAN: Bill Young. PRIMARY BRASS CLEANER: Rigo Nunez MD CHIEF COMPLAINT: Altered mentation. HISTORY OF PRESENT ILLNESS: The patient is a 73-year-old male with end-stage renal disease, on hemodialysis, diabetes mellitus type 2 with medication noncompliance , presented to the emergency room by EMS with above complaints. History obtained from the patient. His mentation is somewhat improved at this time. He does not know why he is in the hospital. The patient was pulled over by police since he was driving on the wrong side of the road. He was on his way for hemodialysis. EMS was called by the police since he was unsteady, confused, and not able to walk. His blood sugar was 804 in the emergency room. His head CT was negative. EKG showed sinus rhythm. The ER physician at [facility] spoke to patient's , who is worried about the patient' s driving. There is no fever, chills, sick contacts, chest pain, shortness of breath or palpitations reported. PAST MEDICAL HISTORY: 1. End-stage renal disease, on hemodialysis. 2. Hypertension. 3. Diabetes mellitus type 2 with medication noncompliance. 4. Anxiety. 5. GERD. 6. Peripheral neuropathy. PAST SURGICAL HISTORY: 1. Back surgery. 2. Dialysis access. ALLERGIES: NO KNOWN DRUG ALLERGIES. CURRENT HOME MEDICATIONS: The patient does not remember any of his home medication. Family to provide his list of medications. SOCIAL HISTORY: The patient currently lives at home with his . He has history of cocaine abuse in the past. He is a former smoker. Denies any tobacco or drug use. FAMILY HISTORY: Negative for premature coronary artery disease. REVIEW OF SYSTEMS: All other review of systems were reviewed and were found negative. PHYSICAL EXAMINATION: VITAL SIGNS: Vital signs at [facility] showed temperature of 98, respirations of 16, pulse of 67, blood pressure of 116/67, and O2 saturation of 97% on room air. GENERAL: This is a 73-year-old male, in no apparent distress. HEENT: Head, atraumatic and normocephalic. Sclerae anicteric. Dry mucous membranes. No oral lesion. NECK: Supple. No JVD appreciated. No carotid bruit. LUNGS: Clear to auscultation bilaterally. No wheezing, rales or rhonchi. HEART: S1 and S2 present. Regular rate and rhythm. No rubs or gallops. ABDOMEN: Soft and nontender. Bowel sounds present. No rebound or guarding. EXTREMITIES: No edema or calf tenderness. NEUROLOGIC: Grossly nonfocal, moves all 4 extremities. Power is 5/5 in all extremities. Nygyyf-yr-gutf and mzxj-qa-gvxa test was normal. Sensation was more or less equal bilaterally. SKIN: Warm and dry. LYMPH NODE: No palpable lymph nodes in the neck. PERIPHERAL VASCULAR: Radial pulses palpable bilaterally. Dialysis access in the left arm. LABORATORY FINDINGS: CBC showed WBC of 6.6 with hemoglobin of 12.1, hematocrit of 42.7, and platelet 218. Chemistry showed sodium of 127, potassium of 4.4, chloride of 87, bicarb of 25, BUN of 43, creatinine of 6.21, and blood sugar of 894. His hemoglobin A1c was greater than 14. EKG by my review showed sinus rhythm without significant ST-T wave changes. Troponin was negative. Chest x-ray by my review showed mild pulmonary vascular congestion. IMPRESSION: 1. Toxic metabolic encephalopathy secondary to severe hyperglycemia. 2. Diabetes mellitus type 2, uncontrolled, secondary to noncompliance with insulin regimen. 3. End-stage renal disease, on hemodialysis. 4. Hypertension. 5. Anxiety. 6. Dyslipidemia. 7. Anemia secondary to renal insufficiency. 8. Hyponatremia. PLAN: The patient will be monitored on the telemetry unit. The patient will require 2 to 3 days for stabilization. He will be started on low-dose Lantus. We will verify his home medication and start accordingly. We will consult Physical Therapy. The patient was advised no driving until cleared by MD. Recheck labs in a.m. Accu-Cheks q.4 hourly with insulin sliding scale. Check Echo. Telemetry monitoring to rule out cardiac arrhythmia. The patient understands the above plan of care. Job ID: [id number] [facility]
[2019-07-22] MEDS: Insulin Regular 300 UNITS/3 ML VIAL SC PRN ×2 (17:40→20:52)
--- NOTE | 2019-07-22 19:13 | CON ---
DATE OF CONSULTATION: REQUESTING PHYSICIAN: Dean Shearer MD REASON FOR CONSULTATION: End-stage renal disease, need for hemodialysis. IMPRESSION: 1. End-stage renal disease on a Saturday, Saturday, and Saturday schedule. 2. Severe hyperglycemia. 3. Altered mental status secondary to #2. PLAN: 1. There is no emergent indication at this point for renal replacement therapy. Therefore, we will allow the medical team to manage and control/stabilize the patient's blood sugar and D5 dialysis tomorrow. 2. . 3. Further management to be dependent on the clinical course. HISTORY OF PRESENT ILLNESS: History is that of 73-year-old gentleman with end-stage renal disease on dialysis, who was brought in because of mental status change and noted with blood sugar as a result of the need for maintenance hemodialysis, decision was taken to involve Renal in the management of this case. PAST MEDICAL HISTORY: As documented in the body of history. In addition, diabetes mellitus type 2, hypertension, anxiety, reflux disease, and peripheral neuropathy. ALLERGIES: NO KNOWN DRUG ALLERGIES. MEDICATIONS: As documented on [employer]. FAMILY HISTORY: Not significantly related to presenting illness. SOCIAL HISTORY: . No alcohol. No illicit drug use. REVIEW OF SYSTEMS: As documented in the body of history. The patient is much clearer now. All other systems were reviewed and found insignificant. PHYSICAL EXAMINATION: GENERAL: The patient was found not to be in any obvious distress. Noted with the following vital signs. VITAL SIGNS: Afebrile, temperature 97.8, pulse 66, respiratory rate of 18, O2 saturation of 98% with blood pressure 181/100. HEENT: Unremarkable. CARDIOVASCULAR SYSTEM: First and second heart sounds were heard. RESPIRATORY SYSTEM: Clear to auscultation. DIGESTIVE: Revealed a benign abdomen with positive bowel sounds. EXTREMITIES: No peripheral edema. SKIN: No new gross rash. LYMPHATICS: No peripheral lymphadenopathy. SUMMARY: A 73-year-old gentleman with end-stage renal disease, presented here with severe hyperglycemia. Thank you for this consultation. We will follow with you. Job ID: [id number]
[2019-07-22] MEDS: NIFEdipine XL 30 MG TAB PO SCH (20:47)
[2019-07-22] MEDS ORDERED: Insulin Glargine 10 UNITS in Pre-Filled Syringe 1 EACH SC SCH (21:00)
[2019-07-22] MEDS ORDERED: hydrALAZINE 20 MG/ML VIAL SLOW IVP PRN (23:22)
[2019-07-23] MEDS: Insulin Regular 300 UNITS/3 ML VIAL SC PRN ×2 (03:29→17:09)
[2019-07-23 05:00] LABS: ALT (SGPT) 22 U/L (8-55); AST (SGOT) 19 U/L (5-34); Albumin 3.3 g/dL (3.4-4.8); Alkaline Phosphatase 102 U/L (40-110); Anion Gap 14 mmol/L (10-20); BUN (Urea Nitrogen) 44 mg/dL (8.4-25.7); Bilirubin, Total 0.3 mg/dL (0.2-1.2); Calc. Creatinine Clearance 12 mL/min (70-130); Calcium 9.2 mg/dL (7.8-10.44); Carbon Dioxide 27 mmol/L (23-31); Chloride 95 mmol/L (98-107); Estimated GFR-MDRD 11; Globulin 4.3 g/dL (2.4-3.5); Glucose 302 mg/dL (83-110); Potassium 3.3 mmol/L (3.5-5.1); Protein, Total 7.6 g/dL (5.8-8.1); Sodium 133 mmol/L (136-145)
[2019-07-23 05:03] LABS: #Basophils 0.1 thou/uL (0.0-0.2); #Eosinphils 0.4 thou/uL (0.0-0.7); #Monocytes 0.3 thou/uL (0.11-0.59); #Neutrophils 4.9 thou/uL (1.40-6.50); %Basophils 0.9 % (0.0-1.0); %Eosinophils 5.1 % (0.0-10.0); %Lymphocytes 26.6 % (21.0-51.0); %Monocytes 3.5 % (0.0-10.0); %Neutrophils 63.9 % (42.0-75.0); MDiff Complete? YES; Mean Corpuscular HGB CONC 32.7 g/dL (32.0-36.0); Mean Corpuscular Hemoglobin 22.4 pg (27.0-31.0); Mean Corpuscular Volume 68.5 fL (78.0-98.0); Mean Platelet Volume 5.6 fL (7.4-10.4); Microcytosis SLIGHT = 6-15 cells (100X) (0-5/hpf); Platelet Count 213 thou/uL (130-400); RBC Distribution Width 17.5 % (11.5-14.5); White Blood Cell (WBC) Count 7.6 thou/uL (4.8-10.8)
[2019-07-23] MEDS ORDERED: Prevnar 13-Val Conj/PF 0.5 ML SYRINGE IM ONE (09:00)
[2019-07-23] MEDS ORDERED: Aspirin 325 mg Enteric Coated Tablet PO SCH (09:00)
[2019-07-23] MEDS: Aspirin 81 mg Enteric Coated Tablet PO SCH (09:29)
[2019-07-23] MEDS: Famotidine 20 MG TAB PO SCH (09:29)
--- NOTE | 2019-07-23 13:43 | PDOC.HOSPP ---
- Subjective Encounter Date: 07/23/19 Encounter Time: 10:30 Subjective: Patient seen and examined for Encephalopathy. Mentation improving. No CP/SOB/ new deficits. No new complaints. No overnight events - Objective Vital Signs & Weight: Vital Signs (12 hours) Temp Pulse Resp BP Pulse Ox 07/23/19 09:00 98.2 F 80 16 186/90 H 96 07/23/19 03:21 98.0 F 78 18 129/78 96 Weight Weight 174 lb 6.4 oz I&O: 07/22/19 07/23/19 07/24/19 06:59 06:59 06:59 Intake Total 480 150 Output Total 400 Balance 80 150 Result Diagrams: 07/23/19 04:19 07/23/19 04:19 Additional Labs: Accuchecks 07/23/19 07/23/19 07/22/19 06:01 02:44 20:43 POC Glucose 260 H 264 H 418 H 07/22/19 17:21 POC Glucose 404 H Medications Insulin Glargine (Lantus Solostar) 20 unit SQ QAM [facility] Last Admin: 11/15/14 10:45 Dose: 20 unit Microbiology 07/22/19 16:05 Urine clean catch Urine Culture - Preliminary NO GROWTH AT 24 HOURS Laboratory Tests 07/22/19 14:50 Hemoglobin A1c Greater than 14.0 H Radiology Reviewed by me: Yes (CXR - no infiltrate) EKG Reviewed by me: Yes (Tele SR) Hospitalist ROS - Review of Systems Respiratory: denies: cough, dry, shortness of breath, hemoptysis, SOB with excertion, pleuritic pain, sputum, wheezing, other Cardiovascular: denies: chest pain, palpitations, orthopnea, paroxysmal noc. dyspnea, edema, light headedness, other Gastrointestinal: denies: nausea, vomiting, abdominal pain, diarrhea, constipation, melena, hematochezia, other - Medication Medications: Active Medications Generic Name Dose Route Start Last Admin Trade Name Freq PRN Reason Stop Dose Admin Aspirin 81 mg 07/23/19 09:00 07/23/19 09:29 Ecotrin PO 81 mg DAILY IZABEL Administration Famotidine 20 mg 07/23/19 09:00 07/23/19 09:29 Pepcid PO 20 mg DAILY IZABEL Administration Insulin Human Regular 0 units 07/22/19 13:29 07/23/19 03:29 Humulin R SC 3 unit .BEDTIME SLIDING SC PRN Administration Bedtime Correctional Scale Insulin Human Regular 0 units 07/22/19 13:29 07/22/19 17:40 Humulin R SC 6 unit .MILD SLIDING SCALE PRN Administration Mild Correctional Scale Nifedipine 30 mg 07/22/19 21:00 07/22/19 20:47 Procardia Xl PO 30 mg BID IZABEL Administration Sodium Chloride 10 ml 07/22/19 14:03 07/23/19 09:30 Flush - Normal Saline IVF 10 ml PRN PRN Administration Saline Flush - Exam General Appearance: NAD ENT: normocephalic atraumatic Neck: supple, no JVD Heart: RRR, no gallops, no rubs, normal peripheral pulses Respiratory: CTAB, no rales, no ronchi, normal chest expansion Gastrointestinal: soft, non-tender, non-distended, normal bowel sounds Extremities: no cyanosis, no clubbing, no edema Neurological: cranial nerve grossly intact, normal sensation to touch, no weakness, no focal deficits, no new deficit Psychiatric: normal affect, normal behavior, A&O x 3 Hosp A/P - Plan DVT proph w/SCDs 1. Toxic metabolic encephalopathy secondary to severe hyperglycemia. 2. Diabetes mellitus type 2, uncontrolled, secondary to noncompliance. 3. End-stage renal disease, on hemodialysis. 4. Hypertension. 5. Anxiety. 6. Dyslipidemia. 7. Anemia secondary to renal insufficiency. 8. Hyponatremia. PLAN: Change Lantus to 10 units HS Cont sliding scale Add Glipizide Dialysis per Nephrology Resume Metoprolol Change Procardia XL to 60 mg daily Await Echo [facility] eval Cont other meds as above
[2019-07-23] MEDS: NIFEdipine XL 30 MG TAB PO SCH ×2 (14:41→20:28)
--- NOTE | 2019-07-23 16:50 | PRG ---
DATE OF SERVICE: 07/23/2019 SUBJECTIVE: The patient is seen and examined, noted with the following vital signs. No new complaint. OBJECTIVE: VITAL SIGNS: Afebrile. Temperature 98.2, pulse 80, blood pressure 159/97, O2 saturation of 96%. HEENT: Unremarkable. CARDIOVASCULAR SYSTEM: First and second heart sounds were heard. RESPIRATORY SYSTEM: Clear to auscultation. DIGESTIVE SYSTEM: Revealed a benign abdomen. Positive bowel sounds. EXTREMITIES: No peripheral edema. SKIN: No new gross rash. LYMPHATICS: No peripheral lymphadenopathy. LABORATORY INVESTIGATION: Showed a potassium of 3.3, creatinine of 6.09. IMPRESSION: 1. End-stage renal disease, hemodialysis dependent. 2. Severe hyperglycemia in the context of poorly-controlled diabetes mellitus. 3. Diabetes mellitus type 2, poorly controlled. PLAN: 1. The patient missed his dialysis yesterday, therefore will be dialyzed today . 2. Further management will be dependent on the clinical course. From the renal standpoint, the patient is due for discharge. Job ID: [id number]
[2019-07-23] MEDS: glipiZIDE 5 MG TAB PO SCH (17:02)
[2019-07-23] MEDS: Metoprolol Tartrate 50 MG TAB PO SCH (20:29)
[2019-07-23] MEDS ORDERED: Insulin Glargine 10 UNITS in Pre-Filled Syringe 1 EACH SC SCH (21:00)
[2019-07-23] MEDS ORDERED: Atorvastatin Calcium 40 MG TAB PO SCH (21:00)
[2019-07-24] MEDS ORDERED: Cyanocobalamin (Vitamin B-12) 1,000 MCG TAB PO SCH (09:00)
[2019-07-24] MEDS ORDERED: NIFEdipine XL 60 MG TAB PO SCH (09:00)
[2019-07-24] MEDS: Metoprolol Tartrate 50 MG TAB PO SCH (09:34)
[2019-07-24] MEDS: Aspirin 81 mg Enteric Coated Tablet PO SCH (09:34)
[2019-07-24] MEDS: Famotidine 20 MG TAB PO SCH (09:34)
[2019-07-24] MEDS: Insulin Regular 300 UNITS/3 ML VIAL SC PRN ×2 (09:42→11:19)
[2019-07-24] MEDS: glipiZIDE 5 MG TAB PO SCH (09:49)
[2019-07-24 11:15] VITALS: BP 180/83; TEMP 97.6
--- NOTE | 2019-07-24 11:57 | DIS ---
DATE OF ADMISSION: 07/22/2019 DATE OF DISCHARGE: 07/24/2019 DISCHARGE DISPOSITION: Home. FOLLOWUP: 1. Follow up with primary care physician in 1 week. 2. Follow up with Nephrology, Dr. Rigo Nunez, for outpatient hemodialysis. 3. Home health care will be arranged. 4. No driving until cleared by MD. DISCHARGE MEDICATIONS: Glipizide 2.5 mg daily. All other home medications were left unchanged. The patient was advised to take Lantus 12 units at bedtime. Please note that the patient has been noncompliant with insulin. BRIEF HOSPITAL COURSE: The patient is a 73-year-old male with end-stage renal disease, on hemodialysis and diabetes mellitus type 2, noncompliant with insulin regimen, presented to the hospital with confusion. He was brought into the emergency room by EMS. The EMS was called by the police since he was driving on the wrong side of the road. He was also unsteady confused and not able to walk. Please refer to the history and physical for details. The patient was admitted to the hospital with a diagnosis of toxic metabolic encephalopathy secondary to severe hyperglycemia. His blood sugar was 894. He was started on his home insulin regimen with good response. His blood sugar this morning was 188. He was also started on low-dose glipizide since he is noncompliant with insulin. He was advised to monitor blood sugars on the daily basis and to maintain a log. He underwent hemodialysis per Nephrology. He was monitored on telemetry for last 48 hours. The telemetry monitoring did not show significant arrhythmias. He may benefit from outpatient event monitor. Primary care physician advised to follow. His echocardiogram showed ejection fraction 60% to 65% with grade 1 of 3 diastolic dysfunction, moderate left ventricular hypertrophy. He appears stable for discharge. He was advised not to drive until cleared by his primary care physician. FINAL DIAGNOSES: 1. Toxic metabolic encephalopathy secondary to severe hyperglycemia with blood sugar of 894 on admission. 2. Diabetes mellitus type 2, uncontrolled, secondary to noncompliance with insulin regimen. 3. End-stage renal disease, on hemodialysis. 4. Hypertension. 5. Anxiety. 6. Dyslipidemia. 7. Anemia secondary to renal insufficiency. 8. Hyponatremia. 9. Chronic diastolic heart failure. 10. Hypokalemia. 11. The patient understands the above plan of care. Job ID: [id number]
[2019-07-25] MEDS ORDERED: glipiZIDE 5 MG TAB PO SCH (07:30)
== END 2019-07-24 12:12 | disposition home or self-care (01) | DRG 637 ==
LOC: ERS 09:22 → OBSVTOIN 13:05 → 2NO 13:05
PROVIDERS: ADMIT Internal Medicine; ATTEND Internal Medicine
PROC: 5A1D70Z Performance of Urinary Filtration, Intermittent, Less than 6 Hours Per Day (ICD-10-PCS; principal; 2019-07-24)
DX: E11.65 Type 2 diabetes mellitus with hyperglycemia (principal); N18.6 End stage renal disease; G92 Toxic encephalopathy; I13.2 Hypertensive heart and chronic kidney disease with heart failure and with stage 5 chronic kidney disease, or end stage renal disease; I50.32 Chronic diastolic (congestive) heart failure; E87.1 Hypo-osmolality and hyponatremia; E11.22 Type 2 diabetes mellitus with diabetic chronic kidney disease; E11.42 Type 2 diabetes mellitus with diabetic polyneuropathy; E87.6 Hypokalemia; D63.1 Anemia in chronic kidney disease; F41.9 Anxiety disorder, unspecified; E78.5 Hyperlipidemia, unspecified; K21.9 Gastro-esophageal reflux disease without esophagitis; Z91.14 Patient's other noncompliance with medication regimen; Z99.2 Dependence on renal dialysis; Z87.891 Personal history of nicotine dependence
CPT/HCPCS: 36415; 36416; 71045; 80053; 81001; 82010; 83036; 85025; 87086; 93306; 96361; 96374; J0360; J1815

== ENCOUNTER 2020-01-03 06:17 | Inpatient (IN) | payer MEDICARE, MEDICAID, OTHER ==
[2020-01-03] MEDS ORDERED: Morphine 4 MG/ML VIAL ONE (07:11)
[2020-01-03 07:49] LABS: #Eosinphils 0.2 thou/uL (0.0-0.7); #Lymphocytes 1.5 thou/uL (1.20-3.40); #Monocytes 0.3 thou/uL (0.11-0.59); #Neutrophils 8.9 thou/uL (1.40-6.50); %Basophils 0.3 % (0.0-1.0); %Eosinophils 1.9 % (0.0-10.0); %Lymphocytes 13.9 % (21.0-51.0); %Neutrophils 80.9 % (42.0-75.0); Hemoglobin 12.9 g/dL (14.0-18.0); Mean Corpuscular HGB CONC 31.9 g/dL (32.0-36.0); Mean Corpuscular Hemoglobin 23.9 pg (27.0-31.0); Mean Corpuscular Volume 74.8 fL (78.0-98.0); Mean Platelet Volume 9.5 fL (7.4-10.4); Platelet Count 217 thou/uL (130-400); RBC Distribution Width 14.4 % (11.5-14.5); Red Blood Cell (RBC) Count 5.42 mill/uL (4.70-6.10)
--- NOTE | 2020-01-03 07:51 | RAD ---
AP PELVIS: HISTORY: Fall. FINDINGS: There is a transcervical fracture to the neck of the right femur. Slight displacement. The pelvis is poorly evaluated. Due to positioning and gas and stool within the sigmoid and rectum, t he pelvis and sacrum are partially obscured. No definite pelvic fracture identified. IMPRESSION: Right hip fracture. POS: AGW
--- NOTE | 2020-01-03 07:53 | RAD ---
RIGHT HIP TWO VIEWS: HISTORY: Fall with injury to hip. FINDINGS: There is a fracture through the neck of the femur with mild displacement. The visualized right pelvis appears intact. IMPRESSION: Right hip fracture. POS: AGW
[2020-01-03 07:55] LABS: PTT 31.3 sec (22.9-36.1); Prothrombin Time 13.4 sec (12.0-14.7)
[2020-01-03 08:12] LABS: ALT (SGPT) 40 U/L (8-55); AST (SGOT) 28 U/L (5-34); Albumin 3.9 g/dL (3.4-4.8); Alkaline Phosphatase 101 U/L (40-110); Anion Gap 20 mmol/L (10-20); BUN (Urea Nitrogen) 32 mg/dL (8.4-25.7); Bilirubin, Total 0.6 mg/dL (0.2-1.2); Calc. Creatinine Clearance 0 mL/min (70-130); Calcium 9.6 mg/dL (7.8-10.44); Carbon Dioxide 26 mmol/L (23-31); Chloride 92 mmol/L (98-107); Estimated GFR-MDRD 14; Globulin 4.7 g/dL (2.4-3.5); Glucose 549 mg/dL (83-110); Potassium 4.8 mmol/L (3.5-5.1); Protein, Total 8.6 g/dL (5.8-8.1); Sodium 133 mmol/L (136-145)
[2020-01-03 08:19] LABS: Phosphorus 1.7 mg/dL (2.3-4.7)
--- NOTE | 2020-01-03 08:25 | CT ---
CT HEAD WITHOUT CONTRAST: INDICATIONS: Injury. COMPARISON: Head CT from 07/22/2019. FINDINGS: Mild volume loss and mild chronic ischemic white matter change. These findings are stable. No evidenc e of intracranial hemorrhage. No edema, mass or infarct. No interval change. IMPRESSION: No acute findings. POS: AGW
[2020-01-03] MEDS ORDERED: hydrALAZINE 20 MG/ML VIAL ONE (08:35)
[2020-01-03] MEDS ORDERED: Insulin Regular 300 UNITS/3 ML VIAL ONE ×3 (08:35→12:09)
--- NOTE | 2020-01-03 09:03 | RAD ---
PORTABLE CHEST: HISTORY: Preop. COMPARISON: 07/22/2019 FINDINGS: The lungs show stranding in the left lung base. Vascular and interstitial markings are prominent but stable. Borderline cardiomegaly. No significant effusion. IMPRESSION: No evidence of acute interval change when compared to the prior study. POS: AGW
--- NOTE | 2020-01-03 09:58 | CON ---
DATE OF CONSULTATION: 01/03/2020 HISTORY OF PRESENT ILLNESS: Mr. Oshea is a 74-year-old male with multiple medical problems. The patient lives at home and ambulates normally independently in the house, but uses a walker when out of the house. He got up out of bed and tripped over a dog toy this morning. He fell as he was going to the bathroom. He landed on his right hip. He had pain in the hip and was unable to bear weight. EMS took the patient to the hospital, where a femoral neck fracture was identified on the right hip. He has been given pain control. He is currently resting fairly comfortably. Orthopedics was consulted as well as the General Surgery Trauma Service. PAST MEDICAL HISTORY: End-stage renal disease, on dialysis, Saturday, Saturday, and Saturday; diabetes; hypertension; hypercholesterolemia; GERD; peripheral neuropathy. PAST SURGICAL HISTORY: Lumbar back surgery. PSYCHIATRIC HISTORY: Includes depression and anger management issues. SOCIAL HISTORY: The patient denies active tobacco or drug use. He does have a history of both drug use including cocaine and tobacco use, he quit several years ago. FAMILY MEDICAL HISTORY: Noncontributory. REVIEW OF SYSTEMS: Positive for right hip pain. Otherwise, negative 10-point review of systems. PHYSICAL EXAMINATION: VITAL SIGNS: Blood pressure is 200/113, pulse is 91, respiratory rate is 16, and 98% on room air. GENERAL: He is lying supine. He is able to answer questions. He is alert and oriented, in no apparent distress. RESPIRATORY: The patient is breathing comfortably. HEENT: Normocephalic and atraumatic. ABDOMEN: Soft, nontender, nondistended. MUSCULOSKELETAL: The patient is thin. He has intact skin. He is able to flex and extend the toes and ankles distally. He has a weakly palpable dorsalis pedis pulse. He has pain with right hip motion. He has shortening of the right leg and rotation. He has tenderness with range of motion of the right hip. IMAGING STUDIES: X-rays of the pelvis and right hip demonstrated displaced right femoral neck fracture, which is acute. IMPRESSION: Right femoral neck fracture in an elderly male. PLAN: At this point, the patient will have workup with the General Surgery Trauma Service and medical optimization prior to surgical intervention. We will plan for operating today. I will plan for a hemiarthroplasty of the hip to restore the ability to mobilize, prevent complications of prolonged bedrest, and provide pain control. The patient is at risk for complications such as infection, wound complication, nerve or vascular injury, instability of the hip, and others. His risk is elevated given his comorbidities, especially dialysis. He will have pain control. He will have DVT prophylaxis and antibiotics on-call to the operating room. Job ID: [id number]
[2020-01-03] MEDS ORDERED: Dextrose 5% in Water 1,000 ML IV PRN (09:59)
[2020-01-03] MEDS ORDERED: Morphine 2 MG/ML VIAL SLOW IVP PRN (09:59)
[2020-01-03] MEDS ORDERED: Ondansetron PF 4 MG/2 ML Vial IVP PRN (09:59)
[2020-01-03] MEDS ORDERED: Insulin Regular 300 UNITS/3 ML VIAL SC PRN (09:59)
[2020-01-03] MEDS ORDERED: Dextrose 50% Abboject 50 ML SYRINGE SLOW IVP PRN (09:59)
[2020-01-03] MEDS ORDERED: hydrALAZINE 20 MG/ML VIAL SLOW IVP PRN (09:59)
[2020-01-03] MEDS ORDERED: Sodium Chloride 0.9% 1,000 ML IV SCH (10:00)
[2020-01-03] MEDS ORDERED: Neomycin-Polymyxin 1 ML AMP ONE (10:14)
[2020-01-03] MEDS ORDERED: traMADol HCl 50 MG TAB PO SCH (10:15)
[2020-01-03 10:59] LABS: SARS-CoV-2 NAA Rapid Test Not Detected (NotDetected)
[2020-01-03] MEDS ORDERED: Sodium Phosphate 30 MMOL in Sodium Chloride 0.9% 250 ML 250 ML IVPB SCH (11:00)
[2020-01-03] MEDS ORDERED: Magnesium 2 GM/50 ML 2 GM in Premix Bag 1 BAG IVPB SCH (11:00)
[2020-01-03] MEDS ORDERED: Fentanyl 250 MCG/5 ML VIAL ONE (11:16)
[2020-01-03] MEDS ORDERED: CEFAZOLIN 2 GM in Premix Bag 1 BAG IVPB SCH (12:00)
--- NOTE | 2020-01-03 12:39 | HP ---
REQUESTING: Michael Friedman MD CONSULTS: 1. Orthopedic Surgery, Dr. Christine. 2. Nephrology, Dr. Sierra, this is the patient's primary compensation programs manager. PRIMARY CARE PHYSICIAN: Is in [place]. The patient unable to recall the physician's name. CHIEF COMPLAINT: Mechanical fall, right hip pain. HISTORY OF PRESENT ILLNESS: This is a 74-year-old gentleman with past medical history of hypertension; uncontrolled type 2 diabetes mellitus; end-stage renal disease, on hemodialysis Saturday, Saturday, Saturday. The patient states that he was walking, pushing his wheelchair as this is how he normally gets around or with a cane when he tripped and fell. The patient denies being weak, dizzy, or short of breath prior to falling. The patient also denied having any chest pain. The patient denies hitting his head and denies being on any anticoagulants. The patient is a poor historian and unable to indicate what medications he takes daily. The patient reports that he took all of his medications last night when he ate. The patient was last n.p.o. yesterday evening. The patient was evaluated in the emergency room and found to have a right femoral neck fracture. The patient was given 2 mg of morphine in the ER for pain. The patient was also found to have elevated blood sugar and was given 10 units of regular insulin. The patient's GCS is currently 15. The patient denies any other injuries. The patient was hypertensive in the emergency room, which improved with hydralazine. REVIEW OF SYSTEMS: A 10-point review of systems is negative unless otherwise indicated in the above HPI. ALLERGIES: NO KNOWN DRUG ALLERGIES. PAST MEDICAL HISTORY: End-stage renal disease, on hemodialysis Saturday, Saturday, Saturday; hypertension; type 2 diabetes; anxiety; GERD; and peripheral neuropathy. PAST SURGICAL HISTORY: 1. Back surgery. 2. Dialysis access catheter. CURRENT HOME MEDICATIONS: The patient is unable to recall. SOCIAL HISTORY: The patient currently lives at home with his . He does have a past history of cocaine abuse. He is a former smoker and former daily drinker, but has not had a drink in several years. PHYSICAL EXAMINATION: VITAL SIGNS: Blood pressure 137/87, heart rate 99, respirations 18, and temperature 98.1. GENERAL: Elderly male, awake, alert, no distress. HEENT: Head is atraumatic, normocephalic. Mucous membranes are moist. No JVD. No cervical spine tenderness. Normal range of motion. RESPIRATORY: Equal chest rise and fall, bilateral breath sounds clear. No wheezing, rales, or rhonchi. CARDIAC: Regular rate, regular rhythm. 3/6 systolic murmur. EXTREMITIES: Neurovascularly intact x4. Distal pulses intact. Right lower extremity was mildly rotated and shortened. NEUROLOGIC: GCS 15. LABORATORY DATA: WBC 11.0, RBC 5.42, hemoglobin 12.9, hematocrit 40.5, and platelets 217. PT 13.4, INR 1.0, APTT 31.3. Sodium 133, potassium 4.8, chloride 92, BUN 32, creatinine 5.05, estimated GFR 14, glucose 508, phosphorus 1.7, calcium 9.6, AST 28, ALT 40, and albumin 3.9. DIAGNOSTICS: Right hip x-ray; impression, right transcervical femoral neck fracture. Brain CT, no acute intracranial abnormalities. Chest x-ray; impression, no evidence of acute interval change. There is stranding in the left lung base. Vascular and interstitial markings are prominent, but stable. Borderline cardiomegaly. No significant effusion. IMPRESSION: 1. Status post mechanical fall. 2. Right femoral neck fracture. 3. End-stage renal disease, on hemodialysis. 4. Uncontrolled diabetes. 5. Hyponatremia, chronic. 6. History of end-stage renal disease, on dialysis Saturday, Saturday, Saturday .. 7. Hypertension. 8. Gastroesophageal reflux disease. 9. Anemia. 10. Anxiety. 11. Peripheral neuropathy. PLAN: N.p.o. except for p.o. medications and sips of water. The patient is going to the OR by Dr. Christine for repair of his right femoral neck fracture. We will gently hydrate the patient and place the patient on a moderate sliding scale. Pain control. Supportive care. Incentive spirometer while awake. We will consult the patient's compensation programs manager to manage hemodialysis. PT and OT to evaluate and treat postop. The patient did have an echocardiogram in July of 2019 with normal ejection fraction. Repeat labs in the morning. Replace electrolytes. The plan will be discussed with the attending after this dictation. Job ID: [id number]
[2020-01-03] MEDS ORDERED: Fentanyl 100 MCG/2 ML VIAL ONE ×2 (12:57→13:21)
[2020-01-03] MEDS ORDERED: Labetalol HCl 100 MG/20 ML VIAL ONE (12:58)
[2020-01-03] MEDS ORDERED: Lidocaine 1% PF 5 ML VIAL ONE (13:46)
[2020-01-03] MEDS ORDERED: PROPOFOL 200 MG/20 ML VIAL ONE (13:46)
[2020-01-03] MEDS ORDERED: Glycopyrrolate 0.2 MG/ML 5 ML SYRINGE ONE (13:46)
[2020-01-03] MEDS ORDERED: Rocuronium Bromide 10 MG/ML (10ML VIAL) ONE (13:46)
[2020-01-03] MEDS ORDERED: PHENYLEPHRINE-NS 100 MCG/ML 10 ML SYRINGE ONE (13:46)
[2020-01-03] MEDS: Acetaminophen 500 MG TAB PO SCH ×3 (14:53→22:26)
--- NOTE | 2020-01-03 15:17 | OP ---
DATE OF PROCEDURE: 01/03/2020 PROCEDURE PERFORMED: Right hip hemiarthroplasty. PREOPERATIVE DIAGNOSIS: Right femoral neck fracture. POSTOPERATIVE DIAGNOSIS: Right femoral neck fracture. COMPLICATIONS: None. ESTIMATED BLOOD LOSS: 200 mL. HAND STRIPPER: Omega Thayer. IMPLANTS: DePuy Basic press-fit size 7 [place] stem, +8.5 femoral head with a 56 mm bipolar shell. INDICATIONS: Mr. Oshea is a 74-year-old male, who has fallen and fractured his right proximal femur. He has been indicated for hemiarthroplasty of the hip to restore the ability to mobilize and provide pain relief and prevent complications of prolonged bedrest. He has elected to proceed with the operation and has accepted risks. DESCRIPTION OF PROCEDURE: Mr. Oshea was identified in the preoperative holding area. His correct extremity was marked. He was carried to the operating room. He was positioned supine. General anesthesia was induced. He was converted to the lateral decubitus position. The right lower extremity was prepped and draped in sterile fashion. We began the procedure with a posterior approach to the hip. We dissected down through the subcutaneous tissues to the fascia, which was opened. We explored the underlying tissues and performed a bursectomy. We then transected the piriformis tendon, and subperiosteally, divided the tendon as well as the capsule from the proximal femur. We reflected the capsule posteriorly. We then dislocated the femoral head and removed the broken neck fragments. We performed an osteotomy of the femoral neck. We cleared the acetabulum of bony fragments. At this point, we prepared the femur. We entered the intramedullary canal and lateralized. We then reamed up to a size 7 reamer. We then broached from a size 3 to a size 7. This was stable. We then trialed with a +8.5 length. This gave good range of motion and stability. Again, we removed the trial of components. We then impacted our final components and performed a final reduction. At this point, we closed the short external rotators and capsule with Ethibond suture through drill holes. We then closed the fascia with #2 Vicryl suture, followed by 2-0 Vicryl suture, and arelis for the skin. A sterile dressing was applied at this point. The patient was taken to recovery room in good condition without complication. Job ID: [id number]
[2020-01-03] MEDS: CEFAZOLIN 2 GM in Premix Bag 1 BAG IVPB SCH (17:48)
--- NOTE | 2020-01-03 17:56 | RAD ---
Exam:One view right hip HISTORY: Status post arthroplasty COMPARISON: None FINDINGS: Expected postoperative changes. Limited evaluation of alignment projection. IMPRESSION: Limited evaluation on the single projection
--- NOTE | 2020-01-03 17:57 | RAD ---
Exam: One view pelvis HISTORY: Right hip fracture. Comparison 01/03/2020 at 7:18 AM FINDINGS: Single view the right hip demonstrates a right hip arthroplasty. Based on images provided, no malalignment. Expected postoperative changes in the soft tissues IMPRESSION: Findings compatible with a right hip arthroplasty.
[2020-01-03] MEDS: Insulin Regular 300 UNITS/3 ML VIAL SC PRN (18:50)
[2020-01-03] MEDS: traMADol HCl 50 MG TAB PO SCH (20:17)
[2020-01-03] MEDS: Famotidine/PF 20 mg/2ml Vial SLOW IVP SCH (20:18)
[2020-01-03] MEDS: Senokot S 8.6-50 MG TAB PO SCH (20:18)
[2020-01-03] MEDS ORDERED: diphenhydrAMINE 25 MG CAP PO PRN (23:58)
[2020-01-04] MEDS: CEFAZOLIN 2 GM in Premix Bag 1 BAG IVPB SCH (02:05)
[2020-01-04] MEDS: Acetaminophen 500 MG TAB PO SCH ×4 (04:11→21:47)
[2020-01-04] MEDS: Insulin Regular 300 UNITS/3 ML VIAL SC PRN ×3 (06:23→18:43)
[2020-01-04 09:41] LABS: #Lymphocytes 1.5 thou/uL (1.20-3.40); #Monocytes 0.5 thou/uL (0.11-0.59); #Neutrophils 8.7 thou/uL (1.40-6.50); %Basophils 0.2 % (0.0-1.0); %Eosinophils 0.1 % (0.0-10.0); %Lymphocytes 13.6 % (21.0-51.0); %Monocytes 4.5 % (0.0-10.0); %Neutrophils 81.7 % (42.0-75.0); Hemoglobin 9.6 g/dL (14.0-18.0); Mean Corpuscular HGB CONC 31.7 g/dL (32.0-36.0); Mean Corpuscular Hemoglobin 23.5 pg (27.0-31.0); Mean Corpuscular Volume 74.4 fL (78.0-98.0); Mean Platelet Volume 9.3 fL (7.4-10.4); Platelet Count 208 thou/uL (130-400); RBC Distribution Width 14.4 % (11.5-14.5); Red Blood Cell (RBC) Count 4.06 mill/uL (4.70-6.10); White Blood Cell (WBC) Count 10.7 thou/uL (4.8-10.8)
[2020-01-04 09:57] LABS: Phosphorus 2.5 mg/dL (2.3-4.7)
[2020-01-04 09:58] LABS: Hemoglobin A1c Greater than 14.0 % (4.0-6.0); Hypochromia SLIGHT = 6-15 cells (100X) (0-5/hpf); MDiff Complete? YES; Microcytosis SLIGHT = 6-15 cells (100X) (0-5/hpf); Platelet Morphology Comment Appears Adequate; Polychromasia SLIGHT = 2-3 cells (100X) (0-2/hpf)
[2020-01-04 10:02] LABS: Anion Gap 15 mmol/L (10-20); BUN (Urea Nitrogen) 38 mg/dL (8.4-25.7); Calc. Creatinine Clearance 13 mL/min (70-130); Calcium 8.9 mg/dL (7.8-10.44); Carbon Dioxide 26 mmol/L (23-31); Chloride 96 mmol/L (98-107); Estimated GFR-MDRD 13; Glucose 273 mg/dL (83-110); Potassium 5.2 mmol/L (3.5-5.1); Sodium 132 mmol/L (136-145)
[2020-01-04 10:16] LABS: HBSAg Index 0.13 S/CO (0-0.99); Hep B Surf Ag Non-Reactive S/CO (NonReactive)
[2020-01-04 11:00] LABS: Hep B Surf AB Reactive (NonReactive)
[2020-01-04 11:07] LABS: HBSAB Concentration 2210.04 mIU/mL
[2020-01-04] MEDS: Metoprolol Tartrate 50 MG TAB PO SCH ×3 (13:10→21:49)
[2020-01-04] MEDS: Cyclobenzaprine 10 MG TAB PO PRN ×2 (13:10→14:15)
[2020-01-04] MEDS: Famotidine/PF 20 mg/2ml Vial SLOW IVP SCH ×2 (13:12→21:49)
[2020-01-04] MEDS: Insulin Glargine 10 UNITS in Pre-Filled Syringe 1 EACH SC SCH (13:12)
[2020-01-04] MEDS: Senokot S 8.6-50 MG TAB PO SCH ×2 (13:12→21:49)
[2020-01-04] MEDS: traMADol HCl 50 MG TAB PO SCH ×2 (13:12→21:47)
[2020-01-04] MEDS: Polyethylene Glycol 3350 17 GM Packet PO SCH (13:12)
[2020-01-04] MEDS ORDERED: Haloperidol Lactate 5 MG/ML VIAL SLOW IVP SCH (13:45)
[2020-01-04] MEDS: traMADol HCl 50 MG TAB PO PRN (14:16)
[2020-01-04 14:55] VITALS: BMI 23.1
--- NOTE | 2020-01-04 16:32 | PRG ---
DATE OF SERVICE: 01/03/2020 SUBJECTIVE: The patient was seen this evening during rounds. He was sitting up in bed and comfortable with no signs of acute distress. He is postoperative day 0 after right hip hemiarthroplasty for a right femoral neck fracture. The patient was also quite hyperglycemic when he arrived and has a history of being noncompliant with his insulin. OBJECTIVE: VITAL SIGNS: Temperature 98.5, pulse 101, respirations 18, oxygen saturation 96% on room air, blood pressure 133/73. GENERAL: Well-appearing elderly male, lying in bed with no signs of acute distress. PULMONARY: Equal chest rise and fall. No signs of acute respiratory distress. NEUROLOGIC: GCS of 15. EXTREMITIES: Gross motor and sensation intact. No significant swelling noted. ASSESSMENT: 1. Status post mechanical fall. 2. Right femoral neck fracture, status post repair. 3. Hyperglycemia and diabetes. 4. History of diabetes, hypertension, dialysis on Saturday, Wednesdays, and Fridays, peripheral neuropathy, gastroesophageal reflux disease, and anxiety. PLAN: Change diet to diabetic renal high-protein. Discontinue IV fluids. Restart patient's home metoprolol with hold parameters. 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 His normal dialysis days are Saturday, Saturday, and Saturday. We will coordinate for him to have dialysis tomorrow. Physical and Occupational Therapy to start working with the patient tomorrow. Job ID: [id number]
--- NOTE | 2020-01-04 21:16 | PRG ---
DATE OF SERVICE: 01/04/2020 SUBJECTIVE: Mr. Oshea was seen after returning from dialysis today. Trauma Team was called to the bedside as the patient was being uncooperative, wanting to get up and leave the hospital. The patient is postop day #1, status post right femoral neck fracture repair with right hip hemiarthroplasty. The patient was also hyperglycemic yesterday when he arrived. When the patient was being uncooperative and threatening to the nurses, a blood sugar was obtained and it was 200. The patient was given a dose of Haldol, which helped and the patient eventually calmed down and was not threatening the nurses and attempting to get up and leave. Physical Therapy did attempt to work with the patient. The patient is unsafe to ambulate by himself. The patient did also have some urinary retention later in the evening and had to be in and out cathed as the bladder scan showed 400 mL. OBJECTIVE: VITAL SIGNS: Temperature 98.5, pulse 105, respirations 16, SpO2 of 97% on room air, and blood pressure 144/82. GENERAL: Elderly male, sitting up in chair, uncooperative, attempting to leave hospital, but is unsafe to ambulate. LUNGS: Respirations are even and nonlabored. CARDIAC: Regular rate. EXTREMITIES: General weakness. Neurovascularly intact x4. NEUROLOGIC: The patient is oriented to person, place, and date. LABORATORY DATA: WBC 10.7 RBC 4.06, hemoglobin 9.6, hematocrit 30.2, and platelets 208. Sodium 132, potassium 5.2, chloride 96, BUN 38, creatinine 5.47, estimated GFR 13, glucose 273, calcium 8.9, magnesium 2.0, and phosphorus 2.5. Hemoglobin A1c greater than 14. DIAGNOSTICS: No new diagnostics to review today. IMPRESSION: 1. Status post mechanical fall. 2. Right femoral neck fracture. 3. Uncontrolled diabetes. A1c greater than 14. 4. Hyponatremia, chronic. 5. History of end-stage renal disease, hemodialysis on Saturday, Saturday, and Saturday. 6. Hypertension. 7. Gastroesophageal reflux disease. 8. Anxiety. 9. Anemia. 10. Peripheral neuropathy. PLAN: Pain management and supportive care. We will restart the patient's daily Seroquel and have Seroquel at night as the patient has been uncooperative. Continue PT and OT. Continue sliding scale. Add Lantus daily. We will add Flomax as the patient has had some urinary retention. The patient was examined by Dr. Juan. Job ID: [id number]
[2020-01-04] MEDS: Tamsulosin HCl 0.4 MG CAP PO SCH (21:49)
--- NOTE | 2020-01-05 01:55 | PRG ---
DATE OF SERVICE: 01/04/2020 SUBJECTIVE: The patient was seen this evening during rounds. He was sitting up in bed, asleep, with no signs of acute distress. Nursing reported no acute events. OBJECTIVE: VITAL SIGNS: Temperature 99.3, pulse 94, respirations 14, oxygen saturation 95% on room air, and blood pressure 121/66. GENERAL: Well-appearing elderly male, lying in bed, asleep, but no signs of acute distress. PULMONARY: Equal chest rise and fall. No signs of acute respiratory distress. ASSESSMENT: 1. Status post mechanical fall from standing. 2. Right femoral neck fracture, status post repair. 3. Hyperglycemia due to uncontrolled diabetes, resolving. 4. History of diabetes, hypertension, end-stage renal disease on dialysis, peripheral neuropathy, gastroesophageal reflux disease, and anxiety. PLAN: Continue current diet and pain regimen. Continue physical and occupational therapy. Restart the patient's home beta-michael. The patient is pending discharge to acute rehab facility. Job ID: [id number]
[2020-01-05] MEDS: Acetaminophen 500 MG TAB PO SCH ×4 (04:52→21:56)
[2020-01-05 05:52] LABS: #Eosinphils 0.1 thou/uL (0.0-0.7); #Lymphocytes 1.6 thou/uL (1.20-3.40); #Monocytes 0.6 thou/uL (0.11-0.59); #Neutrophils 8.3 thou/uL (1.40-6.50); %Basophils 0.3 % (0.0-1.0); %Eosinophils 0.5 % (0.0-10.0); %Monocytes 5.9 % (0.0-10.0); %Neutrophils 78.3 % (42.0-75.0); Hemoglobin 9.4 g/dL (14.0-18.0); Mean Corpuscular HGB CONC 31.2 g/dL (32.0-36.0); Mean Corpuscular Hemoglobin 23.6 pg (27.0-31.0); Mean Corpuscular Volume 75.6 fL (78.0-98.0); Mean Platelet Volume 9.4 fL (7.4-10.4); Platelet Count 200 thou/uL (130-400); RBC Distribution Width 14.6 % (11.5-14.5); Red Blood Cell (RBC) Count 3.96 mill/uL (4.70-6.10); White Blood Cell (WBC) Count 10.6 thou/uL (4.8-10.8)
[2020-01-05] MEDS: Insulin Regular 300 UNITS/3 ML VIAL SC PRN (06:23)
[2020-01-05 06:57] LABS: Anion Gap 16 mmol/L (10-20); BUN (Urea Nitrogen) 33 mg/dL (8.4-25.7); Calc. Creatinine Clearance 16 mL/min (70-130); Carbon Dioxide 27 mmol/L (23-31); Chloride 96 mmol/L (98-107); Estimated GFR-MDRD 15; Glucose 153 mg/dL (83-110); Magnesium 1.9 mg/dL (1.6-2.6); Phosphorus 3.4 mg/dL (2.3-4.7); Potassium 4.5 mmol/L (3.5-5.1); Sodium 134 mmol/L (136-145)
[2020-01-05] MEDS ORDERED: Aspirin 81 mg Enteric Coated Tablet PO SCH (09:30)
[2020-01-05] MEDS ORDERED: Folic Acid 1 MG TAB PO SCH (09:30)
[2020-01-05] MEDS: Senokot S 8.6-50 MG TAB PO SCH ×2 (09:38→20:29)
[2020-01-05] MEDS: Gabapentin 300 MG CAP PO SCH (09:38)
[2020-01-05] MEDS: traMADol HCl 50 MG TAB PO SCH ×2 (09:39→20:30)
[2020-01-05] MEDS: Insulin Glargine 10 UNITS in Pre-Filled Syringe 1 EACH SC SCH (09:41)
[2020-01-05] MEDS: Metoprolol Tartrate 50 MG TAB PO SCH ×2 (09:41→20:29)
[2020-01-05] MEDS: Famotidine/PF 20 mg/2ml Vial SLOW IVP SCH (09:42)
--- NOTE | 2020-01-05 09:50 | CON ---
DATE OF CONSULTATION: REQUESTING PHYSICIAN: REASON FOR CONSULTATION: Need for maintenance hemodialysis. IMPRESSION: 1. End-stage renal disease, hemodialysis dependent, Saturday, Saturday, and Saturday schedule. 2. Right femoral fracture, status post mechanical fall. 3. Diabetes mellitus type 2. 4. Hypertension. PLAN: 1. The patient to be dialyzed today in accordance with his schedule of Saturday, Saturday, and Saturday dialysis. 2. Pain management as per the primary team. 3. Further management to be dependent on the clinical course. HISTORY OF PRESENT ILLNESS: History is that of a 74-year-old gentleman with history significant for end-stage renal disease, hemodialysis dependent on a Saturday, Saturday, and Saturday schedule; diabetes mellitus; and hypertension, who presented here status post mechanical fall that resulted in a right femoral neck fracture. The need for maintenance dialysis necessitated this Renal consultation. PAST MEDICAL HISTORY: As documented . SOCIAL HISTORY: No alcohol. No tobacco. No illicit drug use. REVIEW OF SYSTEMS: As documented in the body of the history. All the other systems were reviewed and found to be significantly related to present illness. PHYSICAL EXAMINATION: GENERAL: The patient was noted to be in some physical distress. VITAL SIGNS: With following vital signs; afebrile, temperature 98.5, pulse 105, respiratory rate of 16, O2 saturation of 94%, and blood pressure 145/82. HEENT: Unremarkable. Moist oral mucosa. Neck was supple. No conjunctival injection. No icterus. CARDIOVASCULAR SYSTEM: First and second heart sounds were heard. RESPIRATORY SYSTEM: Clear to auscultation. DIGESTIVE SYSTEM: Revealed a benign abdomen. Positive bowel sounds. EXTREMITIES: No peripheral edema. SKIN: No new gross rash. LYMPHATICS: No peripheral lymphadenopathy. LABORATORY INVESTIGATIONS: Revealed a white count of 10.7, hemoglobin 9.6, , and platelets of 208,000. Chemistry showed a sodium of 132, potassium 5.2, chloride of 96, BUN of 38 with a creatinine of 5.47, blood sugar 273. Hemoglobin A1c greater than 14. SUMMARY: A 74-year-old gentleman with end-stage renal disease, hemodialysis dependent, who sustained a right femoral fracture status post mechanical fall. Thank you for this consultation. We will follow with you. Job ID: [id number]
[2020-01-05] MEDS: Polyethylene Glycol 3350 17 GM Packet PO SCH (09:52)
[2020-01-05] MEDS ORDERED: Bisacodyl 10 MG SUPP PR SCH (14:00)
[2020-01-05] MEDS: Heparin 5,000 UNITS/ML VIAL SC SCH ×2 (14:21→20:29)
--- NOTE | 2020-01-05 15:11 | PRG ---
DATE OF SERVICE: 01/05/2020 SUBJECTIVE: The patient is seen this morning during rounds on the surgical unit. He is lying in bed, awake, alert, with no signs of acute distress. The patient has lunch at bedside, but states he is not very hungry at this time and declines to eat. The patient has no specific complaints and says pain is well controlled. The patient currently receiving dialysis on Mondays, Wednesdays, Fridays as directed by Dr. Nunez. He had some urinary retention overnight. Bladder scan this morning showed postvoid residual of 106 mL. OBJECTIVE: VITAL SIGNS: Temperature 98.3 Fahrenheit, pulse 92, respirations 16 , SpO2 of 98% on room air, and blood pressure 129/73. GENERAL: Elderly male, lying in bed, no signs of distress. RESPIRATORY: Respirations are even and nonlabored. Equal chest rise and fall. CARDIAC: Regular rate, regular rhythm. EXTREMITIES: General weakness. Neurovascularly intact x4. NEUROLOGIC: GCS 15, no focal deficits. LABORATORY DATA: WBC 10.6, RBC 3.96, hemoglobin 9.4, hematocrit 30.0, and platelets 200. Sodium 134, potassium 4.5, chloride 96, carbon dioxide 27, BUN 33, creatinine 4.57, estimated GFR 15, glucose 153, calcium 9.0, phosphorus 3.4, magnesium 1.9. DIAGNOSTIC STUDIES: No new diagnostics to review. ASSESSMENT: 1. Status post mechanical fall from standing. 2. Right femoral neck fracture, status post repair. 3. Uncontrolled diabetes with hyperglycemia. 4. Hyponatremia, chronic. 5. History of end-stage renal disease, on hemodialysis Mondays, Wednesdays, Fridays. 6. History of hypertension, peripheral neuropathy, gastroesophageal reflux disease, anxiety, anemia. PLAN: Continue supportive care and current pain management. Continue encouraging work with Physical Therapy and Occupational Therapy. We will monitor the patient's urine output and repeat bladder scan later this evening. The patient is pending discharge to rehab facility at this time. The patient was examined by Dr. Juan during morning rounds with the above plan discussed. Job ID: [id number] [facility]
[2020-01-05] MEDS: Cyclobenzaprine 10 MG TAB PO PRN (16:01)
[2020-01-05] MEDS: traMADol HCl 50 MG TAB PO PRN (16:02)
--- NOTE | 2020-01-05 18:34 | PRG ---
DATE OF SERVICE: 01/05/2020 SUBJECTIVE: The patient is seen and examined, noted with the following vital signs. OBJECTIVE: VITAL SIGNS: Afebrile, temperature 98.3, pulse 92, respiratory rate of 16, O2 saturations of 98%, blood pressure 129/73. HEENT: Unremarkable. CARDIOVASCULAR: First and second heart sounds were heard. RESPIRATORY: Clear to auscultation. DIGESTIVE: Revealed a benign abdomen with positive bowel sounds. EXTREMITIES: No peripheral edema. SKIN: No new gross rash. LYMPHATICS: No peripheral lymphadenopathy. IMPRESSION: 1. End-stage renal disease, on hemodialysis, Saturday, Saturday, Saturday schedule. 2. Right femoral fracture, status post fall. 3. Diabetes mellitus, poorly controlled. PLAN: 1. The patient will continue with current schedule of hemodialysis, Saturday, Saturday, Saturday. 2. Discontinue daily blood draws to avoid iatrogenic anemia rather will limit this patient's blood draw as needed during dialysis to be drawn at dialysis by the drilling field specialist. 3. Further management to be dependent on the clinical course. Job ID: [id number]
[2020-01-05] MEDS: Tamsulosin HCl 0.4 MG CAP PO SCH (20:29)
[2020-01-05] MEDS ORDERED: Atorvastatin Calcium 40 MG TAB PO SCH (21:00)
--- NOTE | 2020-01-06 01:22 | PRG ---
DATE OF SERVICE: 01/05/2020 SUBJECTIVE: This is a 74-year-old male with multiple medical comorbidities status post a fall resulting in a right femoral neck fracture. Upon my evaluation, the patient vocalized no complaint. There were no questions from the nursing staff. The patient has had multiple bowel movements this evening. OBJECTIVE: VITAL SIGNS: Reviewed and as documented in the electronic medical record. The patient is afebrile. GENERAL: Resting in bed in no acute distress. PULMONARY: Normal work of breathing. Symmetric rise. ASSESSMENT: As documented in the progress note dated 01/05/2020. PLAN: Continue supportive care as ordered. Job ID: [id number]
[2020-01-06] MEDS ORDERED: Aspirin 81 mg Enteric Coated Tablet PO SCH (09:00)
[2020-01-06] MEDS ORDERED: Bisacodyl 10 MG SUPP PR SCH (09:00)
[2020-01-06] MEDS ORDERED: Amlodipine 5 MG TAB PO SCH (09:00)
[2020-01-06] MEDS ORDERED: Folic Acid 1 MG TAB PO SCH (09:00)
[2020-01-06] MEDS: Metoprolol Tartrate 50 MG TAB PO SCH (11:56)
[2020-01-06] MEDS: Senokot S 8.6-50 MG TAB PO SCH (11:56)
[2020-01-06] MEDS: traMADol HCl 50 MG TAB PO SCH (11:57)
[2020-01-06] MEDS: Heparin 5,000 UNITS/ML VIAL SC SCH ×2 (11:58→17:13)
[2020-01-06] MEDS: Gabapentin 300 MG CAP PO SCH (11:58)
[2020-01-06] MEDS: Polyethylene Glycol 3350 17 GM Packet PO SCH (11:58)
[2020-01-06] MEDS: Famotidine/PF 20 mg/2ml Vial SLOW IVP SCH (12:00)
[2020-01-06] MEDS: Acetaminophen 500 MG TAB PO SCH ×3 (12:00→17:14)
[2020-01-06] MEDS: Insulin Glargine 10 UNITS in Pre-Filled Syringe 1 EACH SC SCH (12:01)
--- NOTE | 2020-01-06 12:46 | PRG ---
DATE OF SERVICE: 01/06/2020 SUBJECTIVE: The patient is seen during morning rounds in dialysis unit. He is lying in bed, awake, alert, no signs of acute distress. The patient has no specific complaints, states pain is well controlled. The patient currently receiving dialysis on Mondays, Wednesdays, and Fridays. He did have some urinary retention yesterday, but appears to be voiding appropriately today. OBJECTIVE: VITAL SIGNS: Temperature 97.9 Fahrenheit, pulse 82, respirations 16, SpO2 of 96% on room air, and blood pressure 133/74. GENERAL: Elderly male, lying in bed, no signs of distress. RESPIRATORY: Respirations are even and nonlabored. Equal chest rise and fall. CARDIAC: Regular rate, regular rhythm. EXTREMITIES: General weakness. Neurovascularly intact x4. NEUROLOGIC: GCS 15. LABORATORY DATA: No new labs to review. ASSESSMENT: No new diagnostics to review. ASSESSMENT: 1. Status post mechanical fall from standing. 2. Right femoral neck fracture, status post repair. 3. Uncontrolled diabetes with hyperglycemia. 4. Hyponatremia, chronic. 5. History of end-stage renal disease, on hemodialysis Mondays, Wednesdays, and Fridays. 6. History of hypertension, peripheral neuropathy, gastroesophageal reflux disease, anxiety, and anemia. PLAN: Continue supportive care and pain management. Continue encouraging working with Physical Therapy and Occupational Therapy. The patient is ready for discharge at this time. Currently pending placement at either rehab facility or senior living facility. We will follow along with case management. The patient was examined by Dr. Juan during morning rounds with above plan discussed. Job ID: [id number] [facility]
[2020-01-06] MEDS: Insulin Regular 300 UNITS/3 ML VIAL SC PRN (17:15)
--- NOTE | 2020-01-06 18:21 | DIS ---
DATE OF ADMISSION: 01/03/2020 DATE OF DISCHARGE: 01/06/2020 DISCHARGE ATTENDING: Dr. Juan CONSULTS: 1. Orthopedic Surgery, Dr. Christine. 2. Nephrology, Dr. Sierra. PROCEDURES PERFORMED: 1. On 01/03/2020, right hip hemiarthroplasty for right femoral neck fracture. 2. Dialysis Saturday, Saturday, and Saturday. PRIMARY DIAGNOSES: Mechanical fall, right femoral neck fracture; hyperglycemia, uncontrolled. SECONDARY DIAGNOSES: Noncompliant; type 2 diabetes; hypertension; hemodialysis Saturday, Saturday, and Saturday; gastroesophageal reflux disease; and anxiety. DISCHARGE MEDICATIONS: 1. Acetaminophen 1000 mg q.6 hours. 2. Amlodipine 5 mg p.o. daily. 3. Aspirin 81 mg daily. 4. Lipitor 40 mg p.o. at bedtime. 5. Flexeril 5 mg p.o. 3 times a day for muscle spasms. 6. Folic acid 1 mg p.o. daily. 7. Gabapentin 100 mg 3 times a day. 8. Heparin 5000 units 3 times a day for VTE prophylaxis. 9. Metoprolol tartrate 50 mg p.o. b.i.d. 10. MiraLAX as needed for constipation. 11. Seroquel as needed 25 mg p.o. at bedtime. 12. Senokot as needed. 13. Zoloft 100 mg p.o. daily. 14. Flomax 0.4 mg p.o. at bedtime. 15. Tramadol 50 mg q.12 hours scheduled and 50 q.12 hours as needed for pain. 16. Lantus 12 units subcutaneously at bedtime. 17. Glipizide 2.5 mg p.o. daily a.c. 18. Procardia XL 60 mg p.o. daily. 19. Seroquel 25 mg p.o. daily. 20. Tizanidine 4 mg p.o. 3 times a day. No discontinued medications. HISTORY OF PRESENT ILLNESS AND HOSPITAL COURSE: This is a 74-year-old gentleman, who presented to the emergency room after a ground level fall. The patient reportedly was pushing his wheelchair to ambulate and tripped and fell. The patient denied feeling weak, dizzy, or having any shortness breath before falling. The patient denied having any chest pain. The patient denied hitting his head. The patient was evaluated in the emergency room and found to have a right femoral neck fracture. The patient's pain was well controlled pre and postop. The patient was given insulin in the emergency room as he was severely hyperglycemic. The patient's blood sugars were controlled on the sliding scale and Lantus. The patient continued with his hemodialysis during his hospital stay. The patient worked with Physical and Occupational Therapy. On the day of discharge, the patient was examined by Dr. Juan. His exam was unremarkable including cardiopulmonary and GI exam. His vital signs were stable, and he was deemed stable for discharge to inpatient rehab for continued physical and occupational therapy. DISPOSITION: Stable. DISCHARGE INSTRUCTIONS: 1. Location: Inpatient rehab, [facility]. 2. Diet: Diabetic diet, high-protein with Nepro supplements. 3. Activity: Orthopedic limitations, weightbearing as tolerated in all extremities, posterior hip precautions. 4. Followup: Follow up with Orthopedic Surgery, Dr. Christine in 14 days. No need to follow up with Trauma Services. Job ID: [id number]
[2020-01-06 19:20] VITALS: BP 118/71; TEMP 98.6
== END 2020-01-06 19:22 | DRG 469 ==
LOC: ERS 06:17 → SDC/OP 10:39 → SURG B 14:00
PROVIDERS: ADMIT Specialist; ATTEND Specialist
PROC: 0SR90JA Replacement of Right Hip Joint with Synthetic Substitute, Uncemented, Open Approach (ICD-10-PCS; principal; 2020-01-03)
PROC: 5A1D70Z Performance of Urinary Filtration, Intermittent, Less than 6 Hours Per Day (ICD-10-PCS; 2020-01-04)
DX: S72.001A Fracture of unspecified part of neck of right femur, initial encounter for closed fracture (principal); N18.6 End stage renal disease; I12.0 Hypertensive chronic kidney disease with stage 5 chronic kidney disease or end stage renal disease; E87.1 Hypo-osmolality and hyponatremia; Z20.828 Contact with and (suspected) exposure to other viral communicable diseases; E11.65 Type 2 diabetes mellitus with hyperglycemia; W18.30XA Fall on same level, unspecified, initial encounter; Z99.2 Dependence on renal dialysis; E78.00 Pure hypercholesterolemia, unspecified; K21.9 Gastro-esophageal reflux disease without esophagitis; F32.9 Major depressive disorder, single episode, unspecified; D63.1 Anemia in chronic kidney disease; R45.4 Irritability and anger; Z79.4 Long term (current) use of insulin; Z79.899 Other long term (current) drug therapy
CPT/HCPCS: 36415; 36416; 70450; 71045; 72170; 80048; 80053; 82010; 83036; 83735; 84100; 85025; 85610; 85730; 86706; 86850; 86900; 86901; 87340; 90935; 93005; 96374; 96375; C1776; G0257; G0390; J0360; J0690; J1630; J1644; J1815; J2270; J2405; J2704; J3010; J3475; J7050; Q0163; S0028; U0002

== ENCOUNTER 2020-01-23 18:09 | Inpatient (IN) | payer MEDICARE, MEDICAID, OTHER ==
[2020-01-23] MEDS ORDERED: Fentanyl 100 MCG/2 ML VIAL ONE (18:15)
[2020-01-23] MEDS ORDERED: Ondansetron PF 4 MG/2 ML Vial ONE (18:25)
[2020-01-23 18:56] LABS: #Eosinphils 0.5 thou/uL (0.0-0.7); #Lymphocytes 2.6 thou/uL (1.20-3.40); #Monocytes 0.7 thou/uL (0.11-0.59); #Neutrophils 7.3 thou/uL (1.40-6.50); %Basophils 0.3 % (0.0-1.0); %Eosinophils 4.7 % (0.0-10.0); %Lymphocytes 23.5 % (21.0-51.0); %Monocytes 5.8 % (0.0-10.0); %Neutrophils 65.6 % (42.0-75.0); Hemoglobin 8.1 g/dL (14.0-18.0); Mean Corpuscular HGB CONC 32.3 g/dL (32.0-36.0); Mean Corpuscular Hemoglobin 24.8 pg (27.0-31.0); Mean Corpuscular Volume 76.9 fL (78.0-98.0); Mean Platelet Volume 7.4 fL (7.4-10.4); Platelet Count 411 thou/uL (130-400); RBC Distribution Width 15.8 % (11.5-14.5); Red Blood Cell (RBC) Count 3.26 mill/uL (4.70-6.10); White Blood Cell (WBC) Count 11.1 thou/uL (4.8-10.8)
[2020-01-23 19:25] LABS: ALT (SGPT) 18 U/L (8-55); AST (SGOT) 26 U/L (5-34); Albumin 3.3 g/dL (3.4-4.8); Alkaline Phosphatase 101 U/L (40-110); Anion Gap 16 mmol/L (10-20); BUN (Urea Nitrogen) 31 mg/dL (8.4-25.7); Bilirubin, Total 0.5 mg/dL (0.2-1.2); Calc. Creatinine Clearance 0 mL/min (70-130); Calcium 8.5 mg/dL (7.8-10.44); Carbon Dioxide 23 mmol/L (23-31); Chloride 98 mmol/L (98-107); Estimated GFR-MDRD 17; Globulin 4.3 g/dL (2.4-3.5); Glucose 186 mg/dL (83-110); Potassium 3.8 mmol/L (3.5-5.1); Protein, Total 7.6 g/dL (5.8-8.1); Sodium 133 mmol/L (136-145)
--- NOTE | 2020-01-23 19:44 | RAD ---
AP CHEST: 01/23/20 HISTORY: Injury. COMPARISON: 01/03/20. FINDINGS/IMPRESSION: Cardiomegaly with mild vascular congestion. Elevated left hemidiaphragm again noted with left basilar atelectasis. No significant interval change. POS: AGW
--- NOTE | 2020-01-23 19:47 | RAD ---
AP PELVIS: 01/23/20 INDICATIONS: Fall with injury. FINDINGS/IMPRESSION: Right hip prosthesis is noted. The acetabular component has dislocated from the acetabulum. The femoral component appear normally aligned with in the acetabular component which is superior to t he bony acetabulum. No definite fracture identified. POS: AGW
[2020-01-23] MEDS ORDERED: Ketamine 50 MG/ML (10ML VIAL) ONE (20:36)
--- NOTE | 2020-01-23 20:36 | RAD ---
RIGHT HIP: 01/23/20 Two views. HISTORY: Injury. There is a right hip prosthesis. The acetabular component has dislocated from the acetabulum. Femora l component ball remains within the acetabular component superior to the acetabulum. No acute fractur e identified. IMPRESSION: Dislocation of the prosthesis from the acetabulum. POS: AGW
[2020-01-23] MEDS ORDERED: Morphine 2 MG/ML VIAL SLOW IVP PRN (21:35)
[2020-01-23] MEDS ORDERED: Dextrose 50% Abboject 50 ML SYRINGE SLOW IVP PRN (21:35)
[2020-01-23] MEDS ORDERED: Dextrose 5% in Water 1,000 ML IV PRN (21:35)
[2020-01-23] MEDS ORDERED: Ondansetron PF 4 MG/2 ML Vial IVP PRN (21:35)
[2020-01-23] MEDS ORDERED: Ondansetron ODT 4 MG TAB PO PRN (21:35)
[2020-01-23] MEDS ORDERED: traMADol HCl 50 MG TAB PO PRN (21:42)
--- NOTE | 2020-01-23 21:59 | RAD ---
RIGHT HIP: 01/23/20 INDICATIONS: Post reduction. One view. FINDINGS/IMPRESSION: The acetabular component continues to be dislocated from the bony acetabulum. Acetabular component is located superior to the bony acetabulum on this single projection. POS: AGW
[2020-01-23] MEDS: Sodium Chloride 0.9% 1,000 ML IV SCH (23:00)
--- NOTE | 2020-01-23 23:04 | HP ---
Trauma activation not applicable. HISTORY OF PRESENT ILLNESS: Mr. Alban Oshea is a 74-year-old male with a past medical history of diabetes; ESRD, on HD; hypertension, who was recently discharged from our service status post fall resulting in a right hip fracture. The patient has recently received conscious sedation and is therefore having difficulty participating in the exam. The majority of the history was obtained from medical records and ER personnel. Per ER documentation, the patient was discharged from rehab back to his assisted earlier today. He sustained a mechanical fall after sitting on the edge of the bed and slipping off it landing on the ground. There was obvious deformity of the right lower extremity. He was brought to [facility] via EMS. He was seen and evaluated by the ER physician, where he was found to have a right prosthetic hip dislocation. Multiple attempts were made to reduce the injury, However, they were unsuccessful. Orthopedic Surgery was notified and Trauma Services was asked to admit. Upon my evaluation, the patient appears to be resting comfortably. He is somewhat drowsy status post conscious sedation. He does endorse a chief complaint of right lower extremity pain. ALLERGIES: NONE. 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 Sierra; hypertension; uncontrolled diabetes; anxiety; GERD; peripheral neuropathy; chronic hyponatremia. Per previous documentation, the patient's primary care physician is in [place], name is unknown at this time. HOME MEDICATIONS: Include; 1. Gabapentin 100 mg t.i.d. 2. Metoprolol 50 mg b.i.d. 3. Pantoprazole 40 mg daily. 4. Sertraline 50 mg daily. 5. Glipizide 10 mg p.o. daily. 6. Tizanidine 4 mg t.i.d. p.r.n. 7. Nifedipine 60 mg daily. 8. Atorvastatin 40 mg daily. 9. Tram-Bushra 0.8 mg daily. SURGICAL HISTORY: Includes back surgery, dialysis access, and right hip open reduction and internal fixation. SOCIAL HISTORY: Lives in assisted. Prior to his most recent admission and original injury, he did ambulate with the use of a cane and/or walker. He is a former smoker with a past medical history of alcohol and illicit drug use, but denies using either at this time. PHYSICAL EXAMINATION: VITAL SIGNS: On evaluation include heart rate 91, blood pressure 128/78, respiratory rate of 26, O2 saturation 100% on 2 to 3 L nasal cannula. GENERAL: Elderly-appearing male, in no acute distress. Drowsy, but easily awakes to voice. HEENT: Head is normocephalic, atraumatic. Eyes, pupils are pinpoint. NECK: Supple. Trachea is midline. CHEST: Atraumatic. Nontender to palpation. Normal work of breathing. Symmetric rise. LUNGS: Clear to auscultation bilaterally. CARDIOVASCULAR: Regular rate and rhythm. 2/6 systolic murmur. ABDOMEN: Soft, nontender, nondistended. Bowel sounds within normal limits. PELVIS: Stable with tenderness to palpation over the right hip. MUSCULOSKELETAL: Moves all extremities x4. Right lower extremity is shortened and internally rotated. He is neurovascularly intact distal to the site of his injury. Left upper extremity dialysis fistula with bruit. NEUROLOGIC: GCS 13 for mild confusion and eyes opening to voice. LABORATORY FINDINGS: WBC 11.1, hemoglobin 8.1, hematocrit 25.1, platelet count 411. Sodium 133, potassium 3.8, chloride 98, carbon dioxide 23, BUN 31, creatinine 4.24, glucose 186. AST and ALT within normal limits. Serum albumin 3.3. RADIOGRAPHIC FINDINGS: X-ray of the pelvis was read by Radiology as acetabular dislocation of the right hip prosthesis. Hip x-ray demonstrated the same. Chest x-ray was read as being significant for cardiomegaly with mild vascular congestion and elevation of left hemidiaphragm, which is consistent with previous x-rays. EKG showed mild sinus tachycardia with nonspecific T-wave abnormality and no acute change from previous. ASSESSMENT: 1. Status post mechanical fall. 2. Right femoral prosthetic hip dislocation. 3. End-stage renal disease, on hemodialysis Saturday, Saturday, and Saturday. 4. Insulin-dependent diabetes, uncontrolled. Most recent hemoglobin A1c from 01/04/2020 greater than 14. 5. Chronic hyponatremia. 6. History of hypertension. 7. Gastroesophageal reflux disease. 8. Chronic anemia secondary to above, stable. 9. History of anxiety. 10. Peripheral neuropathy. 11. Acute traumatic pain. 12. Thrombocytosis, likely reactive. PLAN: Admit to Trauma Services. I have discussed the case with Orthopedic Surgery who intends to take the patient to the OR in the morning. The patient should be n.p.o. after midnight. Gentle IV fluid hydration, especially given his history of ESRD. Moderate sliding scale insulin. Pain control via p.o. and IV analgesics. Postoperative PT and OT. Incentive spirometry while awake. Consult Neurology for HD. Patient did have a previous echocardiogram in July of 2019, EF was within normal limits at that time. He did have some evidence of diastolic dysfunction with LVH as well as an elevated RVSP of 40 mmHg. Plan for admission was discussed with the patient and all questions were answered prior to this dictation. Admission has been discussed with Trauma attending. Job ID: [id number]
[2020-01-23 23:42] VITALS: BMI 25.7
[2020-01-24] MEDS ORDERED: Haloperidol Lactate 5 MG/ML VIAL SLOW IVP SCH (02:15)
[2020-01-24] MEDS: Acetaminophen 500 MG TAB PO SCH ×5 (03:36→23:08)
[2020-01-24 05:48] LABS: #Eosinphils 0.1 thou/uL (0.0-0.7); #Lymphocytes 1.3 thou/uL (1.20-3.40); #Monocytes 0.5 thou/uL (0.11-0.59); #Neutrophils 6.4 thou/uL (1.40-6.50); %Basophils 0.2 % (0.0-1.0); %Lymphocytes 15.9 % (21.0-51.0); %Monocytes 5.7 % (0.0-10.0); %Neutrophils 77.1 % (42.0-75.0); Hemoglobin 6.2 g/dL (14.0-18.0); Mean Corpuscular HGB CONC 31.4 g/dL (32.0-36.0); Mean Corpuscular Volume 79.5 fL (78.0-98.0); Mean Platelet Volume 7.4 fL (7.4-10.4); Platelet Count 327 thou/uL (130-400); White Blood Cell (WBC) Count 8.4 thou/uL (4.8-10.8)
[2020-01-24 05:50] LABS: INR-International Normal Ratio 1.1; PTT 32.7 sec (22.9-36.1); Prothrombin Time 14.3 sec (12.0-14.7)
[2020-01-24 06:05] LABS: ALT (SGPT) 16 U/L (8-55); AST (SGOT) 24 U/L (5-34); Albumin 2.7 g/dL (3.4-4.8); Alkaline Phosphatase 86 U/L (40-110); Anion Gap 15 mmol/L (10-20); BUN (Urea Nitrogen) 35 mg/dL (8.4-25.7); Bilirubin, Total 0.4 mg/dL (0.2-1.2); Calc. Creatinine Clearance 16 mL/min (70-130); Calcium 8.1 mg/dL (7.8-10.44); Carbon Dioxide 24 mmol/L (23-31); Chloride 100 mmol/L (98-107); Estimated GFR-MDRD 15; Globulin 3.6 g/dL (2.4-3.5); Glucose 261 mg/dL (83-110); Potassium 4.3 mmol/L (3.5-5.1); Protein, Total 6.3 g/dL (5.8-8.1); Sodium 135 mmol/L (136-145)
[2020-01-24] MEDS: Sodium Chloride 0.9% 1,000 ML IV SCH (07:45)
[2020-01-24] MEDS ORDERED: Fentanyl 100 MCG/2 ML VIAL ONE (08:04)
[2020-01-24] MEDS: Famotidine 20 MG TAB PO SCH (08:07)
[2020-01-24] MEDS ORDERED: Ferrous Sulfate 325 MG TAB PO SCH (08:15)
[2020-01-24] MEDS ORDERED: SUGAMMADEX SODIUM 200 MG/2 ML VIAL ONE (08:31)
[2020-01-24] MEDS ORDERED: Ondansetron HCl/PF 4 MG/2 ML Vial IVP PRN (08:47)
[2020-01-24] MEDS ORDERED: PROPOFOL 200 MG/20 ML VIAL ONE (10:17)
[2020-01-24] MEDS ORDERED: Ondansetron PF 4 MG/2 ML Vial ONE (10:17)
[2020-01-24] MEDS ORDERED: Dexamethasone 20 MG/5 ML VIAL ONE (10:17)
[2020-01-24] MEDS ORDERED: Rocuronium Bromide 10 MG/ML (10ML VIAL) ONE (10:17)
[2020-01-24] MEDS: Ascorbic Acid 500 mg Chewable Tablet PO SCH ×2 (11:20→21:46)
[2020-01-24] MEDS ORDERED: tiZANidine HCl 4 MG TAB PO PRN (12:31)
--- NOTE | 2020-01-24 12:36 | PRG ---
DATE OF SERVICE: 01/24/2020 SUBJECTIVE: This is a 74-year-old gentleman, status post right hip dislocation after slipping off the bed, landing on the ground. The patient just returned from the operating room after a closed reduction of his right hip. The patient is currently awake and alert. The patient is oriented to person and place only. The patient did receive Haldol overnight as he was aggressive and uncooperative with nursing staff. The patient was threatening to the staff. The patient denies any pain at this time. OBJECTIVE: VITAL SIGNS: Temperature 97.4, pulse 90, respirations 20, SpO2 of 100% on room air, blood pressure 138/57. GENERAL: Elderly male, awake, alert, no distress. HEENT: Unremarkable. RESPIRATORY: Good inspiratory and expiratory effort. No respiratory distress. CARDIAC: Regular rate and regular rhythm. ABDOMEN: Soft, nontender, and nondistended. MUSCULOSKELETAL: Moves all extremities, neurovascularly intact x4,. NEUROLOGIC: GCS 14, -1 for confusion, baseline. LABORATORY DATA: WBC 8.4, RBC 2.50, hemoglobin 6.2, hematocrit 19.8, platelets 327. Sodium 135, potassium 4.3, chloride 100, BUN 35, creatinine 4.75, estimated GFR 15, glucose 267, calcium 8.1. AST 24, ALT 16, albumin 2.7. ASSESSMENT: 1. Status post mechanical fall. 2. Right femoral prosthetic hip dislocation, postop day 0, status post closed reduction. 3. End-stage renal disease, on hemodialysis on Saturday, Saturday, and Saturday. 4. Type 2 diabetes, uncontrolled. 5. Chronic hyponatremia. 6. Acute blood loss anemia. 7. History of hypertension, gastroesophageal reflux disease, chronic anemia, anxiety, peripheral neuropathy, thrombocytosis. PLAN: Continue supportive care and pain regimen. We will transfuse 1 unit of packed red blood cells today for acute anemia. PT and OT to evaluate and treat. Diabetic diet. The patient will likely be discharged back to the residential tomorrow if his hemoglobin is stable. VTE prophylaxis with SCDs. If hemoglobin is stable tomorrow, we will place the patient on chemical VTE prophylaxis. Job ID: [id number]
[2020-01-24 13:25] LABS: SARS-CoV-2 MS2 Positive; SARS-CoV-2 N Gene Negative; SARS-CoV-2 S Gene Negative; SARS-CoV-2 by NAA Not Detected (NotDetected); SARS-CoV-2 orf1ab Negative
[2020-01-24] MEDS ORDERED: Haloperidol Lactate 5 MG/ML VIAL IM SCH (14:00)
[2020-01-24] MEDS: Gabapentin 100 MG CAP PO SCH ×2 (14:31→21:46)
--- NOTE | 2020-01-24 15:56 | OP ---
DATE OF PROCEDURE: 01/24/2020 PROCEDURE PERFORMED: Closed reduction of right hip dislocation. PREOPERATIVE DIAGNOSIS: Right hemiarthroplasty dislocation. POSTOPERATIVE DIAGNOSIS: Right hemiarthroplasty dislocation. COMPLICATIONS: None. ESTIMATED BLOOD LOSS: None. IMPLANTS: None. INDICATIONS: Mr. Oshea is a 74-year-old male, who fell in his nursing facility yesterday. The patient lost his balance. He was not using a walker. He is only 3 weeks out from his hemiarthroplasty for femoral neck fracture. He dislocated his hip when he fell. He is having pain. He had an attempted closed reduction in the emergency department, but this was unsuccessful. DESCRIPTION OF PROCEDURE: Mr. Oshea was identified in the preoperative holding area. He was taken to the operating room and placed under general anesthesia. The patient was not given intravenous antibiotics as we are not planning on an incision. Once he was under general anesthesia, we took intraoperative x-rays. We pulled traction on the limb and rotated the limb. We felt a palpable clunk. We confirmed that the hip was reduced with intraoperative x-ray. Once his hip was reduced, we checked the leg length. We placed the patient in a knee immobilizer. We transferred him back to the recovery room in good condition. Job ID: [id number]
--- NOTE | 2020-01-24 16:05 | RAD ---
RIGHT HIP TWO VIEWS: History: Intraoperative films. FINDINGS: These films show a right hip prosthesis which on these views appears to be in good position with the acetabular cuff reduced and in place in the acetabulum. IMPRESSION: Intraoperative films showing reduction of dislocation. POS: OFF
[2020-01-24] MEDS: Ferrous Sulfate 325 MG TAB PO SCH (16:09)
--- NOTE | 2020-01-24 16:11 | CON ---
DATE OF CONSULTATION: CHIEF COMPLAINT: Right hip pain. HISTORY OF PRESENT ILLNESS: Mr. Oshea is a 74-year-old male, who underwent right hip hemiarthroplasty approximately 1 month ago. The patient was discharged to a nursing facility. The patient has not been using his walker. He was up walking yesterday when he lost his balance and fell. He says he felt like his leg gave way. He has been having weakness. He is in poor health with dialysis and other medical problems. The patient was found to have a hip dislocation. He had an attempted reduction in the ER, however, this was unsuccessful. The patient is admitted now for closed reduction in the operating room. ALLERGIES: NONE. PAST MEDICAL HISTORY: Hypertension, diabetes, anxiety, GERD, peripheral neuropathy, hyponatremia, and chronic anemia. PAST SURGICAL HISTORY: Lumbar back surgery, dialysis access, and right hip hemiarthroplasty. SOCIAL HISTORY: The patient uses drugs. He uses alcohol as well as smokes. He has not been using his walker. He lives in a nursing facility. FAMILY MEDICAL HISTORY: Noncontributory. REVIEW OF SYSTEMS: Positive for right hip pain. Otherwise, negative 10-point review of systems. PHYSICAL EXAMINATION: VITAL SIGNS: Temperature is 98, pulse is 98, respiratory rate is 20, oxygen saturation 100%, and blood pressure is 103/60. GENERAL: He is alert and oriented. He is talkative. HEENT: Normocephalic, atraumatic. RESPIRATORY: Breathing comfortably. ABDOMEN: Soft, nontender, and nondistended. MUSCULOSKELETAL: The patient's right lower extremity is shortened and externally rotated. He has palpable dorsalis pedis pulse. He is able to flex and extend the foot and ankle. Minimal swelling. Wound is well healed. LABORATORY FINDINGS: Hemoglobin is 8.1, hematocrit is 25.1. IMAGES: X-rays of the pelvis and hip demonstrate a dislocation of right hip hemiarthroplasty with high-riding prosthesis. There is no obvious fracture or other abnormality. IMPRESSION: Right hip dislocation, status post hemiarthroplasty. PLAN: At this point, the patient will need closed reduction in the operating room. We will place him in a knee immobilizer postoperatively. He will continue weightbearing. However, he will need a walker strictly. He can go back to his nursing facility when he is comfortable. Job ID: [id number]
[2020-01-24] MEDS ORDERED: EPOETIN ALFA-EPBX (ESRD) 10,000 UNIT/ML VIAL SC SCH (17:00)
[2020-01-24] MEDS: HumaLOG 300 UNITS/3 ML VIAL SC PRN (17:46)
[2020-01-24] MEDS: Senokot S 8.6-50 MG TAB PO SCH (21:46)
[2020-01-24] MEDS: Metoprolol Tartrate 50 MG TAB PO SCH (21:46)
[2020-01-24] MEDS: Tamsulosin HCl 0.4 MG CAP PO SCH (21:46)
[2020-01-24] MEDS: Atorvastatin Calcium 40 MG TAB PO SCH (21:47)
[2020-01-25] MEDS: Acetaminophen 500 MG TAB PO SCH ×3 (04:53→18:25)
[2020-01-25] MEDS: Cyclobenzaprine 10 MG TAB PO PRN ×2 (04:53→18:41)
[2020-01-25 05:22] LABS: #Basophils 0.1 thou/uL (0.0-0.2); #Eosinphils 0.2 thou/uL (0.0-0.7); #Monocytes 0.6 thou/uL (0.11-0.59); #Neutrophils 5.8 thou/uL (1.40-6.50); %Basophils 0.6 % (0.0-1.0); %Eosinophils 2.3 % (0.0-10.0); %Lymphocytes 23.4 % (21.0-51.0); %Neutrophils 66.7 % (42.0-75.0); Hemoglobin 7.1 g/dL (14.0-18.0); Mean Corpuscular HGB CONC 31.8 g/dL (32.0-36.0); Mean Corpuscular Hemoglobin 25.1 pg (27.0-31.0); Mean Corpuscular Volume 79.1 fL (78.0-98.0); Mean Platelet Volume 7.3 fL (7.4-10.4); Platelet Count 311 thou/uL (130-400); Red Blood Cell (RBC) Count 2.81 mill/uL (4.70-6.10); White Blood Cell (WBC) Count 8.8 thou/uL (4.8-10.8)
[2020-01-25 05:59] LABS: Anion Gap 16 mmol/L (10-20); BUN (Urea Nitrogen) 45 mg/dL (8.4-25.7); Calc. Creatinine Clearance 13 mL/min (70-130); Calcium 8.6 mg/dL (7.8-10.44); Carbon Dioxide 24 mmol/L (23-31); Chloride 100 mmol/L (98-107); Estimated GFR-MDRD 12; Glucose 212 mg/dL (83-110); Iron 25 ug/dL (65-175); Magnesium 1.6 mg/dL (1.6-2.6); Potassium 4.2 mmol/L (3.5-5.1); Sodium 136 mmol/L (136-145)
[2020-01-25 06:01] LABS: Iron 10 ug/dL (65-175); Iron Binding Capacity, Total 205 mcg/dL (261-462)
[2020-01-25] MEDS: HumaLOG 300 UNITS/3 ML VIAL SC PRN ×2 (06:14→21:46)
[2020-01-25] MEDS ORDERED: Heparin 5,000 UNITS/ML VIAL SC SCH (09:00)
[2020-01-25] MEDS ORDERED: Ferrous Sulfate 325 MG TAB PO SCH (09:00)
[2020-01-25] MEDS: Gabapentin 100 MG CAP PO SCH ×3 (09:08→21:45)
[2020-01-25] MEDS: Polyethylene Glycol 3350 17 GM Packet PO SCH (09:08)
[2020-01-25] MEDS: Senokot S 8.6-50 MG TAB PO SCH ×2 (09:08→21:45)
[2020-01-25] MEDS: NIFEdipine XL 60 MG TAB PO SCH (09:08)
[2020-01-25] MEDS: Ascorbic Acid 500 mg Chewable Tablet PO SCH ×2 (09:08→21:44)
[2020-01-25] MEDS: Famotidine 20 MG TAB PO SCH (09:08)
[2020-01-25] MEDS: Metoprolol Tartrate 50 MG TAB PO SCH ×2 (09:09→21:45)
[2020-01-25] MEDS: Cyanocobalamin (Vitamin B-12) 1,000 MCG TAB PO SCH (09:09)
[2020-01-25] MEDS: Aspirin 81 mg Enteric Coated Tablet PO SCH (09:09)
[2020-01-25] MEDS: Amlodipine 5 MG TAB PO SCH (09:09)
[2020-01-25] MEDS: Ferrous Sulfate 325 MG TAB PO SCH (10:14)
--- NOTE | 2020-01-25 12:23 | PRG ---
DATE OF SERVICE: 01/25/2020 SUBJECTIVE: The patient was seen this morning during rounds. He was sitting up in bed, resting comfortably, and asleep. He was very drowsy. He was awakened to voice, but he would fall asleep very quickly again. He had no complaints at that time. He was sitting up without any signs of respiratory distress. Nursing reported no acute events. OBJECTIVE: VITAL SIGNS: Temperature 98.0, pulse 92, respirations 14, oxygen saturation 97% on room air, and blood pressure 145/82. GENERAL: Well-appearing elderly male, sitting up in bed, with no signs of acute distress. PULMONARY: Equal chest rise and fall. Clear breath sounds bilaterally. No signs of acute respiratory distress. CARDIAC: Regular rate and rhythm. GI: Abdomen is soft, nontender, and nondistended. EXTREMITIES: 2+ pulses in all extremities. Gross motor sensation is intact. No significant swelling noted. NEUROLOGIC: GCS is 13 to 14, -1 to 2 for eyes. LABORATORY FINDINGS: White count 8.8, hemoglobin 7.1, hematocrit 22.2, and platelets 311. Sodium 134, potassium 4.0, chloride 100, bicarb 24, BUN 45, creatinine 5.58, and glucose 212. Phosphorus 4.0. Magnesium 1.6. DIAGNOSTIC FINDINGS: There are no new diagnostic findings to report. ASSESSMENT: 1. Status post mechanical fall from bed. 2. Right hip dislocation, status post replacement on last hospital admission. 3. History of diabetes. 4. End-stage renal disease on dialysis Saturday, Saturday, Saturday. 5. Hypertension. PLAN: Continue current diabetic, high-protein, renal diet. Continue physical and occupational therapy. Continue home medications. Add nifedipine from his home medications for better blood pressure control. The patient to be dialyzed Saturday, Saturday, Saturday. We will discontinue any new medications that can be causing him to be sleepy. We have stopped the patient's home Zanaflex. We will follow up his mentation. The patient is pending discharge to [facility]. His has agreed to this plan. He will likely be discharged tomorrow. This patient was seen and evaluated by Dr. Juan and myself this morning during rounds. Job ID: [id number]
--- NOTE | 2020-01-25 12:24 | PRG ---
DATE OF SERVICE: 01/25/2020 SUBJECTIVE: The patient was seen and examined today, noted with the following vital signs. OBJECTIVE: VITAL SIGNS: Afebrile, temperature 98, pulse 92, blood pressure 146/86, respiratory rate of 14, O2 saturation of 93%. GENERAL: The patient seems to be encourage this patient to take his morning medications. HEENT: Unremarkable. CARDIOVASCULAR: First and second heart sounds were heard. RESPIRATORY SYSTEM: Clear to auscultation. DIGESTIVE SYSTEM: Revealed a benign abdomen with positive bowel sounds. EXTREMITIES: No peripheral edema. SKIN: No new gross rash. LYMPHATICS: No peripheral lymphadenopathy. IMPRESSION: 1. End-stage renal disease, on dialysis. Due for dialysis today. 2. anemia of chronic kidney disease. 3. Recurrent falls, status post orthopedic complications. PLAN: 1. The patient to be dialyzed today in accordance with the schedule. 2. Erythropoiesis stimulating agent has been given yesterday. 3. We will streamline this patient's medications as the patient seems to be on polypharmacy. 4. Further management to be dependent on the clinical course. Job ID: [id number]
--- NOTE | 2020-01-25 15:14 | CON ---
DATE OF CONSULTATION: 01/24/2020 REQUESTING PHYSICIAN: Vanesa Butler with Trauma Service. REASON FOR CONSULTATION: Need for dialysis. IMPRESSION: 1. End-stage renal disease, on dialysis, Saturday, Saturday, Saturday. 2. Status post recurrent fall with dislocation of the hip. 3. Hypertension. PLAN: 1. There is no emergent indication for hemodialysis. The patient to remain on Saturday, Saturday, Saturday schedule dialysis, therefore will be due for dialysis on Saturday. 2. Anemia. The patient's iron profile to be re-evaluated with a ferritin check and serum iron. In any case, the patient likely has anemia of chronic kidney disease. We will start this patient on erythropoiesis stimulating agent. 3. Further management to be dependent on the clinical course. HISTORY OF PRESENT ILLNESS: History is that of 74-year-old gentleman with history of end-stage renal disease, hypertension, recently had a fall that resulted in right femoral fracture. The patient was recuperating at home when he took another fall that caused dislocation of the same hip. Attempts in the ER to reduce the dislocation was unsuccessful, thus the need for admission and reduction of the hip under general anesthesia. The need for maintenance dialysis necessitated this Renal consultation. PAST MEDICAL HISTORY: As documented in the body of the history. Also includes diabetes, reflux disease, peripheral neuropathy. MEDICATIONS: Reviewed, as documented on [facility]. SOCIAL HISTORY: Denies alcohol, tobacco, or illicit drug use. He is a remote tobacco user. REVIEW OF SYSTEMS: As documented in the body of the history. All the other systems were reviewed and found not to be significantly related to presenting illness. PHYSICAL EXAMINATION: VITAL SIGNS: The patient was found with the following vital signs; afebrile, temperature 99.5, pulse 106, respiratory rate of 18, O2 saturations of 95%, blood pressure 164/87. HEENT: Unremarkable. CARDIOVASCULAR: First and second heart sounds were heard. RESPIRATORY SYSTEM: Clear to auscultation. DIGESTIVE SYSTEM: Revealed a benign abdomen with positive bowel sounds. EXTREMITIES: No peripheral edema. SKIN: No new gross rash. LYMPHATICS: No peripheral lymphadenopathy. SUMMARY: A 74-year-old gentleman with end-stage renal disease, who is here status post recurrent fall that resulted in dislocation of the right hip. Thank you for this consultation. We will follow with you. Job ID: [id number]
[2020-01-25] MEDS: Atorvastatin Calcium 40 MG TAB PO SCH (21:44)
[2020-01-25] MEDS: Tamsulosin HCl 0.4 MG CAP PO SCH (21:44)
[2020-01-25] MEDS: Heparin 5,000 UNITS/ML VIAL SC SCH (21:45)
[2020-01-26] MEDS: Acetaminophen 500 MG TAB PO SCH ×4 (00:05→15:16)
[2020-01-26] MEDS: HumaLOG 300 UNITS/3 ML VIAL SC PRN (05:34)
[2020-01-26 05:50] LABS: #Basophils 0.1 thou/uL (0.0-0.2); #Eosinphils 0.1 thou/uL (0.0-0.7); #Lymphocytes 1.7 thou/uL (1.20-3.40); #Monocytes 0.9 thou/uL (0.11-0.59); %Basophils 0.9 % (0.0-1.0); %Lymphocytes 17.4 % (21.0-51.0); %Monocytes 9.1 % (0.0-10.0); %Neutrophils 71.7 % (42.0-75.0); Mean Corpuscular HGB CONC 31.7 g/dL (32.0-36.0); Mean Corpuscular Hemoglobin 25.1 pg (27.0-31.0); Mean Corpuscular Volume 79.2 fL (78.0-98.0); Mean Platelet Volume 7.6 fL (7.4-10.4); Platelet Count 349 thou/uL (130-400); RBC Distribution Width 15.5 % (11.5-14.5); White Blood Cell (WBC) Count 9.8 thou/uL (4.8-10.8)
[2020-01-26 06:05] LABS: Anion Gap 15 mmol/L (10-20); BUN (Urea Nitrogen) 33 mg/dL (8.4-25.7); Calc. Creatinine Clearance 17 mL/min (70-130); Calcium 8.7 mg/dL (7.8-10.44); Carbon Dioxide 28 mmol/L (23-31); Chloride 99 mmol/L (98-107); Estimated GFR-MDRD 16; Glucose 190 mg/dL (83-110); Magnesium 1.8 mg/dL (1.6-2.6); Phosphorus 4.5 mg/dL (2.3-4.7); Potassium 4.1 mmol/L (3.5-5.1); Sodium 138 mmol/L (136-145)
[2020-01-26] MEDS: Ascorbic Acid 500 mg Chewable Tablet PO SCH (11:19)
[2020-01-26] MEDS: Famotidine 20 MG TAB PO SCH (11:19)
[2020-01-26] MEDS: Amlodipine 5 MG TAB PO SCH (11:19)
[2020-01-26] MEDS: Aspirin 81 mg Enteric Coated Tablet PO SCH (11:19)
[2020-01-26] MEDS: Cyanocobalamin (Vitamin B-12) 1,000 MCG TAB PO SCH (11:19)
[2020-01-26] MEDS: Metoprolol Tartrate 50 MG TAB PO SCH (11:20)
[2020-01-26] MEDS: Heparin 5,000 UNITS/ML VIAL SC SCH (11:20)
[2020-01-26] MEDS: Polyethylene Glycol 3350 17 GM Packet PO SCH (11:20)
[2020-01-26] MEDS: Senokot S 8.6-50 MG TAB PO SCH (11:20)
[2020-01-26] MEDS: NIFEdipine XL 60 MG TAB PO SCH (11:20)
[2020-01-26] MEDS: Gabapentin 100 MG CAP PO SCH ×2 (11:20→15:17)
--- NOTE | 2020-01-26 13:52 | DIS ---
DATE OF ADMISSION: 01/23/2020 DATE OF DISCHARGE: 01/26/2020 ADMISSION DIAGNOSIS: Fall from bed and right hip dislocation. DISCHARGE DIAGNOSIS: Fall from bed and right hip dislocation. CONSULTING PHYSICIANS: Dr. Christine of Orthopedic Surgery and Dr. Sierra of Nephrology. PROCEDURES: The patient went to the OR on January 24, 2020 and had a closed reduction of the right hip. HOSPITAL COURSE: The patient is a 74-year-old male, presented to the emergency department after a fall from bed at home. The patient had a right hip dislocation. He was previously on our service and had a hip replacement and was discharged to acute rehab facility. Subsequently, he went home and fell. He was admitted to our service and taken to the OR the next day for closed reduction of the right hip. Postoperatively, he worked with Physical and Occupational Therapy. His pain was well controlled. He was tolerating a diabetic renal diet. He was also seen by Dr. Sierra as the patient has end-stage renal disease and receives dialysis Saturday, Saturday, Saturday. He received dialysis during this hospitalization. He was eventually discharged to home to a shelter facility per the request of the patient's . DISCHARGE DISPOSITION: half-way facility. DISCHARGE CONDITION: Satisfactory. PHYSICAL EXAMINATION: VITAL SIGNS: Temperature 98.6, pulse 90, respirations 14, oxygen saturation 94% on room air, blood pressure 111/67. GENERAL: Well-appearing elderly male, sitting up in bed with no signs of acute distress. PULMONARY: Equal chest rise and fall. No signs of acute respiratory distress. CARDIAC: Regular rate and rhythm. GASTROINTESTINAL: Soft, nontender, nondistended. EXTREMITIES: 2+ pulses in all extremities. Gross motor and sensation intact. No significant swelling noted. NEURO: GCS is 15. DISCHARGE INSTRUCTIONS: The patient was discharged to a shelter facility. Activity as tolerated. Weightbearing as tolerated. Strict posterior hip precautions with knee immobilizer to prevent hip flexion past 90 degrees. Diabetic renal high-protein diet. He will have physical and occupational therapy, incentive spirometry, and walker. DISCHARGE MEDICATIONS: Include; 1. Tylenol. 2. Amlodipine. 3. Vitamin C. 4. Aspirin. 5. Atorvastatin. 6. Vitamin B12. 7. Epoetin. 8. Gabapentin. 9. Heparin subcu. 10. Metoprolol. 11. Nifedipine. 12. MiraLAX. 13. Seroquel. 14. Senokot-S. 15. Sertraline. 16. Flomax. 17. Glipizide. 18. Lantus. FOLLOWUP APPOINTMENTS: The patient is to follow up in clinic with Dr. Christine. No need for followup with Trauma Clinic. This is a summary of the patient's hospitalization. For full details, please see his medical record in its entirety. This patient was seen and evaluated by Dr. Juan and myself this morning during rounds. Job ID: [id number]
[2020-01-26 15:58] VITALS: BP 154/76; TEMP 98.4
--- NOTE | 2020-01-26 20:05 | PRG ---
DATE OF SERVICE: 01/26/2020 OBJECTIVE: VITAL SIGNS: The patient is noted with the following vital signs; afebrile, temperature 98.4, pulse 97, respiratory rate of 14, O2 saturations are 94%, with a blood pressure of 154/76. HEENT: Unremarkable. CARDIOVASCULAR SYSTEM: First and second heart sounds were heard. RESPIRATORY SYSTEM: Clear to auscultation. DIGESTIVE SYSTEM: Revealed a benign abdomen. EXTREMITIES: No peripheral edema. SKIN: No new gross rash. LYMPHATICS: No peripheral lymphadenopathy. LABORATORY INVESTIGATION: Significant for hemoglobin of 7. Chemistry showed a creatinine of 4.31, BUN of 33. IMPRESSION: 1. End-stage renal disease, on dialysis. 2. Anemia of chronic kidney disease with elevated ferritin. 3. Status post multiple falls, resulting in right hip dislocation and recent right femoral fracture. PLAN: 1. There is no indication for renal replacement therapy today. The patient was dialyzed yesterday, will be due for dialysis tomorrow. 2. We will continue with erythropoiesis stimulating agents. 3. Further management including disposition planning will be dependent on the primary team. Job ID: [id number]
== END 2020-01-26 15:55 | DRG 559 ==
LOC: ERS 18:09 → SURG A 21:43
PROVIDERS: ADMIT Orthopaedic Surgery; ATTEND Orthopaedic Surgery
PROC: 0QS6XZZ Reposition Right Upper Femur, External Approach (ICD-10-PCS; principal; 2020-01-24)
PROC: 30233N1 Transfusion of Nonautologous Red Blood Cells into Peripheral Vein, Percutaneous Approach (ICD-10-PCS; 2020-01-24)
PROC: 5A1D70Z Performance of Urinary Filtration, Intermittent, Less than 6 Hours Per Day (ICD-10-PCS; 2020-01-25)
DX: T84.020A Dislocation of internal right hip prosthesis, initial encounter (principal); N18.6 End stage renal disease; E87.1 Hypo-osmolality and hyponatremia; D62 Acute posthemorrhagic anemia; I12.0 Hypertensive chronic kidney disease with stage 5 chronic kidney disease or end stage renal disease; K21.9 Gastro-esophageal reflux disease without esophagitis; E11.22 Type 2 diabetes mellitus with diabetic chronic kidney disease; G62.9 Polyneuropathy, unspecified; W01.0XXA Fall on same level from slipping, tripping and stumbling without subsequent striking against object, initial encounter; F41.9 Anxiety disorder, unspecified; D47.3 Essential (hemorrhagic) thrombocythemia; D64.9 Anemia, unspecified; Z87.891 Personal history of nicotine dependence; Z79.899 Other long term (current) drug therapy; Z99.2 Dependence on renal dialysis; Y83.9 Surgical procedure, unspecified as the cause of abnormal reaction of the patient, or of later complication, without mention of misadventure at the time of the procedure; Z20.828 Contact with and (suspected) exposure to other viral communicable diseases
CPT/HCPCS: 36415; 36416; 36430; 71045; 72170; 76000; 80048; 80053; 82728; 83540; 83550; 83735; 84100; 85025; 85610; 85730; 86850; 86900; 86901; 87635; 93005; 96374; 96375; 99152; G0390; J1100; J1630; J1644; J2270; J2405; J2704; J3010; P9016; Q5105; U0003

== ENCOUNTER 2020-03-02 00:44 | Inpatient (IN) | payer MEDICARE, MEDICAID ==
[2020-03-02] MEDS ORDERED: Midazolam HCl 2 mg/2 ml Vial ONE ×2 (01:18→01:45)
[2020-03-02] MEDS ORDERED: Fentanyl 100 MCG/2 ML VIAL ONE ×2 (01:18→18:11)
[2020-03-02] MEDS ORDERED: Lorazepam 2 MG/ML VIAL ONE (06:11)
--- NOTE | 2020-03-02 07:26 | RAD ---
Exam: 1 view right hip HISTORY: Status post hip dislocation COMPARISON: None FINDINGS: Single view of the pelvis demonstrates dislocation of the right femoral head prosthesis wit h respect to the acetabulum. The femoral head is superior to the acetabulum. There is diffuse bone demineralization of the visualized bony pelvis. IMPRESSION: Right hip dislocation. Postreduction films are recommended. Results of study discussed with Dr. Friedman on 03/02/2020 at 8:11 AM. Code CR Transcribed Date/Time: 03/02/2020 7:33 AM
[2020-03-02] MEDS ORDERED: CEFAZOLIN 2 GM in Premix Bag 1 BAG IVPB SCH (08:00)
[2020-03-02 08:51] LABS: SARS-CoV-2 NAA Rapid Test Not Detected (NotDetected)
[2020-03-02] MEDS ORDERED: Glycopyrrolate 0.2 MG/ML 5 ML SYRINGE ONE (09:33)
[2020-03-02] MEDS ORDERED: Ondansetron PF 4 MG/2 ML Vial ONE (09:33)
[2020-03-02] MEDS ORDERED: PROPOFOL 200 MG/20 ML VIAL ONE (09:33)
[2020-03-02] MEDS ORDERED: Rocuronium Bromide 10 MG/ML (10ML VIAL) ONE (09:33)
[2020-03-02] MEDS ORDERED: Lidocaine 1% PF 5 ML VIAL ONE (09:33)
[2020-03-02] MEDS ORDERED: Bupivacaine HCl 0.5%/Epinephrine 1:200,000/PF 30 ml Vial ONE (09:33)
[2020-03-02] MEDS ORDERED: ePHEDrine 50 MG/ML VIAL ONE (09:33)
[2020-03-02] MEDS ORDERED: PHENYLEPHRINE-NS 100 MCG/ML 10 ML SYRINGE ONE (09:33)
--- NOTE | 2020-03-02 09:45 | RAD ---
XR Chest 1 View Portable History: Preop evaluation Comparison: Radiograph January 23, 2020 Findings: Mild elevation left hemidiaphragm. Right paratracheal soft tissue fullness is similar likel y vascular ectasia. Severe right and moderate left glenohumeral degenerative change. Impression: Chronic findings. No acute intrathoracic abnormality.
--- NOTE | 2020-03-02 10:05 | CON ---
DATE OF CONSULTATION: 03/02/2020 This is Felicia West PA-C dictating a report for Eladio Francois MD. REQUESTING PHYSICIAN: Trauma Services. CONSULTING PHYSICIAN: Eladio Francois MD REASON FOR CONSULTATION: Right prosthetic hip dislocation. HISTORY OF PRESENT ILLNESS: This patient is a 74-year-old male who underwent right hip hemiarthroplasty for femoral neck fracture on January 03, 2020 with our service. Subsequently, he has fallen several times, resulting in dislocations of this hemiarthroplasty. The 1st time he fell was on January 23, 2020. This required sedation in the operating room for reduction. He presents to our facility again today after falling while transferring from his wheelchair to his bed while at his halfway facility in [place], [place]. He is a poor historian and seems to have been combative this morning in the emergency department. He was given some Ativan and placed in soft restraints. Currently at bedside, his unable to provide much history secondary to this medication. He does complain of right lower extremity pain. 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 Sierra; hypertension; diabetes; anxiety; GERD; peripheral neuropathy; and chronic hyponatremia. ALLERGIES: NONE. PAST SURGICAL HISTORY: Includes back surgery, dialysis access, and right hip hemiarthroplasty. SOCIAL HISTORY: The patient is currently residing at the halfway facility in [place]. Prior to his admission for hip fracture, he did ambulate with the use of a cane or walker and was living at home with his . He is a former smoker with a past medical history of alcohol and illicit drug use, but denies using either at this time. REVIEW OF SYSTEMS: Ten-point review of systems was conducted and otherwise negative except for stated above. PHYSICAL EXAMINATION: Shows, CURRENT VITAL SIGNS: Including blood pressure of 100/71, pulse of 81, respiratory rate of 14, temperature of 98.0, and O2 saturation of 98% on room air. GENERAL: The patient is somewhat sedated. He verbalizes complaints of right hip pain, but otherwise does not respond any questions. He is resting comfortably in his ER bed at this time. HEENT: Head is normocephalic and atraumatic. NECK: Supple. Trachea midline. Breathing is nonlabored. Of note, he is in soft restraints to the upper extremities. EXTREMITIES: Evaluation of the right lower extremity shows a well-healed surgical wound on the right hip. There is an obvious deformity to this right hip with shortening of the right leg. He does spontaneously move his foot and toes on this extremity. RADIOGRAPHIC IMAGING: Reviewed including 2 views of the right hip demonstrate a dislocated right hip hemiarthroplasty. No evidence of periprosthetic fracture. ASSESSMENT: Dislocation of right hip hemiarthroplasty, recurrent. PLAN: At this time, majority of the history has been obtained from records secondary to the patient's current state. He is a poor historian by records. He has dislocated this hemiarthroplasty twice now. Plan is to proceed with removal of the hardware, so that he may have a Girdlestone in place. He may still ambulate as tolerated. Plan of care discussed with the patient today; however, he is somewhat sedated. We will plan to revisit him later when his medication wears off. Planning for surgery today. He will be admitted to the Trauma Services. Job ID: [id number] [facility]
[2020-03-02 10:28] LABS: #Eosinphils 0.4 thou/uL (0.0-0.7); #Lymphocytes 1.7 thou/uL (1.20-3.40); #Monocytes 0.6 thou/uL (0.11-0.59); #Neutrophils 5.4 thou/uL (1.40-6.50); %Basophils 0.4 % (0.0-1.0); %Eosinophils 5.5 % (0.0-10.0); %Lymphocytes 20.8 % (21.0-51.0); %Neutrophils 66.3 % (42.0-75.0); Hemoglobin 9.9 g/dL (14.0-18.0); Mean Corpuscular Hemoglobin 22.7 pg (27.0-31.0); Mean Corpuscular Volume 75.8 fL (78.0-98.0); Mean Platelet Volume 8.2 fL (7.4-10.4); Platelet Count 393 thou/uL (130-400); Red Blood Cell (RBC) Count 4.35 mill/uL (4.70-6.10); White Blood Cell (WBC) Count 8.1 thou/uL (4.8-10.8)
[2020-03-02 10:29] LABS: ALT (SGPT) Less than 7 U/L (8-55); AST (SGOT) 13 U/L (5-34); Albumin 3.2 g/dL (3.4-4.8); Alkaline Phosphatase 158 U/L (40-110); Anion Gap 19 mmol/L (10-20); BUN (Urea Nitrogen) 35 mg/dL (8.4-25.7); Bilirubin, Total 0.3 mg/dL (0.2-1.2); Calc. Creatinine Clearance 0 mL/min (70-130); Calcium 9.2 mg/dL (7.8-10.44); Carbon Dioxide 26 mmol/L (23-31); Chloride 97 mmol/L (98-107); Estimated GFR-MDRD 13; Globulin 5.3 g/dL (2.4-3.5); Glucose 109 mg/dL (83-110); Magnesium 1.9 mg/dL (1.6-2.6); Phosphorus 5.2 mg/dL (2.3-4.7); Potassium 3.9 mmol/L (3.5-5.1); Protein, Total 8.5 g/dL (5.8-8.1); Sodium 138 mmol/L (136-145)
[2020-03-02 10:58] LABS: Hypochromia SLIGHT = 6-15 cells (100X) (0-5/hpf); MDiff Complete? YES; Microcytosis SLIGHT = 6-15 cells (100X) (0-5/hpf); Platelet Morphology Comment Appears Adequate; Polychromasia SLIGHT = 2-3 cells (100X) (0-2/hpf); Target Cells SLIGHT = 2-5 cells (100X) (0-1/hpf)
[2020-03-02] MEDS ORDERED: Ondansetron ODT 4 MG TAB SL PRN (11:30)
[2020-03-02] MEDS ORDERED: Ondansetron PF 4 MG/2 ML Vial IVP PRN (11:30)
[2020-03-02] MEDS ORDERED: Dextrose 50% Abboject 50 ML SYRINGE SLOW IVP PRN (11:35)
[2020-03-02] MEDS ORDERED: Insulin Regular 300 UNITS/3 ML VIAL SC PRN ×2 (11:35)
[2020-03-02] MEDS ORDERED: Dextrose 5% in Water 1,000 ML IV PRN (11:35)
[2020-03-02] MEDS ORDERED: Morphine 2 MG/ML VIAL SLOW IVP PRN (11:35)
[2020-03-02] MEDS ORDERED: Sodium Chloride 0.9% 1,000 ML IV SCH (11:45)
[2020-03-02 12:52] VITALS: BMI 29.3
[2020-03-02] MEDS: Acetaminophen 500 MG TAB PO SCH ×2 (12:55→18:19)
[2020-03-02] MEDS ORDERED: EPOETIN ALFA-EPBX (ESRD) 3,000 UNIT/ML VIAL SC SCH (15:00)
[2020-03-02] MEDS ORDERED: Lidocaine 1% (PF) 30 ML VIAL ONE (18:04)
[2020-03-02] MEDS ORDERED: Phenylephrine 10 MG/ML VIAL ONE (19:18)
[2020-03-02] MEDS ORDERED: Promethazine HCl 25 MG/ML VIAL SLOW IVP PRN (20:16)
[2020-03-02] MEDS ORDERED: Ondansetron HCl/PF 4 MG/2 ML Vial IVP PRN (20:16)
[2020-03-02] MEDS ORDERED: Promethazine HCl 25 MG/ML VIAL IM PRN (20:16)
[2020-03-02] MEDS ORDERED: Famotidine 20 MG TAB PO SCH (21:00)
[2020-03-02] MEDS: traMADol HCl 50 MG TAB PO PRN (21:07)
[2020-03-02] MEDS: Senokot S 8.6-50 MG TAB PO SCH (21:07)
[2020-03-03] MEDS: CEFAZOLIN 2 GM in Premix Bag 1 BAG IVPB SCH ×3 (00:44→17:48)
[2020-03-03] MEDS: Acetaminophen 500 MG TAB PO SCH ×2 (00:44→06:16)
[2020-03-03 07:05] LABS: Anion Gap 15 mmol/L (10-20); BUN (Urea Nitrogen) 38 mg/dL (8.4-25.7); Calc. Creatinine Clearance 13 mL/min (70-130); Calcium 8.2 mg/dL (7.8-10.44); Carbon Dioxide 30 mmol/L (23-31); Chloride 97 mmol/L (98-107); Estimated GFR-MDRD 12; Glucose 99 mg/dL (83-110); Magnesium 1.8 mg/dL (1.6-2.6); Potassium 4.3 mmol/L (3.5-5.1); Sodium 138 mmol/L (136-145)
[2020-03-03 07:06] LABS: Phosphorus 6.1 mg/dL (2.3-4.7)
--- NOTE | 2020-03-03 07:07 | HP ---
CONSULTING PHYSICIAN: Dr. Eladio Francois HISTORY OF PRESENT ILLNESS: Mr. Alban Oshea is a 74-year-old male with a past medical history of diabetes, ESRD on HD and hypertension. He was transferred from the [facility] after a fall. The patient is currently residing in a SNF at [place], [place], where he fell today while transferring from his wheelchair to his bed. The patient has recently been admitted to the hospital on 01/03/2020 to 01/06/2020 for right hip hemiarthroplasty for a femoral neck fracture. The patient had multiple falls after this discharge and was readmitted on 01/23/2020 to 01/26/2020 for dislocation of the right hip. The patient has complained of right hip pain since his fall today. He has received Ativan 2 mg, Versed 4 mg, and fentanyl 100 mcg in the ED. He is confused when speaking and is a poor historian, limiting ability to determine complete ROS and further history. Edema and repaired laceration above the right eyebrow are present. The patient is unable to report how this occurred or when it was sutured. ALLERGIES: NONE. CHRONIC MEDICAL ILLNESSES: End-stage renal disease, on hemodialysis Saturday, Saturday, and Saturday. His summer sessions director is Dr. Sierra. Hypertension, uncontrolled diabetes, anxiety, GERD, peripheral neuropathy, chronic hyponatremia. Per previous documentation, the patient's primary care physician is in [place], name is unknown at this time. HOME MEDICATIONS: Include, 1. Gabapentin 100 mg t.i.d. 2. Metoprolol 50 mg b.i.d. 3. Pantoprazole 40 mg daily. 4. Sertraline 50 mg daily. 5. Glipizide 10 mg p.o. daily. 6. Tizanidine 4 mg t.i.d. p.r.n. 7. Nifedipine 60 mg daily. 8. Atorvastatin 40 mg daily. 9. Tram-Bushra 0.8 mg daily. SURGICAL HISTORY: Back surgery, dialysis access, right hip open reduction and internal fixation on 01/03/2020. SOCIAL HISTORY: Lives in SNF in [place], [place] prior to most recent admission. The patient previously ambulated with a cane or walker. He is a former smoker with a past medical history of alcohol and illicit drug use, but denies using either of these at this time. PHYSICAL EXAMINATION: VITAL SIGNS: At evaluation the patient is afebrile. Temperature of 97.6 degrees Fahrenheit, blood pressure 172/91, heart rate was 91, respiratory rate was 18, oxygen saturation was 98% on room air. GENERAL: Elderly appearing male, in no acute distress. Confused, but awake. HEENT: Head is normocephalic. Laceration repaired with sutures present above the right eyebrow. Wound appears clean. Periorbital edema. Pupils are equal, round, and reactive to light. NECK: Supple. Trachea is midline. CHEST: Nontender to palpation. Normal work of breathing. Symmetrical rise. LUNGS: Clear to auscultation bilaterally. CARDIOVASCULAR: Regular rate and rhythm. Chronic 2/6 systolic murmur present. ABDOMEN: Soft, nontender, nondistended. Bowel sounds present. MUSCULOSKELETAL: Tenderness to palpation over the right hip. Well-healed surgical wound to the right hip. Obvious deformity to the right hip with shortening of the right leg. Tender to palpitations. Left upper extremity dialysis fistula is present. NEUROLOGIC: GCS is 14 with mild confusion. LABORATORY FINDINGS: CBC is notable for a white blood cell count of 8.1, hemoglobin 9.9, hematocrit 33.0, MCV 75.8, platelet count 393. CMP is notable for sodium of 138, potassium 3.9, creatinine 5.15, calcium 9.2, phosphorus 5.2, magnesium 1.9, alkaline phosphatase 158, albumin 3.2. COVID negative. RADIOGRAPHIC FINDINGS: Chest x-ray shows chronic mild elevation of the left hemidiaphragm. Severe right and moderate left glenohumeral degenerative change which are chronic. No acute intrathoracic abnormality present. X-ray of the right hip shows a right hip dislocation. ASSESSMENT: 1. Status post mechanical fall. 2. Right femoral prosthetic hip dislocation. 3. End-stage renal disease, on hemodialysis Saturday, Saturday, and Saturday. 4. Insulin-dependent diabetes, uncontrolled. 5. Chronic hyponatremia. 6. History of hypertension. 7. Gastroesophageal reflux disease. 8. Chronic anemia secondary to above, stable. 9. History of anxiety. 10. Peripheral neuropathy. 11. Acute traumatic pain. PLAN: Plan is to admit to Trauma Service. Orthopedic surgery has evaluated the patient in the ED. Per report, they plan to remove hardware for Girdlestone. The patient is currently n.p.o. The patient will be started on moderate sliding scale insulin, pain control via p.o. and IV analgesics. Postoperative PT and OT. Incentive spirometer will be encouraged while awake. CT of the head will be obtained due to confusion in the setting of an acute injury to the head. Dr. Juan saw and examined the patient. Plan for admission was discussed with the patient and all questions were answered. Job ID: [id number] MTDD
[2020-03-03 07:22] LABS: Hemoglobin 7.9 g/dL (14.0-18.0); Mean Corpuscular Hemoglobin 22.5 pg (27.0-31.0); Mean Platelet Volume 8.1 fL (7.4-10.4); Platelet Count 406 thou/uL (130-400); Red Blood Cell (RBC) Count 3.53 mill/uL (4.70-6.10)
--- NOTE | 2020-03-03 08:42 | OP ---
DATE OF PROCEDURE: 03/02/2020 PREOPERATIVE DIAGNOSIS: Recurrent dislocation right hip hemiarthroplasty with multiple medical comorbidities. POSTOPERATIVE DIAGNOSIS: Recurrent dislocation right hip hemiarthroplasty with multiple medical comorbidities. PROCEDURES PERFORMED: 1. Removal of right hip hemiarthroplasty. 2. Conversion to Girdlestone arthroplasty. ANESTHESIA: General. ESTIMATED BLOOD LOSS: 250 mL. IMPLANTS: None. DRAINS: None. COMPLICATIONS: None. SPECIMEN: Explanted right hip hemiarthroplasty discarded and swab for Gram stain, culture, and sensitivity. OUTCOME: Satisfactory. INDICATIONS: Mr. Oshea is a 74-year-old gentleman with multiple medical comorbidities including dementia, who has now dislocated his right hip twice over the last two months since his initial surgery for a displaced femoral neck fracture. The patient was found to have a very unstable right hip hemiarthroplasty. Prior to fracture, he was an ambulator, essentially with a wheelchair. He would walk behind his wheelchair occasionally, but also used a wheelchair for significant mobility. At this time, given his overall health, strength, as well as ability to follow request regarding positional issues, we feel it is best to proceed with a revision and removal of the hemiarthroplasty to essentially give him a Girdlestone procedure on this right hip. Informed consent has been obtained. We have discussed this issue with both the patient as well as his by phone. Informed consent has been obtained. DESCRIPTION OF PROCEDURE: The patient was brought to the operating room and a time-out performed, followed by induction of general anesthesia. Of note, the patient had a regional anesthetic placed prior to entering the operating room. Following the general anesthesia, the patient was positioned in a left lateral decubitus position and then a sterile prep and drape was performed of the right lower extremity. His incision was found to be well healed, but with an obvious posterior dislocation of the hip. Next, after the sterile prep and drape of the right lower extremity using the prior skin incision as a guide, the skin was sharply incised and then taken down through the subcutaneous fat to the level of the fascia john. This was incised in line with the skin incision and reflected anteriorly and posteriorly. At this point, the repair of the short external rotators had been found to fail and he did have a posterior hip dislocation. There was serosanguineous fluid around the hip. This was swabbed and sent to the lab for Gram stain, culture, and sensitivity. Next, the bipolar head was removed without difficulty and then the stem grasped with the stem removal tool and the stem removed also without difficulty. No fractures of the proximal femur were encountered during the course of this procedure. The hematoma and some debris were removed from the acetabular cup and then the hip was irrigated with 3 L of normal saline with antibiotic irrigant added. Next, closure was performed. The hip was placed such that the lesser trochanter in the calcar region was centralized within the acetabulum and then, the fascia john and tensor fascia was reapproximated getting a nice tight closure. This was followed by 0 Vicryl for the fatty layer with Primitivo's fascia, 2-0 Vicryl subcutaneously and arelis for the skin. Xeroform gauze and tape dressing was then applied to the hip. The patient was then transferred to recovery room in stable condition. There were no complications. He tolerated the procedure well. Job ID: [id number]
--- NOTE | 2020-03-03 09:31 | CON ---
DATE OF CONSULTATION: CONSULTING PHYSICIAN: Rigo Nunez MD REQUESTING PHYSICIAN: Trauma Service, Dr. Francois. REASON FOR CONSULTATION: Need for maintenance dialysis. IMPRESSION: 1. End-stage renal disease, on hemodialysis on Saturday, Saturday, and Saturday schedule. 2. Dislocated right hip, recurrent. PLAN: 1. Going by patient's chemistry, there is no emergency indication to dialyze this patient today, therefore we will hold off on dialyzing this patient today and allow the patient to undergo surgical fixation of dislocated hip, plan on dialyzing this patient tomorrow. 2. Discontinue current IV fluids. HISTORY: A 74-year-old gentleman with end-stage renal disease, hemodialysis dependent, Saturday, Saturday, and Saturday, who is here status post fall resulting in second episode of right hemiarthroplasty dislocation. The need for maintenance dialysis necessitated the renal consultation. PAST MEDICAL HISTORY: Significant for end-stage renal disease, hypertension, dyslipidemia, anxiety, and reflux disease. ALLERGIES: NO KNOWN DRUG ALLERGIES. SOCIAL HISTORY: Lives in the residential. No alcohol. No tobacco. No history of drug use. REVIEW OF SYSTEMS: Could not be obtained from this patient as he is very somnolent. PHYSICAL EXAMINATION: GENERAL: The patient was found to be very somnolent, but arousable. Noted with the following vital signs. VITAL SIGNS: Afebrile, temperature 97.6, pulse 91, respiratory rate of 18, and O2 saturation of 98% with blood pressure 170/91. HEENT: Unremarkable. CARDIOVASCULAR SYSTEM: First and second heart sounds were heard. RESPIRATORY SYSTEM: Clear to auscultation. DIGESTIVE SYSTEM: Revealed a benign abdomen with positive bowel sounds. EXTREMITIES: No peripheral edema. SKIN: No new gross rash. LYMPHATICS: No peripheral lymphadenopathy. SUMMARY: A 74-year-old gentleman with end-stage renal disease, on hemodialysis who presented here status post repeated right hemiarthroplasty dislocation. Job ID: [id number]
--- NOTE | 2020-03-03 10:22 | CT ---
CT BRAIN WITHOUT CONTRAST: Date: 03/03/2020 HISTORY: Fall. COMPARISON: 01/03/2020. FINDINGS: Changes of cortical atrophy and chronic small vessel ischemic disease are again seen. No evidence of acute infarct, hemorrhage, midline shift, or abnormal extra-axial fluid collections are noted. The ve ntricular size is stable and the basilar cisterns are patent. The bony calvarium is intact. The visua lized paranasal sinuses and mastoid air cells are well aerated. There is soft tissue swelling in the right periorbital region. IMPRESSION: No CT evidence of acute intracranial process. POS: OFF
[2020-03-03] MEDS: Cyclobenzaprine 10 MG TAB PO PRN ×2 (10:44→20:09)
[2020-03-03] MEDS: Senokot S 8.6-50 MG TAB PO SCH ×2 (10:45→20:09)
[2020-03-03] MEDS: Acetaminophen/Codeine 30-300mg Tablet PO SCH ×3 (10:49→22:00)
[2020-03-03] MEDS ORDERED: FLU VACC QS2020-21(65YR UP)/PF 240 MCG/0.7 ML SYRINGE IM ONE (15:30)
--- NOTE | 2020-03-03 19:09 | PRG ---
DATE OF SERVICE: 03/03/2020 OBJECTIVE: VITAL SIGNS: The patient noted with the following vital signs. Afebrile, temperature 97.8, pulse 97, respiratory rate 16, O2 saturations 100% with a blood pressure 150/74. HEENT: Unremarkable. CARDIOVASCULAR SYSTEM: First and second heart sounds were heard. RESPIRATORY SYSTEM: Clear to auscultation. DIGESTIVE SYSTEM: Revealed a benign abdomen. EXTREMITIES: No peripheral edema. SKIN: No new gross rash. LYMPHATICS: No peripheral lymphadenopathy. LABORATORY INVESTIGATION: Showed a hemoglobin of 7.9. Chemistry showed a creatinine of 5.57, BUN of 38, phosphorus of 6.1. IMPRESSION: 1. End-stage renal disease. 2. Recurrent right hemiarthroplasty dislocation. 3. Anemia of chronic kidney disease and of blood loss possibly. PLAN: 1. The patient to be dialyzed today as the patient did not dialyze yesterday. 2. Further management to be dependent on the clinical course. Job ID: [id number]
[2020-03-04] MEDS: Acetaminophen/Codeine 30-300mg Tablet PO SCH ×4 (05:57→22:02)
--- NOTE | 2020-03-04 07:02 | PRG ---
DATE OF SERVICE: 03/03/2020 SUBJECTIVE: The patient is a 74-year-old male who was admitted to the hospital for right femoral prosthetic hip dislocation, status post mechanical fall on 03/02. The patient is scheduled to undergo Girdlestone arthroplasty by Dr. Francois later today. The patient reports continued pain that was not adequately controlled with current pain regimen. He has not yet worked with physical or occupational therapy. OBJECTIVE: VITAL SIGNS: Temperature is 98.8 degrees Fahrenheit, blood pressure is 126/63, heart rate is 104, respiratory rate is 16, and oxygen saturation is 99% on room air. GENERAL: Elderly-appearing male, in no acute distress. HEENT: Laceration repaired present above the right eyebrow with periorbital edema, improved compared to yesterday. Pupils are equal, round, and reactive to light. CHEST: Nontender. LUNGS: Clear to auscultation bilaterally. CARDIOVASCULAR: Regular rate and rhythm. Chronic 2/6 systolic murmur present. ABDOMEN: Soft, nontender, nondistended. MUSCULOSKELETAL: Well-healed surgical wound to right hip. Obvious deformity to the right hip with shortening of the right leg. Tender to palpation. Left upper extremity dialysis fistula is present. NEUROLOGIC: GCS is 15. LABORATORY FINDINGS: CBC is notable for white blood cell count of 8, hemoglobin of 7.9, hematocrit of 26.5, and platelet count of 406. Chemistry is notable for sodium 138, potassium 4.3, creatinine 5.57 status post recent dialysis, calcium 8.2, phosphorus 6.1, magnesium is 1.8. RADIOGRAPHIC DATA: CT head was negative for any acute intracranial process. ASSESSMENT AND PLAN: 1. Status post mechanical fall. 2. Right femoral prosthetic hip dislocation, status post conversion to Girdlestone arthroplasty, postop day 0. 3. End-stage renal disease, on hemodialysis Saturday, Saturday, and Saturday. 4. Insulin-dependent diabetes, uncontrolled. 5. Chronic hyponatremia. 6. History of hypertension. 7. Gastroesophageal reflux disease. 8. Chronic anemia secondary to above, stable. 9. History of anxiety. 10. Peripheral neuropathy. 11. Acute traumatic pain. PLAN: To follow up with Orthopedic Surgery recommendations. The patient will undergo conversion to Girdlestone arthroplasty this morning. Postoperative PT and OT. We will add Tylenol 3 q.6 hours scheduled to pain regimen to adequately control pain. Incentive spirometer will be encouraged while awake. Dr. uJan saw and examined the patient during morning rounds. Plan of care was discussed with the patient who is in agreement. Job ID: [id number] MTDD
[2020-03-04] MEDS ORDERED: Aspirin 81 mg Enteric Coated Tablet PO SCH (09:00)
[2020-03-04] MEDS: Heparin 5,000 UNITS/ML VIAL SC SCH ×2 (10:20→21:42)
[2020-03-04] MEDS: Senokot S 8.6-50 MG TAB PO SCH ×2 (10:24→21:43)
--- NOTE | 2020-03-04 12:57 | PRG ---
DATE OF SERVICE: 03/04/2020 The patient was seen and discussed with Dr. Daryl Juan. SUBJECTIVE: Mr. Oshea is post injury day #2, postop day #1, status post right hip dislocation and conversion to Girdlestone arthroplasty by Dr. Francois. No acute events overnight. Remains hemodynamically stable. OBJECTIVE: VITAL SIGNS: Temperature is 99.5, blood pressure is 142/73, heart rate is 100, breathing 20 times per minute, saturating 99% on room air. GENERAL: A 74-year-old male, sitting up in bed, is asking for hard candy. HEENT: Periorbital ecchymosis about the right eye. He has a primary repair of laceration about the right eyebrow. Trachea is midline RESPIRATORY: Equal rise and fall. Bilateral breath sounds clear. CARDIOVASCULAR: Slightly tachycardic. Rhythm regular. ABDOMEN: Soft and nontender. MUSCULOSKELETAL: Right hip does have dressing in place. It is dry. Warm distal extremities. Moves his extremities well. NEUROLOGIC: Pleasantly confused at times, impulsive. PSYCH: Impulsive. LABORATORY DATA: None to review today aside from a glucose of 107. ASSESSMENT: 1. Status post mechanical fall. 2. Right femoral prosthetic hip dislocates, status post conversion to Girdlestone arthroplasty, postop day #1. 3. End-stage renal disease, on hemodialysis. 4. Diabetes, controlled at this time. 5. Chronic hyponatremia. 6. History of hypertension. 7. History of anemia, gastroesophageal reflux disease, anxiety, peripheral neuropathy. 8. Acute traumatic pain. PLAN: 1. Discussed with Case Management. He can go back to senior living facility today. 2. Start heparin 5000 units b.i.d. for DVT prophylaxis. We will continue this nursing facility. 3. Continue all other supportive care. 4. Continue working with PT, OT, and follow Orthopedics' recommendations. Discussed with the bedside RN and Case Management. Job ID: [id number]
[2020-03-04] MEDS: traMADol HCl 50 MG TAB PO PRN (15:01)
--- NOTE | 2020-03-04 16:24 | PRG ---
DATE OF SERVICE: 03/04/2020 OBJECTIVE: VITAL SIGNS: The patient is noted with the following vital signs; afebrile, temperature 99.5, pulse 100, respiratory rate of 20, O2 saturation of 99%, blood pressure 142/73. HEENT: Unremarkable. CARDIOVASCULAR: First and second heart sounds were heard. RESPIRATORY: Clear to auscultation. DIGESTIVE: Revealed a benign abdomen. EXTREMITIES: No peripheral edema. SKIN: No new gross rash. LYMPHATICS: No peripheral lymphadenopathy. IMPRESSION: End-stage renal disease, on hemodialysis, Saturday, Saturday, Saturday. Unfortunately, the patient was not given any dialysis yesterday as opposed to how I ordered the patient to get dialysis. PLAN: The patient must be dialyzed today. Therefore, we will arrange for the patient to get dialysis today. Job ID: [id number]
[2020-03-04] MEDS: Cyclobenzaprine 10 MG TAB PO PRN (21:42)
[2020-03-05] MEDS: Acetaminophen/Codeine 30-300mg Tablet PO SCH ×3 (05:12→17:17)
[2020-03-05] MEDS ORDERED: cloNIDine 0.1 MG TAB PO PRN (08:03)
[2020-03-05] MEDS ORDERED: traMADol HCl 50 MG TAB PO PRN (08:03)
[2020-03-05] MEDS ORDERED: Acetaminophen 500 MG TAB PO PRN (08:03)
[2020-03-05] MEDS: Polyethylene Glycol 3350 17 GM Packet PO SCH (09:13)
[2020-03-05] MEDS: Ascorbic Acid 500 mg Chewable Tablet PO SCH ×2 (09:14→21:07)
[2020-03-05] MEDS: Gabapentin 100 MG CAP PO SCH ×3 (09:14→21:06)
[2020-03-05] MEDS: Folic Acid 1 MG TAB PO SCH (09:14)
[2020-03-05] MEDS: Amlodipine 5 MG TAB PO SCH (09:14)
[2020-03-05] MEDS: Heparin 5,000 UNITS/ML VIAL SC SCH ×2 (09:15→21:06)
[2020-03-05] MEDS: NIFEdipine XL 60 MG TAB PO SCH (09:15)
[2020-03-05] MEDS: Metoprolol Tartrate 50 MG TAB PO SCH ×2 (09:15→21:06)
[2020-03-05] MEDS: Aspirin 81 mg Enteric Coated Tablet PO SCH (09:15)
[2020-03-05] MEDS: Cyanocobalamin (Vitamin B-12) 1,000 MCG TAB PO SCH (09:19)
[2020-03-05] MEDS: traMADol HCl 50 MG TAB PO SCH ×2 (09:19→21:08)
[2020-03-05] MEDS: Senokot S 8.6-50 MG TAB PO SCH ×2 (09:20→21:07)
--- NOTE | 2020-03-05 12:32 | PRG ---
DATE OF SERVICE: 03/05/2020 SUBJECTIVE: Mr. Oshea is status post right hip dislocation, conversion to a Girdlestone arthroplasty by Dr. Francois. No events overnight. He remains hemodynamically stable. The patient is impulsive at times, needs lots of attention by the nursing staff, but otherwise has remained stable. His pain is controlled. He received dialysis yesterday per Dr. Sierra. No other events overnight. OBJECTIVE: VITAL SIGNS: Temperature is 98.0, blood pressure is 165/78, heart rate is 98, respiratory rate is 18, and saturating 98% on room air. GENERAL: A 74-year-old male, sitting up, in no acute distress. HEENT: Normocephalic and atraumatic. RESPIRATORY: Equal rise and fall. No respiratory distress. CARDIOVASCULAR: Strong pulses. Regular rhythm. ABDOMEN: Soft. EXTREMITIES: Gross tone to the right with a dressing in place. Slight deformity noted about the right hip. He does have a fistula in place in the upper extremities, good thrill. Side edema noted to the right lower extremity. MUSCULOSKELETAL: He is able to move his extremities. NEUROLOGIC: He is confused at times, impulsive. LABORATORY DATA: Today only shows a glucose of 100. ASSESSMENT: 1. Status post mechanical fall. 2. Right femoral prosthetic hip dislocation status post conversion to Girdlestone arthroplasty, postoperative day . 3. End-stage renal disease, on hemodialysis. 4. Diabetes, controlled. 5. History of hypertension. 6. Hyponatremia. 7. Anemia. 8. Gastroesophageal reflux. 9. Anxiety. 10. Peripheral neuropathy. 11. Acute traumatic pain, that has improved. PLAN: Awaiting approval from detention facility. I discussed yesterday with Case Management. They are awaiting also [place] [facility] Management today and have not heard back anything from our standpoint. The patient is able to go. We will continue all other supportive care while he is here inpatient including DVT prophylaxis with heparin. Dialysis as needed per Nephrology. PT/OT. Discussed with bedside RN. Job ID: [id number]
[2020-03-05] MEDS: Atorvastatin Calcium 40 MG TAB PO SCH (21:06)
[2020-03-05] MEDS: Tamsulosin HCl 0.4 MG CAP PO SCH (21:07)
[2020-03-05] MEDS: Cyclobenzaprine 10 MG TAB PO PRN (21:07)
[2020-03-06] MEDS: Acetaminophen/Codeine 30-300mg Tablet PO SCH ×5 (02:42→23:28)
[2020-03-06] MEDS: traMADol HCl 50 MG TAB PO SCH ×3 (08:29→20:03)
[2020-03-06] MEDS: Amlodipine 5 MG TAB PO SCH (08:30)
[2020-03-06] MEDS: NIFEdipine XL 60 MG TAB PO SCH (08:30)
[2020-03-06] MEDS: Metoprolol Tartrate 50 MG TAB PO SCH ×2 (08:30→20:03)
[2020-03-06] MEDS: Gabapentin 100 MG CAP PO SCH ×3 (08:32→20:01)
[2020-03-06] MEDS: Aspirin 81 mg Enteric Coated Tablet PO SCH (08:33)
[2020-03-06] MEDS: Senokot S 8.6-50 MG TAB PO SCH ×2 (08:33→20:01)
[2020-03-06] MEDS: Folic Acid 1 MG TAB PO SCH (08:34)
[2020-03-06] MEDS: Ascorbic Acid 500 mg Chewable Tablet PO SCH ×2 (08:34→20:01)
[2020-03-06] MEDS: Cyanocobalamin (Vitamin B-12) 1,000 MCG TAB PO SCH (08:34)
[2020-03-06] MEDS: Polyethylene Glycol 3350 17 GM Packet PO SCH (08:37)
[2020-03-06] MEDS: Heparin 5,000 UNITS/ML VIAL SC SCH ×2 (08:37→20:06)
--- NOTE | 2020-03-06 17:20 | PRG ---
DATE OF SERVICE: 03/06/2020 SUBJECTIVE: Mr. Oshea is hospital day #4, status post right prosthetic hip dislocation converted to Girdlestone arthroplasty by Dr. Francois. No events overnight. Remains hemodynamically stable. He is tolerating diet and eating at this time. Dialysis per Dr. Sierra. OBJECTIVE DATA: VITAL SIGNS: Temperature is 98.5, blood pressure is 108/57, heart rate is 82, breathing 18 times per minute, 99% on room air. GENERAL: A 74-year-old male, sitting up, no acute distress. RESPIRATORY: Equal rise and fall. No respiratory distress. CARDIOVASCULAR: Strong pulses. ABDOMEN: Soft. MUSCULOSKELETAL: Has the deformity and dry dressing noted to the right hip. Noticed little swelling of bilateral knees and some decrease in the strength of his legs. Per the patient, they are symmetric. SKIN: Warm and dry. PSYCH: Normal mood and affect. NEURO: Alert and oriented to person, place, time, and event. GCS is 15. DIAGNOSTIC CRITERIA: None to review aside from a glucose of 162. ASSESSMENT: 1. Status post mechanical fall. 2. Right femoral prosthetic hip dislocation status post conversion to Girdlestone arthroplasty, postoperative day #4. 3. End-stage renal disease, on hemodialysis. 4. Diabetes, controlled. 5. History of hypertension, hyponatremia, anemia, gastroesophageal reflux disease. 6. Anxiety, and peripheral neuropathy. 7. Acute traumatic pain that is controlled. PLAN: 1. Still awaiting approval from the nursing facility for discharge. Continue all supportive care. 2. Continue to work with PT/OT. We will discuss with Case Management again in the morning today. Job ID: [id number]
[2020-03-06] MEDS: Tamsulosin HCl 0.4 MG CAP PO SCH (20:03)
[2020-03-06] MEDS: Atorvastatin Calcium 40 MG TAB PO SCH (20:04)
[2020-03-07] MEDS: Acetaminophen/Codeine 30-300mg Tablet PO SCH ×2 (05:41→11:03)
[2020-03-07] MEDS: Gabapentin 100 MG CAP PO SCH ×3 (08:36→16:37)
[2020-03-07] MEDS: Ascorbic Acid 500 mg Chewable Tablet PO SCH ×2 (08:36→09:43)
[2020-03-07] MEDS: Polyethylene Glycol 3350 17 GM Packet PO SCH ×2 (08:37→09:43)
[2020-03-07] MEDS: traMADol HCl 50 MG TAB PO SCH ×2 (08:37→09:44)
[2020-03-07] MEDS: Heparin 5,000 UNITS/ML VIAL SC SCH ×2 (08:37→09:45)
[2020-03-07] MEDS: Metoprolol Tartrate 50 MG TAB PO SCH ×2 (08:37→09:44)
[2020-03-07] MEDS ORDERED: Bisacodyl 10 MG SUPP PR SCH (09:00)
[2020-03-07] MEDS: Folic Acid 1 MG TAB PO SCH (09:42)
[2020-03-07] MEDS: Cyanocobalamin (Vitamin B-12) 1,000 MCG TAB PO SCH (09:43)
[2020-03-07] MEDS: Senokot S 8.6-50 MG TAB PO SCH (09:43)
[2020-03-07] MEDS: Aspirin 81 mg Enteric Coated Tablet PO SCH (09:43)
[2020-03-07] MEDS: NIFEdipine XL 60 MG TAB PO SCH (09:44)
[2020-03-07] MEDS: Amlodipine 5 MG TAB PO SCH (09:44)
[2020-03-07 12:03] VITALS: TEMP 97.3
--- NOTE | 2020-03-07 15:36 | PRG ---
DATE OF SERVICE: 03/07/2020 OBJECTIVE: VITAL SIGNS: The patient noted with the following vital signs; afebrile, temperature 97.3, pulse 72, respiratory rate of 16, O2 saturations are 97% with a blood pressure 131/68. HEENT: Unremarkable. CARDIOVASCULAR SYSTEM: First and second heart sounds were heard. RESPIRATORY SYSTEM: Clear to auscultation. DIGESTIVE SYSTEM: Revealed a benign abdomen. EXTREMITIES: No peripheral edema. SKIN: No new gross rash. LYMPHATICS: No peripheral lymphadenopathy. IMPRESSION: 1. End-stage renal disease, hemodialysis dependent. 2. Anemia. 3. Recurrent right hip dislocation. PLAN: 1. The patient to be dialyzed today in accordance with his schedule dialysis on Saturday, Saturday, Saturday. 2. Further management to be dependent on the clinical course. Job ID: [id number]
[2020-03-07 16:38] VITALS: BP 150/67
== END 2020-03-07 16:43 | DRG 463 ==
LOC: ERS 00:44 → INTOOBSV 02:03 → ERHOLD 02:03 → SURG A 11:06 → OBSVTOIN 11:35
PROVIDERS: ADMIT Surgery; ATTEND Surgery
PROC: 0SPR0JZ Removal of Synthetic Substitute from Right Hip Joint, Femoral Surface, Open Approach (ICD-10-PCS; principal; 2020-03-02)
PROC: 5A1D70Z Performance of Urinary Filtration, Intermittent, Less than 6 Hours Per Day (ICD-10-PCS; 2020-03-03)
PROC: 3E0234Z Introduction of Serum, Toxoid and Vaccine into Muscle, Percutaneous Approach (ICD-10-PCS; 2020-03-03)
PROC: 3E02340 Introduction of Influenza Vaccine into Muscle, Percutaneous Approach (ICD-10-PCS; 2020-03-03)
DX: T84.020A Dislocation of internal right hip prosthesis, initial encounter (principal); N18.6 End stage renal disease; I12.0 Hypertensive chronic kidney disease with stage 5 chronic kidney disease or end stage renal disease; E87.1 Hypo-osmolality and hyponatremia; Y83.1 Surgical operation with implant of artificial internal device as the cause of abnormal reaction of the patient, or of later complication, without mention of misadventure at the time of the procedure; Z20.828 Contact with and (suspected) exposure to other viral communicable diseases; E11.22 Type 2 diabetes mellitus with diabetic chronic kidney disease; F41.9 Anxiety disorder, unspecified; K21.9 Gastro-esophageal reflux disease without esophagitis; E11.42 Type 2 diabetes mellitus with diabetic polyneuropathy; F03.90 Unspecified dementia, unspecified severity, without behavioral disturbance, psychotic disturbance, mood disturbance, and anxiety; E11.65 Type 2 diabetes mellitus with hyperglycemia; D63.1 Anemia in chronic kidney disease; Z79.899 Other long term (current) drug therapy; Z79.82 Long term (current) use of aspirin; Z79.4 Long term (current) use of insulin; Z23 Encounter for immunization
CPT/HCPCS: 36415; 36416; 70450; 71045; 80048; 80053; 83735; 84100; 85025; 85027; 87070; 87205; G0378; J0690; J1644; J2001; J2060; J2250; J2370; J2405; J2704; J3010; J3490; U0002